=== PATIENT | female | born 1985 | race African-American/Black ===

== ENCOUNTER 2024-07-12 13:10 | Outpatient (CLI) | payer OTHER, SELFPAY ==
--- NOTE | ~2024-07-12 | US_ITS ---
EXAMINATION: US pelvic complete w TV DATE: 07/12/2024 13:41 INDICATION: Excessive and frequent menstruation. TECHNIQUE: Multiple transabdominal and transvaginal sonographic images of the pelvis were obtained. COMPARISON: None. FINDINGS: TRANSABDOMINAL ULTRASOUND: The uterus measures 9.2 x 4.0 x 4.6 cm. There is no free fluid in the pelvis. TRANSVAGINAL ULTRASOUND: The endometrial complex measures 6 mm in thickness. There is an intrauterine device in expected posit ion. There is a 12 mm intramural fibroid. The right ovary measures 3.2 x 1.6 x 2.2 cm. The left ovary measures 3.4 x 1.7 x 2.8 cm. IMPRESSION: 1. Small uterine fibroid. 2. Intrauterine device in expected position. Reviewed, dictated and finalized at location A.
== END 2024-07-12 13:11 ==
LOC: MICIMG 13:13
PROVIDERS: Visit Provider Obstetrics & Gynecology
DX: D25.1 Intramural leiomyoma of uterus (principal); Z97.5 Presence of (intrauterine) contraceptive device
CPT/HCPCS: 76830; 76856

== ENCOUNTER 2024-07-23 00:13 | Day surgery (SDC) | payer OTHER, SELFPAY ==
[2024-07-20 09:41] VITALS: BMI 34.5
--- NOTE | 2024-07-20 10:15 | PC.NURSE ---
Report to the Outpatient Waiting Room, entrance under the green pavilion located off [facility], at time _0615AM on date _07/23/24 . Planned Procedure Time: __0815AM . Time changes happen often and if your time is changed the preop area will call you the afternoon before. - You and your visitor will be asked to self-screen and do not enter if you have any COVID symptoms. - A mask is optional within the hospital at this time. Patients may have clear liquids (water, carbonated beverages, clear teas, apple juice) until 3 hours prior to surgery with a maximum of 20 ounces. - No food from midnight until time of surgery Take the following medications with a SIP of water the morning of surgery: ____ESCITALOPRAM_; MIGRAINE MEDS NEEDED DO NOT STOP ANY OF YOUR OTHER PRESCRIPTION MEDICATIONS PRIOR TO SURGERY ?EXCEPT THE FOLLOWING Medications to discontinue per physician MULTIVITAMINS AND SUPPLEMENTS 07/20/24; WEGOVY LAST DOSE__07/15/24 Date to take last dose Please no make-up, nail greek, hairspray, perfume, deodorant, or body powder the day of surgery. No jewelry (including any body piercings) or valuables the day of surgery, leave them at home. Please take a shower or bath the night before, or the morning of, surgery with an antibacterial soap. Wear comfortable, loose fitting clothing. - Jewelry must be removed prior to entering the operating room. Rings and piercings that are not removed may be cut off. - The hospital will not accept responsibility for valuables. - Please leave all valuables, including medications, at home the day of surgery. If you are going home after surgery, a licensed motor bus driver must drive you home. - NO public transportation without another adult if you receive anesthesia. - We recommend that an adult stay with you for 24 hours following discharge. - We also recommend that you do not drive, make important decision, drink alcoholic beverages, or take any drugs that were not prescribed by your health care provider for at least 24 hours after your discharge time. Follow any additional instructions given to you from your surgeon If you or anyone in your household have experienced Covid symptoms in the past week, please notify your surgeon or the nurse liaison at the phone number below for possible testing. Telephone instructions given to __SHAQUILLE and asked if any additional questions and then verbalized understanding. Patient advised to call surgeon office or pre surgery nurse liaison [phone] if any additional questions.
[2024-07-23] VITALS (7 sets, daily range): BP systolic 82–127; BP diastolic 56–87; PULSE 77–87; RESP 16–21; TEMP 36.6–37.3; O2SAT 98–100; BMI 34.4
[2024-07-23] MEDS: LACTATED RINGERS 1,000 ML 30 ML IV CONT ×2 (07:30→10:11)
[2024-07-23] MEDS: KETOROLAC 15 MG/ML VIAL (*BKC) IV PUSH (07:45)
[2024-07-23] MEDS: ACETAMINOPHEN 500 MG TABLET 1000 MG PO (07:45)
--- NOTE | 2024-07-23 07:52 | WPDANESEPPF ---
Anes - Initial Pre Proc Eval Procedure: Operation Date: 07/23/24 08:15 Proposed Procedures p Laparoscopic Bilateral Salpingectomy, Jenifer Endometrial Ablation - Josh Peralta MD Date/Time: 07/23/24 07:52 Surgeon: Josh Peralta MD Pre Op Diagnosis: sterilization, Menorrhagia Patient Data Age: 39 Gender: F Height: 1.73 m Weight: 103 kg Allergies Allergy/AdvReac Type Severity Reaction Status Date / Time apple Allergy Unknown Unknown Verified 07/20/24 10:14 APPLES Allergy Intermediate ITCHING,SWELLING Uncoded 07/20/24 10:14 OF TONGUE Home Medications Medication Instructions Recorded Confirmed Type multivitamin (Daily Multi-Vitamin 1 tablet PO DAILY 03/09/20 07/20/24 History tablet) escitalopram oxalate 20 mg tablet 20 mg PO DAILY 11/06/20 07/20/24 History (Lexapro) levonorgestrel 17.5 mcg/24 hr (up 1 device intrauterine ONCE 11/07/22 07/20/24 History to 5 yrs) 19.5mg intrauterine device (Kyleena) tirzepatide 5 mg/0.5 mL 10 mg subcut WEEKLY 05/13/23 07/20/24 History subcutaneous pen injector (Mounjaro) hydroxyzine HCl 10 mg tablet 10 mg PO BID PRN Anxiety 12/02/23 07/20/24 History magnesium 250 mg tablet 250 mg PO DAILY 07/08/24 07/20/24 History rimegepant 75 mg disintegrating 75 mg PO ONCE PRN Migraine Headache 07/08/24 07/20/24 History tablet (Nurtec ODT) doxycycline hyclate 100 mg tablet 100 mg PO BID #14 tabs 07/19/24 07/20/24 Rx riboflavin (vitamin B2) 400 mg 400 mg PO DAILY 07/20/24 07/20/24 History tablet topiramate 100 mg tablet 100 mg PO BID 07/20/24 07/20/24 History Patient hx anesthesia problems: none Family hx anesthesia problems: none Results Review: All pre-operative results and documents have been reviewed as part of the pre-operative evaluation. [facility] Past Medical History Medical History Chlamydia Depression Diabetes Intervertebral disc degeneration Vaginal delivery Surgical History Surgical History History of carpal tunnel surgery of left wrist History of cholecystectomy History of gastric surgery And revision in 2020 S/P bilateral breast reduction Family History Family History Mother Hypertension Grandparent Hypertension Carcinoma of colon Diabetes mellitus Social History Social History Smoking status: Never smoker Second hand tobacco smoke exposure: No Alcohol intake: current Substance use: never Substance use type: does not use Lack of Transportation: No Lack of Food: Never True Current Housing: I Have Housing Concerned About Future Housing: No Difficulty Paying Gas/Electric Bills: No Difficulty Paying for Meds: No Currently Unemployed: No Education: Bachelor's Degree Difficulty w/ Childcare or Family Care: No Living arrangements: with family Spiritual care concerns: No Anes - Eval Final PreProcedure Day of Procedure 07/23/24 07:52 Patient weight: obese Heart: regular rate and rhythm Lungs: clear to auscultation Airway: Mallampati scale class III Neurological: alert and oriented Last oral intake: >/= 8 hours ASA classification: II Emergent: no Anesthetic plan: proceed Anesthesia type and monitoring: general ETT and standard monitoring Results Review: All pre-operative results and documents have been reviewed as part of the pre-operative evaluation. Informed Consent: The patient's anesthetic plan and its attendant risks and benefits were discussed with the patient/family/POA. Questions were solicited and answers provided to the satisfaction of the patient/family/POA.
--- NOTE | 2024-07-23 07:59 | WPDHPUPDATE1 ---
History and Physical Update Update Date/Time: 07/23/24 07:59 History and Physical has been reviewed, including an updated exam of the patient. There are NO changes in the patient's condition. Risks, benefits, and alternatives have been discussed and questions answered. Patient agrees to proceed with procedure.
[2024-07-23] MEDS: BUPivacaine HCL 0.5% 10 ML AMP 20 ML INFILTRATE (08:27)
[2024-07-23] MEDS: ceFAZolin SODIUM 1 GM VIAL 2 GM IV PUSH (08:48)
--- NOTE | 2024-07-23 09:42 | W.PM.PROC2 ---
Procedure Note - Detailed Date of Procedure 07/23/24 Pre-op Diagnosis sterilization, Menorrhagia Post-op Diagnosis Same Procedure Performed 1. IUD removal 2. Laparoscopic bilateral salpingectomy 3. Jenifer endometrial ablation Surgeon Josh Peralta MD Anesthesia General Indications Patient with satisfied parity and request permanent sterilization. Removal of IUD. Also history of menorrhagia which not satisfactorily resolved with IUD. Findings IUD normal. UterineCavity normal. Uterine sound to 9 cm cervical length 4 cm. Pelvis was normal. Fallopian tubes normal. There was a small parafallopian tube cyst on the left fallopian tube. Ovaries normal. Uterus normal appearing. Description of Procedure After informed consent was obtained patient was taken to the operating room and general endotracheal anesthesia was administered. She was placed in low lithotomy need prep prepped sterile fashion. Attention was turned to the vagina speculum inserted single-tooth tenaculum placed on anterior lip of the cervix. The IUD string was grabbed and the IUD was removed. The uterus was sound to 9 cm. [place] uterine manipulator placed into the cervical canal. The speculum was removed. Attention was then turned to the abdomen. 0.5% Marcaine was injected at the umbilicus. A vertical incision was made at the umbilicus and a Veress needle was inserted into the abdomen confirmation into the abdomen obtained with free flow of fluid and normal peritoneal pressures. A pneumoperitoneum of 15 mm per mercury was obtained. The 5 mm port was inserted under laparoscopic visualization. Attention was then turned to the patient's left side and Marcaine was injected an incision was made and a 5 mm port was inserted under laparoscopic visualization. Patient was placed in Trendelenburg position. The pelvic organs were visualized. Using the LigaSure the right fallopian tube was excised to near the entrance to the uterus. This was removed through the port. Attention was then turned to the left fallopian tube which was grabbed at the distal end and ligated from the broad ligament to within a cm of the entrance to the entrance to the uterus. The fallopian tubes was removed through the 5 mm port. Hemostasis was noted at both sites. Patient was taken out of Trendelenburg position the pneumoperitoneum was released and the skin incisions were closed in a subcuticular fashion with 4 O Vicryl. Attention was turned to the vagina. Speculum was inserted. the acorn manipulator was removed. The uterus was sounded to 9 cm. The cervix was dilated to an 8 [place] dilator. The cervical length was 4 cm . therefore the uterinecavity length was 5 cm. The hysteroscope was inserted into the cavity. The findings were a normal uterine cavity. The hysteroscope was removed. The Jenifer ablation instrument was inserted into the cavity. Cavity assessment was performed and confirmed intact. The ablation was enabled. After 120 seconds the Jenifer stopped. The ablation instrument was removed. The hysteroscope was inserted and there was noted to be good eschar with the cavity. The hysteroscope was removed the single-tooth tenaculum was removed hemostasis was noted at the tenaculum site. Sponge count correct. The patient taken to recovery in stable condition. Estimated Blood Loss 5 Drains No Packing No Pathology Yes ( Right and left fallopian tube) Complications No immediate complications Condition Stable Disposition PACU [facility] Billing Surgery - Charge Forward: Surgery Billing
[2024-07-23] MEDS: fentaNYL CITRATE INJ (*CRX) 100 MCG/2 ML VIAL 25 MCG IV PUSH ×3 (09:48→10:41)
[2024-07-23 10:09] LABS: BEDSIDEPREGUCG Negative
--- NOTE | 2024-07-23 10:13 | SUR.PHASEI ---
1010: Simple mask removed.
[2024-07-23] MEDS: oxyCODONE HCL (*CRX) 5 MG TAB IR PO (10:56)
== END 2024-07-23 11:15 | disposition home or self-care (01) ==
PROVIDERS: Visit Provider Obstetrics & Gynecology
PROC: 0UDB8ZZ Extraction of Endometrium, Via Natural or Artificial Opening Endoscopic (ICD-10-PCS; CPT 58558; principal; 2024-07-23 08:15)
DX: N92.0 Excessive and frequent menstruation with regular cycle (principal); N83.8 Other noninflammatory disorders of ovary, fallopian tube and broad ligament; Z30.432 Encounter for removal of intrauterine contraceptive device; Z30.2 Encounter for sterilization; E11.9 Type 2 diabetes mellitus without complications
CPT/HCPCS: 58661; 58563; 58301; 88302; A9270; J0690; J1100; J1885; J2250; J2371; J2405; J2704; J3010; J7030; J7120

== ENCOUNTER 2025-09-15 12:00 | Outpatient (CLI) | payer OTHER, SELFPAY ==
[2025-09-15 12:39] LABS: INR 1.0; Prothrombin Time 13.2 Seconds (11.1-14.7)
[2025-09-15 12:40] LABS: Partial Thromboplastin Time 24.9 Seconds (22.3-36.8)
[2025-09-15 12:50] LABS: Anion Gap 10 mmol/L (4-12); Blood Urea Nitrogen 15 mg/dL (7-17); Calcium 9.3 mg/dL (8.4-10.2); Carbon Dioxide 26 mmol/L (22-30); Chloride 104 mmol/L (98-107); Estimated Glomerular Filt Rate 51; Glucose 91 mg/dL (65-110); Potassium 4.1 mmol/L (3.4-5.0); Sodium 140 mmol/L (137-145)
--- OUTSIDE RECORDS SUMMARY | 2025-09-15 13:54 | XMS_ITS | Encounter Summary ---
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 General Name Role Phone Sylvia Perez MD Primary Care Provider Josh Cervantes MD Unavailable Sylvia Perez MD Unavailable [phone] Bib Daniels MD Unavailable Stephanie Chavira MD Unavailable [phone] Kaylee Pham MD Unavailable Sylvia Perez MD Unavailable [phone] Sylvia Perez MD Unavailable [phone] Demetria Alaniz MD Primary Care Provider [phone] Encounter Details Date Type Department Care Team (Late st Contact Info) Description 10/08/2019 [facility] Outpatient Visit [facility] [address] [place] [address] Mikel Jeff MD [address] [place] [address] Social History Tobacco Use Types Packs/Day Years Used Date Smoking Tobacco: Never Smokeless Tobacco: Never Alcohol Use Standard Drinks/Week Comments Yes 0 (1 standard drink = 0.6 oz pur e alcohol) occasionally Comments No Sex and Gender Information Value Date Recorded Sex Assigned at Female 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 03/08/2010 06/24/2022 8:09 AM CDT COVID-19 Under Investigation 07/10/2020 07/10/2020 07/11/2020 3:22 PM CDT COVID-19 Under Investigation 05/10/2021 05/10/2021 05/10/2021 3:50 PM CDT MRSA Hx 06/24/2022 06/24/2022 documented as of this encounter Care Teams Distillery Worker General Relationship Specialty Start Date End Date Sylvia Perez MD PCP - General 03/06/10 05/08/23 [place] [address] [place] [address] [id number] PCP - Attributed-[facility] Commercial 03/31/19 05/29/21 [place] [address] [address] [place] [id number] PCP - Attributed-[facility] Commercial 08/31/21 10/18/22 [place] [address] [address] [place] [id number] PCP - Attributed-[facility] Commercial 10/31/22 06/17/23 Demetria Alaniz MD [facility] [address] [place] [address] PCP - General Family Medicine 05/09/23 Josh Cervantes MD [address] [facility] [address] [facility] [address] [place] [address] Obstetrics and Gynecology 10/25/14 Bib Daniels MD [address] [facility] [address] [place] [address] Neurologist Neurological Surgery 07/14/20 Stephanie Chavira MD [address] [place] [address] [address] [place], [place] [id number] Internal Medicine 02/06/21 Kaylee Pham MD [address] [place] [id number] Surgery 02/06/21 documented as of this encounter
--- OUTSIDE RECORDS SUMMARY | 2025-09-15 13:54 | XMS_ITS | Encounter Summary ---
Author Organization [facility] Address [address] [place] [address] Phone Care Team Providers Care Cosmetic Chemist Name Role Phone Kaylee Pham MD Unavailable [phone] Brandon Diehl NP Unavailable [phone] Ruiz Castro MD Unavailable Demetria Alaniz MD Primary Care Provider [phone] No, Physician Primary Care Provider [phone] Jackie Ralph DO Primary Care Provid er Judd Davila MD Primary Care Provid er Nina Alexander OD Unavailable [phone] Encounter Details Date Type Department Care Team (Late st Contact Info) Description 09/16/2021 Documentation Grant for Advanced Medicine ([facility]) - [facility] Medicine Minimally Invasive Surgery [facility] Advanced Medicine [address]th Floor, [place] [address] Jonatan Darden Social History Tobacco Use Types Packs/Day Years Used Date Smoking Tobacco: Never Smokeless Tobacco: Never AUDIT-C Answer Date Recorded Q1: How often do you have a drink containing alc ohol? 2-4 times a month 09/14/2021 Q2: How many drinks containi ng alcohol do you have on a typical day when you are drinking? 1 or 2 09/14/2021 Q3: How often do you have si x or more drinks on one occasion? 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 Gender Identity Female 08/07/2021 9:39 AM CDT Sexual Orientation Straight 08/07/2021 9: 39 AM CDT documented as of this encounter Plan of Treatment Not on file documented as of this encounter Visit Diagnoses Not on filedocumented in this encounter Care Teams Cosmetic Chemist Relationship Specialty Start Date End Date Demetria Alaniz MD [facility] [facility] [address] [place] [address] PCP - General Family Medicine 03/26/23 01/27/25 No, Physician PCP - General 01/28/25 05/01/25 Jackie Ralph DO [address] [facility] [address] [place] [address] PCP - General Family Medicine 05/02/25 05/30/25 Judd Davila MD [address] [facility] [address] [place] [address] PCP - General Family Medicine 05/31/25 Kaylee Pham MD Consulting Physician General Surgery 10/30/21 Brandon Diehl, JAS Nurse Practitioner General Surgery 10/30/21 Ruiz Castro MD [address] [facility] [id number] [place] [address] Surgeon Colon and Rectal Surgery 11/22/21 Nina Alexander, CANDELARIO [address] [facility] [address] [place] [address] Optometry 05/31/25 documented as of this encounter
--- OUTSIDE RECORDS SUMMARY | 2025-09-15 13:54 | XMS_ITS ---
Author Organization [facility] Address [address] [place] [address] Care Team Providers Care [employer] Operator Chief Name Role Phone Kaylee Pham MD Unavailable Brandon Diehl NP Unavailable [phone] Ruiz Castro MD Unavailable [phone] Judd Davila MD Primary Care Provid er [place] Pickering OD Unavailable [phone] Active Problems Problem Noted Date Diagnosed Date Stage 3a chronic kidney disease 05/31/2025 Assessment & Plan (05/31/2025 1:39 PM CDT): Under the care of Dr. Mas, nephrology History of gastric bypass 05/31/2025 History of pyelonephritis 05/31/2025 BMI 28.0-28.9,adult 05/31/2025 Stress incontinence (female) (male) 05/31/2025 Frequent UTI 05/31/2025 Bladder prolapse, female, acquired 05/31/2025 Assessment & Plan (05/31/2025 1:38 PM CDT): Under the care of gynecology Uterine prolapse 05/31/2025 Assessment & Plan (05/31/2025 1:39 PM CDT): Under the care of gynecology History of carpal tunnel surgery 05/31/2025 Family history of renal cell carcinoma Family history of dementia 05/31/2025 Flu-like symptoms 01/28/2025 Assessment & Plan (01/28/2025 2:39 PM ASSISTANT SALES CENTER MANAGER): Recent onset of cough, chest discomfort, nasal congestion, and sore throat. Home COVID and flu tests negative. Redness in throat and ears noted on exam. Wheezing noted on right side. -Continue symptomatic treatment with [id number] medications. -Repeat home COVID test in a day or so prn to rule out covid -Use Albuterol inhaler as needed. -Consider saline spray for dry nose. Fatigue 08/31/2024 Assessment & Plan (08/31/2024 2:55 PM CDT): - differential includes but is not limited to: Poor physical fitness, poor sleep hygiene, lifestyle, anemia, thyroid disorder, sleep apnea, depression - Medications reviewed - Labs ordered to assist with diagnosis Insomnia secondary to anxiety 11/12/2023 Assessment & Plan (11/13/2023 7:34 AM ASSISTANT SALES CENTER MANAGER): - Start hydroxyzine Type 2 diabetes mellitus with chronic kidney dis ease 03/31/2023 Assessment & Plan (05/31/2025 1:39 PM CDT): Stable, continue prescribed Mounjaro 12.5 mg subQ weekly Assessment & Plan (01/28/2025 2:42 PM ASSISTANT SALES CENTER MANAGER): - Continue to optimize blood sugar - repeat labs today Assessment & Plan (08/31/2024 1:41 PM CDT): - Continue to optimize blood sugar - GFR decrease with last labs with weight management, plan to repeat labs - Include urine microalbumin at repeat Assessment & Plan (11/13/2023 7:33 AM ASSISTANT SALES CENTER MANAGER): - Continue to optimize blood sugar JERMAN (generalized anxiety disorder) 03/31/2023 Assessment & Plan (01/28/2025 2:40 PM ASSISTANT SALES CENTER MANAGER): - Chronic, stable - Continue Lexapro, wellbutrin, hydroxyzine - Will follow up with therapist Assessment & Plan (08/31/2024 2:56 PM CDT): - Chronic, stable - Continue Lexapro and hydroxyzine - Will follow up with therapist Assessment & Plan (11/13/2023 7:34 AM ASSISTANT SALES CENTER MANAGER): - Chronic, not well controlled - Sleep is the primary symptom that is worsening; therefore will add hydroxyzine at bedtime and continue current dose of lexapro Assessment & Plan (03/31/2023 12:13 PM CDT): -chronic, stable -medications refill Encounter for health maintenance examination 12/2022 Assessment & Plan (03/31/2023 12:14 PM CDT): Risk Assessments/Screenings: Blood pressure: Normal Diabetes: Last completed 02/28/2023 and results showed hgbA1c 5.7 Lipids: Last completed 02/28/23 Need for statin: no HIV: Declined Hep C: Will do with next labs Chlamydia and Gonorrhea: Declined Osteoporosis: Not due at this time Depression: Depression: Not at risk (03/31/2023) PHQ-2 PHQ-2 Score: 2 Cancer Screenings: Breast: Not due at this time Cervical: Completed / Up to date per patient, managed by OBGYN Colon: Not due at this time Skin: Encouraged sun protection, advised to let us know of any suspicious lesions Lung: Not due at this time Immunizations: - PCV 20 given today Rectal bleeding 11/22/2021 Lumbar radiculopathy 07/18/2021 Gastroesophageal reflux disease 07/03/2021 Overview (07/03/2021): Added automatically from request for surgery [id number] Assessment & Plan (01/28/2025 1:59 PM ASSISTANT SALES CENTER MANAGER): Chronic, stable Continue current medication Postsurgical malabsorption 12/24/2020 Assessment & Plan (12/24/2020 9:57 PM ASSISTANT SALES CENTER MANAGER): Labs. Iron deficiency 12/24/2020 Bariatric surgery status 12/24/2020 Assessment & Plan (03/03/2023 8:19 AM CDT): Bariatric surgery labs ordered for possible vitamin deficiencies in setting of intestinal malabsorption. Assessment & Plan (12/24/2020 9:56 PM ASSISTANT SALES CENTER MANAGER): Routine labs to evaluate for vitamin deficiencies in setting of intestinal malabsorption. BaS to assess anatomy. Weight loss counseling, encounter for 12/24/2020 Assessment & Plan (05/30/2023 9:54 AM CDT): Reviewed calorie restriction based on BMR as previously detailed. Reviewed recommendation/goal of >/= 150 minutes/week moderate-intensity aerobic exercise. Discussed okay to not track food/calories but that if they start to struggle or are not losing weight this is a useful tool to help refocus. Reviewed importance of adequate protein intake of 1-1.2 g/kg IBW/day. Assessment & Plan (03/03/2023 8:22 AM CDT): Reviewed calorie restriction based on BMR as previously detailed. Reviewed recommendation/goal of >/= 150 minutes/week moderate-intensity aerobic exercise. Asked to try to track consistently with [employer] daniel for at least 1 week to help identify calorie/carb/protein intake. Assessment & Plan (01/13/2022 12:52 PM ASSISTANT SALES CENTER MANAGER): Reviewed calorie restriction based on BMR as previously detailed. Reviewed recommendation/goal of >/= 150 minutes/week moderate-intensity aerobic exercise. Asked to keep detailed food diary for at least 1 week and bring to next visit and/or continue tracking on phone. Assessment & Plan (07/29/2021 10:23 PM CDT): Reviewed calorie restriction based on BMR as previously detailed. Reviewed recommendation/goal of >/= 150 minutes/week moderate-intensity aerobic exercise. Asked to keep detailed food diary for at least 1 week and bring to next visit and/or continue tracking on phone. Assessment & Plan (04/12/2021 10:48 AM CDT): Reviewed calorie restriction based on BMR as previously detailed. Reviewed recommendation/goal of >/= 150 minutes/week moderate-intensity aerobic exercise. Asked to keep detailed food diary for at least 1 week and bring to next visit and/or continue tracking on phone. Assessment & Plan (03/31/2021 4:23 PM CDT): Reviewed calorie restriction based on BMR as previously detailed. Reviewed recommendation/goal of >/= 150 minutes/week moderate-intensity aerobic exercise. Asked to keep detailed food diary for at least 1 week and bring to next visit and/or continue tracking on phone. Assessment & Plan (03/31/2021 4:16 PM CDT): Reviewed calorie restriction based on BMR as previously detailed. Reviewed recommendation/goal of >/= 150 minutes/week moderate-intensity aerobic exercise. Asked to keep detailed food diary for at least 1 week and bring to next visit and/or continue tracking on phone. Assessment & Plan (01/19/2021 2:01 PM ASSISTANT SALES CENTER MANAGER): Reviewed calorie restriction based on BMR as previously detailed. Reviewed recommendation/goal of >/= 150 minutes/week moderate-intensity aerobic exercise. Assessment & Plan (12/24/2020 9:52 PM ASSISTANT SALES CENTER MANAGER): Discussed that significant health benefits/risk reduction may be seen with even 5% weight loss. Discussed that weight loss will require calorie deficit. Calculated basal metabolic rate and estimated total energy expenditure; discussed 500-1000 kcal/day deficit to lose 1-2 lb per week. Asked to keep detailed food diary for at least 1 week and bring to next visit. Discussed relatively small, although significant, role of exercise in weight loss; greater importance in weight maintenance as shown in [employer] study and National Weight Control Registry. Discussed recommendation/goal for 150 minutes per week moderate-intensity aerobic exercise. JIMENA (obstructive sleep apnea) 12/24/2020 Assessment & Plan (08/31/2024 1:39 PM CDT): - Chronic, previously diagnosed, not currently undergoing treatment - May be contributing to fatigue - referral placed for sleep medicine follow up - May benefit from repeat sleep study as previous was done prior to bariatric surgery Assessment & Plan (03/03/2023 8:23 AM CDT): Referred to sleep medicine for continued snoring, fatigue, waking frequently. Assessment & Plan (12/24/2020 9:59 PM ASSISTANT SALES CENTER MANAGER): Discussed comorbidities associated with sleep apnea, including effects on weight, and stressed importance of adequate treatment if present. Recommend sleep study. Human papillomavirus in cond itions classified elsewhere and of unspecified site 02/29/2020 Irregular menstrual cycle 02/29/2020 Other specified noninflammatory disorder of vagi na 02/29/2020 Atopic dermatitis 07/07/2019 Vitamin D deficiency 07/07/2019 Assessment & Plan (03/03/2023 8:19 AM CDT): Labs. Class 3 severe obesity with serious comorbidity in adult 05/03/2016 Assessment & Plan (08/31/2024 1:39 PM CDT): - Chronic, improving, not at goal - Continue Mounjaro 10 mg - continue follow up with Dr. Chavira Assessment & Plan (11/13/2023 7:32 AM ASSISTANT SALES CENTER MANAGER): - Chronic, improving, not at goal - Increase Mounjaro to 7.5 mg - continue follow up with Dr. Chavira Assessment & Plan (05/30/2023 10:01 AM CDT): Obesity is improving..Commended on weight loss to date and discussed anticipated health benefits/risk reduction with this degree of loss. Plan: Diet interventions: as noted.., Regular aerobic exercise program discussed., and Medication as prescribed. Follow up in [] 1 month; [] 2 months; [x] 3 months; [] 6 months; [] Other: Assessment & Plan (03/31/2023 12:14 PM CDT): - on GLP 1 per weight management - now status post to bariatric surgeries - diet and exercise discussed Assessment & Plan (03/03/2023 8:21 AM CDT): Obesity is worsening. Diet interventions: as noted. Suggestions in AVS. Regular aerobic exercise program discussed. Plan- Consider restart of GLP pending labs. Continue diet/exercise interventions as discussed. Schedule follow up with Dr. Chavira in 1 month. Assessment & Plan (01/13/2022 12:58 PM ASSISTANT SALES CENTER MANAGER): Obesity is improving with treatment. Diet interventions: as noted. Regular aerobic exercise program discussed. Pharmacotherapy as ordered. Assessment & Plan (07/29/2021 10:21 PM CDT): Obesity is improved. Diet interventions: as noted. Regular aerobic exercise program discussed. Pharmacotherapy as ordered. Assessment & Plan (05/08/2021 11:26 AM CDT): Obesity is unchanged. Diet interventions: as noted. Regular aerobic exercise program discussed. Pharmacotherapy as ordered. Assessment & Plan (04/12/2021 10:52 AM CDT): Obesity is improving with treatment. Diet interventions: as noted . Regular aerobic exercise program discussed. Pharmacotherapy as ordered. Continue topiramate, phentermine. Assessment & Plan (03/31/2021 4:23 PM CDT): Obesity is overall unchanged. Diet interventions: as noted. Regular aerobic exercise program discussed. Pharmacotherapy as ordered. She has done well with phentermine in the past and will retry this. Discussed risks, benefits, alternatives, potential side effects. BP normal in ER; reviewed EKG from ER -- normal. 1-month follow up in office. Continue topiramate. Assessment & Plan (03/31/2021 4:14 PM CDT): Obesity is overall stable. Diet interventions: as noted. Regular aerobic exercise program discussed. Pharmacotherapy as ordered. Continue topiramate. Assessment & Plan (01/19/2021 2:01 PM ASSISTANT SALES CENTER MANAGER): Obesity is unchanged. Diet interventions: as noted. Regular aerobic exercise program discussed. Pharmacotherapy as ordered. Will try increasing PM topiramate to help with night eating. Discussed risks, benefits, alternatives, potential side effects. Assessment & Plan (12/24/2020 9:58 PM ASSISTANT SALES CENTER MANAGER): Obesity is worsening. General weight loss/lifestyle modification strategies discussed (elicit support from others; identify saboteurs; non-food rewards, etc). Diet interventions: as noted. Informal exercise measures discussed, e.g. taking stairs instead of elevator. Regular aerobic exercise program discussed. More detailed recommendations pending review of labs, food record. Migraine headache 01/22/2014 Assessment & Plan (01/28/2025 2:40 PM ASSISTANT SALES CENTER MANAGER): - Chronic, stable - Followed by Neurology Chronic migraines improved since removal of IUD. Currently taking Nurtec and Topiramate. -Continue current treatment. -Notify neurologist of self-initiated decrease in Topiramate dose. Assessment & Plan (11/13/2023 7:32 AM ASSISTANT SALES CENTER MANAGER): - Chronic, stable - Followed by Neurology - Continue current management Assessment & Plan (03/31/2023 12:20 PM CDT): - continue management per Neurology Allergic rhinitis 04/07/2013 Overview (07/18/2021): 04/06/13: SPT positive to T/G/RW/M/D/C/HDM/CR Asthma 04/07/2013 Assessment & Plan (01/28/2025 2:39 PM ASSISTANT SALES CENTER MANAGER): Chronic, stable Continue albuterol prn Anemia 03/16/2013 Type 2 diabetes mellitus wit hout complication, without long-term current use of insulin 03/16/2013 Overview (05/08/2021): In remission since bariatric surgery. Didn't tolerate metformin. Assessment & Plan (01/28/2025 2:43 PM ASSISTANT SALES CENTER MANAGER): Chronic, well controlled - Continue Mounjaro Discussed importance of routine screening including foot exam and eye exam as indicated Assessment & Plan (08/31/2024 1:39 PM CDT): Chronic, well controlled - Continue Mounjaro Assessment & Plan (11/13/2023 7:32 AM ASSISTANT SALES CENTER MANAGER): - Chronic, stable - Tolerating current dose of Mounjaro; however starting to have some weight gain - Attempted to increase to Mounjaro 7.5 in May; however, stock was low at the time - Will increase today Assessment & Plan (05/30/2023 10:00 AM CDT): Labs. Reviewed most recent labs available. Continue low-carb (<150 g/day), low-glycemic diet. Continue tirzepatide -- consider increasing to 7.5 mg pending labs. Assessment & Plan (03/03/2023 8:18 AM CDT): Reviewed interim labs. Recheck labs. Continue low-carb (<150 g/day), low-glycemic diet. Consider tirzepatide pending labs. Reviewed risks/benefits/side effects of GLP-1 RA. Assessment & Plan (01/13/2022 12:58 PM ASSISTANT SALES CENTER MANAGER): Reviewed interim labs. Continue low-carb (<150 g/day), low-glycemic diet. Continue semaglutide. Assessment & Plan (07/29/2021 10:20 PM CDT): Reviewed interim labs. Continue low-carb (<150 g/day), low-glycemic diet. Discussed options and will add GLP-1 analog. Discussed risks, benefits, alternatives, potential side effects. No personal or family history of MTC or MEN2. Reviewed dosing/titration; reviewed proper administration using demo pen; reviewed appropriate storage. Referred to websites for additional instructions/info/video. Start semaglutide. Assessment & Plan (05/08/2021 11:26 AM CDT): Labs. Continue low-carb (<150 g/day), low-glycemic diet. Discussed options and will add GLP-1 analog. Discussed risks, benefits, alternatives, potential side effects. No personal or family history of MTC or MEN2. Referred to websites for additional instructions/info/video. Start Ozempic pending labs. Current Treatment and Therapy Plans No current plan information found. Past Treatment and Therapy Plans No past plan information found. Lifetime Dose Tracking * Chemical Lifetime Dose Automatic Entry Manual Entr y Fluoro Time 0.95 minutes 0.95 minutes 0 minutes Resolved Problems Problem Noted Date Diagnosed Date Resolved Date CKD stage 2 due to type 2 diabetes mellitus 03/31/2023 08/31/2024 Assessment & Plan (09/22/2024 11:52 AM CDT): Labs as ordered. Assessment & Plan (11/13/2023 7:33 AM ASSISTANT SALES CENTER MANAGER): - Chronic, stable - continue current regimen - Repeat GFR today Assessment & Plan (03/31/2023 12:20 PM CDT): - CKD likely 2/2 diabetes - Patient reporting family history of RCC that she was told was genetic - Renal US to assess kidneys Encounter for medication monitoring 04/12/2021 09/14/2021 Assessment & Plan (05/08/2021 11:27 AM CDT): BP, HR in good range on phentermine. Assessment & Plan (04/12/2021 10:54 AM CDT): Tolerating phentermine; BP, HR in good range. History of diabetes mellitus 12/24/2020 09/14/2021 Overview (01/19/2021): Didn't tolerate metformin. Assessment & Plan (04/12/2021 10:53 AM CDT): Continue low-carb (<150 g/day), low-glycemic diet. Assessment & Plan (03/31/2021 4:22 PM CDT): Reviewed recent labs. Continue low-carb (<150 g/day), low-glycemic diet. GLP-1 RA remains an option. Assessment & Plan (03/31/2021 4:16 PM CDT): Reviewed labs. Continue low-carb (<150 g/day), low-glycemic diet. Last A1c 5.6. Assessment & Plan (01/19/2021 2:01 PM ASSISTANT SALES CENTER MANAGER): Reviewed labs with her. Continue low-carb (<150 g/day), low-glycemic diet. Consider GLP-1 RA Assessment & Plan (12/24/2020 9:52 PM ASSISTANT SALES CENTER MANAGER): Labs. Discussed insulin resistance including effect on weight and risk for progression to diabetes. Recommended low-carb, low-glycemic diet; choose whole grains and avoid more highly processed carbohydrates. Discussed potential benefits of this w/r/t gut microbiome. Referred to ADA and [employer] websites for additional information on topics including glycemic index/carbohydrate choices, protein sources. 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
--- OUTSIDE RECORDS SUMMARY | 2025-09-15 13:54 | XMS_ITS | Clinical Summary ---
Author Organization [facility] Address [address] [place] [address] Care Team Providers Care Public Safety Teacher Name Role Phone Kaylee Pham MD Unavailable [phone] Brandon Diehl NP Unavailable Ruiz Castro MD Unavailable [phone] Judd Davila MD Primary Care Provid er TerrebonneNina Pickering OD Unavailable [phone] Allergies Active Allergy Reactions Criticality Noted Date Comments Apple Hives Medium 01/22/2014 Codeine Nausea only,Nausea A nd Vomiting Low 11/20/2021 Latex Rash Medium 03/16/2014 sometimes Metformin Diarrhea Medium 01/19/2021 Sulfa (Sulfonamide Antibiotics) Swelling Medium 04/03/2016 Medications valACYclovir (VALTREX) 1 gram tablet 2 Active Nurtec ODT tablet,disintegra ting Take 1 tablet (75 mg total) by mouth as needed 4 Active buPROPion XL (WELLBUTRIN XL) 150 mg 24 hr tablet Take 1 tablet (150 mg total) by mouth every morning 5 Active albuterol HFA (PROVENTIL HFA,VENTOLIN HFA,PROAIR HFA) 90 mcg/actuation inhalerIndication s:Mild intermittent asthma without complication Inhale 2 puffs every 6 (six) hours as needed for wheezing 3 each 4 5 01/24/20 26 Active topiramate (TOPAMAX) 50 mg tablet Take 1 tablet (50 mg total) by mouth nightly Active ondansetron (ZOFRAN) 4 mg tabletIndications :Nausea and Vomiting Take 1 tablet (4 mg total) by mouth every 6 (six) hours 12 tablet 5 Active tirzepatide (MOUNJARO) 15 mg/0.5 mL pen injector injectionIndicati ons:Type 2 diabetes mellitus with stage 3a chronic kidney disease, without long-term current use of insulin (HCC) Inject 0.5 mL (15 mg total) under the skin every 7 days 2 mL 2 5 Active Active Problems Problem Noted Date Diagnosed Date [...] 01/28/2025 Assessment & Plan (01/28/2025 2:39 PM METEOROLOGY INSTRUCTOR): Recent onset of cough, chest discomfort, nasal congestion, and sore throat. Home COVID and flu tests negative. Redness in throat and ears noted on exam. Wheezing noted on right side. -Continue symptomatic treatment with bpge-bel-mghyrey medications. -Repeat home COVID test in a [...] 11/12/2023 Assessment & Plan (11/13/2023 7:34 AM METEOROLOGY INSTRUCTOR): - Start hydroxyzine Type 2 diabetes mellitus with chronic kidney dis ease 03/31/2023 Assessment & Plan (05/31/2025 1:39 PM CDT): Stable, continue prescribed Mounjaro 12.5 mg subQ weekly Assessment & Plan (01/28/2025 2:42 PM METEOROLOGY INSTRUCTOR): - Continue to optimize blood sugar - repeat labs today Assessment & Plan (08/31/2024 1:41 PM CDT): - Continue to optimize blood sugar - GFR decrease with last labs with weight management, plan to repeat labs - Include urine microalbumin at repeat Assessment & Plan (11/13/2023 7:33 AM METEOROLOGY INSTRUCTOR): - Continue to optimize blood sugar JERMAN (generalized anxiety disorder) 03/31/2023 Assessment & Plan (01/28/2025 2:40 PM METEOROLOGY INSTRUCTOR): - Chronic, stable - Continue Lexapro, wellbutrin, hydroxyzine - Will follow up with therapist Assessment & Plan (08/31/2024 2:56 PM CDT): - Chronic, stable - Continue Lexapro and hydroxyzine - Will follow up with therapist Assessment & Plan (11/13/2023 7:34 AM METEOROLOGY INSTRUCTOR): - Chronic, not well controlled - Sleep [...] (07/03/2021): Added automatically from request for surgery [id number] Assessment & Plan (01/28/2025 1:59 PM METEOROLOGY INSTRUCTOR): Chronic, stable Continue current medication 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 Iron deficiency 12/24/2020 Bariatric surgery status 12/24/2020 Assessment & Plan (03/03/2023 8:19 AM CDT): Bariatric surgery labs ordered for possible vitamin deficiencies in setting of intestinal malabsorption. Assessment & Plan (12/24/2020 9:56 PM METEOROLOGY INSTRUCTOR): Routine labs to evaluate for vitamin deficiencies [...] Asked to try to track consistently with [employer] daniel for at least 1 week to help identify calorie/carb/protein intake. Assessment & Plan (01/13/2022 12:52 PM METEOROLOGY INSTRUCTOR): Reviewed calorie restriction based on BMR as [...] phone. Assessment & Plan (01/19/2021 2:01 PM METEOROLOGY INSTRUCTOR): Reviewed calorie restriction based on BMR as previously detailed. Reviewed recommendation/goal of >/= 150 minutes/week moderate-intensity aerobic exercise. Assessment & Plan (12/24/2020 9:52 PM METEOROLOGY INSTRUCTOR): Discussed that significant health benefits/risk reduction may [...] frequently. Assessment & Plan (12/24/2020 9:59 PM METEOROLOGY INSTRUCTOR): Discussed comorbidities associated with sleep apnea, including [...] Chavira Assessment & Plan (11/13/2023 7:32 AM METEOROLOGY INSTRUCTOR): - Chronic, improving, not at goal - [...] month. Assessment & Plan (01/13/2022 12:58 PM METEOROLOGY INSTRUCTOR): Obesity is improving with treatment. Diet interventions: [...] topiramate. Assessment & Plan (01/19/2021 2:01 PM METEOROLOGY INSTRUCTOR): Obesity is unchanged. Diet interventions: as noted. Regular aerobic exercise program discussed. Pharmacotherapy as ordered. Will try increasing PM topiramate to help with night eating. Discussed risks, benefits, alternatives, potential side effects. Assessment & Plan (12/24/2020 9:58 PM METEOROLOGY INSTRUCTOR): Obesity is worsening. General weight loss/lifestyle modification strategies discussed (elicit support from others; identify saboteurs; non-food rewards, etc). Diet interventions: as noted. Informal exercise measures discussed, e.g. taking stairs instead of elevator. Regular aerobic exercise program discussed. More detailed recommendations pending review of labs, food record. Migraine headache 01/22/2014 Assessment & Plan (01/28/2025 2:40 PM METEOROLOGY INSTRUCTOR): - Chronic, stable - Followed by Neurology Chronic migraines improved since removal of IUD. Currently taking Nurtec and Topiramate. -Continue current treatment. -Notify neurologist of self-initiated decrease in Topiramate dose. Assessment & Plan (11/13/2023 7:32 AM METEOROLOGY INSTRUCTOR): - Chronic, stable - Followed by Neurology - Continue current management Assessment & Plan (03/31/2023 12:20 PM CDT): - continue management per Neurology Allergic rhinitis 04/07/2013 Overview (07/18/2021): 04/06/13: SPT positive to T/G/RW/M/D/C/HDM/CR Asthma 04/07/2013 Assessment & Plan (01/28/2025 2:39 PM METEOROLOGY INSTRUCTOR): Chronic, stable Continue albuterol prn Anemia 03/16/2013 Type 2 diabetes mellitus wit hout complication, without long-term current use of insulin 03/16/2013 Overview (05/08/2021): In remission since bariatric surgery. Didn't tolerate metformin. Assessment & Plan (01/28/2025 2:43 PM METEOROLOGY INSTRUCTOR): Chronic, well controlled - Continue Mounjaro Discussed importance of routine screening including foot exam and eye exam as indicated Assessment & Plan (08/31/2024 1:39 PM CDT): Chronic, well controlled - Continue Mounjaro Assessment & Plan (11/13/2023 7:32 AM METEOROLOGY INSTRUCTOR): - Chronic, stable - Tolerating current dose [...] RA. Assessment & Plan (01/13/2022 12:58 PM METEOROLOGY INSTRUCTOR): Reviewed interim labs. Continue low-carb (<150 g/day), [...] for additional instructions/info/video. Start Ozempic pending labs. Resolved Problems Problem Noted Date Diagnosed Date Resolved Date CKD stage 2 due to type 2 diabetes mellitus 03/31/2023 08/31/2024 Assessment & Plan (09/22/2024 11:52 AM CDT): Labs as ordered. Assessment & Plan (11/13/2023 7:33 AM METEOROLOGY INSTRUCTOR): - Chronic, stable - continue current regimen [...] 5.6. Assessment & Plan (01/19/2021 2:01 PM METEOROLOGY INSTRUCTOR): Reviewed labs with her. Continue low-carb (<150 g/day), low-glycemic diet. Consider GLP-1 RA Assessment & Plan (12/24/2020 9:52 PM METEOROLOGY INSTRUCTOR): Labs. Discussed insulin resistance including effect on weight and risk for progression to diabetes. Recommended low-carb, low-glycemic diet; choose whole grains and avoid more highly processed carbohydrates. Discussed potential benefits of this w/r/t gut microbiome. Referred to ADA and ACell websites for additional information on topics including glycemic index/carbohydrate choices, protein sources. 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 08/31/20 24 Breast pain 09/29/2018 08/31/2024 Stress incontinence during 05/17/2016 08/31/2024 Maternal chronic hypertension 03/07/2016 11/12/2023 Malignant neoplasm of cervix 03/16/2013 03/31/2023 Encounters Date Type Department Care Team Description 08/12/2025 3:30 PM CDT Telemedicine [facility] Medicine Metabolic Weight Management [address] [place] [address] Medical Office [address], [address] [place] [address] Jocelyn Mcclellan NP Weight loss counseling, encounter for (Primary Dx); Type 2 diabetes mellitus with stage 3a chronic kidney disease, without long-term current use of insulin (HCC); History of gastric bypass; Class 3 severe obesity with serious comorbidity in adult, unspecified BMI, unspecified obesity type 07/24/2025 6:26 AM CDT - 07/24/2025 9:19 AM CDT Emergency [facility] Emergency Department [address] [place] [address] Calderon [facility] MD Other migraine without status migrainosus, not intractable (Primary Dx) Discharge Disposition: Discharge to home or self care 06/24/2025 4:24 PM CDT - 06/24/2025 6:55 PM CDT Emergency [facility] Emergency Department [address] [place] [id number] Pelvic pain (Primary Dx) Discharge Disposition: Discharge to home or self care from Last 3 Months Immunizations Immunization Administration Dates Next Due HPV, Quadrivalent 07/16/2012,03/23/2012,01/20/20 12 Influenza, Quadrivalent, Tameka l Culture-based MDCK, Preservative Free, Antibiotic Free, Intramuscular 10/18/2022 Influenza, Quadrivalent, Rec ombinant, Egg Free, Preservative Free, Intramuscular 09/19/2020,12/02/2017 Influenza, Quadrivalent, Spl it, Preservative Free, Intradermal 12/02/2017 Influenza, Quadrivalent, Spl it, Preservative Free, Intramuscular 11/12/2023,09/02/2019,08/18/2016,10/03 Influenza, Trivalent, Preser vative Free, Intramuscular 10/02/2024 Influenza, Unspecified 05/31/2025(Deferr ed: Not available from telephone lineman) Pfizer SARS-CoV-2 Monovalent Vaccination (12+ Yrs) PURPLE 02/22/2021,02/01/2021 Pneumococcal Conjugate Pcv20 03/31/2023 Sars-CoV-2, Unspecified 01/03/2025 Tdap 08/07/2016,05/31/2013 Surgical History Surgery Date Site/Laterality Comments LOOP ELECTROSURGICAL EXCISIO N PROCEDURE GASTRIC BYPASS 12/01/2009 - 11/30/2010 CHOLECYSTECTOMY 12/01/2004 - 11/30/2005 OTHER SURGICAL HISTORY 09/14/2021 endoscopic gastric stomal reduction BREAST SURGERY 05/2022 BARIATRIC SURGERY 12/2009 & 08/2021 TUBAL LIGATION Medical History Medical History Date Comments PCOS (polycystic ovarian syndrome) DDD (degenerative disc disease), lumbar JIMENA (obstructive sleep apnea) Diabetes mellitus Hypertension Kidney disease stage 2 per cecille ent Cervical cancer (HCC) Anemia Anxiety Migraines Sickle cell anemia (HCC) Family History Medical History Relation Name Comments Anemia Daughter Thao Mccall Cancer Father Deo Borrero Hyperlipidemia Father Deo Borrero Hypertension Father Deo Borrero Kidney disease Father Deo Borrero Arthritis Maternal Grandmother Leslye Malhotra Diabetes Maternal Grandmother Leslye Malhotar Heart disease Maternal Grandmother Leslye Malhotra Memory loss Maternal Grandmother Leslye Malhotra Anemia Mother Liliam Borrero Arthritis Mother Liliam Borrero Hypertension Mother Liliam Borrero Heart attack Paternal Grandfather Anish Borrero Cancer Paternal Grandmother Julissa Borrero Colon cancer Paternal Grandmother Julissa Borrero Armida gnant Neoplasm, Colon - (Added by TW Conv) Obesity Sister Karina Talavera Breast cancer Neg Hx Cervical cancer Neg Hx Ovarian cancer Neg Hx Relation Name Status Comments Daughter Thao Mccall Father Deo Borrero Maternal Grandmother Leslye Malhotra Mother Liliam Borrero Paternal Grandfather Anish Borrero Paternal Grandmother Julissa Borrero Sister Karina Talavera Social History Tobacco Use Types Packs/Day Years Used Date Smoking Tobacco: Never Smokeless Tobacco: Never Tobacco Cessation:Counseling Given: Not Answered AUDIT-C Answer Date Recorded Q1: How often do you have a drink containing alc ohol? 2-4 times a month 04/29/2025 Average Number of Drinks Not on file 025 Frequency of Binge Drinking Not on file 04/02 PHQ-2 Answer Date Recorded PHQ-2 Total Score (If total score is 3 or more points, staff should administer the PHQ-9) 0 05/31/2025 Personal Safety Answer Date Recorded Have you ever been in or are you currently in a harmful physical or emotional relationship or is someone making you feel afraid or unsafe? Denies 07/24/2025 Comments No Sex and Gender Information Value Date Recorded Sex Assigned at Not on file Legal Sex Female 8:37 PM METEOROLOGY INSTRUCTOR Gender Identity Female 08/07/2021 9:39 AM CDT Sexual Orientation Straight 08/07/2021 9: 39 AM CDT Obstetrics History Last Filed Vital Signs Vital Sign Reading Time Taken Comments Blood Pressure 106/77 07/24/2025 9:00 AM CDT Pulse 74 07/24/2025 9:00 AM CDT Temperature 36.4 C (97.6 F) 07/24/2025 6:23 AM CDT Respiratory Rate 16 07/24/2025 9:00 AM CDT Oxygen Saturation 100% 07/24/2025 9:00 AM CDT Inhaled Oxygen Concentration - - Weight 83.9 kg (185 lb) 07/24/2025 6:23 AM CDT Height 172.7 cm (5' 8) 08/12/2025 5:35 PM CDT Body Mass Index 28.13 07/24/2025 6:23 AM CDT Plan of Treatment Health Maintenance Due Date Last Done Comments Dilated Eye Exam 1987 Varicella Vaccines (1 of 2 - 13+ 2-dose series) 2000 Regular Well Visit/Exam 18-64 03/31/2024 03/31/2023 Influenza Vaccine (#1) 2025 , 11/12/2023, 10/18/2022, Additional history exists Hemoglobin A1C 11/02/2025 05/03/2025, 06/01, 06/05/2023, Additional history exists Albumin Creatinine Ratio, Urine 04/01/2026 , 11/13/2023 Lipid Panel 05/03/2026 05/03/2025, 06/01, 02/28/2023, Additional history exists Depression Screening 05/31/2026 05/31/2025, 01/24/2025, 03/31/2023 Foot Exam 05/31/2026 05/31/2025, 05/0 12/2022, 03/31/2023 eGFR 06/24/2026 06/24/2025, 06/0 03/2025, 05/03/2025, Additional history exists DTaP/Tdap/Td Vaccine (3 - Td or Tdap) 08/07/2026 08/07/2016, 05/31/2013 Cervical Cancer Screening 05/16/2027 HPV Vaccines Completed 07/16/2012, 03/02, 01/20/2012 Pneumococcal vaccine <65 Completed 03/31/2023 Covid-19 Vaccine Completed 01/03/2025, 01/2024, 10/05/2021, Additional history exists Hepatitis B Screening Completed 04/01/2025 Hepatitis C Screening Completed 04/01/2025 Procedures Procedure Name Priority Date/Time Associated Diagnosis Comments US PELVIS W ENDOVAGINAL ED 06/24/2025 4:07 PM CDT POCT HCG, URINE Routine 06/24/2025 12:49 PM CDT URINALYSIS, MICROSCOPIC ONLY STAT 06/24/2025 12:48 PM CDT URINE CULTURE STAT 06/24/2025 12:48 PM CDT URINALYSIS AND REFLEX TO MICROSCOPIC AND CULTURE STAT 06/24/2025 12:48 PM CDT EGFR STAT 06/24/2025 12:44 PM CDT DIFFERENTIAL AUTO STAT 06/24/2025 12: 44 PM CDT LIPASE STAT 06/24/2025 12:44 PM CDT COMPREHENSIVE METABOLIC PANEL STAT 06/24/2025 12:44 PM CDT CBC WITH AUTO DIFFERENTIAL STAT 06/24/2025 12:44 PM CDT HEMOGLOBIN A1C Routine 05/03/2025 8:11 AM CDT Type 2 diabetes mellitus without complication, without long-term current use of insulin (HCC) Bariatric surgery status Iron deficiency LIPID PANEL Routine 05/03/2025 8:11 AM CDT Type 2 diabetes mellitus without complication, without long-term current use of insulin (HCC) Bariatric surgery status Iron deficiency HEPATITIS C ANTIBODY Routine 04/01/2025 8:15 AM CDT Need for hepatitis C screening test ALBUMIN CREATININE RATIO, URINE Routine 04/01/2025 8:15 AM CDT Type 2 diabetes mellitus with stage 3a chronic kidney disease, without long-term current use of insulin (HCC) from Last 3 Months or Most Recently Relevant to Health Maintenance Results * US Pelvis W Endovaginal (06/24/2025 4:07 PM CDT) Anatomical Region Laterality Modality Pelvis N/A Ultrasound 06/24/2025 4:34 PM CDT Impressions 06/24/2025 4:34 PM CDT The uterus is anteverted and measures 8.1 x 4.2 x 4.6 cm in the long, AP, and transverse dimensions, respectively. The fundal portion of the endometrium has a normal, and there is a complex cystic lesion which appears to contain a fluid-fluid level with perhaps within echogenic internal septations seen on several of the cine image clips detailing this lesion. It measures approximately 1.9 x 2.1 x 1.6 cm in size. Both ovaries appear normal, both containing scattered follicles. The right ovary measures 2.3 x 1.3 x 1.5 cm, and the left ovary 3.3 x 2.0 x 2.3 cm. Arterial flow and waveforms are shown to both ovaries. No free intraperitoneal fluid. -- 2.1 cm complex cystic lesion in the fundal portion of the endometrium, which may contain a fluid fluid level and thin internal echogenic septations. Differential considerations would include a submucosal fibroid, other cystic endometrial changes in the setting of hyperplasia, or even potentially an obstructed focus of hematometra. CLOTHING BUSHELER consultation and direct visualization recommended. Electronically signed by: Ronaldo Gallego M.D. Narrative 06/24/2025 4:34 PM CDT EXAMINATION: US PELVIS W ENDOVAGINAL DATE: 06/24/2025 4:27 PM HISTORY: Pelvic pain. COMPARISON: An abdominal/pelvic CT in our system dated 05/05/2025 is available for comparison. Procedure Note Ronaldo Gallego MD - 06/24/2025 EXAMINATION: US PELVIS W ENDOVAGINAL DATE: 06/24/2025 4:27 PM HISTORY: Pelvic pain. COMPARISON: An abdominal/pelvic CT in our system dated 05/05/2025 is available for comparison. IMPRESSION: The uterus is anteverted and measures 8.1 x 4.2 x 4.6 cm in the long, AP, and transverse dimensions, respectively. The fundal portion of the endometrium has a normal, and there is a complex cystic lesion which appears to contain a fluid-fluid level with perhaps within echogenic internal septations seen on several of the cine image clips detailing this lesion. It measures approximately 1.9 x 2.1 x 1.6 cm in size. Both ovaries appear normal, both containing scattered follicles. The right ovary measures 2.3 x 1.3 x 1.5 cm, and the left ovary 3.3 x 2.0 x 2.3 cm. Arterial flow and waveforms are shown to both ovaries. No free intraperitoneal fluid. -- 2.1 cm complex cystic lesion in the fundal portion of the endometrium, which may contain a fluid fluid level and thin internal echogenic septations. Differential considerations would include a submucosal fibroid, other cystic endometrial changes in the setting of hyperplasia, or even potentially an obstructed focus of hematometra. CLOTHING BUSHELER consultation and direct visualization recommended. Electronically signed by: Ronaldo Gallego M.D. Mauricio Cloud NP IMG US PROCEDURES Final Result * POCT hCG, urine (06/24/2025 12:49 PM CDT) HCG, ur, POC Negative Negative Lot Number [id number] QC Backgroud Clear Acceptable QC Control Line Acceptable Urine 06/24/2025 12:4 9 PM CDT Result [facility] Aster Romo DO POINT OF CARE TEST ORDERA BLES Final Result * (ABNORMAL) Urinalysis reflex to microscopic and culture Urine (06/24/2025 12:48 PM CDT) Color, ur Yellow Yellow Clarity, ur Turbid(A) Clear [facility] Specific gravity, ur 1.020 1.003 - 1.030 [facility] pH, urine 6.0 [facility] Comment: Interpretive Data U rine pH is affected by diet, medications, systemic acid-base disturbances, and renal tubular function. pH may affect urinary stone formation. For example, urine pH below 6.0 may help reduce the tendency for calcium phosphate stones and pH greater than 6.0 may reduce the tendency for uric acid stone formation. Source: [facility] Current Interpretive Data was last revised on 2017 Protein, ur ql Trace Negative [facility] Glucose, ur ql Negative Negative [facility] Ketones, ur Negative Negative [facility] Bilirubin, ur Negative Negative [facility] Blood, ur Negative Negative [facility] Urobilinogen, ur <2.0 <2.0 mg/dL [facility] Nitrite, ur Negative Negative [facility] Leukocyte esterase, ur 4+(A) Negative [facility] UA reflex comment Reflex to microscopic UA will be performed. [facility] Urine 06/24/2025 12:4 8 PM CDT 06/24/2025 12:52 PM CDT Aster Valenciax DO LAB MICROBIOLOGY - GENERA L ORDERABLES Final Result Performing Organization Address [facility] Co de Phone Number [facility] 2 [facility] [place] [address] * (ABNORMAL) Urinalysis, microscopic only (06/24/2025 12:48 PM CDT) WBC, ur 21-50(A) 0 - 5 /HPF RBC, ur 6-10(A) 0 - 2 /HPF [facility] PW Epithelial cells, squamous, ur 21-50(A) 0 - 5 /HPF [facility] Bacteria, ur Trace(A) [facility] PW Mucous, ur Present(A) [facility] PW Culture Reflex Comment Reflex to urine culture will be performed. [facility] Urine 06/24/2025 12:4 8 PM CDT 06/24/2025 12:52 PM CDT Aster Valenciax DO LAB URINE ORDERABLES Mariel l Result Performing Organization Address [facility] de Phone Number [facility] 2 [facility] [place] [address] * (ABNORMAL) Urine culture Urine (06/24/2025 12:48 PM CDT) Report Final Report: Growth indicates contamination with mixed bacterial bhupinder. (.) Comment:Testing performed by : [facility], [address] [place] [address]., [id number] Organism GROWTH INDICATES CONTAMINATION WITH MIXED BHUPINDER. [facility] Urine 06/24/2025 12:4 8 PM CDT 06/24/2025 4:34 PM CDT Narrative [facility] - 06/26/2025 8:10 AM CDT Urine culture reflexed based upon urinalysis results. Aster Valenciax DO LAB MICROBIOLOGY - GENERA L ORDERABLES Final Result Performing Organization Address [facility]/ZIP Co de Phone Number [facility] [address] [employer] [place] [address] * (ABNORMAL) eGFR (06/24/2025 12:44 PM CDT) eGFR 54(L) >=60 mL/min/1. 73 m2 Comment: Interpretive Data Reference Interval Normal >/= 90 mL/min/1.73m2 Mildly decreased* 60 - 89 mL/min/1.73m2 Mildly to moderately decreased 45 - 59 mL/min/1.73m2 Moderately to severely decreased 30 - 44 mL/min/1.73m2 Severely decreased 15 - 29 mL/min/1.73m2 Kidney Failure < 15 mL/min/1.73m2 *Relative to young adult level Estimated glomerular filtration rate is determined by the 2020 CKD-EPI equation recommended by the National Kidney Foundation (A Unifying Approach to GFR Estimation: Recommendations of the NKF-ASK Task Force on Reassessing the Inclusion of Race in Diagnosing Kidney Disease, JASN 2020). The CKD-EPI equation should not be used for patients with unstable renal function and has not been validated in children and those over 70. Current interpretive data was last reviewed 2021. Blood 06/24/2025 12:4 4 PM CDT 06/24/2025 12:52 PM CDT Aster Romo DO LAB BLOOD ORDERABLES Mariel l Result Performing Organization Address City/[facility]/ZIP Co de Phone Number [facility] [address] [employer] Department [place] [address] * (ABNORMAL) Differential, auto (06/24/2025 12:44 PM CDT) Neutrophil abs 1.28(L) 1.50 - 6.50 K/cumm Imm gran abs 0.00 0.00 - 0.10 K/cumm [facility] Lymphocyte abs 1.89 0.80 - 3.30 K/cumm [facility] Monocyte abs 0.22 0.20 - 0.80 K/cumm [facility] Eosinophil abs 0.14 0.00 - 0.50 K/cumm [facility] Basophil abs 0.01 0.00 - 0.10 K/cumm [facility] Neutrophil pct 36.1 % [facility] Comment: Interpretive Data Percent cell count reference ranges are not reported, since discordance with absolute values may lead to misinterpretation of CBC data. Current Interpretive Data was last revised on 2018. Imm gran pct 0.0 % [facility] Comment: Interpretive Data Percent cell count reference ranges are not reported, since discordance with absolute values may lead to misinterpretation of CBC data. Current Interpretive Data was last revised on 2018. Lymphocyte pct 53.4 % [facility] Comment: Interpretive Data Percent cell count reference ranges are not reported, since discordance with absolute values may lead to misinterpretation of CBC data. Current Interpretive Data was last revised on 2018. Monocyte pct 6.2 % [facility] Comment: Interpretive Data Percent cell count reference ranges are not reported, since discordance with absolute values may lead to misinterpretation of CBC data. Current Interpretive Data was last revised on 2018. Eosinophil pct 4.0 % [facility] Comment: Interpretive Data Percent cell count reference ranges are not reported, since discordance with absolute values may lead to misinterpretation of CBC data. Current Interpretive Data was last revised on 2018. Basophil pct 0.3 % [facility] Comment: Interpretive Data Percent cell count reference ranges are not reported, since discordance with absolute values may lead to misinterpretation of CBC data. Current Interpretive Data was last revised on 2018. Blood 06/24/2025 12:4 4 PM CDT 06/24/2025 12:52 PM CDT us Aster Romo DO LAB BLOOD ORDERABLES Mariel meek Result [facility] [address] [place] [address] [facility] Department of Laboratories [place], [place] [id number] * (ABNORMAL) CBC with auto differential (06/24/2025 12:44 PM CDT) WBC 3.54(L) 3.80 - 9.90 K/cumm Hgb 12.2 11.9 - 15.5 g/dL [facility] Hct 38.5 35.6 - 45.5 % [facility] Plt 296 150 - 400 K/cumm [facility] MPV 9.4 9.1 - 12.3 fL [facility] RBC 4.76 3.90 - 5.20 M/cumm [facility] MCV 80.9(L) 81.3 - 96.4 fL [facility] MCH 25.6(L) 27.1 - 33.3 pg [facility] MCHC 31.7(L) 32.3 - 35.7 g/dL [facility] RDW CV 14.2 11.1 - 14.9 % [facility] RDW SD 41.5 35.7 - 48.1 fL [facility] Blood Venous blood specimen / Unknown 06/24/2025 12:44 PM CDT 06/24/2025 12:52 PM CDT Aster Dang Compliance Assurancex DO LAB BLOOD ORDERABLES Mariel l Result Performing Organization Address City/[facility]/ZIP Co de Phone Number [address] Department of [place], [place] [id number] * Lipase (06/24/2025 12:44 PM CDT) Pathologist [facility] Lipase 99 10 - 99 Units/L Blood Venous blood specimen / Unknown 06/24/2025 12:44 PM CDT 06/24/2025 12:52 PM CDT Aster Jo PLAXD DO LAB BLOOD ORDERABLES Mariel l Result [address] [place] [address] * (ABNORMAL) Comprehensive metabolic panel (06/24/2025 12:44 PM CDT) Pathologist [facility] Sodium 139 135 - 145 mmol/L Potassium, pl 4.4 3.3 - 4.9 mmol/L [facility] Chloride 108 97 - 110 mmol/L [facility] CO2 23 22 - 32 mmol/L [facility] Anion gap 9 2 - 15 mmol/L [facility] BUN 9 6 - 25 mg/dL [facility] Creatinine 1.30(H) 0.60 - 1.10 mg/dL [facility] Glucose 90 70 - 199 mg/dL [facility] Comment: Interpretive Data Fasting glucose >/= 126 mg/dl is diagnostic for diabetes. Fasting is defined as no caloric intake for at least 8 hours. Fasting glucose between 100 mg/dl to 125 mg/dl is diagnostic of prediabetes. In a patient with classic symptoms of hyperglycemia or hyperglycemic crisis, a random glucose >/= 200 mg/dl is diagnostic for diabetes. In the absence of unequivocal hyperglycemia, results should be confirmed by repeat testing. The classification and Diagnosis of Diabetes Diabetes Care 202; 46: S19-S40. Current interpretive data was last revised 2022. Calcium 9.6 8.5 - 10.3 mg/dL [facility] Bilirubin, total 0.5 0.1 - 1.2 mg/dL [facility] Protein, pl 8.0 6.5 - 8.5 g/dL [facility] Albumin 4.2 3.5 - 5.0 g/dL [facility] Alk phos 78 40 - 130 Units/L [facility] ALT 11 7 - 45 Units/L [facility] AST 18 10 - 45 Units/L [facility] Blood 06/24/2025 12:4 4 PM CDT 06/24/2025 12:52 PM CDT us Aster Romo DO LAB BLOOD ORDERABLES Mariel l Result [facility] [address] [place] [facility] Department [place] [address] * Hemoglobin A1c (05/03/2025 8:11 AM CDT) Hgb A1C 4.8 4.8 - 5.6 % [facility] - 01 Comment: Prediabetes: 5.7 - 6.4 Diabetes: >6.4 Glycemic control for adults with diabetes: <7.0 Blood 05/03/2025 8:11 AM CDT 05/03/2025 Narrative [facility] - 05/04/2025 6:36 AM CDT Performed at: [address] [place] [address] [id number] Log Deck Tender: Bradley Mcgill PhD, Phone: [phone] Jocelyn Mcclellan MAP MOUNTER LAB BLOOD ORDERABLES Final Resu lt Performing Organization Address [facility] Co de Phone Number [facility] 01 * Lipid panel (05/03/2025 8:11 AM CDT) [facility] Cholesterol 134 100 - 199 mg/dL [facility] - 01 Triglycerides 68 0 - 149 mg/dL [facility] - 01 HDL Cholesterol 53 >39 mg/dL [facility] - 01 VLDL 14 5 - 40 mg/dL [facility] - 01 LDL, calculated 67 0 - 99 mg/dL [facility] - 01 Blood 05/03/2025 8:11 AM CDT 05/03/2025 Narrative [facility] - 05/04/2025 6:36 AM CDT Performed at: [address] [place] [address] [id number] Log Deck Tender: Bradley Mcgill PhD, Phone: [phone] Jocelyn Mcclellan MAP MOUNTER LAB BLOOD ORDERABLES Final Resu lt Performing Organization Address [facility] Co de Phone Number [facility] - 01 * Hepatitis C antibody Blood (04/01/2025 8:15 AM CDT) Pathologist [facility] Hep C Ab Non Reactive Non Reactive [facility] - 01 Comment: HCV antibody alone does not differentiate between previously resolved infection and active infection. Equivocal and Reactive HCV antibody results should be followed up with an HCV RNA test to support the diagnosis of active HCV infection. Blood 04/01/2025 8:15 AM CDT 04/01/2025 Narrative [facility] - 04/02/2025 5:08 AM CDT Performed at: [address] [place] [address] [id number] Log Deck Tender: Bradley Mcgill PhD, Phone: [phone] Demetria Alaniz MD LAB MICROBIOLOGY - GENERAL ORDERABLES Final Result Performing Organization Address [facility] Co de Phone Number [facility] - * Albumin Creatinine Ratio, Urine (04/01/2025 8:15 AM CDT) Creatinine ur 138.2 Not Estab. mg/dL [facility] - 01 Microalbumin, ur 18.1 Not Estab. ug/mL [facility] - 01 Microalbumin/cre at ratio 13 0 - 29 mg/g creat [facility] - 01 Comment: Normal: 0 - 29 Moderately increased: 30 - 300 Severely increased: >300 Urine 04/01/2025 8:15 AM CDT 04/01/2025 Narrative [facility] - 04/02/2025 4:07 AM CDT Performed at: [address] [id number] Log Deck Tender: Bradley Mcgill PhD, Phone: [phone] us Demetria Alaniz MD LAB URINE ORDERABLES Final Result Performing Organization Address [facility] de Phone Number [facility] - from Last 3 Months or Most Recently Relevant to Health Maintenance Insurance [facility] H[facility]/PPO Address: [address] [place] [id number] [facility] HMO/PPO Address: [address] [place] [address] [facility] HMO/PPO Address: [address] [place] [address] Advance Directives For more information, please contact: [phone] * Full Code (Latest Code Status on File) Date Activated Date Inactivated Comments 12/27/2021 6:36 AM 12/27/2021 1:25 PM * Full Code Date Activated Date Inactivated Comments 09/14/2021 9:09 PM 09/15/2021 7:00 PM Care Teams Public Safety Teacher Relationship Specialty Start Date End Date Judd Davila MD [address] [facility] [address] [place] [address] PCP - General Family Medicine 05/31/25 Kaylee Pham MD Consulting Physician General Surgery 10/30/21 Brandon Diehl, JAS Nurse Practitioner General Surgery 10/30/21 Ruiz Castro MD [phone] [place] [address] Surgeon Colon and Rectal Surgery 11/22/21 Nina Alexander, CANDELARIO [address] [facility] [place] [address] Optometry 05/31/25
--- OUTSIDE RECORDS SUMMARY | 2025-09-15 13:54 | XMS_ITS | Encounter Summary ---
Author Organization [facility] Address [address] [facility] [place] [address] Care Team Providers Care Boss Miner Name Role Phone Sylvia Perez MD Primary Care Provider Josh Cervantes MD Unavailable [phone] Sylvia Perez MD Unavailable [phone] Bib Daniels MD Unavailable Stephanie Chavira MD Unavailable Kaylee Pham MD Unavailable Sylvia Perez MD Unavailable [phone] Sylvia Perez MD Unavailable [phone] Demetria Alaniz MD Primary Care Provider [phone] Encounter Details Date Type Department Care Team (Late st Contact Info) Description 10/12/2020 Lab Requisition [facility] [address] [facility], [place] [id number] Thomas Rios Jr., MD [address] [facility] [address] [place] [address] Social History Tobacco Use Types Packs/Day Years Used Date Smoking Tobacco: Never Smokeless Tobacco: Never Alcohol Use Standard Drinks/Week Comments Yes 0 (1 standard drink = 0.6 oz pur e alcohol) occasionally Comments No Sex and Gender Information Value Date Recorded Sex Assigned at Female 10/27/2021 12:53 PM PRODUCTION UNDERWRITER Legal Sex Female 6:28 AM PRODUCTION UNDERWRITER Gender Identity Female 10/27/2021 12:53 PM PRODUCTION UNDERWRITER Sexual Orientation Not on file Occupation Industry [...] on file documented as of this encounter Goals Goal Patient Goal Type Associated Problems Recent Progress Patient-Stated? Author Mobility General No Susanna Whelan, RN Note: Expected end date: 09/30/2020 The goal is to maintain or improve your mobility at the optimum level for you. Interventions: documented as of this encounter Procedures Procedure Name Priority Date/Time Associated Diagnosis Comments DERMATOPATHOLOGY Routine 10/11/2020 12:0 0 AM PRODUCTION UNDERWRITER documented in this encounter Results * DERMATOPATHOLOGY (10/11/2020 12:00 AM PRODUCTION UNDERWRITER) Case Report Dermatopathology Report Case: [id number] Authorizing Provider: Thomas Rios Jr., MD Collected: 10/11/2020 12:00 AM Ordering Location: [facility] Lab Received: 10/12/2020 12:58 PM Pathologist: Ary Matias MD Specimens: A) - Skin, right ulnar dorsal hand, lesional B) - Skin, right ulnar dorsal hand, non-lesional 0 2:40 PM PRODUCTION UNDERWRITER DERMATOPATHOLOGY LABORATORY Final Diagnosis Specimen A. SKIN, right ulnar dorsal hand, lesional: DECREASE OF EPIDERMAL MELANOCYTES (L80) (see microscopic description and comment) Specimen B. SKIN, right ulnar dorsal hand, non-lesional: POST-INFLAMMATORY PIGMENT ALTERATION (L81.9) (see microscopic description and comment) 0 2:40 PM PRODUCTION UNDERWRITER DERMATOPATHOLOGY LABORATORY at 1440 PRODUCTION UNDERWRITER Clinical History A-B: Rash, non-specific vs vitiligo vs post inflammatory hypopigmentation vs resolving eczema. . 0 2:40 PM [facility] Gross Description Specimen A: Received is one formalin filled container labeled with the patient's name and designated right ulnar dorsal hand, lesional. The specimen consists of a punch biopsy measuring [id number], bisected. Jar 0. Specimen B: Received is one formalin filled container labeled with the patient's name and designated right ulnar dorsal hand, non-lesional. The specimen consists of a punch biopsy measuring [id number]., bisected. Jar 0. 0 2:40 PM [facility] Microscopic Description Specimen A. SKIN, right ulnar dorsal hand, lesional: There are decreased number of melanocytes along the basal layer. The hematoxylin and eosin stain is reviewed; immunohistochemical stains are performed to evaluate for the submitted clinical impression of vitiligo and to assess for an infectious etiology for these histologic findings. Melanocytes are highlighted with immunohistochemical staining for MART-1/Melan-A. Glenis-Damon stain highlights melanin pigment in the papillary dermis. Grocott's methenamine silver (GMS) stain fails to highlight fungal elements in the available sections. Specimen B. SKIN, right ulnar dorsal hand, non-lesional: Sections show a normal number of melanocytes along the basal layer and abundant melanin within melanophages around the superficial vascular plexus. The hematoxylin and eosin stain is reviewed; immunohistochemical stains are performed to evaluate for the submitted clinical impression of vitiligo and to assess for an infectious etiology for these histologic findings. Melanocytes are highlighted with immunohistochemical staining for MART-1/Melan-A. Jefferson-Damon stain highlights melanin pigment in the papillary dermis. Grocott's methenamine silver (GMS) stain fails to highlight fungal elements in the available sections. COMMENT Specimen A&B: Specimen A reveals a markedly decreased number of epidermal melanocytes relative to Specimen B. These histologic findings may be consistent with early vitiligo in the correct clinical setting. 0 2:40 PM [facility] Disclaimer An external and internal positive and negative controls are appropriate for the histochemical, immunohistochemical and immunofluorescence stain(s) in this case (if any), except where stated explicitly. The performance characteristics of the stain(s) cited in this report were developed and its performance characteristic determined by the Dermatopathology Laboratory at [facility], directed by Dr. Jake Matias. These tests need not be, and therefore are not, approved by the [place] Food and Drug Administration. The tests are used for clinical purposes. Billing Codes Specimen Charges Stain Charges 02984 51145 1 1 80307 [id number] 08068 31187 [id number] 78896 1 1 1 1 1 1 0 2:40 PM PRODUCTION UNDERWRITER DERMATOPATHOLOGY LABORATORY Embedded Images 0 2:40 PM PRODUCTION UNDERWRITER DERMATOPATHOLOGY LABORATORY Pathology/Cytology TISSUE SPECIMEN FROM SKIN / Unknown 10/11/2020 10/12/2020 12:58 PM PRODUCTION UNDERWRITER Miscellaneous samples (specimen) TISSUE SPECIMEN FROM SKIN / Unknown 10/11/2020 10/12/2020 12:58 PM PRODUCTION UNDERWRITER Thomas Rios Jr., MD LAB - PATHOLOGY/CYTOLOG Y ORDERABLES Final Result DERMATOPATHOLOGY LABORATORY [facility] - Department of Dermatology [facility] Medicine [address] [place] [address], [address] [phone] documented in this encounter Visit Diagnoses Not on filedocumented in this encounter Additional Health Concerns Infection Onset Date Last Indicated Resolved Time MRSA 03/08/2010 03/08/2010 06/24/2022 8:09 AM CDT COVID-19 Under Investigation 05/10/2021 05/10/2021 05/10/2021 3:50 PM CDT MRSA Hx 06/24/2022 06/24/2022 documented as of this encounter Care Teams Boss Miner Relationship Specialty Start Date End Date Sylvia Perez MD PCP - General 03/06/10 05/08/23 [place] [address] [address] PCP - Attributed-[facility] Commercial 03/31/19 05/29/21 [place] [address] [place] [address] PCP - Attributed-[facility] Commercial 08/31/21 10/18/22 [place] [address] [place] [address] PCP - Attributed-[facility] Commercial 10/31/22 06/17/23 Demetria Alaniz MD [address] [facility] [address] [place] [address] PCP - General Family Medicine 05/09/23 Josh Cervantes MD [address] [place], [place] [id number] Obstetrics and Gynecology 10/25/14 Bib Daniels MD [address] [facility] [address] [place] [address] Neurologist Neurological Surgery 07/14/20 Stephanie Chavira MD [address] [facility] [address] [place], [place] [id number] Internal Medicine 02/06/21 Kaylee Pham MD [address] [place] [address] Surgery 02/06/21 documented as of this encounter
--- OUTSIDE RECORDS SUMMARY | 2025-09-15 13:54 | XMS_ITS ---
Author Organization [facility] Health Address [address] [place] [address] Care Team Providers Care Regulatory Consultant Name Role Phone Josh Cervantes MD Unavailable [phone] Bib Daniels MD Unavailable [phone] Stephanie Chavira MD Unavailable [phone] Kaylee Pham MD Unavailable [phone] Demetria Alaniz MD Primary Care Provider [phone] Active Problems Problem Noted Date Diagnosed Date Rectal bleeding 11/22/2021 Gastroesophageal reflux disease 07/03/2021 Overview (12/03/2021): Added automatically from request for surgery [id number] History of diabetes mellitus 12/24/2020 Overview (02/06/2021): Didn't tolerate metformin. Last Assessment & Plan: Reviewed labs with her. Continue low-carb (<150 g/day), low-glycemic diet. Consider GLP-1 RA History of sleep apnea 12/24/2020 Overview (02/06/2021): Last Assessment & Plan: Discussed comorbidities associated with sleep apnea, including effects on weight, and stressed importance of adequate treatment if present. Recommend sleep study. Iron deficiency 12/24/2020 Malabsorption 12/24/2020 Overview (02/06/2021): Last Assessment & Plan: Labs. Status post bariatric surgery 12/24/2020 Overview (02/06/2021): Last Assessment & Plan: Routine labs to evaluate for vitamin deficiencies in setting of intestinal malabsorption. BaS to assess anatomy. Morbid obesity 12/24/2020 Overview (02/06/2021): Last Assessment & Plan: Obesity is unchanged. Diet interventions: as noted. Regular aerobic exercise program discussed. Pharmacotherapy as ordered. Will try increasing PM topiramate to help with night eating. Discussed risks, benefits, alternatives, potential side effects. JIMENA (obstructive sleep apnea) 12/24/2020 Overview (12/03/2021): Last Assessment & Plan: Discussed comorbidities associated with sleep apnea, including effects on weight, and stressed importance of adequate treatment if present. Recommend sleep study. 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 Other specified noninflammatory disorder of vagi na 02/29/2020 Other and unspecified ovarian cyst 02/29/2020 Low grade squamous intraepit helial lesion (LGSIL) on Papanicolaou smear of cervix 02/29/2020 Irregular menstrual cycle 02/29/2020 Hypertension affecting in second trime ster 02/29/2020 Human papillomavirus in cond itions classified elsewhere and of unspecified site 02/29/2020 Supervision of other high risk pregnancies, thir d trimester 02/29/2020 Encounter for routine checki ng of intrauterine contraceptive device 02/29/2020 Encounter for care and exami nation of mother immediately after delivery 02/29/2020 Elevated lipase 02/29/2020 Absence of menstruation 02/29/2020 Atopic dermatitis 07/07/2019 Vitamin D deficiency 07/07/2019 Breast pain 09/29/2018 Anemia complicating , third trimester 0 06/20/2016 Anemia, unspecified 06/20/2016 Obesity complicating , second trimester 03/07/2016 Maternal chronic hypertension 03/07/2016 BMI 45.0-49.9, adult 01/03/2016 Absolute anemia 09/28/2015 Migraine headache 01/22/2014 Abnormal glucose 01/22/2014 Allergic rhinitis 04/07/2013 Overview (04/07/2013): 04/06/13: SPT positive to T/G/RW/M/D/C/HDM/CR Asthma 04/07/2013 Malignant neoplasm of cervix uteri 03/15/2013 Obesity 02/01/2013 Need for prophylactic vaccin ation and inoculation against other viral diseases 01/20/2012 Symptom associated with female genital organs Weight loss counseling, encounter for 12/26/2011 Overview (02/06/2021): Last Assessment & Plan: Reviewed calorie restriction based on BMR as previously detailed. Reviewed recommendation/goal of >/= 150 minutes/week moderate-intensity aerobic exercise. Lumbar radiculopathy Current Treatment and Therapy Plans No current plan information found. Past Treatment and Therapy Plans No past plan information found. Lifetime Dose Tracking * Chemical Lifetime Dose Automatic Entry Manual Entr y Radiation 1,034 mSv 1,034 mSv 0 mSv Resolved Problems Problem Noted Date Diagnosed Date Resolved Date Morbid (severe) obesity due to excess calories 03/07/2016 06/07/2021 Obesity 09/28/2015 06/07/2021 Conjunctivitis, allergic 04/07/201305/2015 Type 2 diabetes mellitus wit hout complication, without long-term current use of insulin 03/16/2013 01/29/2022 Overview (05/10/2021): In remission since bariatric surgery. Didn't tolerate metformin. Last Assessment & Plan: Labs. Continue low-carb (<150 g/day), low-glycemic diet. Discussed options and will add GLP-1 analog. Discussed risks, benefits, alternatives, potential side effects. No personal or family history of MTC or MEN2. Referred to websites for additional instructions/info/video. Start Ozempic pending labs. In remission since bariatric surgery. Didn't tolerate metformin. Last Assessment & Plan: Labs. Continue low-carb (<150 g/day), low-glycemic diet. Discussed options and will add GLP-1 analog. Discussed risks, benefits, alternatives, potential side effects. No personal or family history of MTC or MEN2. Referred to websites for additional instructions/info/video. Start Ozempic pending labs.
--- OUTSIDE RECORDS SUMMARY | 2025-09-15 13:54 | XMS_ITS | Clinical Summary ---
Author Organization [employer] [address] - [address] [place] [address] Phone Care Team Providers Care Data Analytics Architect Name Role Phone Sylvia Perez MD Primary Care Provider [phone] Allergies Active Allergy Reactions Criticality Noted Date Comments Apple Hives High 01/22/2014 Codeine Nausea and Vomiting, Other (See Comments) Low 11/20/2021 Food Extracts Swelling Low 04/03/2016 Latex Rash Low 04/03/2016 Metformin Diarrhea Medium 01/19/2021 Sulfa (Sulfonamide Antibiotics) Swelling Medium 04/03/2016 Medications albuterol sulfate HFA 90 mcg/actuation aerosol inhaler Take 2 Puffs by inhalation every 4 hours as needed for Shortness of Breath or Wheezing. 8.5 Gram 08/23/20 23 Active cyanocobalamin (VITAMIN B-12) 500 mcg tablet Take 500 mcg by mouth daily. 09/16/20 21 Active ferrous sulfate 325 mg (65 mg iron) tablet Take 325 mg by mouth daily with breakfast. 07/19/20 22 Active mometasone (NASONEX) 50 mcg/actuation [place], Non-Aerosol Administer 2 Sprays in each nostril. 11/20/20 21 Active tiZANidine (ZANAFLEX) 2 mg Capsule TAKE 1 CAPSULE BY MOUTH EVERY 8 HOURS NEEDED FOR MUSCLE SPASMS 02/27/20 23 Active valACYclovir (VALTREX) 1 gram tablet 10/04/20 22 Active topiramate (TOPAMAX) 50 mg tablet Takes two in am and one atnight 02/16/20 23 Active Nurtec ODT 75 mg Tablet, Rapid Dissolve Take 75 mg by mouth. 07/16/20 24 Active sodium bicarbonate 650 mg tablet 08/07/20 25 Active tirzepatide (MOUNJARO) 15 mg/0.5 mL Pen Injector Inject 15 mg by subcutaneous injection every 7 days. 08/12/20 25 Active Mounjaro 5 mg/0.5 mL Pen Injector Inject 5 mg by subcutaneous injection every 7 days. 10/03/20 23 2024 Discontinued(O ther) amoxicillin (AMOXIL) 500 mg capsuleIndicat ions:Streptoco ccal pharyngitis Take 1 Capsule (500 mg) by mouth every 12 hours for 10 days. 20 Capsule 09/03/20 25 2024 Discontinued amoxicillin (AMOXIL) 500 mg capsuleIndicat ions:Streptoco ccal pharyngitis Take 1 Capsule (500 mg) by mouth every 12 hours for 10 days. 20 Capsule 09/03/20 25 2024 Active Problems Problem Noted Date Diagnosed Date Stress incontinence during 05/17/2016 Morbid obesity with BMI of 40.0-44.9, adult 01/2016 Round ligament pain 04/03/2016 Resolved Problems Problem Noted Date Diagnosed Date Resolved Date Threatened labor at term 05/17/2016 Large for gestational age 0605/17/2016 Encounters Date Type Department Care Team Description 09/06/2025 External Device Data STL ABSTRACTION Provider, Abstract 09/03/2025 11:15 AM CDT Office Visit [facility] [address] [id number] [facility] Carlo Briceno PA-C Streptococcal pharyngitis (Primary Dx); Sore throat from Last 3 Months Family History Medical History Relation Name Comments Hypertension Father Hypertension Mother Cancer Paternal Grandmother Colon Cancer Paternal Grandmother Relation Name Status Comments Father Alive Mother Alive Paternal Grandmother Social History Tobacco Use Types Packs/Day Years Used Date Smoking Tobacco: Never Tobacco Cessation:Counseling Given: Not Answered Alcohol Use Standard Drinks/Week Comments Yes 0 (1 standard drink = 0.6 oz pur e alcohol) occ Comments No Sex and Gender Information Value Date Recorded Sex Assigned at Not on file Legal Sex Female 9:00 AM CDT Gender Identity Not on file Sexual Orientation Not on file Last Filed Vital Signs Vital Sign Reading Time Taken Comments Blood Pressure 96/69 09/03/2025 11:32 AM CDT Pulse 91 09/03/2025 11:32 AM CDT Temperature 36.2 C (97.1 F) 09/03/2025 11:32 AM CDT Respiratory Rate 18 09/03/2025 11:32 AM CDT Oxygen Saturation 99% 09/03/2025 11:32 AM CDT Inhaled Oxygen Concentration - - Weight 81.6 kg (180 lb) 09/03/2025 11:32 AM CDT Height 172.7 cm (5' 8) 09/03/2025 11:32 AM CDT Body Mass Index 27.37 09/03/2025 11:32 AM CDT Plan of Treatment Health Maintenance Due Date Last Done Comments DIABETES ANNUAL RETINAL EXAM 2005 DIABETES MICROALBUMIN ANNUAL SCREEN 2005 LDL CHOLESTEROL ANNUAL 2005 HEPATITIS B VACCINES (1 of 3 - 19+ 3-dose series) 2006 HPV/Cotest (21-29) 2008 CERVICAL CANCER SCREENING 2017 HPV/Cotest (30-65) 2017 PAP SMEAR 2017 INFLUENZA VACCINE (#1) 2025 , 11/12/2023, 10/18/2022, Additional history exists DIABETES HBA1C Q 6 MONTHS 11/02/20252024, 06/05/2023, 01/29/2022, Additional history exists DIABETES ANNUAL FOOT EXAM 05/31/2026 05/31/2025 DTAP/TDAP/TD VACCINES (3 - T d or Tdap) 08/07/2026 08/07/2016, 05/31/2013 HPV VACCINES Completed 07/16/2012, 03/02, 01/20/2012 COVID-19 Vaccine Completed 10/02/2024, 03/2021, 02/22/2021, Additional history exists Procedures Procedure Name Priority Date/Time Associated Diagnosis Comments POC RAPID STREP A ANTIGEN Routine 09/03/2025 11:39 AM CDT Sore throat HEMOGLOBIN A1C Routine 04/23/2016 4:42 PM CDT Obesity complicating in second trimester from Last 3 Months or Most Recently Relevant to Health Maintenance Results * (ABNORMAL) POC RAPID STREP A ANTIGEN (09/03/2025 11:39 AM CDT) [facility] RAPID STREP POC Positive( A) Negative, Indeterminate [facility] INTERNAL KIT QC POC [place] [facility] KIT LOT NUMBER POC [id number] [facility] KIT EXP DATE POC 6 [facility] READ METHOD POC Visual [facility] Upper Respiratory SPECIMEN FROM THROAT / Unknown 09/03/2025 11:39 AM CDT Carlo Briceno PA-C POINT OF CARE TESTING Final Re sult Performing Organization Address [facility]/ZIP Co de Phone Number [facility] CLIA# [id number] [place] [address] * HEMOGLOBIN A1C (04/23/2016 4:42 PM CDT) [facility] HEMOGLOBIN A1C 4.8 4.0 - 6.0 % 04/23/2016 9:40 PM CDT [facility] Comment:Note: Effective as o f 12/22/2014 a new methodology, Turbidimetric inhibition immunoassay (TINIA),has been implemented. EST. AVG GLUCOSE, A1C 91 mg/dL 04/23/2016 9:40 PM CDT [facility] [employer] [facility] Blood Venipuncture - L ab Collect / Unknown 04/23/2016 4:42 PM CDT 04/23/2016 4:42 PM CDT Hussein Baires MD CHEMISTRY ORDERABLES Final Res ult Performing Organization Address City/[facility]/ZIP Co de Phone Number [facility] [employer] [facility] CLIA# [id number] [address] [place] [address] from Last 3 Months or Most Recently Relevant to Health Maintenance Insurance [facility] OPTIONS PPO [id number] [facility] CHOICE [id number] Advance Directives For more information, please contact: [phone] * Full Code (Latest Code Status on File) Date Activated Date Inactivated Comments 05/17/2016 12:10 PM 05/17/2016 4:09 PM * Full Code Date Activated Date Inactivated Comments 04/03/2016 2:52 PM 04/03/2016 7:06 PM Care Teams Data Analytics Architect Relationship Specialty Start Date End Date Sylvia Perez MD PCP - General Internal Medicine 03/01/16
--- OUTSIDE RECORDS SUMMARY | 2025-09-15 13:54 | XMS_ITS | Clinical Summary ---
Author Organization [facility] Address [address] [place] [address] Care Team Providers Care Program Therapist Name Role Phone Josh Cervantes MD Unavailable Bib Daniels MD Unavailable [phone] Stephanie Chavira MD Unavailable [phone] Kaylee Pham MD Unavailable [phone] Demetria Alaniz MD Primary Care Provider [phone] Source Comments [facility],non-owned Affiliates and Associated Physician Practices is amultiple site organization consisting of ambulatory clinics and hospital sitesin [place], [place], [place] and [place]. This disclosure is being madepursuant to the Care Everywhere program and may not contain all information available regarding this patient. Last updated 18.[facility] Allergies Active Allergy Reactions Criticality Noted Date Comments Apple Urticaria Medium 01/22/2014 Codeine Nausea and/or Vomiting,Other Low 11/20/2021 Latex Rash Medium 03/16/2014 sometimes Metformin Diarrhea Medium 01/19/2021 Nsaids Other Medium 07/25/2023 Bariatric surgery Sulfa Drugs Swelling Medium 04/03/2016 Medications * Be aware that medications may not be up to date on this document. Alwaysverify current medications with the patient. albuterol HFA (VENTOLIN HFA) 108 (90 BASE) MCG/ACT inhaler Inhale 2 Puffs by mouth every 6 hours as needed for Shortness of Breath, Wheezing or Cough. 1 Inhaler 2 10/26/20 14 Active Calcium Carbonate-Vitam in D (CALCIUM + D PO) Active Pyridoxine HCl (B-6 PO) Take 1 tablet by mouth once daily Active levocetirizine (XYZAL) 5 MG tabletIndicatio ns:Every Evening before bedtime Take 1 (one) tablet by mouth once daily Reasons: Every Evening before bedtime 12/16/19 22 Active ferrous sulfate 325 (65 FE) MG tablet Take 1 (one) tablet by mouth daily with breakfast 07/19/20 22 Active Cholecalciferol 1.25 MG (47428 UT) TAKE 1 CAPSULE BY MOUTH ONE DAY A WEEK 08/19/20 22 Active valACYclovir (Valtrex) 1 GM tablet 10/04/20 22 Active escitalopram (Lexapro) 20 MG tabletIndicatio ns:Generalized Anxiety Disorder Take 1 (one) tablet by mouth once daily Reasons: Generalized Anxiety Disorder 90 tablet 1 01/15/20 23 Active Mounjaro 5 MG/0.5ML injection Inject 5 (five) mg subcutaneously every 7 days 10/03/20 23 Active hydrOXYzine HCl (Atarax) 10 MG tablet TAKE 1 TABLET(10 MG) BY MOUTH TWICE DAILY NEEDED FOR ANXIETY 03/08/20 24 Active prochlorperazin e (Compazine) 10 MG tablet Take 1 (one) tablet by mouth every 8 hours as needed for Nausea/Vomiting (headache with our without nausea and vomiting) 21 tablet 1 05/27/20 24 Active riboflavin 400 MG capsule Take 1 (one) capsule by mouth once daily 100 capsule 6 05/27/20 24 Active topiramate (Topamax) 100 MG tabletIndicatio ns:Migraine without status migrainosus, not intractable, unspecified migraine type TAKE 1 TABLET BY MOUTH TWICE DAILY 180 tablet 3 08/23/20 24 Active Mounjaro 12.5 MG/0.5ML injection Inject 12.5 (twelve and one-half) mg subcutaneously every 7 days 09/22/20 24 Active rimegepant (Nurtec) 75 MG tablet Take 75 mg by mouth as needed 07/16/20 Active escitalopram (Lexapro) 20 MG tablet Take 1 (one) tablet by mouth at bedtime 09/15/20 Active doxycycline hyclate 100 MG tablet Take 1 (one) tablet by mouth once daily 07/19/20 Active buPROPion XL 24hr (Wellbutrin-XL) 150 MG tablet 09/12/20 Active acetaminophen (Tylenol) 500 MG tablet Take 1 (one) tablet by mouth every 6 hours as needed for Pain Maximum allowable Acetaminophen amount = 4 Grams (4000 mg) / 24 hours. 10/25/20 Active docusate sodium (Colace) 100 MG capsuleIndicati ons:Constipatio n,Take while using narcotic pain medications. Then take as needed for constipation. Take 1 (one) capsule by mouth once daily Reasons: Constipation, Take while using narcotic pain medications. Then take as needed for constipation. 10/25/20 Active polyethylene glycol 3350 (Miralax) 17 g packet Take 17 (seventeen) g by mouth once daily as needed for Constipation 10/25/20 Active HYDROcodone-antwan taminophen ([place]) 5-325 MG tabletIndicatio ns:Status post surgery Take 1 (one) tablet by mouth every 6 hours as needed for Pain (Moderate or Severe pain) 12 tablet 10/25/20 Active Nurtec 75 MG tablet DISSOLVE 1 TABLET ON THE TONGUE DAILY NEEDED FOR MIGRAINE 16 tablet 2 06/16/20 Active topiramate (Topamax) 50 MG tabletIndicatio ns:Migraine without status migrainosus, not intractable, unspecified migraine type TAKE 2 TABLETS BY MOUTH EVERY MORNING AND 1 TABLET EVERY EVENING 270 tablet 1 06/16/20 Active Active Problems Problem Noted Date Diagnosed Date Rectal bleeding 11/22/2021 Gastroesophageal reflux disease 07/03/2021 Overview (12/03/2021): Added automatically from request for surgery [id number] History of diabetes mellitus 12/24/2020 Overview (02/06/2021): [...] 150 minutes/week moderate-intensity aerobic exercise. Lumbar radiculopathy Resolved Problems Problem Noted Date Diagnosed Date [...] for additional instructions/info/video. Start Ozempic pending labs. Encounters Date Type Department Care Team Description 06/15/2025 Refill [facility] [address] [place] [id number] Edgar Krueger MD Refill Request from Last 3 Months Immunizations Immunization Administration Dates Next Due FLU VACCINE QUAD IIV4 PF ID 12/02/2017 Human Papilloma Virus Quadrivalent Vaccine 07/16,03/23/2012,01/20/2012 INFLUENZA VACCINE, CELL CULT URE, QUADR. (FLUCELVAX QUADRIVALENT; 6MO+) (CCIIV4) 10/18/2022 INFLUENZA VACCINE, QUADR. (F LUZONE; FLULAVAL; FLUARIX; AFLURIA QUADRIVALENT; 6MO+), 0.5 ML (IIV4) 09/02/2019,08/18/2016,10/03/2015 TDAP (7yrs+) 08/07/2016,05/31/2013 covID PFIZER BIVALENT 5Y-11Y 10MCG/0.2ML 021 iNFLUENZA VACCINE, RECOM-BREWER, QUADR. (FLUBLOCK QUADRIVALENT; 18Y+) (RIV4) 09/19/2020 Family History Medical History Relation Name Comments Hypertension Father Pituitary disease Father Removed Diabetes Maternal Grandmother Hypertension Mother Pituitary disease Paternal Aunt Tumor Cancer - Colon Paternal Grandmother Relation Name Status Comments Father Alive Maternal Grandfather Alive Maternal Grandmother Alive Mother Alive Paternal Aunt Paternal Grandfather Paternal Grandmother Sister Alive Social History Tobacco Use Types Packs/Day Years Used Date Smoking Tobacco: Never Smokeless Tobacco: Never Tobacco Cessation:Counseling Given: Not Answered Alcohol Use Standard Drinks/Week Comments Yes 0 (1 standard drink = 0.6 oz pur e alcohol) occasionally AUDIT-C Answer Date Recorded Q1: How often do you have a drink containing alc ohol? Never 07/25/2023 Average Number of Drinks Not on file 023 Frequency of Binge Drinking Not on file 07/02 PHQ-2 Answer Date Recorded Patient Health Questionnaire-2 Score 2 12/28/2024 Comments No Sex and Gender Information Value Date Recorded Sex Assigned at Female 10/27/2021 12:53 PM TRACTOR ENGINE MECHANIC Legal Sex Female 6:28 AM TRACTOR ENGINE MECHANIC Gender Identity Female 10/27/2021 12:53 PM TRACTOR ENGINE MECHANIC Sexual Orientation Not on file Occupation Industry Job Start Date Job End Date student Not on file Not on file Not on file Last Filed Vital Signs Vital Sign Reading Time Taken Comments Blood Pressure 126/101 2025 2:53 PM TRACTOR ENGINE MECHANIC Pulse 75 2025 2:53 PM TRACTOR ENGINE MECHANIC Temperature 36.3 C (97.4 F) 2025 2:53 PM TRACTOR ENGINE MECHANIC Respiratory Rate 18 2025 2:53 PM TRACTOR ENGINE MECHANIC Oxygen Saturation 100% 2025 2:53 PM TRACTOR ENGINE MECHANIC Inhaled Oxygen Concentration - - Weight 92.1 kg (203 lb) 12/14/2024 11:02 AM TRACTOR ENGINE MECHANIC Height 172.7 cm (5' 8) 12/14/2024 11:02 AM TRACTOR ENGINE MECHANIC Body Mass Index 30.87 12/14/2024 11:02 AM TRACTOR ENGINE MECHANIC Plan of Treatment Health Maintenance Due Date Last Done Comments HEPATITIS B VACCINE (1 of 3 - 19+ 3-dose series) 2006 PNEUMOCOCCAL VACCINE (1 of 2 - PCV) 2006 DIABETES RETINOPATHY SCREENING 05/10/2021 DIABETES-FOOT EXAM WITH MONOFILAMENT 05/10/2021 DIABETES-SERUM CREATININE 06/12/20232021, 01/20/2022, 05/10/2021, Additional history exists PAP SMEAR 07/20/2023 07/20/2020 (Done Outside Per Patient), 01/07/2017, 05/01/2013 DIABETES - URINE PROTEIN SCREENING 12/01/2024 INFLUENZA VACCINE (#1) 2025 , 11/12/2023, 10/18/2022, Additional history exists DIABETES-HGB A1C 11/02/2025 05/03/2025, , 06/05/2023, Additional history exists DTAP/TDAP/TD VACCINES (3 - Td or Tdap) 08/07/2026 08/07/2016, 05/31/2013 ZOSTER VACCINE (1 of 2) 2037 HPV VACCINE Completed 07/16/2012, 03/02, 01/20/2012 COVID-19 VACCINE Completed 10/02/2024, 03/2021, 02/22/2021, Additional history exists DEPRESSION SCREENING Completed 2025, 08/26/2024, 09/23/2023, Additional history exists HEPATITIS C SCREENING Discontinued HIB VACCINE Aged Out No longer eligi ble based on patient's age to complete this topic HIV SCREENING Discontinued MENINGOCOCCAL (Group B) VACCINE SHARED DECISION-MAKING Aged Out No longer eligible based on patient's age to complete this topic MENINGOCOCCAL GROUPS A/C/Y/W VACCINE Aged Out No longer eligible based on patient's age to complete this topic Goals Goal Patient Goal Type Associated Problems Recent Progress Patient-Stated? Author Mobility General No Susanna Whelan RN Note: Expected end date: 09/30/2020 The goal is to maintain or improve your mobility at the optimum level for you. Interventions: Procedures Procedure Name Priority Date/Time Associated Diagnosis Comments COMPREHENSIVE METABOLIC PANEL 06/12/2022 1:26 PM CDT HEMOGLOBIN A1C - POINT OF CARE (AMB) Routine 01/29/2022 1:56 PM TRACTOR ENGINE MECHANIC Screening for diabetes mellitus from Last 3 Months or Most Recently Relevant to Health Maintenance Results * (ABNORMAL) COMPREHENSIVE METABOLIC PANEL (06/12/2022 1:26 PM CDT) Glucose 86 65 - 99 mg/dL [facility] INSURANCE BILL BUN 14 6 - 20 mg/dL [facility] B[facility] Creatinine 1.03(H) 0.57 - 1.00 mg/dL [facility] INSURANCE BILL eGFR by CKD-EPI 73 >59 mL/min/1.7 3 [facility] INSURANCE BILL BUN/Creatinine Ratio 14 9 - 23 [facility] INSUR[facility] BILL Sodium 140 134 - 144 mmol/L [facility]UR[facility] BILL Potassium 4.6 3.5 - 5.2 mmol/L [facility] INSUR[facility] BILL Chloride 106 96 - 106 mmol/L [facility] INSURANCE BILL CO2 22 20 - 29 mmol/L [facility] BILL Calcium 9.2 8.7 - 10.2 mg/dL [facility] INSURANCE BILL Protein Total 7.2 6.0 - 8.5 g/dL [facility]UR[facility] BILL Albumin 4.0 3.8 - 4.8 g/dL [facility] BILL Globulin Total 3.2 1.5 - 4.5 g/dL [facility] INSURANCE BILL Albumin/Globulin Ratio 1.3 1.2 - 2.2 [facility] INSURANCE BILL Bilirubin Total 0.3 0.0 - 1.2 mg/dL [facility] INSURANCE BILL Alkaline Phosphatase 79 44 - 121 IU/L [facility]UR[facility] BILL AST 21 0 - 40 IU/L [facility] INSURANCE BILL ALT 25 0 - 32 IU/L [facility] INSURANCE BILL Comment:FASTING 06/12/2022 1:26 PM CDT 06/12/2022 Narrative [facility] INSURANCE BILL - 06/13/2022 6:10 AM CDT A courtesy copy of this report has been sent to [phone] Resulting Agency Comment Lab Testing performed at: [facility] [address] [facility] [id number] us Rosalinda Magaña MD LAB - CHEMISTRY ORDERAB LES Final Result [facility] INSURANCE BILL [address] [place] [address] * HEMOGLOBIN A1C - POINT OF CARE (AMB) (01/29/2022 1:56 PM TRACTOR ENGINE MECHANIC) Hemoglobin A1c POCT 4.7 % [facility] Expiration Date 10/02/2023 [facility] Lot # [id number] [facility] QC Verified Yes Yes [facility] Blood BLOOD SPECIMEN / Unknown 01/29/2022 1:56 PM TRACTOR ENGINE MECHANIC Aparna Briceno [facility] - POINT OF CARE OR DERABLES Final Result [facility] [address] [place] [address], [facility] [phone] from Last 3 Months or Most Recently Relevant to Health Maintenance Additional Health Concerns Infection Onset Date Last 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 06/24/2022 Insurance [facility] COMMERCIAL [employer]IC [employer] Care Teams Program Therapist Relationship Specialty Start Date End Date Demetria Alaniz MD [facility] [facility] [address] [place] [address] PCP - General Family Medicine 05/09/23 Josh Cervantes MD [address] [facility] [address] [place] [address] Obstetrics and Gynecology 10/25/14 Bib Daniels MD [address] [facility] [address] [place] [address] Neurologist Neurological Surgery 07/14/20 Stephanie Chavira MD [address] [facility] [address] [place], [place] [id number] Internal Medicine 02/06/21 Kaylee Pham MD [address] [place] [address] Surgery 02/06/21
== END 2025-09-15 12:01 | disposition home or self-care (01) ==
PROVIDERS: Visit Provider Anesthesiology
DX: N28.9 Disorder of kidney and ureter, unspecified (principal); R10.20 Pelvic and perineal pain unspecified side; Z01.818 Encounter for other preprocedural examination
CPT/HCPCS: 36415; 80048; 85610; 85730; 86850; 86900; 86901

== ENCOUNTER 2025-09-26 01:10 | Day surgery (SDC) | payer OTHER, SELFPAY ==
--- OUTSIDE RECORDS SUMMARY | 2016-08-13 19:00 | XMS_ITS | Continuity of Care Document ---
Author Organization [facility] Address [address] [place] [address] Phone Care Team Providers Care Vice President Global Advertising Sales Name Role Phone Unavailable Unavailable Unavailable Advance Directives Directive Yes / No Effective Date File Name No Information Encounters Encounter Description Practice Location Reason(s) For Visit Diagnoses Date Provider Providers Copied on Encounter [facility], [address] [facility], [place], [place], [id number], tel:[phone] [facility] OUTPATIENT No Information 201 6 No Information Referring Provider: JUAN C CASTILLO, [address] [place] [address],[place], [address]. tel:[phone] Family History Family Member Type Diagnosis Age At Onset No Information Payers Payer name Insurance type Covered green party ID Authoriza tion(s) [facility] PPO [id number] CI [id number] Social History Type Description Quantity Date Captured Comments Sex Female Smoking Status No Information Chief Complaint And Reason For Visit No Information History Of Present Illness Encounter Date Complaint History Of Prese nt Illness No Information Instructions Date Instruction Additional Infor mation No Information Assessments Type Assessment Date No Information
--- OUTSIDE RECORDS SUMMARY | 2023-02-06 03:49 | XMS_ITS | Continuity of Care Document ---
Author Organization [facility] Address [address] [facility] [address] [place] [address] Phone Care Team Providers Care Microsoft Exchange Administrator Name Role Phone Chelsey Gatica MD Unavailable Unavailable Allergies, Adverse Reactions, Alerts Substance Reaction Status Criticality Sulfa (Sulfonamide Antibiotics) Swelling Active No Information latex Rash Active No Information codeine Nausea Active No Information Medications Medication Instructions Dosage Effective Dates (start - stop) Status Comments MONTELUKAST 10MG TABLETS TAKE 1 TABLET BY MOUTH EVERY DAY IN THE EVENING - Active LEVOCETIRIZINE 5MG TABLETS TAKE 1 TABLET BY MOUTH EVERY DAY IN THE EVENING - Active mometasone 50 mcg/actuation nasal spray spray 2 spray by intranasal route 2 times every day in each nostril 2 spray - Active Procedures Procedure Date IMMUNOTHERAPY INJECTIONS IMMUNOTHERAPY INJECTIONS IMMUNOTHERAPY INJECTIONS IMMUNOTHERAPY INJECTIONS IMMUNOTHERAPY INJECTIONS IMMUNOTHERAPY INJECTIONS Est (Level 2) OFFICE/OUTPATIENT VISIT Ja IMMUNOTHERAPY INJECTIONS Allergy EXT Allergy EXT Allergy EXT Allergy EXT New (Level 4) OFFICE/OUTPATIENT VISIT De Advance Directives Directive Yes / No Effective Date File Name No Information Encounters Encounter Description Practice Location Reason(s) For Visit Diagnoses Date Provider Providers Copied on Encounter [facility], [address] [facility], [id number], [place] tel:[phone] [facility] No Information 3 En Barbosa. [address] [facility], [address], [place], [place], [id number], [place]. tel:[phone] Referring Provider: Chelsey En , [address] [facility] [address], [place], [address] . tel:[phone] [facility], [address] [place] [address], [id number], [place] tel:[phone] [address] [place] [address] No Information 2 En [place]. [id number] [place] [address], [address], [place], [place], [id number], [place]. tel:[phone] Referring Provider: Chelsey Gatica , [address] [place] [address] [address], [place], [address] . tel:[phone] [facility], [address] [place] [address], [id number], [place] tel:[phone] [address] [place] [address] No Information 2 En [place]. [address] [facility], [address], [place], [place], [id number], [place]. tel:[phone] Referring Provider: Chelsey En , [address] [facility] [address], [place], [address] . tel:[phone] [facility], [address] [place] [address], [id number], [place] tel:[phone] [address] [place] [address] No Information 2 En [place]. [address] [facility], [address], [place], [id number], [place]. tel:[phone] Referring Provider: Chelsey En , [address] [facility] [address], [place], [address] . tel:[phone] [facility], [address] [place] [address], [id number], [place] tel:[phone] 700 [facility] No Information 2 En [place]. [address] [facility], [address], [place], [id number], [place]. tel:[phone] Referring Provider: Chelsey Gatica , [address] [facility] [address], [place], [address] . tel:[phone] [facility], [address] [place] [address], [id number], [place] tel:[phone] [address] [place] [address] No Information 2 En [place]. [address] [facility], [address], [place], [place], [id number], [place]. tel:[phone] Referring Provider: Chelsey Gatica , [address] [facility] [address], [place], [address] . tel:[phone] [facility], [address] [place] [address], [id number], [place] tel:[phone] [address] [place] [address] No Information 2 En [place]. [address] [facility], [address], [place], [id number], [place]. tel:[phone] Referring Provider: Chelsey Gatica , [address] [facility] [address], [place], [address] . tel:[phone] [facility], [address] [place] [address], [id number], [place] tel:[phone] [address] [place] [address] No Information 2 En [place]. [address] [facility], [address], [place], [place], [id number], [place]. tel:[phone] Referring Provider: Chelsey Gatica , [address] [facility] [address], [place], [address] . tel:[phone] Est (Level 2) OFFICE/OUTPAT IENT VISIT [facility], [address] [place] [address], [id number], [place] tel:[phone] [facility] allergies and asthma (chief complaint) Other allergic rhinitisMild intermittent asthmaBody mass index (BMI) 36.0-36.9, adult 2 En [place]. [address] [place] [address], [place] [address], [place], [place], [id number], [place]. tel:[phone] Referring Provider: Chelsey Gatica , [address] [place] [address], [place], [address] . tel:[phone] [facility], [address] [place] [address], [id number], [place] tel:[phone] [facility] Other allergic rhinitis 2 En Barb[place]. [address] [facility], [place] [address], [place], [place], [id number], [place]. tel:[phone] Referring Provider: Chelsey Gatica , [address] [place] [address] Suite [facility], [place], [address] . tel:[phone] [facility], [address] [place] [address], [id number], [place] tel:[phone] [facility] Other allergic rhinitis 1 En Chelsey. [address] [facility], [place] [address], [place], [place], [id number], [place]. tel:[phone] Referring Provider: Chelsey Gatica , [address] [place] [address] Suite [facility], [place], [address] . tel:[phone] [facility], [address] [place] [address], [id number], [place] tel:[phone] [facility] Other allergic rhinitis Phyllis Barbosa. [address] [facility], Suite [facility], [place], [place], [id number], [place]. tel:[phone] Referring Provider: Chelsey Gatica , [address] [facility] Suite [facility], [place], [address] . tel:[phone] [facility], [address] [place] [address], [id number], tel:[phone] [facility] Other allergic rhinitis 1 En Barb[place]. [address] [facility], [place] [address], [place], [place], [id number], [place]. tel:[phone] Referring Provider: Chelsey Gatica , [address] [place] [address], [place], [address] . tel:[phone] New (Level 4) OFFICE/OUTPAT IENT VISIT [facility], [address] [place] [address], [id number], tel:[phone] [address] [place] [address] allergy symptoms (chief complaint) Body mass index (BMI) 36.0-36.9, adultOther allergic rhinitisMild intermittent asthma 1 En Barb[place]. [address] [facility], [place] [address], [place], [place], [id number], [place]. tel:[phone] Referring Provider: Sylvia Woods, [address] [place] [address], [address]. tel:[phone] Family History Family Member Type Diagnosis Age At Onset Problem No family history of Heredit rhea angioedema Sister Problem asthma Problem No family history of Autoimm une disease Problem No family history of Thyroid disorder Problem No family history of Hives Sister Problem Allergic rhinitis Problem No family history of Immunod eficiency disorder Problem No family history of leukemi a/lymphoma Cousin Problem asthma Problem No family history of Rheumat oid arthritis Problem No family history of Allergi es, food Problem No family history of Systemi c lupus erythematosus Payers Payer name Insurance type Covered constitution party ID Authoriza tion(s) [facility] Choice Plus CI [id number] Social History Type Description Quantity Date Captured Comments Sex Female Smoking Status No Information Chief Complaint And Reason For Visit No Information Reason For Referral Reason For Referral No Information History Of Present Illness Encounter Date Complaint History Of Prespercy nt Illness allergies and asthma LV: 1Patient is here for her first allergy injection today. Patient took an antihistamine today and requests to start allergy injections in the office.AR: Patient reports that she has symptoms during the spring and summer. C/o nasal congestion, rhinorrhea, minimal PND, + ocular pruritus, + sneezing. Patient has alternated between zyrtec and claritin with Mometasone nasal spray during spring and summer with improvement. She is not currently taking any allergy medications. Has a history of dog allergy. She was recently around a friend's puppy and started to develop nasal congestion, runny nose, itchy eyes, throat felt tight. Did not have SOB, wheeze. She left the home and symptoms improved. Since her last office visit she did start Xyzal, Singulair, and Flonase. + intact sense of smell.Previous SPT 2012 positive to T/G/Rw/M/Ca/D/DMAsthma: Has a history of childhood asthma that has resolved. She has not had asthma symptoms in years. Denies chest tightness, SOB, wheeze, cough. Denies nocturnal symptoms, denies exertional symptoms. allergy symptoms Gabriela is a 36 year old female that presents to re-establish care for AR. Last seen in 2012. AR: Patient reports that she has symptoms during the spring and summer. C/o nasal congestion, rhinorrhea, minimal PND, + ocular pruritus, + sneezing. Patient has alternated between zyrtec and claritin with Mometasone nasal spray during spring and summer with improvement. She is not currently taking any allergy medications. Has a history of dog allergy. She was recently around a friend's puppy and started to develop nasal congestion, runny nose, itchy eyes, throat felt tight. Did not have SOB, wheeze. She left the home and symptoms improved. She would like to discuss treatment options as she is getting a puppy next Friday. Currently has no pets in her home. + intact sense of smell.History of rhinosinusitis <1x per year.CT-scan of sinus NoPrevious SPT 2013 positive to T/G/Rw/M/Ca/D/DMHistory of sinus surgery No Asthma: Reports that she had a history of asthma as child that were triggered with illness. Reports that her symptoms have resolved. Denies chest tightness, SOB, wheeze, cough. Denies nocturnal symptoms, denies exertional symptoms. She reports that she has not used albuterol in years. No hospitalizations, corticosteroid burst. Denies any hx of food allergy, AD, chronic urticaria/angioedema.PMHx: Asthma, Migraine Headache, DM II, Anxiety, HTNMedications: Topamax, Lexapro, Neurontin, Iron, HCTZPSHx: None relevant Social Hx: tobacco abuse DeniesEnvironmental Hx: Lives in a housecentral heat/air Pets 0Carpet in bedroom +HDM covers on mattress/pillow NoTobacco exposure NoFHx: Asthma: Sister, CousinAR: SisterAD: 0Urticaria/Angioedema: 0Food Allergies: 0SLE/RA: 0Thyroid Disease: 0Leukemia/Lymphoma: 0IDS: 0 Functional Status Date Functional Assessmen t No Information Instructions Date Instruction Additional Infor mation Giving encouragement to exercise Related to Body mass index [BMI] 36.0-36.9, adult Giving encouragement to exercise Related to Body mass index [BMI] 36.0-36.9, adult Assessments Type Assessment Date No Information Patient Care Teams Name Effective Dates (start - stop) Status Members No Information
[2025-09-14 09:06] VITALS: BMI 26.8
--- NOTE | 2025-09-15 12:38 | PC.NURSE ---
[facility] has started construction of its new state of the art ER which will open Spring 2026. With this, we anticipate parking may be a challenge for some our surgical patients and families. Parking spaces are limited but are available for all Surgical, obstetrics, and ER patients sharing this lot. If you arrive and find you are having a hard time finding a parking space, please note that we understand the challenges, please drive around the hospital and park near Hospital Entrance 1. When you enter this entrance, you can ask a volunteer to direct or take you back to the surgical waiting area to check in. We appreciate everyone?s understanding of these expected challenges while we build for your future. Report to the Outpatient Waiting Room, entrance under the green pavilion located off [address], at time 1000 on date 09/26/25. Planned Procedure Time: 1200.? Time changes happen often and if your time is changed the preop area will call you the afternoon before. - You and your visitor will be asked to self-screen and do not enter if you have any COVID symptoms. Please call surgeon if you need to reschedule. - A mask is optional within the hospital at this time. Patients may have clear liquids (water, carbonated beverages, clear teas, apple juice) until 3 hours prior to surgery with a maximum of 20 ounces. - No food from midnight until time of surgery and no smoking, or chewing tobacco (or any form of nicotine). No chewing gum, candy or mints. Take only the following medications with a SIP of water on the morning of surgery: topiramate, valacyclovir, albuterol if needed DO NOT STOP ANY OF YOUR OTHER PRESCRIPTION MEDICATIONS PRIOR TO SURGERY EXCEPT THE FOLLOWING Hold all vitamins and supplements for 3 days per anesthesiologist. LAST DOSE: 09/22/25 Medications to discontinue per physician: n/a Date to take last dose: n/a Please no make-up, nail occitan, hairspray, perfume, deodorant, or body powder the day of surgery.? No jewelry (including any body piercings) or valuables the day of surgery, leave them at home.? Please take a shower or bath the night before, or the morning of, surgery with an antibacterial soap.? Wear comfortable, loose fitting clothing.? Children are encouraged to wear pajamas. - Jewelry must be removed prior to entering the operating room.? Rings and piercings that are not removed may be cut off. - The hospital will not accept responsibility for valuables.? - Please leave all valuables, including medications, at home the day of surgery. If you are going home after surgery, a licensed auto transport driver must drive you home.? - NO public transportation without another adult if you receive anesthesia. - We recommend that an adult stay with you for 24 hours following discharge. - We also recommend that you do not drive, make important decision, drink alcoholic beverages, or take any drugs that were not prescribed by your health care provider for at least 24 hours after your discharge time. Follow any additional instructions given to you from your surgeon. Telephone instructions given to radha Ochoa and asked if any additional questions and then verbalized understanding. Patient advised to call surgeon office or pre surgery nurse liaison [phone] if any additional questions.
--- NOTE | 2025-09-25 04:36 | PM.IMHP ---
H&P: HPI History of Present Illness Date/Time: 09/25/25 04:36 Chief Complaint: Surgery Narrative: MILES Review of Systems Review of Systems: All systems reviewed & are unremarkable except as noted in HPI and below PMFSH Past Medical History Medical History Chlamydia Intervertebral disc degeneration Diabetes Vaginal delivery Depression Surgical History Surgical History History of endometrial ablation History of carpal tunnel surgery of right wrist History of carpal tunnel surgery of left wrist History of cholecystectomy S/P bilateral breast reduction History of gastric surgery And revision in 2020 Family History Family History Mother Hypertension Grandparent Hypertension Carcinoma of colon Diabetes mellitus Social History Social History Smoking status: Never smoker Second hand tobacco smoke exposure: No Alcohol intake: current Drinks per week: 2 Alcohol use details: socially Substance use: never Substance use type: does not use Lack of Transportation: No Lack of Food: Never True Current Housing: I Have Housing Concerned About Future Housing: No Difficulty Paying Gas/Electric Bills: No Difficulty Paying for Meds: No Currently Unemployed: No Education: Bachelor's Degree Difficulty w/ Childcare or Family Care: No Living arrangements: with family Additional living arrangements comments: fiance Occupation/Education: occupation Gender identity (if verbalized by the patient): Female Sexual Orientation (if Verbalized by the Patient): Straight or Heterosexual Spiritual care concerns: No Meds Home Medications and Allergies Home Medications ?Medication ?Instructions ?Recorded ?Confirmed ?Type multivitamin (Daily Multi-Vitamin 1 tablet PO DAILY 03/09/20 09/15/25 History tablet) tirzepatide 5 mg/0.5 mL 10 mg subcut WEEKLY 05/13/23 09/15/25 History subcutaneous pen injector (Mounsapnaro) rimegepant 75 mg disintegrating 75 mg PO ONCE PRN Migraine Headache 07/08/24 09/15/25 History tablet (Nurtec ODT) topiramate 100 mg tablet 50 mg PO DAILY 07/20/24 09/15/25 History cyclobenzaprine 10 mg tablet 10 mg PO TID PRN muscle spasm pain 08/15/25 09/14/25 Rx #20 tabs valacyclovir 500 mg tablet 500 mg PO DAILY #90 tabs 08/16/25 09/15/25 Rx (Valtrex) albuterol sulfate 90 mcg/actuation 1 puff inhalation PRN PRN 09/14/25 09/15/25 History aerosol inhaler shortness of breath or wheezing cyanocobalamin (vitamin B-12) 100 50 mcg PO DAILY 09/14/25 09/15/25 History mcg tablet (Vitamin B-12) magnesium 250 mg tablet 250 mg PO BID 09/14/25 09/15/25 History psyllium husk 0.52 gram capsule 0.52 g PO DAILY 09/14/25 09/15/25 History (Daily Fiber) Allergies Allergy/AdvReac Type Severity Reaction Status Date / Time APPLES Allergy Intermediate ITCHING,SWELLING Uncoded 09/15/25 10:49 OF TONGUE Exam Narrative: + urethral mobility Assessment and Plan Assessment and plan (1) MILES (stress urinary incontinence, female): Code(s): N39.3 - Stress incontinence (female) (male) Status: Acute Assessment and Plan: urethral sling
[2025-09-26] VITALS (9 sets, daily range): BP systolic 91–139; BP diastolic 56–88; PULSE 53–79; RESP 12–20; TEMP 36.4–37.1; O2SAT 98–100
--- OUTSIDE RECORDS SUMMARY | 2025-09-26 01:13 | XMS_ITS ---
Author Organization [facility] Address [address] [place] [address] Care Team Providers Care Correctional Supervising Cook Name Role Phone Kaylee Pham MD Unavailable [phone] Brandon Diehl NP Unavailable [phone] Ruiz Castro MD Unavailable [phone] Judd Davila MD Primary Care Provid er GulfNina Pickering OD Unavailable [phone] Active Problems Problem Noted Date Diagnosed Date [...] 01/28/2025 Assessment & Plan (01/28/2025 2:39 PM BLUEPRINTING MACHINE OPERATOR): Recent onset of cough, chest discomfort, nasal congestion, and sore throat. Home COVID and flu tests negative. Redness in throat and ears noted on exam. Wheezing noted on right side. -Continue symptomatic treatment with gped-hjb-twwjdhp medications. -Repeat home COVID test in a [...] 11/12/2023 Assessment & Plan (11/13/2023 7:34 AM BLUEPRINTING MACHINE OPERATOR): - Start hydroxyzine Type 2 diabetes mellitus with chronic kidney dis ease 03/31/2023 Assessment & Plan (05/31/2025 1:39 PM CDT): Stable, continue prescribed Mounjaro 12.5 mg subQ weekly Assessment & Plan (01/28/2025 2:42 PM BLUEPRINTING MACHINE OPERATOR): - Continue to optimize blood sugar - repeat labs today Assessment & Plan (08/31/2024 1:41 PM CDT): - Continue to optimize blood sugar - GFR decrease with last labs with weight management, plan to repeat labs - Include urine microalbumin at repeat Assessment & Plan (11/13/2023 7:33 AM BLUEPRINTING MACHINE OPERATOR): - Continue to optimize blood sugar JERMAN (generalized anxiety disorder) 03/31/2023 Assessment & Plan (01/28/2025 2:40 PM BLUEPRINTING MACHINE OPERATOR): - Chronic, stable - Continue Lexapro, wellbutrin, hydroxyzine - Will follow up with therapist Assessment & Plan (08/31/2024 2:56 PM CDT): - Chronic, stable - Continue Lexapro and hydroxyzine - Will follow up with therapist Assessment & Plan (11/13/2023 7:34 AM BLUEPRINTING MACHINE OPERATOR): - Chronic, not well controlled - Sleep [...] (07/03/2021): Added automatically from request for surgery [id number] Assessment & Plan (01/28/2025 1:59 PM BLUEPRINTING MACHINE OPERATOR): Chronic, stable Continue current medication Postsurgical malabsorption 12/24/2020 Assessment & Plan (12/24/2020 9:57 PM BLUEPRINTING MACHINE OPERATOR): Labs. Iron deficiency 12/24/2020 Bariatric surgery status 12/24/2020 Assessment & Plan (03/03/2023 8:19 AM CDT): Bariatric surgery labs ordered for possible vitamin deficiencies in setting of intestinal malabsorption. Assessment & Plan (12/24/2020 9:56 PM BLUEPRINTING MACHINE OPERATOR): Routine labs to evaluate for vitamin deficiencies [...] Asked to try to track consistently with Esc[employer] It daniel for at least 1 week to help identify calorie/carb/protein intake. Assessment & Plan (01/13/2022 12:52 PM BLUEPRINTING MACHINE OPERATOR): Reviewed calorie restriction based on BMR as [...] phone. Assessment & Plan (01/19/2021 2:01 PM BLUEPRINTING MACHINE OPERATOR): Reviewed calorie restriction based on BMR as previously detailed. Reviewed recommendation/goal of >/= 150 minutes/week moderate-intensity aerobic exercise. Assessment & Plan (12/24/2020 9:52 PM BLUEPRINTING MACHINE OPERATOR): Discussed that significant health benefits/risk reduction may [...] frequently. Assessment & Plan (12/24/2020 9:59 PM BLUEPRINTING MACHINE OPERATOR): Discussed comorbidities associated with sleep apnea, including [...] Chavira Assessment & Plan (11/13/2023 7:32 AM BLUEPRINTING MACHINE OPERATOR): - Chronic, improving, not at goal - [...] month. Assessment & Plan (01/13/2022 12:58 PM BLUEPRINTING MACHINE OPERATOR): Obesity is improving with treatment. Diet interventions: [...] topiramate. Assessment & Plan (01/19/2021 2:01 PM BLUEPRINTING MACHINE OPERATOR): Obesity is unchanged. Diet interventions: as noted. Regular aerobic exercise program discussed. Pharmacotherapy as ordered. Will try increasing PM topiramate to help with night eating. Discussed risks, benefits, alternatives, potential side effects. Assessment & Plan (12/24/2020 9:58 PM BLUEPRINTING MACHINE OPERATOR): Obesity is worsening. General weight loss/lifestyle modification strategies discussed (elicit support from others; identify saboteurs; non-food rewards, etc). Diet interventions: as noted. Informal exercise measures discussed, e.g. taking stairs instead of elevator. Regular aerobic exercise program discussed. More detailed recommendations pending review of labs, food record. Migraine headache 01/22/2014 Assessment & Plan (01/28/2025 2:40 PM BLUEPRINTING MACHINE OPERATOR): - Chronic, stable - Followed by Neurology Chronic migraines improved since removal of IUD. Currently taking Nurtec and Topiramate. -Continue current treatment. -Notify neurologist of self-initiated decrease in Topiramate dose. Assessment & Plan (11/13/2023 7:32 AM BLUEPRINTING MACHINE OPERATOR): - Chronic, stable - Followed by Neurology - Continue current management Assessment & Plan (03/31/2023 12:20 PM CDT): - continue management per Neurology Allergic rhinitis 04/07/2013 Overview (07/18/2021): 04/06/13: SPT positive to T/G/RW/M/D/C/HDM/CR Asthma 04/07/2013 Assessment & Plan (01/28/2025 2:39 PM BLUEPRINTING MACHINE OPERATOR): Chronic, stable Continue albuterol prn Anemia 03/16/2013 Type 2 diabetes mellitus wit hout complication, without long-term current use of insulin 03/16/2013 Overview (05/08/2021): In remission since bariatric surgery. Didn't tolerate metformin. Assessment & Plan (01/28/2025 2:43 PM BLUEPRINTING MACHINE OPERATOR): Chronic, well controlled - Continue Mounjaro Discussed importance of routine screening including foot exam and eye exam as indicated Assessment & Plan (08/31/2024 1:39 PM CDT): Chronic, well controlled - Continue Mounjaro Assessment & Plan (11/13/2023 7:32 AM BLUEPRINTING MACHINE OPERATOR): - Chronic, stable - Tolerating current dose [...] RA. Assessment & Plan (01/13/2022 12:58 PM BLUEPRINTING MACHINE OPERATOR): Reviewed interim labs. Continue low-carb (<150 g/day), [...] ordered. Assessment & Plan (11/13/2023 7:33 AM BLUEPRINTING MACHINE OPERATOR): - Chronic, stable - continue current regimen [...] 5.6. Assessment & Plan (01/19/2021 2:01 PM BLUEPRINTING MACHINE OPERATOR): Reviewed labs with her. Continue low-carb (<150 g/day), low-glycemic diet. Consider GLP-1 RA Assessment & Plan (12/24/2020 9:52 PM BLUEPRINTING MACHINE OPERATOR): Labs. Discussed insulin resistance including effect on weight and risk for progression to diabetes. Recommended low-carb, low-glycemic diet; choose whole grains and avoid more highly processed carbohydrates. Discussed potential benefits of this w/r/t gut microbiome. Referred to ADA and [email or web address] websites for additional information on topics including [...]
--- OUTSIDE RECORDS SUMMARY | 2025-09-26 01:13 | XMS_ITS | Encounter Summary ---
Author Organization [facility] Address [address] [place] [address] Phone Care Team Providers Care Dry Color Tester Name Role Phone Kaylee Pham MD Unavailable [phone] Brandon Diehl NP Unavailable [phone] Ruiz Castro MD Unavailable [phone] Demetria Alaniz MD Primary Care Provider [phone] No, Physician Primary Care Provider [phone] Jackie Ralph DO Primary Care Provid er Judd Davila MD Primary Care Provid er Nina Alexander OD Unavailable [phone] Encounter Details Date Type Department Care Team (Late st Contact Info) Description 09/16/2021 Documentation [facility] ([facility]) - [facility] Medicine Minimally Invasive Surgery [facility] Advanced Medicine [address]th Floor, [place] [address] Jonatan Darden Social History Tobacco [...] on file Legal Sex Female 8:37 PM TAX COMPLIANCE OFFICER Gender Identity Female 08/07/2021 9:39 AM CDT Sexual Orientation Straight 08/07/2021 9: 39 AM CDT documented as of this encounter Plan of Treatment Not on file documented as of this encounter Visit Diagnoses Not on filedocumented in this encounter Care Teams Dry Color Tester Relationship Specialty Start Date End Date Demetria Alaniz MD [facility] [facility] [address] [address] [place] [address] PCP - General Family Medicine 03/26/23 01/27/25 No, Physician PCP - General 01/28/25 05/01/25 Jackie Ralph DO [address] [facility] [address] [place] [address] PCP - General Family Medicine 05/02/25 05/30/25 Judd Davila MD [address] [facility] [address] [place] [address] PCP - General Family Medicine 05/31/25 Kaylee Pham MD Consulting Physician General Surgery 10/30/21 Brandon Diehl, JAS Nurse Practitioner General Surgery 10/30/21 Ruiz Castro MD [address] [facility] [id number] [place] [address] Surgeon Colon and Rectal Surgery 11/22/21 Nina Alexander, CANDELARIO [address] [place] [address] Optometry 05/31/25 documented as of this encounter
--- OUTSIDE RECORDS SUMMARY | 2025-09-26 01:13 | XMS_ITS | Clinical Summary ---
Author Organization [employer] [address] - [address] Address [address] [place] [address] Phone Care Team Providers Care Media Services Specialist Name Role Phone Sylvia Perez MD Primary Care Provider [phone] Allergies Active Allergy Reactions Criticality Noted Date [...] 07/19/20 22 Active mometasone (NASONEX) 50 mcg/actuation [place], Non-Aerosol Administer 2 Sprays in each nostril. [...] Encounters Date Type Department Care Team Description 09/20/2025 External Device Data [facility] ABSTRACTION Provider, Abstract 09/06/2025 External Device Data [facility] ABSTRACTION Provider, Abstract 09/03/2025 11:15 AM CDT Office Visit [facility] [address] [address] [facility] Carlo Briceno PA-C Streptococcal pharyngitis [...] STREP A ANTIGEN (09/03/2025 11:39 AM CDT) [facility] RAPID STREP POC Positive( A) Negative, Indeterminate [facility] INTERNAL KIT QC POC Pass Pass [facility] KIT LOT NUMBER POC 953,523 [facility] KIT EXP DATE POC [facility] READ METHOD POC Visual [facility] Upper Respiratory SPECIMEN FROM THROAT / Unknown 09/03/2025 11:39 AM CDT us Carlo Briceno PA-C POINT OF CARE TESTING Final Re sult Performing Organization Address City/[facility]/ZIP Co de Phone Number [facility] CLIA# [id number] [place] [address] * HEMOGLOBIN A1C (04/23/2016 4:42 PM CDT) [facility] HEMOGLOBIN A1C 4.8 4.0 - 6.0 % 04/23/2016 9:40 PM CDT [facility] [facility] Comment:Note: Effective as o f 12/22/2014 a new methodology, Turbidimetric inhibition immunoassay (TINIA),has been implemented. EST. AVG GLUCOSE, A1C 91 mg/dL 04/23/2016 9:40 PM CDT [facility] [place] [facility] Blood Venipuncture - L ab Collect / Unknown 04/23/2016 4:42 PM CDT 04/23/2016 4:42 PM CDT Hussein Baires MD CHEMISTRY ORDERABLES Final Res ult [facility] [employer] [place] [facility] CLIA# [id number] [address] [place] [address] from Last 3 Months or Most Recently Relevant to Health Maintenance Insurance [facility] OPT[employer] PPO [id number] [facility] CHOICE [id number] Advance Directives For more information, please contact: [phone] * Full Code (Latest Code Status on File) Date Activated Date Inactivated Comments 05/17/2016 12:10 PM 05/17/2016 4:09 PM * Full Code Date Activated Date Inactivated Comments 04/03/2016 2:52 PM 04/03/2016 7:06 PM Care Teams Media Services Specialist Relationship Specialty Start Date End Date Sylvia Perez MD PCP - General Internal Medicine 03/01/16
--- OUTSIDE RECORDS SUMMARY | 2025-09-26 01:13 | XMS_ITS | Clinical Summary ---
Author Organization [facility] Address [address] [place] [address] Care Team Providers Care Hazardous Substances Engineer Name Role Phone Kaylee Pham MD Unavailable Brandon Diehl NP Unavailable [phone] Ruiz Castro MD Unavailable [phone] Judd Davila MD Primary Care Provid er NoblesNina Pickering OD Unavailable Allergies Active Allergy Reactions Criticality Noted Date [...] 01/28/2025 Assessment & Plan (01/28/2025 2:39 PM UNIFORM FORCE CAPTAIN): Recent onset of cough, chest discomfort, nasal congestion, and sore throat. Home COVID and flu tests negative. Redness in throat and ears noted on exam. Wheezing noted on right side. -Continue symptomatic treatment with [id number] medications. -Repeat home COVID test in a [...] 11/12/2023 Assessment & Plan (11/13/2023 7:34 AM UNIFORM FORCE CAPTAIN): - Start hydroxyzine Type 2 diabetes mellitus with chronic kidney dis ease 03/31/2023 Assessment & Plan (05/31/2025 1:39 PM CDT): Stable, continue prescribed Mounjaro 12.5 mg subQ weekly Assessment & Plan (01/28/2025 2:42 PM UNIFORM FORCE CAPTAIN): - Continue to optimize blood sugar - repeat labs today Assessment & Plan (08/31/2024 1:41 PM CDT): - Continue to optimize blood sugar - GFR decrease with last labs with weight management, plan to repeat labs - Include urine microalbumin at repeat Assessment & Plan (11/13/2023 7:33 AM UNIFORM FORCE CAPTAIN): - Continue to optimize blood sugar JERMAN (generalized anxiety disorder) 03/31/2023 Assessment & Plan (01/28/2025 2:40 PM UNIFORM FORCE CAPTAIN): - Chronic, stable - Continue Lexapro, wellbutrin, hydroxyzine - Will follow up with therapist Assessment & Plan (08/31/2024 2:56 PM CDT): - Chronic, stable - Continue Lexapro and hydroxyzine - Will follow up with therapist Assessment & Plan (11/13/2023 7:34 AM UNIFORM FORCE CAPTAIN): - Chronic, not well controlled - Sleep [...] (07/03/2021): Added automatically from request for surgery [id number] Assessment & Plan (01/28/2025 1:59 PM UNIFORM FORCE CAPTAIN): Chronic, stable Continue current medication Postsurgical malabsorption 12/24/2020 Assessment & Plan (12/24/2020 9:57 PM UNIFORM FORCE CAPTAIN): Labs. Iron deficiency 12/24/2020 Bariatric surgery status 12/24/2020 Assessment & Plan (03/03/2023 8:19 AM CDT): Bariatric surgery labs ordered for possible vitamin deficiencies in setting of intestinal malabsorption. Assessment & Plan (12/24/2020 9:56 PM UNIFORM FORCE CAPTAIN): Routine labs to evaluate for vitamin deficiencies [...] Asked to try to track consistently with Keegy It daniel for at least 1 week to help identify calorie/carb/protein intake. Assessment & Plan (01/13/2022 12:52 PM UNIFORM FORCE CAPTAIN): Reviewed calorie restriction based on BMR as [...] phone. Assessment & Plan (01/19/2021 2:01 PM UNIFORM FORCE CAPTAIN): Reviewed calorie restriction based on BMR as previously detailed. Reviewed recommendation/goal of >/= 150 minutes/week moderate-intensity aerobic exercise. Assessment & Plan (12/24/2020 9:52 PM UNIFORM FORCE CAPTAIN): Discussed that significant health benefits/risk reduction may [...] frequently. Assessment & Plan (12/24/2020 9:59 PM UNIFORM FORCE CAPTAIN): Discussed comorbidities associated with sleep apnea, including [...] Chavira Assessment & Plan (11/13/2023 7:32 AM UNIFORM FORCE CAPTAIN): - Chronic, improving, not at goal - [...] month. Assessment & Plan (01/13/2022 12:58 PM UNIFORM FORCE CAPTAIN): Obesity is improving with treatment. Diet interventions: [...] topiramate. Assessment & Plan (01/19/2021 2:01 PM UNIFORM FORCE CAPTAIN): Obesity is unchanged. Diet interventions: as noted. Regular aerobic exercise program discussed. Pharmacotherapy as ordered. Will try increasing PM topiramate to help with night eating. Discussed risks, benefits, alternatives, potential side effects. Assessment & Plan (12/24/2020 9:58 PM UNIFORM FORCE CAPTAIN): Obesity is worsening. General weight loss/lifestyle modification strategies discussed (elicit support from others; identify saboteurs; non-food rewards, etc). Diet interventions: as noted. Informal exercise measures discussed, e.g. taking stairs instead of elevator. Regular aerobic exercise program discussed. More detailed recommendations pending review of labs, food record. Migraine headache 01/22/2014 Assessment & Plan (01/28/2025 2:40 PM UNIFORM FORCE CAPTAIN): - Chronic, stable - Followed by Neurology Chronic migraines improved since removal of IUD. Currently taking Nurtec and Topiramate. -Continue current treatment. -Notify neurologist of self-initiated decrease in Topiramate dose. Assessment & Plan (11/13/2023 7:32 AM UNIFORM FORCE CAPTAIN): - Chronic, stable - Followed by Neurology - Continue current management Assessment & Plan (03/31/2023 12:20 PM CDT): - continue management per Neurology Allergic rhinitis 04/07/2013 Overview (07/18/2021): 04/06/13: SPT positive to T/G/RW/M/D/C/HDM/CR Asthma 04/07/2013 Assessment & Plan (01/28/2025 2:39 PM UNIFORM FORCE CAPTAIN): Chronic, stable Continue albuterol prn Anemia 03/16/2013 Type 2 diabetes mellitus wit hout complication, without long-term current use of insulin 03/16/2013 Overview (05/08/2021): In remission since bariatric surgery. Didn't tolerate metformin. Assessment & Plan (01/28/2025 2:43 PM UNIFORM FORCE CAPTAIN): Chronic, well controlled - Continue Mounjaro Discussed importance of routine screening including foot exam and eye exam as indicated Assessment & Plan (08/31/2024 1:39 PM CDT): Chronic, well controlled - Continue Mounjaro Assessment & Plan (11/13/2023 7:32 AM UNIFORM FORCE CAPTAIN): - Chronic, stable - Tolerating current dose [...] RA. Assessment & Plan (01/13/2022 12:58 PM UNIFORM FORCE CAPTAIN): Reviewed interim labs. Continue low-carb (<150 g/day), [...] ordered. Assessment & Plan (11/13/2023 7:33 AM UNIFORM FORCE CAPTAIN): - Chronic, stable - continue current regimen [...] 5.6. Assessment & Plan (01/19/2021 2:01 PM UNIFORM FORCE CAPTAIN): Reviewed labs with her. Continue low-carb (<150 g/day), low-glycemic diet. Consider GLP-1 RA Assessment & Plan (12/24/2020 9:52 PM UNIFORM FORCE CAPTAIN): Labs. Discussed insulin resistance including effect on weight and risk for progression to diabetes. Recommended low-carb, low-glycemic diet; choose whole grains and avoid more highly processed carbohydrates. Discussed potential benefits of this w/r/t gut microbiome. Referred to ADA and beqom websites for additional information on topics including [...] Team Description 08/12/2025 3:30 PM CDT Telemedicine [facility] Medicine Metabolic Weight Management [address] [place] [address] Medical Office [address] [place] [address] Jocelyn Mcclellan NP Weight loss counseling, encounter for (Primary Dx); Type 2 diabetes mellitus with stage 3a chronic kidney disease, without long-term current use of insulin (HCC); History of gastric bypass; Class 3 severe obesity with serious comorbidity in adult, unspecified BMI, unspecified obesity type 07/24/2025 6:26 AM CDT - 07/24/2025 9:19 AM CDT Emergency [facility] Emergency Department [address] [place] [id number] Calderon Freeman MD Other migraine without status [...] Influenza, Unspecified 05/31/2025(Deferr ed: Not available from paper sorter) Pfizer SARS-CoV-2 Monovalent Vaccination (12+ Yrs) PURPLE [...] History Medical History Relation Name Comments Anemia Jordan Mccall Cancer Father Deo Borrero Hyperlipidemia Father Deo Borrero Hypertension Father Deo Borrero Kidney disease Father Deo Borrero Arthritis Maternal Grandmother Leslye Malhotra Diabetes Maternal Grandmother Leslye Malhotra Heart disease Maternal Grandmother Leslye Malhotra Memory loss Maternal Grandmother Leslye Malhotra Anemia Mother Liliam Adair Arthritis Mother Liliam Charlotte Hypertension Mother Liliam Adair Heart attack Paternal Grandfather Anish BerriosCharlotte Cancer Paternal Grandmother Julissa Berriosdridge Colon cancer Paternal Grandmother Julissa Borrero Armida gnant Neoplasm, Colon - (Added by TW Conv) Obesity Sister Karina Talavera Breast cancer Neg Hx Cervical cancer Neg Hx Ovarian cancer Neg Hx Relation Name Status Comments Jordan Mccall Father Deo Borrero Maternal Grandmother Leslye Malhotra Mother Liliam Adair Paternal Grandfather Anish Echevarriaidge Paternal Grandmother Julissa Berriosdridge Sister Karina Talavera Social History Tobacco Use [...] on file Legal Sex Female 8:37 PM UNIFORM FORCE CAPTAIN Gender Identity Female 08/07/2021 9:39 AM CDT [...] Procedure Name Priority Date/Time Associated Diagnosis Comments EGFR STAT 06/24/2025 12:44 PM CDT HEMOGLOBIN A1C [...] Relevant to Health Maintenance Results * (ABNORMAL) eGFR (06/24/2025 12:44 PM CDT) [...] DO LAB BLOOD ORDERABLES Mariel l Result [facility] [address] [facility] Department [place] [address] * Hemoglobin A1c (05/03/2025 8:11 AM CDT) Hgb A1C 4.8 4.8 - 5.6 % [facility] - 01 Comment: Prediabetes: 5.7 - 6.4 Diabetes: >6.4 Glycemic control for adults with diabetes: <7.0 Blood 05/03/2025 8:11 AM CDT 05/03/2025 Narrative [facility] - 05/04/2025 6:36 AM CDT Performed at: [address] [place] [id number] Screen Door Maker: Bradley Mcgill PhD, Phone: [phone] us Jocelyn Mcclellan EQUIPMENT COORDINATOR LAB BLOOD ORDERABLES Final Resu lt Performing Organization Address [facility] de Phone Number [facility] - * Lipid panel (05/03/2025 8:11 AM CDT) Cholesterol 134 100 - 199 mg/dL [facility] - 01 Triglycerides 68 0 - 149 mg/dL [facility] - 01 HDL Cholesterol 53 >39 mg/dL [facility] - 01 VLDL 14 5 - 40 mg/dL [facility] - 01 LDL, calculated 67 0 - 99 mg/dL [facility] - 01 Blood 05/03/2025 8:11 AM CDT 05/03/2025 Narrative [facility] - 05/04/2025 6:36 AM CDT Performed at: [address] [id number] Screen Door Maker: Bradley Mcgill PhD, Phone: [phone] us Jocelyn Mcclellan EQUIPMENT COORDINATOR LAB BLOOD ORDERABLES Final Resu lt Performing Organization Address [facility] de Phone Number [facility] - * Hepatitis C antibody Blood (04/01/2025 8:15 AM CDT) Pathologist [facility] Hep C Ab Non Reactive Non Reactive [facility] - 01 Comment: HCV antibody alone does not differentiate between previously resolved infection and active infection. Equivocal and Reactive HCV antibody results should be followed up with an HCV RNA test to support the diagnosis of active HCV infection. Blood 04/01/2025 8:15 AM CDT 04/01/2025 Narrative [facility] - 04/02/2025 5:08 AM CDT Performed at: [facility] [id number] Screen Door Maker: Bradley Mcgill PhD, Phone: [phone] us Demetria Alaniz MD LAB MICROBIOLOGY - GENERAL ORDERABLES Final Result Performing Organization Address [facility]/ZIP Co de Phone Number [facility] - 01 * Albumin Creatinine Ratio, Urine (04/01/2025 8:15 [...] - 04/02/2025 4:07 AM CDT Performed at: [address] [id number] Screen Door Maker: Bradley Mcgill PhD, Phone: [phone] Demetria Alaniz MD LAB URINE ORDERABLES Final Result Performing Organization Address [facility] de Phone Number [facility] - 01 from Last 3 Months or Most Recently Relevant to Health Maintenance Insurance [facility]PPO Address: [address] [address] [place] [address] [facility]/PPO Address: [place] [address] [facility] [employer]O Address: [place] [address] Advance Directives For more information, please contact: [phone] * Full Code (Latest Code Status on File) Date Activated Date Inactivated Comments 12/27/2021 6:36 AM 12/27/2021 1:25 PM * Full Code Date Activated Date Inactivated Comments 09/14/2021 9:09 PM 09/15/2021 7:00 PM Care Teams Hazardous Substances Engineer Relationship Specialty Start Date End Date Judd Davila MD [address] [facility] [place] [address] [place] [address] PCP - General Family Medicine 05/31/25 Kaylee Pham MD Consulting Physician General Surgery 10/30/21 Brandon Diehl, JAS Nurse Practitioner General Surgery 10/30/21 Ruiz Castro MD [address] [place] [phone] [place] [address] Surgeon Colon and Rectal Surgery 11/22/21 Nina Alexander, CANDELARIO [address] [facility] [place] [address] Optometry 05/31/25
--- NOTE | 2025-09-26 07:08 | WPDHPUPDATE1 ---
History and Physical Update Update Date/Time: 09/26/25 07:08 History and Physical has been reviewed, including an updated exam of the patient. There are NO changes in the patient's condition. Risks, benefits, and alternatives have been discussed and questions answered. Patient agrees to proceed with robotic assisted total laparoscopic hysterectomy.
--- NOTE | 2025-09-26 07:17 | WPDHPUPDATE1 ---
History and Physical Update Update Date/Time: 09/26/25 07:17 History and Physical has been reviewed, including an updated exam of the patient. There are NO changes in the patient's condition. Risks, benefits, and alternatives have been discussed and questions answered. Patient agrees to proceed with procedure.
--- NOTE | 2025-09-26 11:28 | WPDANESEPPF ---
Anes - Initial Pre Proc Eval Procedure: Operation Date: 09/26/25 12:00 Proposed Procedures p Urethral Sling - Bryan Astorga MD s Robotic Assisted Laparoscopic Supracervical Hysterectomy - Judy Leija MD Date/Time: 09/26/25 11:28 Surgeon: Bryan Astorga MD Pre Op Diagnosis: stress incont, pelvic pain Patient Data Age: 40 Gender: F Height: 1.73 m Weight: 80 kg Allergies Allergy/AdvReac Type Severity Reaction Status Date / Time APPLES Allergy Intermediate ITCHING,SWELLING Uncoded 09/15/25 10:49 OF TONGUE Home Medications ?Medication ?Instructions ?Recorded ?Confirmed ?Type multivitamin (Daily Multi-Vitamin 1 tablet PO DAILY 03/09/20 09/15/25 History tablet) tirzepatide 5 mg/0.5 mL 10 mg subcut WEEKLY 05/13/23 09/15/25 History subcutaneous pen injector (Mounjaro) rimegepant 75 mg disintegrating 75 mg PO ONCE PRN Migraine Headache 07/08/24 09/15/25 History tablet (Nurtec ODT) topiramate 100 mg tablet 50 mg PO DAILY 07/20/24 09/15/25 History cyclobenzaprine 10 mg tablet 10 mg PO TID PRN muscle spasm pain 08/15/25 09/14/25 Rx #20 tabs valacyclovir 500 mg tablet 500 mg PO DAILY #90 tabs 08/16/25 09/15/25 Rx (Valtrex) albuterol sulfate 90 mcg/actuation 1 puff inhalation PRN PRN 09/14/25 09/15/25 History aerosol inhaler shortness of breath or wheezing cyanocobalamin (vitamin B-12) 100 50 mcg PO DAILY 09/14/25 09/15/25 History mcg tablet (Vitamin B-12) magnesium 250 mg tablet 250 mg PO BID 09/14/25 09/15/25 History psyllium husk 0.52 gram capsule 0.52 g PO DAILY 09/14/25 09/15/25 History (Daily Fiber) Patient hx anesthesia problems: post op nausea/vomiting Family hx anesthesia problems: none Results Review: All pre-operative results and documents have been reviewed as part of the pre-operative evaluation. [facility] Past Medical History Medical History Chlamydia Intervertebral disc degeneration Diabetes Vaginal delivery Depression Surgical History Surgical History History of endometrial ablation History of carpal tunnel surgery of right wrist History of carpal tunnel surgery of left wrist History of cholecystectomy S/P bilateral breast reduction History of gastric surgery And revision in 2020 Family History Family History Mother Hypertension Grandparent Hypertension Carcinoma of colon Diabetes mellitus Social History Social History Smoking status: Never smoker Second hand tobacco smoke exposure: No Alcohol intake: current Drinks per week: 2 Alcohol use details: socially Substance use: never Substance use type: does not use Lack of Transportation: No Lack of Food: Never True Current Housing: I Have Housing Concerned About Future Housing: No Difficulty Paying Gas/Electric Bills: No Difficulty Paying for Meds: No Currently Unemployed: No Education: Bachelor's Degree Difficulty w/ Childcare or Family Care: No Living arrangements: with family Additional living arrangements comments: fiance Occupation/Education: occupation Gender identity (if verbalized by the patient): Female Sexual Orientation (if Verbalized by the Patient): Straight or Heterosexual Spiritual care concerns: No Anes - Eval Final PreProcedure Day of Procedure 09/26/25 11:28 Patient weight: overweight Heart: regular rate and rhythm Lungs: clear to auscultation Airway: Mallampati scale class II Neurological: alert and oriented Last oral intake: >/= 8 hours ASA classification: III Emergent: no Anesthetic plan: proceed Anesthesia type and monitoring: general ETT and standard monitoring Results Review: All pre-operative results and documents have been reviewed as part of the pre-operative evaluation. Informed Consent: The patient's anesthetic plan and its attendant risks and benefits were discussed with the patient/family/POA. Questions were solicited and answers provided to the satisfaction of the patient/family/POA.
[2025-09-26] MEDS: KETOROLAC 15 MG/ML VIAL (*BKC) IV PUSH (11:35)
[2025-09-26] MEDS: ACETAMINOPHEN 500 MG TABLET 1000 MG PO ×2 (11:35→18:40)
[2025-09-26] MEDS: LACTATED RINGERS 1,000 ML 30 ML IV CONT ×2 (11:36→14:54)
[2025-09-26] MEDS: SCOPOLAMINE 1 MG PATCH 1 PATCH TRANSDERM (12:26)
[2025-09-26 12:28] LABS: BEDSIDEPREGUCG Negative (Negative)
[2025-09-26] MEDS: ceFAZolin 2 GM in SODIUM CHLORIDE 0.9% IV 50 ML 100 ML IVPB (12:29)
[2025-09-26] MEDS: metroNIDAZOLE 500 MG/ISO 100ML 500 MG/100 ML BAG 100 MG IVPB (12:44)
[2025-09-26] MEDS: BUPIVACAINE/EPINEPHRINE 0.5% 50 ML VIAL 30 ML INFILTRATE (13:00)
--- NOTE | 2025-09-26 13:25 | S_PTH ---
PATIENT: Gabriela Borrero LOC: [facility] U#:[id number] AGE/SX: 40/F ROOM: RE09/26/[address]: Bryan Astorga MD : 1985 BED: DIS: 09/27/2025 SPEC #: [id number] RECD: 09/26/25 13:26 STATUS: KEYLA REQ #: [id number] LONG: 09/26/25 13:[address]: Judy Leija DEPT: [facility] Surgical RECD BY: Paul Katz ENTERED: 09/26/25 13:27 SP TYPE: Surgical OTHR DR: Bryan Astorga MD Tissues: A - Uterus Procedures: Hematoxylin and Eosin Stain Gross and Microscopic Level 5
--- NOTE | 2025-09-26 14:02 | W.PM.PROC2 ---
Procedure Note - Detailed Date of Procedure 09/26/25 Pre-op Diagnosis stress incontinence pelvic pain post-endometrial ablation syndrome Post-op Diagnosis Same Procedure Performed Robotic assisted total laparoscopic hysterectomy, left partial salpingectomy Surgeon Judy Leija MD Anesthesia General and Local Description of Procedure Gabriela was taken to the operating room where she was placed under general anesthesia without issues. She received 2 g Ancef and 500mg Metronidazole. She was then prepped and draped in the usual sterile fashion in the dorsal lithotomy position with her legs in low Willian stirrups, her arms tucked at her side, with a strap over her chest. A time-out was performed. My attention was turned down below where a wayne catheter was placed. A bivalve speculum was placed within the vagina. The cervix was easily identified and the anterior lip of the cervix was grasped with single-tooth tenaculum. The uterus was then sounded to 7cm. The cervix was serially dilated to allow for the PALMIRA uterine manipulator; which was placed w/o issue (6cm tip with 3cm cervical ring). My gloves were changed and attention was then turned to the abdomen. A 5 mm trocar was placed under direct visualization at [place]'s point without issue. Once intra-abdominal placement was confirmed, the abdomen was insufflated with carbon dioxide gas. An abdominal survey was performed and the above findings were noted. Two additional ports were placed on the right and left side and the camera port was placed supraumbilical under direct visualization without issues. The 5mm port was switched out for the accessory port under direct visualization. The patient was then placed in deep Trendelenburg, with the legs slightly lowered. The robot was then docked. The instruments were placed intra-abdominally under direct visualization. I then un-scrubbed and went to the robotic console. I then started my hysterectomy on the right side. The ureter was easily identified transperitoneally and well out of the surgical field. The round ligament was clamped, coagulated, and transected. The uterine ovarian artery was then serially clamped, coagulated, and transected with good hemostasis. The broad ligament was then dissected anteriorly and posteriorly skeletonizing the uterine artery. The bladder flap was then developed on the right side and carried around the left, anteriorly. The uterine artery was then serially clamped and coagulated. Once the vessel was adequately coagulated, it was then transected with good hemostasis. The same procedure was then performed on the left side without complications. A segment of fallopian tube was noted on the left side; it was elevated and the mesosalpinx was serially clamped, coagulated and the segment was easily removed from the abdomen. The uterus was noted to be devascularized. The bladder flap was verified out of the surgical field and the colpotomy was started anteriorly and continued in a clockwise fashion until the uterus was released. The uterus was removed from the abdomen via the vagina without complications. The vaginal cuff had small bleeders that were made hemostatic without complications. The vaginal cuff was then reapproximated using a 0 V lock suture. The pelvis was then irrigated and suctioned free of all clots and debris. Good hemostasis was noted. All instruments were removed from the abdomen and the robot was undocked. The 4 laparoscopic incisions were reapproximated using 4-0 Monocryl and covered with Dermabond. The laparoscopic incisions were infiltrated with local anesthesia for better pain control. Sponge, lap, instrument, and needle counts were correct at the end the procedure. Gabriela remained under general anesthesia in a stable condition in the OR. Dr. Astorga then scrubbed in to perform his sling procedure for her stress incontinence. Estimated Blood Loss 20 IV Fluids 600 Pathology Yes (Uterus and cervix, left fallopian tube) Complications No immediate complications Condition Stable Disposition No change [facility] Billing Surgery - Charge Forward: Surgery Billing
[2025-09-26] MEDS: fentaNYL CITRATE INJ (*CRX) 100 MCG/2 ML VIAL 25 MCG IV PUSH ×4 (14:38→14:54)
[2025-09-26] MEDS: ONDANSETRON INJ 4 MG/2 ML VIAL IV PUSH (15:15)
--- NOTE | 2025-09-26 16:37 | W.PM.PROC2 ---
Procedure Note - Detailed Date of Procedure 09/26/25 Pre-op Diagnosis Stress urinary incontinence Post-op Diagnosis Same Procedure Performed mid urethral sling cystoscopy Surgeon Bryan Astorga MD Anesthesia General Indications This is a female with confirm stress urinary incontinence. She desires surgical correction. She understands the risks of bleeding, infection, injury to the urinary tract, vaginal mesh extrusion, urinary tract mesh erosion, obstructive voiding requiring a secondary procedure, hip and leg pain, dyspareunia, inability to improve overactive bladder symptoms. She agrees to proceed. She is doing this in conjunction with a hysterectomy Description of Procedure I entered the room at the completion of her hysterectomy. A time-out performed. I marked out the site of the inner thigh incisions. I anesthetized the skin and made those incisions. I anesthetized the anterior vaginal wall over the mid urethra. I made a 1 cm incision. I dissected out laterally taking great care not to injure the refilled vaginal wall. I passed the helical trocars. First on the left. Then on the right. I did this from the thigh incision towards the vaginal incision. The sling was connected to the trocars and brought out through the thigh incision. I tensioned the sling appropriately. I cut and the plastic sheaths. I then closed the incision with 2 0 Vicryl. On cystoscopy there is no tumors or surgical artifact. There was no surgical artifact in the urethra. Both ureters were seen to excrete clear yellow urine. I cut the excess sling material. Close incisions with glue. She was awakened and transferred to the PACU in stable condition. Implants Urethral sling Estimated Blood Loss 20 IV Fluids 600 Drains No Packing No Pathology None sent Complications No immediate complications Condition Stable Disposition PACU
[2025-09-26] MEDS: HYDROmorphone HCL INJ (*CRX) 1 MG/ML SYR 0.5 MG IV PUSH (16:58)
[2025-09-26] MEDS: DOCUSATE SODIUM 100 MG CAPSULE PO (17:01)
[2025-09-26] MEDS: MAGNESIUM OXIDE 200 MG TABLET PO (17:01)
[2025-09-26] MEDS: SIMETHICONE 80 MG TAB.CHEW PO (17:02)
[2025-09-26] MEDS: DEXTROSE 5%/LACTATED RINGERS 1,000 ML 125 ML IV CONT (17:04)
[2025-09-26] MEDS: KETOROLAC 30 MG/ML VIAL (*BKC) IV PUSH (18:40)
--- NOTE | 2025-09-26 18:40 | PC.NURSE ---
Pt arrives to [facility] #[id number] at 1539 per bed from PACU Accompanied by family
[2025-09-26] MEDS: oxyCODONE HCL (*CRX) 5 MG TAB IR 10 MG PO (22:15)
[2025-09-27] MEDS: ACETAMINOPHEN 500 MG TABLET 1000 MG PO ×2 (00:06→05:35)
[2025-09-27] MEDS: KETOROLAC 30 MG/ML VIAL (*BKC) IV PUSH ×2 (00:06→05:35)
[2025-09-27] MEDS: SIMETHICONE 80 MG TAB.CHEW PO ×2 (01:54→07:56)
[2025-09-27] MEDS: HYDROmorphone HCL INJ (*CRX) 1 MG/ML SYR 0.5 MG IV PUSH (01:59)
[2025-09-27 03:15] VITALS: BP 105/75; PULSE 63; RESP 20; TEMP 36.4; O2SAT 100
[2025-09-27] MEDS: oxyCODONE HCL (*CRX) 5 MG TAB IR 10 MG PO ×2 (03:19→10:39)
[2025-09-27 06:04] LABS: Hematocrit 38.0 % (37.0-47.0); Hemoglobin 11.7 g/dL (12.0-15.0); Immature Granulocyte Percent A 0.4 % (0-0.5); Lymphocytes Absolute Auto 1.24 K/mm3 (0.9-3.2); Mean Corpuscular HGB Conc 30.8 g/dl (32-36); Mean Corpuscular Hemoglobin 25.5 pg (26-34); Mean Corpuscular Volume 83.0 fl (80-100); Nucleated Red Blood Cells Absolute Auto 0.000 K/mm3 (0.0-0.012); Nucleated Red Blood Cells Perc 0.0 % (0.0-0.2); Platelet Count Result 220 k/mm3 (150-375); Red Blood Count 4.58 M/mm3 (4.2-5.4); White Blood Count 12.5 K/mm3 (4.5-10.0)
[2025-09-27 06:25] LABS: Anion Gap 7 mmol/L (4-12); Blood Urea Nitrogen 9 mg/dL (7-17); Calcium 8.8 mg/dL (8.4-10.2); Carbon Dioxide 22 mmol/L (22-30); Chloride 105 mmol/L (98-107); Estimated CRCL calculation 67 ml/min; Estimated Glomerular Filt Rate > 60; Glucose 119 mg/dL (65-110); Potassium 4.3 mmol/L (3.4-5.0); Sodium 134 mmol/L (137-145)
--- NOTE | 2025-09-27 07:11 | P.PNOB_ITS ---
[employer]NA[employer] - A/P Assessment and plan (1) S/P laparoscopic hysterectomy: Code(s): Z90.710 - Acquired absence of both cervix and uterus Status: Acute Postoperative Procedures: Procedures Operation Date: 09/26/25 12:00 Actual Procedure Side Surgeon p Urethral Sling Not Applicable Bryan Astorga MD s Robotic Assisted Laparoscopic Hysterectomy Not Applicable Judy Leija MD Postoperative day: 1 Postoperative status: doing well Postoperative plan: routine post-op care, ambulate, advance diet, discharge and other (awaiting flatus) Time Spent With Patient Time: Total time spent is greater than 50% in coordination of care (as documented) at patient's floor/unit and/or counseling patient: Time with patient: less than 15 minutes [employer]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 Her pain is controlled with PO meds. She has tolerated regular diet. She has a small amount of vaginal bleeding. She has voided. She has not passed flatus yet. She has ambulated and denies any symptoms of anemia. Review of Systems 2 Review of Systems: All systems reviewed & are unremarkable except as noted in HPI and below (HPI) Constitutional: Constitutional: Denies chills, Denies fever(s) and Denies headache(s) Eyes: Eyes: Denies change in vision ENT: Denies dizziness and Denies headache(s) Cardiovascular: Cardiovascular: Denies chest pain and Denies rapid heart rate Respiratory: Respiratory: Denies cough Genitourinary: Genitourinary: Denies abnormal vaginal bleeding Neurologic: Denies dizziness and Denies headache(s) Exam 2 Const: General: cooperative, healthy appearing, comfortable and no acute distress Orientation/consciousness: patient oriented x3 Resp: Effort & Inspection: normal respiratory effort Auscultation: clear to auscultation bilaterally Cardio: Rate: regular rate GI: Inspection: normal to inspection and incision ( LSC incisions c/d/i) GI Palp: Yes abdominal tenderness (appropriate) and Yes Soft to palpation A uscultation: normal bowel sounds : Other: normal bleeding on pad Skin: General skin exam: normal color Neuro: General: patient oriented x3 Psych: Appearance: grossly normal Affect: normal affect Attitude: c ooperative [employer] - PN: Obj Data Vital Signs Vital Signs: Vital Signs - 24 hr 09/26/25 11:27 09/26/25 14:31 09/26/25 14:45 Temperature 98.8 F 97.5 F L Pulse Rate 73 73 67 Respiratory Rate 16 13 12 Blood Pressure 112/83 91/56 L 103/66 Pulse Oximetry 100 100 100 Oxygen Delivery Room Air Simple Face Mask Simple Face Mask Oxygen Flow Rate 8 8 09/26/25 15:00 09/26/25 15:15 09/26/25 15:30 Temperature Pulse Rate 61 53 L 67 Respiratory Rate 12 12 14 Blood Pressure 101/71 100/74 104/79 Pulse Oximetry 100 99 100 Oxygen Delivery Room Air Room Air Room Air Oxygen Flow Rate 09/26/25 15:39 09/26/25 19:36 09/26/25 19:36 Temperature 98.6 F 97.6 F Pulse Rate 79 57 L Respiratory Rate 18 18 Blood Pressure 139/87 122/88 Pulse Oximetry 100 98 Oxygen Delivery Room Air Oxygen Flow Rate 09/26/25 22:25 09/26/25 22:25 09/27/25 03:15 Temperature 98.3 F 97.6 F Pulse Rate 72 63 Respiratory Rate 20 20 Blood Pressure 91/58 L 105/75 Pulse Oximetry 100 100 Oxygen Delivery Room Air Oxygen Flow Rate 09/27/25 03:15 Temperature Pulse Rate Respiratory Rate Blood Pressure Pulse Oximetry Oxygen Delivery Room Air Oxygen Flow Rate Intake/Output Intake/Output: Intake & Output 09/24/25 09/25/25 09/26/25 09/27/25 23:59 23:59 23:59 23:59 Intake Total 1800 Output Total 1250 250 Balance 550 -250 Meds/Results Medications: Active Medications Generic Name Dose Route Start Last Admin Trade Name Freq PRN Reason Stop Dose Admin Acetaminophen 1,000 mg 09/26/25 18:00 09/27/25 05:35 Acetaminophen 500 Mg Tablet PO 1,000 mg Q6HR LUTHER Administration Calcium Polycarbophil 625 mg 09/27/25 09:00 Calcium Polycarbophil 625 Mg Tablet PO DAILY LUTHER Cyclobenzaprine HCl 10 mg 09/26/25 15:41 Cyclobenzaprine Hcl 10 Mg Tablet PO TID PRN muscle spasm pain Docusate Sodium 100 mg 09/26/25 17:00 09/26/25 17:01 Docusate Sodium 100 Mg Capsule PO 100 mg BID LUTHER Administration Hydromorphone HCl 0.5 mg 09/26/25 15:41 09/27/25 01:59 Hydromorphone Hcl Inj (*Crx) 1 Mg/Ml Syr IV PUSH 0.5 mg Q2H PRN Administration Breakthrough Pain Rated 4-6 or NPO Ibuprofen 600 mg 09/27/25 12:00 Ibuprofen 600 Mg Tablet PO Q6HR [facility] Magnesium Oxide 200 mg 09/26/25 17:00 09/26/25 17:01 Magnesium Oxide 200 Mg Tablet PO 200 mg BID LUTHER Administration Naloxone HCl 0.1 mg 09/26/25 15:41 Naloxone Hcl 0.4 Mg/Ml Vial IV PUSH Q2M PRN Respiratory rate less than 10 Ondansetron HCl 4 mg 09/26/25 15:41 Ondansetron Inj 4 Mg/2 Ml Vial IV PUSH Q6H PRN Nausea And Vomiting Oxycodone HCl 5 mg 09/26/25 15:41 Oxycodone Hcl (*Crx) 5 Mg Tab Ir PO Q4H PRN Pain Rated 4-6 Oxycodone HCl 10 mg 09/26/25 15:41 09/27/25 03:19 Oxycodone Hcl (*Crx) 5 Mg Tab Ir PO 10 mg Q6H PRN Administration Pain Rated 7-10 Simethicone 80 mg 09/26/25 17:00 09/27/25 01:54 Simethicone 80 Mg Tab.Chew PO 80 mg TIDWM [facility] Administration Topiramate 50 mg 09/27/25 09:00 Topiramate 25 Mg Tablet PO DAILY [facility] Valacyclovir HCl 500 mg 09/27/25 09:00 Valacyclovir Hcl 500 Mg Tablet PO DAILY [facility] Labs 09/27/25 05:41 09/27/25 05:41 Labs: Laboratory Results - last 24 hr 09/26/25 09/26/25 09/26/25 11:29 12:20 15:16 WBC RBC Hgb Hct MCV MCH MCHC RDW Plt Count MPV Immature Gran % (Auto) Neut % (Auto) Lymph % (Auto) [place] % (Auto) Eos % (Auto) Baso % (Auto) Lymph # (Auto) [place] # (Auto) Eos # (Auto) Baso # (Auto) Abs Immat Gran (auto) Absolute Neuts (auto) Absolute Nucleated RBC Nucleated RBC % Sodium Potassium Chloride Carbon Dioxide Anion Gap BUN Creatinine Estim Creat Clear Calc Estimated GFR Glucose POC Capillary Glucose 78 92 Calcium POC Urine HCG, Qual Negative 09/27/25 05:41 WBC 12.5 H RBC 4.58 Hgb 11.7 L Hct 38.0 MCV 83.0 MCH 25.5 L MCHC 30.8 L RDW 14.6 H Plt Count 220 MPV 10.2 Immature Gran % (Auto) 0.4 Neut % (Auto) 85.1 H Lymph % (Auto) 9.9 L [place] % (Auto) 4.4 Eos % (Auto) 0.0 Baso % (Auto) 0.2 Lymph # (Auto) 1.24 [place] # (Auto) 0.6 Eos # (Auto) 0.0 Baso # (Auto) 0.0 Abs Immat Gran (auto) 0.05 H Absolute Neuts (auto) 10.7 H Absolute Nucleated RBC 0.000 Nucleated RBC % 0.0 Sodium 134 L Potassium 4.3 Chloride 105 Carbon Dioxide 22 Anion Gap 7 BUN 9 D Creatinine 1.02 H Estim Creat Clear Calc 67 Estimated GFR > 60 Glucose 119 H POC Capillary Glucose Calcium 8.8 POC Urine HCG, Qual
[2025-09-27 07:37] VITALS: BP 107/62; PULSE 82; RESP 18; TEMP 37.2; O2SAT 100
[2025-09-27] MEDS: DOCUSATE SODIUM 100 MG CAPSULE PO (07:55)
[2025-09-27] MEDS: INFLUENZA VACCINE 45 MCG/0.5 ML SYRINGE IM (10:36)
--- NOTE | 2025-10-03 15:16 | WPDUROPN2 ---
Subjective Subjective Date/Time Seen: 10/03/25 15:16 Interval history: Patient in the ER the pelvic fluid collection. She is voiding well. No flank pain. CT reviewed. Pelvic fluid collection. Normal kidneys and bladder. No hydronephrosis. Kidneys enhance symmetrically bilaterally. Does not seem to be any urologic Correlate pelvic fluid is being drained tomorrow. It could be sent for ELEUTERIO creatinine, but doubt this represents urinoma given normal CT of the kidneys and ureters
== END 2025-09-27 11:25 | disposition home or self-care (01) ==
LOC: ANHSURGERY 11:56 → ANHOB2 16:28
PROVIDERS: Obstetrics & Gynecology; Visit Provider Urology
PROC: (CPT 57288; principal; 2025-09-26 12:00)
PROC: (CPT 58571; 2025-09-26 12:00)
DX: N39.3 Stress incontinence (female) (male) (principal); R10.20 Pelvic and perineal pain unspecified side; N99.85 Post endometrial ablation syndrome; N70.11 Chronic salpingitis; D25.1 Intramural leiomyoma of uterus; Z23 Encounter for immunization
CPT/HCPCS: 58571; 57288; S2900; 36415; 80048; 82948; 85025; 88307; 90471; 90656; 99199; J0690; A9270; C1769; C1771; G0008; J1100; J1171; J1836; J1885; J2003; J2250; J2371; J2405; J2704; J3010; J7030; J7120; J7121

== ENCOUNTER 2025-09-28 11:14 | Emergency (ER) | payer OTHER, SELFPAY ==
--- NOTE | ~2025-09-28 | XR_ITS ---
Examination: XR chest 2V Clinical History: post op fever Comparison: CT abdomen and pelvis same day Technique: PA and Lateral Findings: Heart size upper limit of normal. Mild bibasilar opacities. Lungs otherwise clear. No acute bony abnormality. Large free intraperitoneal air, not unexpected after surgery. IMPRESSION: 1. Mild bibasilar atelectasis and/or airspace disease. Reviewed, dictated and finalized at location R.
--- NOTE | ~2025-09-28 | CT_ITS ---
CT abdomen pelvis w con Clinical History: lower ab pain, post op total hystero bladder sling 09/26 . Comparison: None Technique: Axial images lung bases to symphysis pubis IV contrast information not listed in PACS Coronal, sagittal reformats CT images acquired with automatic exposure control for dose reduction DLP: 445 mGy-cm Findings: Lung bases: Dependent atelectasis. Visualized heart and pericardium: Unremarkable. Liver: Unremarkable. Gallbladder: Removed. Spleen: Unremarkable. Pancreas: Unremarkable. Adrenal glands: Unremarkable. Kidneys: Right kidney- No hydronephrosis. No renal stones. Left kidney- No hydronephrosis. No renal stones. Circumaortic renal vein Distal esophagus/stomach: Gastric bypass. Small bowel loops: Normal caliber and wall thickness. Colon: Normal caliber and wall thickness. Normal RLQ appendix. Nodes: No enlarged nodes. Peritoneum: Moderate scattered abdominal and pelvic fluid, Hounsfield units averaging 20, not unexpected after surgery. Large free air, not unexpected after surgery. Urinary bladder: Unremarkable. Uterus: Removed. Adnexa: No masses. Bones: No acute bony abnormality. Soft tissues: Small left inguinal hernia containing gonadal vessels and/or ligaments. Abdominal wall subcutaneous emphysema expected after surgery. Aorta: No aneurysm or dissection. IVC: Unremarkable. Main portal vein/SMV/splenic vein: Patent. IMPRESSION: 1. Free air and scattered peritoneal fluid, not unexpected after surgery. 2. Otherwise no acute abnormality. Reviewed, dictated and finalized at location R.
[2025-09-28 11:15] VITALS: BP 104/73; PULSE 80; RESP 16; TEMP 36.6; O2SAT 98
[2025-09-28 11:25] VITALS: BP 117/86; PULSE 88; RESP 19; TEMP 36.7; O2SAT 99
--- NOTE | 2025-09-28 11:46 | ECG_ITS ---
Test Date: 2025-09-28 12:04:26 Measurements Intervals [place] Rate: 82 P: 64 [place]: 135 QRS: 52 QRSD: 74 T: 1 QT: 317 QTc: 371 Interpretive Statements SINUS RHYTHM LOW QRS VOLTAGE IN PRECORDIAL LEADS CANNOT R/O SEPTAL INFARCT, AGE INDETERMINATE BORDERLINE ST-T WAVE ABNORMALITY- ANT/INF LEADS ABNORMAL ECG No previous ECG available for comparison Electronically Signed On 09-28-2025 12:21:44 CDT by Stefan Baker D.O.
[2025-09-28 12:17] LABS: Hematocrit 34.1 % (37.0-47.0); Hemoglobin 11.1 g/dL (12.0-15.0); Mean Corpuscular HGB Conc 32.6 g/dl (32-36); Mean Corpuscular Hemoglobin 25.6 pg (26-34); Mean Corpuscular Volume 78.6 fl (80-100); Platelet Count Result 215 k/mm3 (150-375); Red Blood Count 4.34 M/mm3 (4.2-5.4); White Blood Count 16.2 K/mm3 (4.5-10.0)
--- NOTE | 2025-09-28 12:17 | ED.GENADULT ---
HPI - General Adult General Chief complaint: Fever Stated complaint: post op fever Time Seen by Provider: 09/28/25 11:58 History of Present Illness HPI narrative: 32-year-old female presents to the emergency department for evaluation for low-grade fever and persistent abdominal pain after having a bladder sling and hysterectomy on 09/26. Patient did contact her surgeon and patient was advised to present to the emergency department for labs and further evaluation. Related Data Home Medications ?Medication ?Instructions ?Recorded ?Confirmed ?Last Taken ?Type multivitamin (Daily Multi-Vitamin 1 tablet PO DAILY 03/09/20 09/15/25 09/14/25 History tablet) tirzepatide 5 mg/0.5 mL 10 mg subcut WEEKLY 05/13/23 09/15/25 09/11/25 History subcutaneous pen injector (Mounjaro) rimegepant 75 mg disintegrating 75 mg PO ONCE PRN Migraine Headache 07/08/24 09/15/25 Unknown History tablet (Nurtec ODT) topiramate 100 mg tablet 50 mg PO DAILY 07/20/24 09/15/25 09/14/25 History albuterol sulfate 90 mcg/actuation 1 puff inhalation PRN PRN 09/14/25 09/15/25 Unknown History aerosol inhaler shortness of breath or wheezing cyanocobalamin (vitamin B-12) 100 50 mcg PO DAILY 09/14/25 09/15/25 09/14/25 History mcg tablet (Vitamin B-12) magnesium 250 mg tablet 250 mg PO BID 09/14/25 09/15/25 09/14/25 History psyllium husk 0.52 gram capsule 0.52 g PO DAILY 09/14/25 09/15/25 09/14/25 History (Daily Fiber) Allergies Allergy/AdvReac Type Severity Reaction Status Date / Time APPLES Allergy Intermediate ITCHING,SWELLING Uncoded 09/28/25 11:27 OF TONGUE Review of Systems Review of Systems: All systems reviewed & are unremarkable except as noted in HPI and below PMFSH Past Medical History Medical History Chlamydia Intervertebral disc degeneration Diabetes Vaginal delivery Depression Surgical History Surgical History History of endometrial ablation History of carpal tunnel surgery of right wrist History of carpal tunnel surgery of left wrist History of cholecystectomy S/P bilateral breast reduction History of gastric surgery And revision in 2020 Family History Family History Mother Hypertension Grandparent Hypertension Carcinoma of colon Diabetes mellitus Social History Social History Smoking status: Never smoker Second hand tobacco smoke exposure: No Alcohol intake: current Drinks per week: 2 Alcohol use details: socially Substance use: never Substance use type: does not use Lack of Transportation: No Lack of Food: Never True Current Housing: I Have Housing Concerned About Future Housing: No Difficulty Paying Gas/Electric Bills: No Difficulty Paying for Meds: No Currently Unemployed: No Education: Bachelor's Degree Difficulty w/ Childcare or Family Care: No Living arrangements: with family Additional living arrangements comments: fiance Occupation/Education: occupation Gender identity (if verbalized by the patient): Female Sexual Orientation (if Verbalized by the Patient): Straight or Heterosexual Spiritual care concerns: No Exam Narrative: APPEARANCE: Well appearing, no pain, no distress, well-nourished. HEAD: normocephalic, atraumatic. EYES: PERRLA/EOMI, conjunctivae clear. NOSE: Normal no drainage EARS:TMS clear with good light reflex. THROAT: Pharynx clear, no exudate. NECK: Supple. No adenopathy, no masses. RESPIRATORY: Airway patent, respirations nonlabored. Clear to auscultation bilaterally, no rales, rhonchi, wheezing. CARDIOVASCULAR: Regular rate and rhythm without murmurs rubs or gallops. ABDOMINAL: Soft, nontender, nondistended, normal bowel sounds MUSCULOSKELETAL: Moves all extremities. Strength/ROM intact, No edema, No calf tenderness. NEURO: Alert. Cranial nerves II through XII intact. Good gait. Good coordination SKIN: Well-appearing surgical incisions Course Vital Signs Vital signs: Vital Signs Temperature 97.9 F 09/28/25 11:15 Pulse Rate 80 09/28/25 11:15 Respiratory Rate 16 09/28/25 11:15 Blood Pressure 104/73 09/28/25 11:15 Pulse Oximetry 98 09/28/25 11:15 Oxygen Delivery Room Air 09/28/25 11:15 Temperature 98.9 F 09/28/25 16:02 Pulse Rate 81 09/28/25 16:02 Respiratory Rate 19 09/28/25 16:02 Blood Pressure 111/78 09/28/25 16:02 Pulse Oximetry 100 09/28/25 16:02 Oxygen Delivery Room Air 09/28/25 11:25 Medical Decision Making MDM Narrative Medical decision making narrative: 40-year-old female present to the emergency department for evaluation for persistent postop abdominal pain. Patient is afebrile upon arrival to the emergency department. Patient did have an elevated white blood cell count of 16.2 and hemoglobin of 11.1. Patient does have an elevated ESR of 42 and an elevated CRP of 28.2. Lactic acid is not elevated. UA did have some white blood cells and +4 bacteria. Patient was negative for influenza RSV and for COVID, chest x-ray shows mild bibasilar atelectasis with no focal infiltrate. Low clinical concern for pneumonia. CT abdomen pelvis showed no acute abnormalities other than normal postop air. No evidence of abscess. Patient was treated with 2 L of lactated Ringer's and provided medication for pain control and for nausea control. Patient did feel improved with treatment. Case was discussed with OB Gyne and patient was discharged to home with close outpatient follow-up. I also did discuss the case with the nurse practitioner on for Urology. Patient was started on Bactrim for her urinary tract infection. Patient was treated with a dose of IV Zosyn prior to discharge. Patient family updated the results of the workup. All questions concerns were addressed. Patient was well-appearing at time of discharge. Patient was also educated on reasons to return to the emergency department. Differential Diagnosis Differential Diagnosis: Abscess, perforation, UTI, COVID, RSV, influenza, pneumonia, hematoma, seroma Vital Signs Vital Signs: Vital Signs Temperature 97.9 F 09/28/25 11:15 Pulse Rate 80 09/28/25 11:15 Respiratory Rate 16 09/28/25 11:15 Blood Pressure 104/73 09/28/25 11:15 Pulse Oximetry 98 09/28/25 11:15 Oxygen Delivery Room Air 09/28/25 11:15 Temperature 98.9 F 09/28/25 16:02 Pulse Rate 81 09/28/25 16:02 Respiratory Rate 19 09/28/25 16:02 Blood Pressure 111/78 09/28/25 16:02 Pulse Oximetry 100 09/28/25 16:02 Oxygen Delivery Room Air 09/28/25 11:25 Lab Data Lab results reviewed: Yes I reviewed the patient's lab results. 09/28/25 12:01 09/28/25 12:01 Labs: Lab Results 09/28/25 09/28/25 Range/Units 12:01 14:45 WBC 16.2 H (4.5-10.0) K/mm3 RBC 4.34 (4.2-5.4) M/mm3 Hgb 11.1 L (12.0-15.0) g/dL Hct 34.1 L (37.0-47.0) % MCV 78.6 L D (80-100) fl MCH 25.6 L (26-34) pg MCHC 32.6 (32-36) g/dl RDW 14.5 (11.5-14.5) % Plt Count 215 (150-375) k/mm3 MPV 9.8 (7.4-10.4) fl Immature Gran % (Auto) Not Reportable Neut % (Auto) Not Reportable Lymph % (Auto) Not Reportable [place] % (Auto) Not Reportable Eos % (Auto) Not Reportable Baso % (Auto) Not Reportable Lymph # (Auto) Not Reportable [place] # (Auto) Not Reportable Eos # (Auto) Not Reportable Baso # (Auto) Not Reportable Abs Immat Gran (auto) Not Reportable Absolute Neuts (auto) Not Reportable Absolute Nucleated RBC Not Reportable Total Counted 100 Neutrophils % (Manual) 85 H (46-73) % Band Neutrophils % 10 H (0-6) % Lymphocytes % (Manual) 2.0 L (18-44) % Monocytes % (Manual) 3 (3-9) % Nucleated RBC % Not Reportable Abs Neuts (Manual) 15.39 H (1.3-6.7) K/mm3 Abs Lymphs (Manual) 0.32 L (1.1-4.5) K/mm3 Abs Monocytes (Manual) 0.48 (0.1-0.90) K/mm3 Platelet Estimate Adequate (Adequate) Ovalocytes Occasional Schistocytes None seen ESR 42 H (0-20) mm/hr Sodium 135 L (137-145) mmol/L Potassium 3.7 (3.4-5.0) mmol/L Chloride 106 (98-107) mmol/L Carbon Dioxide 22 (22-30) mmol/L Anion Gap 7 (4-12) mmol/L BUN 14 D (7-17) mg/dL Creatinine 1.11 H (0.7-1.0) mg/dL Estim Creat Clear Calc 62 ml/min Estimated GFR 55 L (59 - ) Glucose 118 H (65-110) mg/dL Lactic Acid 0.9 (0.7-2.0) mmol/L Calcium 8.6 (8.4-10.2) mg/dL Total Bilirubin 1.1 (0.2-1.3) mg/dL AST 47 H (14-36) U/L ALT 44 H (6-35) U/L Alkaline Phosphatase 76 (38-126) U/L C-Reactive Protein 28.2 H (<1.0) mg/dL Total Protein 6.3 (6.3-8.2) g/dL Albumin 3.2 L (3.5-5.1) g/dL Urine Color Yellow (Yellow) Urine Appearance Clear (Clear) Urine pH 6.5 (5.0-9.0) Ur Specific [place] > 1.045 H (1.001-1.035) Urine Protein Trace (Negative) mg/dL Urine Glucose (UA) Negative (Negative) mg/dL Urine Ketones Negative (Negative) mg/dL Ur Blood (Man) Trace (Negative) Urine Nitrate Positive H (Negative) Urine Bilirubin Negative (Negative) Urine Urobilinogen 0.2 (<2.0) mg/dL Leukocyte Esterase Rfl Trace H (Negative) JOANNE/UL Urine RBC 0-2 (0-2) /hpf Urine WBC 6-10 H (0-3) /hpf Ur Squamous Epith Cells Occasional (Few) /hpf Urine Bacteria 4+ H /hpf Urine Casts 0-2 Influenza A (RT-PCR) Negative (Negative) Influenza B (RT-PCR) Negative (Negative) RSV (RT-PCR) Negative (Negative) SARS-CoV-2 RNA (RT-PCR) Negative (Negative) Imaging Data Radiologist's impression: Impressions Abdomen/Pelvis CT 09/28/25 13:10 IMPRESSION: 1. Free air and scattered peritoneal fluid, not unexpected after surgery. 2. Otherwise no acute abnormality. Chest X-Ray 09/28/25 13:27 IMPRESSION: 1. Mild bibasilar atelectasis and/or airspace disease. Discharge Plan Discharge Clinical Impression: Abdominal pain, Post-op pain, UTI (urinary tract infection) Patient Disposition: Home Condition: Stable Instructions: Abdominal Pain (ED) Additional Instructions: Antibiotic as directed. Home medications for pain control as directed. Zofran as needed for nausea control. Continue have close follow-up with your physicians as outpatient. If you have any worsening symptoms then please call or return to the emergency department. Patient Language: Tajik Prescriptions: New sulfamethoxazole-trimethoprim [Bactrim DS] 800-160 mg tablet 1 tablet PO Q12H 7 Days Qty: 14 0RF ondansetron 4 mg tablet,disintegrating 4 mg PO Q8H PRN (Reason: nausea and vomiting) Qty: 14 0RF No Action multivitamin [Daily Multi-Vitamin] Tablet 1 tablet PO DAILY Mounjaro 5 mg/0.5 mL pen injector 10 mg subcut WEEKLY Rx Instructions: FRIDAY Nurtec ODT 75 mg tablet,disintegrating 75 mg PO ONCE PRN (Reason: Migraine Headache) Rx Instructions: as a single dose psyllium husk [Daily Fiber] 0.52 gram capsule 0.52 g PO DAILY magnesium 250 mg tablet 250 mg PO BID cyanocobalamin (vitamin B-12) [Vitamin B-12] 100 mcg tablet 50 mcg PO DAILY albuterol sulfate 90 mcg/actuation HFA aerosol inhaler 1 puff INHALATION PRN PRN (Reason: shortness of breath or wheezing) acetaminophen 500 mg tablet 1,000 mg PO Q6H Qty: 80 0RF docusate sodium [Colace] 100 mg capsule 100 mg PO BID Qty: 90 0RF ibuprofen 800 mg tablet 800 mg PO TID Qty: 30 0RF oxycodone 5 mg tablet See Rx Instructions .ROUTE .COMPLEX PRN (Reason: pain) Qty: 24 0RF Rx Instructions: take 1 tablet by mouth q4h PRN moderate pain, or take 2 tablets q6h PRN severe pain-- do not exceed 8 tablets in 24 hours simethicone 80 mg Tablet,Chewable 80 mg PO TIDWM Qty: 30 0RF topiramate 100 mg tablet 50 mg PO DAILY cyclobenzaprine 10 mg tablet 10 mg PO TID PRN (Reason: muscle spasm pain) Qty: 20 0RF valacyclovir [Valtrex] 500 mg tablet 500 mg PO DAILY Qty: 90 3RF Follow-up/Referrals: Judy Leija MD [Primary Care Provider, [employer]]
[2025-09-28 12:40] LABS: Alanine Aminotransferase 44 U/L (6-35); Albumin Level 3.2 g/dL (3.5-5.1); Alkaline Phosphatase 76 U/L (38-126); Anion Gap 7 mmol/L (4-12); Aspartate Amino Transferase 47 U/L (14-36); Bilirubin,Total 1.1 mg/dL (0.2-1.3); Blood Urea Nitrogen 14 mg/dL (7-17); Calcium 8.6 mg/dL (8.4-10.2); Carbon Dioxide 22 mmol/L (22-30); Chloride 106 mmol/L (98-107); Estimated CRCL calculation 62 ml/min; Estimated Glomerular Filt Rate 55; Glucose 118 mg/dL (65-110); Potassium 3.7 mmol/L (3.4-5.0); Sodium 135 mmol/L (137-145); Total Protein 6.3 g/dL (6.3-8.2)
[2025-09-28 12:41] LABS: Band Neutrophils Percent 10 % (0-6); Lymphocytes Absolute Manual 0.32 K/mm3 (1.1-4.5); Lymphocytes Percent Manual 2.0 % (18-44); Monocytes Absolute Manual 0.48 K/mm3 (0.1-0.90); Monocytes Percent Manual 3 % (3-9); Neutrophils Absolute Manual 15.39 K/mm3 (1.3-6.7); Neutrophils Percent Manual 85 % (46-73); Total Cells Counted 100
[2025-09-28 12:48] LABS: Ovalocytes Occasional; Schistocytes None Seen
--- OUTSIDE RECORDS SUMMARY | 2025-09-28 12:51 | XMS_ITS | Clinical Summary ---
Author Organization [facility] Address [address] [place] [address] Care Team Providers Care Forge Press Operator Name Role Phone Kaylee Pham MD Unavailable [phone] Brandon Diehl NP Unavailable [phone] Ruiz Castro MD Unavailable [phone] Judd Davila MD Primary Care Provid er [place]ina Pickering OD Unavailable [phone] Allergies Active Allergy Reactions Criticality Noted Date [...] 01/28/2025 Assessment & Plan (01/28/2025 2:39 PM CORE DRILLER): Recent onset of cough, chest discomfort, nasal congestion, and sore throat. Home COVID and flu tests negative. Redness in throat and ears noted on exam. Wheezing noted on right side. -Continue symptomatic treatment with [id number] medications. -Repeat home COVID test in a [...] 11/12/2023 Assessment & Plan (11/13/2023 7:34 AM CORE DRILLER): - Start hydroxyzine Type 2 diabetes mellitus with chronic kidney dis ease 03/31/2023 Assessment & Plan (05/31/2025 1:39 PM CDT): Stable, continue prescribed Mounjaro 12.5 mg subQ weekly Assessment & Plan (01/28/2025 2:42 PM CORE DRILLER): - Continue to optimize blood sugar - repeat labs today Assessment & Plan (08/31/2024 1:41 PM CDT): - Continue to optimize blood sugar - GFR decrease with last labs with weight management, plan to repeat labs - Include urine microalbumin at repeat Assessment & Plan (11/13/2023 7:33 AM CORE DRILLER): - Continue to optimize blood sugar JERMAN (generalized anxiety disorder) 03/31/2023 Assessment & Plan (01/28/2025 2:40 PM CORE DRILLER): - Chronic, stable - Continue Lexapro, wellbutrin, hydroxyzine - Will follow up with therapist Assessment & Plan (08/31/2024 2:56 PM CDT): - Chronic, stable - Continue Lexapro and hydroxyzine - Will follow up with therapist Assessment & Plan (11/13/2023 7:34 AM CORE DRILLER): - Chronic, not well controlled - Sleep [...] (07/03/2021): Added automatically from request for surgery [id number] Assessment & Plan (01/28/2025 1:59 PM CORE DRILLER): Chronic, stable Continue current medication Postsurgical malabsorption 12/24/2020 Assessment & Plan (12/24/2020 9:57 PM CORE DRILLER): Labs. Iron deficiency 12/24/2020 Bariatric surgery status 12/24/2020 Assessment & Plan (03/03/2023 8:19 AM CDT): Bariatric surgery labs ordered for possible vitamin deficiencies in setting of intestinal malabsorption. Assessment & Plan (12/24/2020 9:56 PM CORE DRILLER): Routine labs to evaluate for vitamin deficiencies [...] Asked to try to track consistently with [employer] daniel for at least 1 week to help identify calorie/carb/protein intake. Assessment & Plan (01/13/2022 12:52 PM CORE DRILLER): Reviewed calorie restriction based on BMR as [...] phone. Assessment & Plan (01/19/2021 2:01 PM CORE DRILLER): Reviewed calorie restriction based on BMR as previously detailed. Reviewed recommendation/goal of >/= 150 minutes/week moderate-intensity aerobic exercise. Assessment & Plan (12/24/2020 9:52 PM CORE DRILLER): Discussed that significant health benefits/risk reduction may [...] frequently. Assessment & Plan (12/24/2020 9:59 PM CORE DRILLER): Discussed comorbidities associated with sleep apnea, including [...] Chavira Assessment & Plan (11/13/2023 7:32 AM CORE DRILLER): - Chronic, improving, not at goal - [...] month. Assessment & Plan (01/13/2022 12:58 PM CORE DRILLER): Obesity is improving with treatment. Diet interventions: [...] topiramate. Assessment & Plan (01/19/2021 2:01 PM CORE DRILLER): Obesity is unchanged. Diet interventions: as noted. Regular aerobic exercise program discussed. Pharmacotherapy as ordered. Will try increasing PM topiramate to help with night eating. Discussed risks, benefits, alternatives, potential side effects. Assessment & Plan (12/24/2020 9:58 PM CORE DRILLER): Obesity is worsening. General weight loss/lifestyle modification strategies discussed (elicit support from others; identify saboteurs; non-food rewards, etc). Diet interventions: as noted. Informal exercise measures discussed, e.g. taking stairs instead of elevator. Regular aerobic exercise program discussed. More detailed recommendations pending review of labs, food record. Migraine headache 01/22/2014 Assessment & Plan (01/28/2025 2:40 PM CORE DRILLER): - Chronic, stable - Followed by Neurology Chronic migraines improved since removal of IUD. Currently taking Nurtec and Topiramate. -Continue current treatment. -Notify neurologist of self-initiated decrease in Topiramate dose. Assessment & Plan (11/13/2023 7:32 AM CORE DRILLER): - Chronic, stable - Followed by Neurology - Continue current management Assessment & Plan (03/31/2023 12:20 PM CDT): - continue management per Neurology Allergic rhinitis 04/07/2013 Overview (07/18/2021): 04/06/13: SPT positive to T/G/RW/M/D/C/HDM/CR Asthma 04/07/2013 Assessment & Plan (01/28/2025 2:39 PM CORE DRILLER): Chronic, stable Continue albuterol prn Anemia 03/16/2013 Type 2 diabetes mellitus wit hout complication, without long-term current use of insulin 03/16/2013 Overview (05/08/2021): In remission since bariatric surgery. Didn't tolerate metformin. Assessment & Plan (01/28/2025 2:43 PM CORE DRILLER): Chronic, well controlled - Continue Mounjaro Discussed importance of routine screening including foot exam and eye exam as indicated Assessment & Plan (08/31/2024 1:39 PM CDT): Chronic, well controlled - Continue Mounjaro Assessment & Plan (11/13/2023 7:32 AM CORE DRILLER): - Chronic, stable - Tolerating current dose [...] RA. Assessment & Plan (01/13/2022 12:58 PM CORE DRILLER): Reviewed interim labs. Continue low-carb (<150 g/day), [...] ordered. Assessment & Plan (11/13/2023 7:33 AM CORE DRILLER): - Chronic, stable - continue current regimen [...] 5.6. Assessment & Plan (01/19/2021 2:01 PM CORE DRILLER): Reviewed labs with her. Continue low-carb (<150 g/day), low-glycemic diet. Consider GLP-1 RA Assessment & Plan (12/24/2020 9:52 PM CORE DRILLER): Labs. Discussed insulin resistance including effect on weight and risk for progression to diabetes. Recommended low-carb, low-glycemic diet; choose whole grains and avoid more highly processed carbohydrates. Discussed potential benefits of this w/r/t gut microbiome. Referred to ADA and restOpolis websites for additional information on topics including [...] 08/12/2025 3:30 PM CDT Telemedicine [facility] Medicine Metabolic Weight Management [address] [place] [address] Medical Office [address] [place] [address] Jocelyn Mcclellan NP Weight loss counseling, encounter for (Primary Dx); Type 2 diabetes mellitus with stage 3a chronic kidney disease, without long-term current use of insulin (HCC); History of gastric bypass; Class 3 severe obesity with serious comorbidity in adult, unspecified BMI, unspecified obesity type 07/24/2025 6:26 AM CDT - 07/24/2025 9:19 AM CDT Emergency [facility] Emergency Department [address] [place] [id number] Calderon Freeman MD Other migraine without [...] Influenza, Unspecified 05/31/2025(Deferr ed: Not available from mandarin tutor) Pfizer SARS-CoV-2 Monovalent Vaccination (12+ Yrs) PURPLE [...] Anemia Mother Liliam Adair Arthritis Mother Liliam Easton Hypertension Mother Liliam Adair Heart attack Paternal Grandfather Anish BerriosEaston Cancer Paternal Grandmother Julissa Berriosdridge Colon cancer [...] on file Legal Sex Female 8:37 PM CORE DRILLER Gender Identity Female 08/07/2021 9:39 AM CDT [...] DO LAB BLOOD ORDERABLES Mariel l Result [facility] [address] [facility] Department [place] [address] * Hemoglobin A1c (05/03/2025 8:11 AM CDT) Hgb A1C 4.8 4.8 - 5.6 % [facility] - 01 Comment: Prediabetes: 5.7 - 6.4 Diabetes: >6.4 Glycemic control for adults with diabetes: <7.0 Blood 05/03/2025 8:11 AM CDT 05/03/2025 Narrative [facility] - 05/04/2025 6:36 AM CDT Performed at: [address] [place] [place] [id number] Digital Strategist: Bradley Mcgill PhD, Phone: [phone] us Jocelyn Mcclellan COPY HOLDER LAB BLOOD ORDERABLES Final Resu lt Performing Organization Address [facility] de Phone Number [facility] [...] - 05/04/2025 6:36 AM CDT Performed at: [address] [id number] Digital Strategist: Bradley Mcgill PhD, Phone: [phone] us Jocelyn Mcclellan COPY HOLDER LAB BLOOD ORDERABLES Final Resu lt Performing Organization Address [facility] de Phone Number [facility] - * Hepatitis C antibody Blood (04/01/2025 8:15 AM CDT) Pathologist [facility] Hep C Ab Non Reactive Non Reactive [facility] - 01 Comment: HCV antibody alone does not differentiate between previously resolved infection and active infection. Equivocal and Reactive HCV antibody results should be followed up with an HCV RNA test to support the diagnosis of active HCV infection. Blood 04/01/2025 8:15 AM CDT 04/01/2025 Narrative [facility] - 04/02/2025 5:08 AM CDT Performed at: [facility] [id number] Digital Strategist: Bradley Mcgill PhD, Phone: [phone] us Demetria Alaniz MD LAB MICROBIOLOGY - GENERAL ORDERABLES Final Result Performing Organization Address [facility]/ZIP Co de Phone Number [facility] - [...] - 04/02/2025 4:07 AM CDT Performed at: [address] [id number] Digital Strategist: Bradley Mcgill PhD, Phone: [phone] Demetria Alaniz MD LAB URINE ORDERABLES Final Result Performing Organization Address [facility] de Phone Number [facility] - 01 from Last 3 Months or Most Recently Relevant to Health Maintenance Insurance [facility] PL[facility] PLUS [facility] PLUS Advance Directives For more information, please contact: [phone] * Full Code (Latest Code Status on File) Date Activated Date Inactivated Comments 12/27/2021 6:36 AM 12/27/2021 1:25 PM * Full Code Date Activated Date Inactivated Comments 09/14/2021 9:09 PM 09/15/2021 7:00 PM Care Teams Forge Press Operator Relationship Specialty Start Date End Date Judd Davila MD [address] [facility] [place] [place] [address] [place] [address] PCP - General Family Medicine 05/31/25 Kaylee Pham MD Consulting Physician General Surgery 10/30/21 Brandon Diehl, JAS Nurse Practitioner General Surgery 10/30/21 Ruiz Castro MD [address] [phone] [place] [address] Surgeon Colon and Rectal Surgery 11/22/21 Nina Alexander, CANDELARIO [address] [facility] [place] [address] Optometry 05/31/25
--- OUTSIDE RECORDS SUMMARY | 2025-09-28 12:51 | XMS_ITS | Encounter Summary ---
Author Organization [facility] Health Address [address] [place] [address] Care Team Providers Care Poultry Hatchery Laborer Name Role Phone Sylvia Perez MD Primary Care Provider Josh Cervantes MD Unavailable Sylvia Perez MD Unavailable [phone] Bib Daniels MD Unavailable Stephanie Chavira MD Unavailable Kaylee Pham MD Unavailable Sylvia Perez MD Unavailable [phone] Sylvia Perez MD Unavailable [phone] Demetria Alaniz MD Primary Care Provider [phone] Encounter Details Date Type Department Care Team (Late st Contact Info) Description 10/08/[address] [facility] Outpatient Visit [facility] [address] [place] [address] Mikel Jeff MD [address] [place] [address] Social History Tobacco Use Types Packs/Day Years Used Date Smoking Tobacco: Never Smokeless Tobacco: Never Alcohol Use Standard Drinks/Week Comments Yes 0 (1 standard drink = 0.6 oz pur e alcohol) occasionally Comments No Sex and Gender Information Value Date Recorded Sex Assigned at Female 10/27/2021 12:53 PM FPGA ENGINEER Legal Sex Female 6:28 AM FPGA ENGINEER Gender Identity Female 10/27/2021 12:53 PM FPGA ENGINEER Sexual Orientation Not on file Occupation Industry [...] documented as of this encounter Care Teams Poultry Hatchery Laborer Relationship Specialty Start Date End Date Sylvia Perez MD PCP - General 03/06/10 05/08/23 [place] [address] [address] [place] [address] [id number] PCP - Attributed-[facility] Commercial 03/31/19 05/29/21 [place] [address] [address] [place] [address] PCP - Attributed-[facility] Commercial 08/31/21 10/18/22 [place] [address] [address] [place] [address] PCP - Attributed-[facility] Commercial 10/31/22 06/17/23 Demetria Alaniz MD [facility] [address] [place] [address] PCP - General Family Medicine 05/09/23 Josh Cervantes MD [address] [facility] [address] [facility] [address] [place] [address] Obstetrics and Gynecology 10/25/14 Bib Daniels MD [address] [facility] [address] [place] [address] Neurologist Neurological Surgery 07/14/20 Stephanie Chavira MD [address] [place] [address] [address] [place], [place] [id number] Internal Medicine 02/06/21 Kaylee Pham MD [address] [place] [id number] Surgery 02/06/21 documented as of this encounter
--- OUTSIDE RECORDS SUMMARY | 2025-09-28 12:51 | XMS_ITS | Encounter Summary ---
Author Organization [facility] Address [address] [place] [address] Phone Care Team Providers Care Aircraft Log Clerk Name Role Phone Kaylee Pham MD Unavailable [phone] Brandon Diehl NP Unavailable [phone] Ruiz Castro MD Unavailable [phone] Demetria Alaniz MD Primary Care Provider [phone] No, Physician Primary Care Provider [phone] Jackie Ralph DO Primary Care Provid er Judd Davila MD Primary Care Provid er Nina Alexander OD Unavailable [phone] Encounter Details Date Type Department Care Team (Late st Contact Info) Description 09/16/2021 Documentation [facility] - [facility] Medicine Minimally Invasive Surgery [facility]1 [facility] Advanced Medicine 12th Floor, [place] [address] Jonatan Darden Social History Tobacco [...] on file Legal Sex Female 8:37 PM MANAGER SOCIAL Gender Identity Female 08/07/2021 9:39 AM CDT Sexual Orientation Straight 08/07/2021 9: 39 AM CDT documented as of this encounter Plan of Treatment Not on file documented as of this encounter Visit Diagnoses Not on filedocumented in this encounter Care Teams Aircraft Log Clerk Relationship Specialty Start Date End Date Demetria Alaniz MD [facility] [address] [place] [address] PCP - General Family Medicine 03/26/23 01/27/25 No, Physician PCP - General 01/28/25 05/01/25 Jackie Ralph DO [address] [facility] [address] [place] [address] PCP - General Family Medicine 05/02/25 05/30/25 Judd Davila MD [address] [facility] [place] [place] [place] [address] PCP - General Family Medicine 05/31/25 Kaylee Pham MD Consulting Physician General Surgery 10/30/21 Brandon Diehl, JAS Nurse Practitioner General Surgery 10/30/21 Ruiz Castro MD [address] [phone] [place] [address] Surgeon Colon and Rectal Surgery 11/22/21 Nina Alexander, CANDELARIO [address] [facility] [place] [address] Optometry 05/31/25 documented as of this encounter
--- OUTSIDE RECORDS SUMMARY | 2025-09-28 12:51 | XMS_ITS ---
Author Organization [facility] Health Address [address] [facility] [place] [address] Care Team Providers Care Industrial Cafeteria Manager Name Role Phone Josh Cervantes MD Unavailable [phone] Bib Daniels MD Unavailable [phone] Stephanie Chavira MD Unavailable Kaylee Pham MD Unavailable [phone] Demetria Alaniz MD Primary Care Provider [phone] Active Problems Problem Noted Date Diagnosed Date Rectal bleeding 11/22/2021 Gastroesophageal reflux disease 07/03/2021 Overview (12/03/2021): Added automatically from request for surgery [id number] History of diabetes mellitus 12/24/2020 Overview (02/06/2021): [...]
--- OUTSIDE RECORDS SUMMARY | 2025-09-28 12:51 | XMS_ITS | Clinical Summary ---
Author Organization [facility] Address [address] [facility] [place] [address] Care Team Providers Care Building Components Designer Name Role Phone Josh Cervantes MD Unavailable [phone] Bib Daniels MD Unavailable [phone] Stephanie Chavira MD Unavailable Kaylee Pham MD Unavailable [phone] Demetria Alaniz MD Primary Care Provider [phone] Source Comments [facility],non-owned Affiliates and Associated Physician Practices is amultiple site organization consisting of ambulatory clinics and hospital sitesin [place], [place], [place] and [place]. This disclosure is being madepursuant to the Care Everywhere program and may not contain all information available regarding this patient. Last updated 18.[facility] Allergies Active Allergy Reactions Criticality Noted Date [...] breakfast 07/19/20 22 Active Cholecalciferol 1.25 MG (57288 UT) TAKE 1 CAPSULE BY MOUTH ONE [...] needed for Constipation 10/25/20 Active HYDROcodone-antwan taminophen ([place]) 5-325 MG tabletIndicatio ns:Status post surgery Take [...] (12/03/2021): Added automatically from request for surgery [id number] History of diabetes mellitus 12/24/2020 Overview (02/06/2021): [...] for additional instructions/info/video. Start Ozempic pending labs. Immunizations Immunization Administration Dates Next Due FLU [...] Sex Assigned at Female 10/27/2021 12:53 PM SHOES HAND SEWER Legal Sex Female 6:28 AM SHOES HAND SEWER Gender Identity Female 10/27/2021 12:53 PM SHOES HAND SEWER Sexual Orientation Not on file Occupation Industry Job Start Date Job End Date student Not on file Not on file Not on file Last Filed Vital Signs Vital Sign Reading Time Taken Comments Blood Pressure 126/101 2025 2:53 PM SHOES HAND SEWER Pulse 75 2025 2:53 PM SHOES HAND SEWER Temperature 36.3 C (97.4 F) 2025 2:53 PM SHOES HAND SEWER Respiratory Rate 18 2025 2:53 PM SHOES HAND SEWER Oxygen Saturation 100% 2025 2:53 PM SHOES HAND SEWER Inhaled Oxygen Concentration - - Weight 92.1 kg (203 lb) 12/14/2024 11:02 AM SHOES HAND SEWER Height 172.7 cm (5' 8) 12/14/2024 11:02 AM SHOES HAND SEWER Body Mass Index 30.87 12/14/2024 11:02 AM SHOES HAND SEWER Plan of Treatment Health Maintenance Due Date Last Done Comments HEPATITIS B VACCINE (1 of 3 - 19+ 3-dose series) 2006 PNEUMOCOCCAL VACCINE (1 of 2 - PCV) 2006 DIABETES RETINOPATHY SCREENING 05/10/2021 DIABETES-FOOT EXAM WITH MONOFILAMENT 05/10/2021 DIABETES-HGB A1C 08/01/2022 01/29/2022, 01/2021 (Done Outside Per Report), 05/14/2021, Additional history exists DIABETES-SERUM CREATININE 06/12/20232021, 01/20/2022, 05/10/2021, Additional history exists PAP SMEAR 07/20/2023 07/20/2020 (Done Outside Per Patient), 01/07/2017, 05/01/2013 DIABETES - URINE PROTEIN SCREENING 12/01/2024 INFLUENZA VACCINE (#1) 2025 , 11/12/2023, 10/18/2022, Additional history exists DTAP/TDAP/TD VACCINES (3 - [...] Progress Patient-Stated? Author Mobility General No Susanna Whelna RN Note: Expected end date: 09/30/2020 The goal is to maintain or improve your mobility at the optimum level for you. Interventions: Procedures Procedure Name Priority Date/Time Associated Diagnosis Comments COMPREHENSIVE METABOLIC PANEL 06/12/2022 1:26 PM CDT HEMOGLOBIN A1C - POINT OF CARE (AMB) Routine 01/29/2022 1:56 PM SHOES HAND SEWER Screening for diabetes mellitus from Last 3 [...] of this report has been sent to [phone] Resulting Agency Comment Lab Testing performed at: [facility] [address] [facility] [id number] us Rosalinda Magaña MD LAB - CHEMISTRY ORDERAB LES Final Result [facility] INSURANCE BILL [address] [place] [address] * HEMOGLOBIN A1C - POINT OF CARE (AMB) (01/29/2022 1:56 PM SHOES HAND SEWER) Hemoglobin A1c POCT 4.7 % [facility] Expiration Date 10/02/2023 [facility] Lot # [id number] [facility] [place] QC Verified Yes Yes [facility] Blood BLOOD SPECIMEN / Unknown 01/29/2022 1:56 PM SHOES HAND SEWER Aparna Briceno TEXTILE BROKER-FORESTRY WORKER LAB - POINT OF CARE OR DERABLES Final Result [facility] [address] [place] [address], [facility] [phone] from Last 3 Months or Most Recently Relevant to Health Maintenance Additional Health Concerns Infection Onset Date Last 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 06/24/[address] [address] [facility] Care Teams Building Components Designer Relationship Specialty Start Date End Date Demetria Alaniz MD [facility] [address] [place] [address] PCP - General Family Medicine 05/09/23 Josh Cervantes MD [address] [facility] [address] [place] [address] Obstetrics and Gynecology 10/25/14 Bib Daniels MD [address] [facility] [address] [place] [address] Neurologist Neurological Surgery 07/14/20 Stephanie Chavira MD [address] [facility] [address] [place], [place] [id number] Internal Medicine 02/06/21 Kaylee Pham MD [address] [place] [id number] Surgery 02/06/21
--- OUTSIDE RECORDS SUMMARY | 2025-09-28 12:51 | XMS_ITS | Encounter Summary ---
Author Organization [facility] Address [address] [facility] [place] [address] Care Team Providers Care Booth Usher Name Role Phone Sylvia Perez MD Primary Care Provider Josh Cervantes MD Unavailable Sylvia Perez MD Unavailable [phone] Bib Daniels MD Unavailable Stephanie Chavira MD Unavailable Kaylee Pham MD Unavailable Sylvia Perez MD Unavailable [phone] Sylvia Perez MD Unavailable [phone] Demetria Alaniz MD Primary Care Provider [phone] Encounter Details Date Type Department Care Team (Late st Contact Info) Description 10/12/2020 Lab Requisition [facility] [address] [facility] [place] [address] Thomas Rios Jr., MD [address] [facility] [address] [place] [address] Social History Tobacco Use Types Packs/Day Years Used Date Smoking Tobacco: Never Smokeless Tobacco: Never Alcohol Use Standard Drinks/Week Comments Yes 0 (1 standard drink = 0.6 oz pur e alcohol) occasionally Comments No Sex and Gender Information Value Date Recorded Sex Assigned at Female 10/27/2021 12:53 PM EMAIL CAMPAIGN MANAGER Legal Sex Female 6:28 AM EMAIL CAMPAIGN MANAGER Gender Identity Female 10/27/2021 12:53 PM EMAIL CAMPAIGN MANAGER Sexual Orientation Not on file Occupation Industry [...] Comments DERMATOPATHOLOGY Routine 10/11/2020 12:0 0 AM EMAIL CAMPAIGN MANAGER documented in this encounter Results * DERMATOPATHOLOGY (10/11/2020 12:00 AM EMAIL CAMPAIGN MANAGER) Case Report Dermatopathology Report Case: [id number] Authorizing Provider: Thomas Rios Jr., MD Collected: 10/11/2020 12:00 AM Ordering Location: [facility] Lab Received: 10/12/2020 12:58 PM Pathologist: Ary Matias MD Specimens: A) - Skin, right ulnar dorsal hand, lesional B) - Skin, right ulnar dorsal hand, non-lesional 0 2:40 PM EMAIL CAMPAIGN MANAGER DERMATOPATHOLOGY LABORATORY Final Diagnosis Specimen A. SKIN, right ulnar dorsal hand, lesional: DECREASE OF EPIDERMAL MELANOCYTES (L80) (see microscopic description and comment) Specimen B. SKIN, right ulnar dorsal hand, non-lesional: POST-INFLAMMATORY PIGMENT ALTERATION (L81.9) (see microscopic description and comment) 0 2:40 PM EMAIL CAMPAIGN MANAGER DERMATOPATHOLOGY LABORATORY at 1440 EMAIL CAMPAIGN MANAGER Clinical History A-B: Rash, non-specific vs vitiligo vs post inflammatory hypopigmentation vs resolving eczema. . 0 2:40 PM [facility] DERMATOPATHOLOGY LABORATORY Gross Description Specimen A: Received is one formalin filled container labeled with the patient's name and designated right ulnar dorsal hand, lesional. The specimen consists of a punch biopsy measuring [id number], bisected. Jar 0. Specimen B: Received is one formalin filled container labeled with the patient's name and designated right ulnar dorsal hand, non-lesional. The specimen consists of a punch biopsy measuring [id number]., bisected. Jar 0. 0 2:40 PM [facility] DERMATOPATHOLOGY LABORATORY Microscopic Description Specimen A. SKIN, [...] are highlighted with immunohistochemical staining for MART-1/Melan-A. Sims-Damon stain highlights melanin pigment in the papillary dermis. Grocott's methenamine silver (GMS) stain fails to highlight fungal elements in the available sections. COMMENT Specimen A&B: Specimen A reveals a markedly decreased number of epidermal melanocytes relative to Specimen B. These histologic findings may be consistent with early vitiligo in the correct clinical setting. 0 2:40 PM [facility] DERMATOPATHOLOGY LABORATORY Disclaimer An external and internal positive and negative controls are appropriate for the histochemical, immunohistochemical and immunofluorescence stain(s) in this case (if any), except where stated explicitly. The performance characteristics of the stain(s) cited in this report were developed and its performance characteristic determined by the Dermatopathology Laboratory at [facility], directed by Dr. Jake Matias. These tests need not be, and therefore are not, approved by the [place] Food and Drug Administration. The tests are used for clinical purposes. Billing Codes Specimen Charges Stain Charges 01187 00267 1 1 71715 00148 [id number] 34103 19561 32281 1 1 1 1 1 1 0 2:40 PM EMAIL CAMPAIGN MANAGER DERMATOPATHOLOGY LABORATORY Embedded Images 0 2:40 PM EMAIL CAMPAIGN MANAGER DERMATOPATHOLOGY LABORATORY Pathology/Cytology TISSUE SPECIMEN FROM SKIN / Unknown 10/11/2020 10/12/2020 12:58 PM EMAIL CAMPAIGN MANAGER Miscellaneous samples (specimen) TISSUE SPECIMEN FROM SKIN / Unknown 10/11/2020 10/12/2020 12:58 PM EMAIL CAMPAIGN MANAGER Thomas Rios Jr., MD LAB - PATHOLOGY/CYTOLOG Y ORDERABLES Final Result DERMATOPATHOLOGY LABORATORY [facility] - Department of Dermatology [facility] Medicine [address] [place] [address], [address] [phone] documented in this encounter Visit Diagnoses Not on filedocumented in this encounter Additional Health Concerns Infection Onset Date Last Indicated Resolved Time MRSA 03/08/2010 03/08/2010 06/24/2022 8:09 AM CDT COVID-19 Under Investigation 05/10/2021 05/10/2021 05/10/2021 3:50 PM CDT MRSA Hx 06/24/2022 06/24/2022 documented as of this encounter Care Teams Booth Usher Relationship Specialty Start Date End Date Sylvia Perez MD PCP - General 03/06/10 05/08/23 [place] [address] [address] PCP - Attributed-[facility] Commercial 03/31/19 05/29/21 [place] [address] [place] [address] PCP - Attributed-[facility] Commercial 08/31/21 10/18/22 [place] [address] [place] [address] PCP - Attributed-[facility] Commercial 10/31/22 06/17/23 Demetria Alaniz MD [address] [facility] [address] [place] [address] PCP - General Family Medicine 05/09/23 Josh Cervantes MD [address] [facility] [address] [place], [place] [id number] Obstetrics and Gynecology 10/25/14 Bib Daniels MD [address] [facility] [address] [place] [address] Neurologist Neurological Surgery 07/14/20 Stephanie Chavira MD [address] [facility] [address] [place], [place] [id number] Internal Medicine 02/06/21 Kaylee Pham MD [address] [place] [address] Surgery 02/06/21 documented as of this encounter
--- OUTSIDE RECORDS SUMMARY | 2025-09-28 12:51 | XMS_ITS ---
Author Organization [facility] Address [address] [place] [address] Care Team Providers Care Orthopedic Assistant Name Role Phone Kaylee Pham MD Unavailable Brandon Diehl NP Unavailable [phone] Ruiz Castro MD Unavailable Judd Davila MD Primary Care Provid er MathewsNina Pickering OD Unavailable [phone] Active Problems Problem Noted Date Diagnosed Date [...] 01/28/2025 Assessment & Plan (01/28/2025 2:39 PM ETCH OPERATOR SEMICONDUCTOR WAFERS): Recent onset of cough, chest discomfort, nasal congestion, and sore throat. Home COVID and flu tests negative. Redness in throat and ears noted on exam. Wheezing noted on right side. -Continue symptomatic treatment with [id number] medications. -Repeat home COVID test in a [...] 11/12/2023 Assessment & Plan (11/13/2023 7:34 AM ETCH OPERATOR SEMICONDUCTOR WAFERS): - Start hydroxyzine Type 2 diabetes mellitus with chronic kidney dis ease 03/31/2023 Assessment & Plan (05/31/2025 1:39 PM CDT): Stable, continue prescribed Mounjaro 12.5 mg subQ weekly Assessment & Plan (01/28/2025 2:42 PM ETCH OPERATOR SEMICONDUCTOR WAFERS): - Continue to optimize blood sugar - repeat labs today Assessment & Plan (08/31/2024 1:41 PM CDT): - Continue to optimize blood sugar - GFR decrease with last labs with weight management, plan to repeat labs - Include urine microalbumin at repeat Assessment & Plan (11/13/2023 7:33 AM ETCH OPERATOR SEMICONDUCTOR WAFERS): - Continue to optimize blood sugar JERMAN (generalized anxiety disorder) 03/31/2023 Assessment & Plan (01/28/2025 2:40 PM ETCH OPERATOR SEMICONDUCTOR WAFERS): - Chronic, stable - Continue Lexapro, wellbutrin, hydroxyzine - Will follow up with therapist Assessment & Plan (08/31/2024 2:56 PM CDT): - Chronic, stable - Continue Lexapro and hydroxyzine - Will follow up with therapist Assessment & Plan (11/13/2023 7:34 AM ETCH OPERATOR SEMICONDUCTOR WAFERS): - Chronic, not well controlled - Sleep [...] (07/03/2021): Added automatically from request for surgery [id number] Assessment & Plan (01/28/2025 1:59 PM ETCH OPERATOR SEMICONDUCTOR WAFERS): Chronic, stable Continue current medication Postsurgical malabsorption 12/24/2020 Assessment & Plan (12/24/2020 9:57 PM ETCH OPERATOR SEMICONDUCTOR WAFERS): Labs. Iron deficiency 12/24/2020 Bariatric surgery status 12/24/2020 Assessment & Plan (03/03/2023 8:19 AM CDT): Bariatric surgery labs ordered for possible vitamin deficiencies in setting of intestinal malabsorption. Assessment & Plan (12/24/2020 9:56 PM ETCH OPERATOR SEMICONDUCTOR WAFERS): Routine labs to evaluate for vitamin deficiencies [...] Asked to try to track consistently with [employer] It daniel for at least 1 week to help identify calorie/carb/protein intake. Assessment & Plan (01/13/2022 12:52 PM ETCH OPERATOR SEMICONDUCTOR WAFERS): Reviewed calorie restriction based on BMR as [...] phone. Assessment & Plan (01/19/2021 2:01 PM ETCH OPERATOR SEMICONDUCTOR WAFERS): Reviewed calorie restriction based on BMR as previously detailed. Reviewed recommendation/goal of >/= 150 minutes/week moderate-intensity aerobic exercise. Assessment & Plan (12/24/2020 9:52 PM ETCH OPERATOR SEMICONDUCTOR WAFERS): Discussed that significant health benefits/risk reduction may [...] frequently. Assessment & Plan (12/24/2020 9:59 PM ETCH OPERATOR SEMICONDUCTOR WAFERS): Discussed comorbidities associated with sleep apnea, including [...] Chavira Assessment & Plan (11/13/2023 7:32 AM ETCH OPERATOR SEMICONDUCTOR WAFERS): - Chronic, improving, not at goal - [...] month. Assessment & Plan (01/13/2022 12:58 PM ETCH OPERATOR SEMICONDUCTOR WAFERS): Obesity is improving with treatment. Diet interventions: [...] topiramate. Assessment & Plan (01/19/2021 2:01 PM ETCH OPERATOR SEMICONDUCTOR WAFERS): Obesity is unchanged. Diet interventions: as noted. Regular aerobic exercise program discussed. Pharmacotherapy as ordered. Will try increasing PM topiramate to help with night eating. Discussed risks, benefits, alternatives, potential side effects. Assessment & Plan (12/24/2020 9:58 PM ETCH OPERATOR SEMICONDUCTOR WAFERS): Obesity is worsening. General weight loss/lifestyle modification strategies discussed (elicit support from others; identify saboteurs; non-food rewards, etc). Diet interventions: as noted. Informal exercise measures discussed, e.g. taking stairs instead of elevator. Regular aerobic exercise program discussed. More detailed recommendations pending review of labs, food record. Migraine headache 01/22/2014 Assessment & Plan (01/28/2025 2:40 PM ETCH OPERATOR SEMICONDUCTOR WAFERS): - Chronic, stable - Followed by Neurology Chronic migraines improved since removal of IUD. Currently taking Nurtec and Topiramate. -Continue current treatment. -Notify neurologist of self-initiated decrease in Topiramate dose. Assessment & Plan (11/13/2023 7:32 AM ETCH OPERATOR SEMICONDUCTOR WAFERS): - Chronic, stable - Followed by Neurology - Continue current management Assessment & Plan (03/31/2023 12:20 PM CDT): - continue management per Neurology Allergic rhinitis 04/07/2013 Overview (07/18/2021): 04/06/13: SPT positive to T/G/RW/M/D/C/HDM/CR Asthma 04/07/2013 Assessment & Plan (01/28/2025 2:39 PM ETCH OPERATOR SEMICONDUCTOR WAFERS): Chronic, stable Continue albuterol prn Anemia 03/16/2013 Type 2 diabetes mellitus wit hout complication, without long-term current use of insulin 03/16/2013 Overview (05/08/2021): In remission since bariatric surgery. Didn't tolerate metformin. Assessment & Plan (01/28/2025 2:43 PM ETCH OPERATOR SEMICONDUCTOR WAFERS): Chronic, well controlled - Continue Mounjaro Discussed importance of routine screening including foot exam and eye exam as indicated Assessment & Plan (08/31/2024 1:39 PM CDT): Chronic, well controlled - Continue Mounjaro Assessment & Plan (11/13/2023 7:32 AM ETCH OPERATOR SEMICONDUCTOR WAFERS): - Chronic, stable - Tolerating current dose [...] RA. Assessment & Plan (01/13/2022 12:58 PM ETCH OPERATOR SEMICONDUCTOR WAFERS): Reviewed interim labs. Continue low-carb (<150 g/day), [...] ordered. Assessment & Plan (11/13/2023 7:33 AM ETCH OPERATOR SEMICONDUCTOR WAFERS): - Chronic, stable - continue current regimen [...] 5.6. Assessment & Plan (01/19/2021 2:01 PM ETCH OPERATOR SEMICONDUCTOR WAFERS): Reviewed labs with her. Continue low-carb (<150 g/day), low-glycemic diet. Consider GLP-1 RA Assessment & Plan (12/24/2020 9:52 PM ETCH OPERATOR SEMICONDUCTOR WAFERS): Labs. Discussed insulin resistance including effect on weight and risk for progression to diabetes. Recommended low-carb, low-glycemic diet; choose whole grains and avoid more highly processed carbohydrates. Discussed potential benefits of this w/r/t gut microbiome. Referred to ADA and Process[employer] websites for additional information on topics including [...]
--- OUTSIDE RECORDS SUMMARY | 2025-09-28 12:51 | XMS_ITS | Clinical Summary ---
Author Organization [employer] [address] - [address] Address [address] [place] [address] Phone Care Team Providers Care Parasitologist Name Role Phone Sylvia Perez MD Primary Care Provider [phone] Allergies Active Allergy Reactions Criticality Noted Date [...] 07/19/20 22 Active mometasone (NASONEX) 50 mcg/actuation [place], Non-Aerosol Administer 2 Sprays in each nostril. [...] Abstract 09/03/2025 11:15 AM CDT Office Visit [facility] [address] [address] [facility] Carlo Briceno PA-C Streptococcal pharyngitis [...] STREP A ANTIGEN (09/03/2025 11:39 AM CDT) [facility] RAPID STREP POC Positive( A) Negative, Indeterminate [facility] INTERNAL KIT QC POC Pass Pass [facility] KIT LOT NUMBER POC [id number] [facility] KIT EXP DATE POC [facility] READ METHOD POC Visual [facility] Upper Respiratory SPECIMEN FROM THROAT / Unknown 09/03/2025 11:39 AM CDT us Carlo Briceno PA-C POINT OF CARE TESTING Final Re sult Performing Organization Address City/[facility]/ZIP Co de Phone Number [facility] CLIA# [id number] [place] [address] * HEMOGLOBIN A1C (04/23/2016 4:42 PM CDT) [facility] HEMOGLOBIN A1C 4.8 4.0 - 6.0 % 04/23/2016 9:40 PM CDT [facility] Comment:Note: Effective as o f 12/22/2014 a new methodology, Turbidimetric inhibition immunoassay (TINIA),has been implemented. EST. AVG GLUCOSE, A1C 91 mg/dL 04/23/2016 9:40 PM CDT [facility] Blood Venipuncture - L ab Collect / Unknown 04/23/2016 4:42 PM CDT 04/23/2016 4:42 PM CDT Hussein Baires MD CHEMISTRY ORDERABLES Final Res ult [facility] [facility] CLIA# [id number] [address] [place] [address] from Last 3 Months or Most Recently Relevant to Health Maintenance Insurance [facility] [employer] PPO [id number] [facility] CHOICE [id number] Advance Directives For more information, please contact: [phone] * Full Code (Latest Code Status on File) Date Activated Date Inactivated Comments 05/17/2016 12:10 PM 05/17/2016 4:09 PM * Full Code Date Activated Date Inactivated Comments 04/03/2016 2:52 PM 04/03/2016 7:06 PM Care Teams Parasitologist Relationship Specialty Start Date End Date Sylvia Perez MD PCP - General Internal Medicine 03/01/16
[2025-09-28] MEDS: LACTATED RINGERS 1,000 ML 999 ML IV CONT ×2 (13:09→14:40)
[2025-09-28 13:11] LABS: CRP 28.2 mg/dL (<1.0)
[2025-09-28] MEDS: HYDROmorphone HCL INJ (*CRX) 1 MG/ML SYR IV PUSH (13:11)
[2025-09-28 13:12] VITALS: BP 102/75; PULSE 88; RESP 21; O2SAT 100
--- NOTE | 2025-09-28 13:16 | PC.NURSE ---
Pt to Xray on portable monitor at this time
--- OUTSIDE RECORDS SUMMARY | 2025-09-28 14:28 | XMS_ITS | Clinical Summary ---
Author Organization [facility] Address [address] [place] [address] Care Team Providers Care Order Dispatcher Chief Name Role Phone Josh Cervantes MD Unavailable [phone] Bib Daniels MD Unavailable [phone] Stephanie Chavira MD Unavailable [phone] Kaylee Pham MD Unavailable [phone] Demetria Alaniz MD Primary Care Provider [phone] Source Comments [facility],non-owned Affiliates and Associated Physician Practices is amultiple site organization consisting of ambulatory clinics and hospital sitesin [place], [place], [place] and [place]. This disclosure is being madepursuant to the Care Everywhere program and may not contain all information available regarding this patient. Last updated 18.[facility] Allergies Active Allergy Reactions Criticality Noted Date [...] breakfast 07/19/20 22 Active Cholecalciferol 1.25 MG (29071 UT) TAKE 1 CAPSULE BY MOUTH ONE [...] needed for Constipation 10/25/20 Active HYDROcodone-antwan taminophen ([place]) 5-325 MG tabletIndicatio ns:Status post surgery Take [...] (12/03/2021): Added automatically from request for surgery [id number] History of diabetes mellitus 12/24/2020 Overview (02/06/2021): [...] Sex Assigned at Female 10/27/2021 12:53 PM AIRCRAFT DESIGNER Legal Sex Female 6:28 AM AIRCRAFT DESIGNER Gender Identity Female 10/27/2021 12:53 PM AIRCRAFT DESIGNER Sexual Orientation Not on file Occupation Industry Job Start Date Job End Date student Not on file Not on file Not on file Last Filed Vital Signs Vital Sign Reading Time Taken Comments Blood Pressure 126/101 2025 2:53 PM AIRCRAFT DESIGNER Pulse 75 2025 2:53 PM AIRCRAFT DESIGNER Temperature 36.3 C (97.4 F) 2025 2:53 PM AIRCRAFT DESIGNER Respiratory Rate 18 2025 2:53 PM AIRCRAFT DESIGNER Oxygen Saturation 100% 2025 2:53 PM AIRCRAFT DESIGNER Inhaled Oxygen Concentration - - Weight 92.1 kg (203 lb) 12/14/2024 11:02 AM AIRCRAFT DESIGNER Height 172.7 cm (5' 8) 12/14/2024 11:02 AM AIRCRAFT DESIGNER Body Mass Index 30.87 12/14/2024 11:02 AM AIRCRAFT DESIGNER Plan of Treatment Health Maintenance Due Date [...] OF CARE (AMB) Routine 01/29/2022 1:56 PM AIRCRAFT DESIGNER Screening for diabetes mellitus from Last 3 [...] of this report has been sent to [phone] Resulting Agency Comment Lab Testing performed at: [facility] [address] [id number] us Rosalinda Magaña MD LAB - CHEMISTRY ORDERAB LES Final Result [facility] INSURANCE BILL [address] [place] [address] * HEMOGLOBIN A1C - POINT OF CARE (AMB) (01/29/2022 1:56 PM AIRCRAFT DESIGNER) Hemoglobin A1c POCT 4.7 % [facility] Expiration Date 10/02/2023 [facility] Lot # [id number] [facility] [place] QC Verified Yes Yes [facility] Blood BLOOD SPECIMEN / Unknown 01/29/2022 1:56 PM AIRCRAFT DESIGNER Aparna Briceno HARNESS [employer]KER-REFUELING [facility] LAB - POINT OF CARE OR DERABLES Final Result [facility] [address] [place] [address], [facility] [phone] from Last 3 Months or Most Recently Relevant to Health Maintenance Additional Health Concerns Infection Onset Date Last 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 06/24/[address] [id number] [facility] Care Teams Order Dispatcher Chief Relationship Specialty Start Date End Date Demetria Alaniz MD [facility] [address] [place] [address] PCP - General Family Medicine 05/09/23 Josh Cervantes MD [address] [facility] [address] [address] [place] [address] Obstetrics and Gynecology 10/25/14 Bib Daniels MD [address] [facility] [address] [place] [address] Neurologist Neurological Surgery 07/14/20 Stephanie Chavira MD [address] [facility] [address] [place], [place] [address] Internal Medicine 02/06/21 Kaylee Pham MD [address] [place] [address] Surgery 02/06/21
--- OUTSIDE RECORDS SUMMARY | 2025-09-28 14:28 | XMS_ITS ---
Author Organization [facility] Address [address] [facility] [place] [address] Care Team Providers Care Lease Analyst Name Role Phone Josh Cervantes MD Unavailable Bib Daniels MD Unavailable [phone] Stephanie Chavira MD Unavailable [phone] Kaylee Pham MD Unavailable [phone] Demetria Alaniz MD Primary Care Provider [phone] Active Problems Problem Noted Date Diagnosed Date Rectal bleeding 11/22/2021 Gastroesophageal reflux disease 07/03/2021 Overview (12/03/2021): Added automatically from request for surgery [id number] History of diabetes mellitus 12/24/2020 Overview (02/06/2021): [...]
--- OUTSIDE RECORDS SUMMARY | 2025-09-28 14:28 | XMS_ITS | Encounter Summary ---
Author Organization [facility] Address [address] [facility] [place] [address] Care Team Providers Care Manager Presentation Name Role Phone Sylvia Perez MD Primary Care Provider Josh Cervantes MD Unavailable Sylvia Perez MD Unavailable Bib Daniels MD Unavailable Stephanie Chavira MD Unavailable Kaylee Pham MD Unavailable Sylvia Perez MD Unavailable [phone] Sylvia Perez MD Unavailable [phone] Demetria Alaniz MD Primary Care Provider [phone] Encounter Details Date Type Department Care Team (Late st Contact Info) Description 10/08/2019 [facility] Outpatient Visit [facility] [address] [place] [address] Mikel Jeff MD [address] [place] [address] Social History Tobacco Use Types Packs/Day Years Used Date Smoking Tobacco: Never Smokeless Tobacco: Never Alcohol Use Standard Drinks/Week Comments Yes 0 (1 standard drink = 0.6 oz pur e alcohol) occasionally Comments No Sex and Gender Information Value Date Recorded Sex Assigned at Female 10/27/2021 12:53 PM APRICOT WASHER Legal Sex Female 6:28 AM APRICOT WASHER Gender Identity Female 10/27/2021 12:53 PM APRICOT WASHER Sexual Orientation Not on file Occupation Industry [...] documented as of this encounter Care Teams Manager Presentation Relationship Specialty Start Date End Date Sylvia Perez MD PCP - General 03/06/10 05/08/23 [place] [address] [place] [id number] PCP - Attributed-[facility] Commercial 03/31/19 05/29/21 [place] [address] [address] [place] [address] PCP - Attributed-[facility] Commercial 08/31/21 10/18/22 [place] [address] [address] [place] [address] PCP - Attributed-[facility] Commercial 10/31/22 06/17/23 Demetria Alaniz MD [facility] [address] [place] [address] PCP - General Family Medicine 05/09/23 Josh Cervantes MD [address] [facility] [address] [facility] [address] [place] [address] Obstetrics and Gynecology 10/25/14 Bib Daniels MD [address] [facility] [address] [place] [address] Neurologist Neurological Surgery 07/14/20 Stephanie Chavira MD [address] [place] [address] [address] [place], [place] [id number] Internal Medicine 02/06/21 Kaylee Pham MD [address] [place] [id number] Surgery 02/06/21 documented as of this encounter
--- OUTSIDE RECORDS SUMMARY | 2025-09-28 14:28 | XMS_ITS | Clinical Summary ---
Author Organization [employer] [address] - [address] [place] [address] Phone Care Team Providers Care Medical Psychotherapist Name Role Phone Sylvia Perez MD Primary Care Provider [phone] Allergies Active Allergy Reactions Criticality Noted Date [...] 07/19/20 22 Active mometasone (NASONEX) 50 mcg/actuation [place], Non-Aerosol Administer 2 Sprays in each nostril. [...] Abstract 09/03/2025 11:15 AM CDT Office Visit [facility] [address] [address] [facility] Carlo Briceno PA-C Streptococcal pharyngitis [...] STREP A ANTIGEN (09/03/2025 11:39 AM CDT) [facility] RAPID STREP POC Positive( A) Negative, Indeterminate [facility] INTERNAL KIT QC POC Pass Pass [facility] KIT LOT NUMBER POC [id number] [facility] KIT EXP DATE POC [facility] READ METHOD POC Visual [facility] Upper Respiratory SPECIMEN FROM THROAT / Unknown 09/03/2025 11:39 AM CDT us Carlo Briceno PA-C POINT OF CARE TESTING Final Re sult Performing Organization Address City/[facility]/ZIP Co de Phone Number [facility] CLIA# [id number] [place] [address] * HEMOGLOBIN A1C (04/23/2016 4:42 PM CDT) [facility] HEMOGLOBIN A1C 4.8 4.0 - 6.0 % 04/23/2016 9:40 PM CDT [facility] [employer] [facility] Comment:Note: Effective as o f 12/22/2014 a new methodology, Turbidimetric inhibition immunoassay (TINIA),has been implemented. EST. AVG GLUCOSE, A1C 91 mg/dL 04/23/2016 9:40 PM CDT [facility] [employer] [facility] Blood Venipuncture - L ab Collect / Unknown 04/23/2016 4:42 PM CDT 04/23/2016 4:42 PM CDT Hussein Baires MD CHEMISTRY ORDERABLES Final Res ult [facility] [employer] [facility] CLIA# [id number] [address] [place] [address] from Last 3 Months or Most Recently Relevant to Health Maintenance Insurance [facility] OPTIONS PPO [id number] [facility] CHOICE [id number] Advance Directives For more information, please contact: [phone] * Full Code (Latest Code Status on File) Date Activated Date Inactivated Comments 05/17/2016 12:10 PM 05/17/2016 4:09 PM * Full Code Date Activated Date Inactivated Comments 04/03/2016 2:52 PM 04/03/2016 7:06 PM Care Teams Medical Psychotherapist Relationship Specialty Start Date End Date Sylvia Perez MD PCP - General Internal Medicine 03/01/16
--- OUTSIDE RECORDS SUMMARY | 2025-09-28 14:28 | XMS_ITS ---
Author Organization [facility] Address [address] [place] [address] Care Team Providers Care Willow Worker Name Role Phone Kaylee Pham MD Unavailable [phone] Brandon Diehl NP Unavailable [phone] Ruiz Castro MD Unavailable [phone] Judd Davila MD Primary Care Provid er GilesNina Pickering OD Unavailable [phone] Active Problems Problem Noted Date Diagnosed Date [...] 01/28/2025 Assessment & Plan (01/28/2025 2:39 PM DEBT RECOVERY OFFICER): Recent onset of cough, chest discomfort, nasal congestion, and sore throat. Home COVID and flu tests negative. Redness in throat and ears noted on exam. Wheezing noted on right side. -Continue symptomatic treatment with [id number] medications. -Repeat home COVID test in a [...] 11/12/2023 Assessment & Plan (11/13/2023 7:34 AM DEBT RECOVERY OFFICER): - Start hydroxyzine Type 2 diabetes mellitus with chronic kidney dis ease 03/31/2023 Assessment & Plan (05/31/2025 1:39 PM CDT): Stable, continue prescribed Mounjaro 12.5 mg subQ weekly Assessment & Plan (01/28/2025 2:42 PM DEBT RECOVERY OFFICER): - Continue to optimize blood sugar - repeat labs today Assessment & Plan (08/31/2024 1:41 PM CDT): - Continue to optimize blood sugar - GFR decrease with last labs with weight management, plan to repeat labs - Include urine microalbumin at repeat Assessment & Plan (11/13/2023 7:33 AM DEBT RECOVERY OFFICER): - Continue to optimize blood sugar JERMAN (generalized anxiety disorder) 03/31/2023 Assessment & Plan (01/28/2025 2:40 PM DEBT RECOVERY OFFICER): - Chronic, stable - Continue Lexapro, wellbutrin, hydroxyzine - Will follow up with therapist Assessment & Plan (08/31/2024 2:56 PM CDT): - Chronic, stable - Continue Lexapro and hydroxyzine - Will follow up with therapist Assessment & Plan (11/13/2023 7:34 AM DEBT RECOVERY OFFICER): - Chronic, not well controlled - Sleep [...] (07/03/2021): Added automatically from request for surgery [id number] Assessment & Plan (01/28/2025 1:59 PM DEBT RECOVERY OFFICER): Chronic, stable Continue current medication Postsurgical malabsorption 12/24/2020 Assessment & Plan (12/24/2020 9:57 PM DEBT RECOVERY OFFICER): Labs. Iron deficiency 12/24/2020 Bariatric surgery status 12/24/2020 Assessment & Plan (03/03/2023 8:19 AM CDT): Bariatric surgery labs ordered for possible vitamin deficiencies in setting of intestinal malabsorption. Assessment & Plan (12/24/2020 9:56 PM DEBT RECOVERY OFFICER): Routine labs to evaluate for vitamin deficiencies [...] Asked to try to track consistently with [place] [employer] It daniel for at least 1 week to help identify calorie/carb/protein intake. Assessment & Plan (01/13/2022 12:52 PM DEBT RECOVERY OFFICER): Reviewed calorie restriction based on BMR as [...] phone. Assessment & Plan (01/19/2021 2:01 PM DEBT RECOVERY OFFICER): Reviewed calorie restriction based on BMR as previously detailed. Reviewed recommendation/goal of >/= 150 minutes/week moderate-intensity aerobic exercise. Assessment & Plan (12/24/2020 9:52 PM DEBT RECOVERY OFFICER): Discussed that significant health benefits/risk reduction may [...] frequently. Assessment & Plan (12/24/2020 9:59 PM DEBT RECOVERY OFFICER): Discussed comorbidities associated with sleep apnea, including [...] Chavira Assessment & Plan (11/13/2023 7:32 AM DEBT RECOVERY OFFICER): - Chronic, improving, not at goal - [...] month. Assessment & Plan (01/13/2022 12:58 PM DEBT RECOVERY OFFICER): Obesity is improving with treatment. Diet interventions: [...] topiramate. Assessment & Plan (01/19/2021 2:01 PM DEBT RECOVERY OFFICER): Obesity is unchanged. Diet interventions: as noted. Regular aerobic exercise program discussed. Pharmacotherapy as ordered. Will try increasing PM topiramate to help with night eating. Discussed risks, benefits, alternatives, potential side effects. Assessment & Plan (12/24/2020 9:58 PM DEBT RECOVERY OFFICER): Obesity is worsening. General weight loss/lifestyle modification strategies discussed (elicit support from others; identify saboteurs; non-food rewards, etc). Diet interventions: as noted. Informal exercise measures discussed, e.g. taking stairs instead of elevator. Regular aerobic exercise program discussed. More detailed recommendations pending review of labs, food record. Migraine headache 01/22/2014 Assessment & Plan (01/28/2025 2:40 PM DEBT RECOVERY OFFICER): - Chronic, stable - Followed by Neurology Chronic migraines improved since removal of IUD. Currently taking Nurtec and Topiramate. -Continue current treatment. -Notify neurologist of self-initiated decrease in Topiramate dose. Assessment & Plan (11/13/2023 7:32 AM DEBT RECOVERY OFFICER): - Chronic, stable - Followed by Neurology - Continue current management Assessment & Plan (03/31/2023 12:20 PM CDT): - continue management per Neurology Allergic rhinitis 04/07/2013 Overview (07/18/2021): 04/06/13: SPT positive to T/G/RW/M/D/C/HDM/CR Asthma 04/07/2013 Assessment & Plan (01/28/2025 2:39 PM DEBT RECOVERY OFFICER): Chronic, stable Continue albuterol prn Anemia 03/16/2013 Type 2 diabetes mellitus wit hout complication, without long-term current use of insulin 03/16/2013 Overview (05/08/2021): In remission since bariatric surgery. Didn't tolerate metformin. Assessment & Plan (01/28/2025 2:43 PM DEBT RECOVERY OFFICER): Chronic, well controlled - Continue Mounjaro Discussed importance of routine screening including foot exam and eye exam as indicated Assessment & Plan (08/31/2024 1:39 PM CDT): Chronic, well controlled - Continue Mounjaro Assessment & Plan (11/13/2023 7:32 AM DEBT RECOVERY OFFICER): - Chronic, stable - Tolerating current dose [...] RA. Assessment & Plan (01/13/2022 12:58 PM DEBT RECOVERY OFFICER): Reviewed interim labs. Continue low-carb (<150 g/day), [...] ordered. Assessment & Plan (11/13/2023 7:33 AM DEBT RECOVERY OFFICER): - Chronic, stable - continue current regimen [...] 5.6. Assessment & Plan (01/19/2021 2:01 PM DEBT RECOVERY OFFICER): Reviewed labs with her. Continue low-carb (<150 g/day), low-glycemic diet. Consider GLP-1 RA Assessment & Plan (12/24/2020 9:52 PM DEBT RECOVERY OFFICER): Labs. Discussed insulin resistance including effect on weight and risk for progression to diabetes. Recommended low-carb, low-glycemic diet; choose whole grains and avoid more highly processed carbohydrates. Discussed potential benefits of this w/r/t gut microbiome. Referred to ADA and [facility] websites for additional information on topics including [...]
--- OUTSIDE RECORDS SUMMARY | 2025-09-28 14:28 | XMS_ITS | Encounter Summary ---
Author Organization [facility] Address [address] [place] [address] Care Team Providers Care Recovery Engineer Name Role Phone Sylvia Perez MD Primary Care Provider Josh Cervantes MD Unavailable Sylvia Perez MD Unavailable [phone] Bib Daniels MD Unavailable Stephanie Chaviar MD Unavailable Kaylee Pham MD Unavailable Sylvia Perez MD Unavailable [phone] Sylvia Perez MD Unavailable [phone] Demetria Alaniz MD Primary Care Provider [phone] Encounter Details Date Type Department Care Team (Late st Contact Info) Description 10/12/2020 Lab Requisition [facility] [address] [facility], Third Level [id number] Thomas Rios Jr., MD [address] [facility] [phone] Social History Tobacco Use Types Packs/Day Years Used Date Smoking Tobacco: Never Smokeless Tobacco: Never Alcohol Use Standard Drinks/Week Comments Yes 0 (1 standard drink = 0.6 oz pur e alcohol) occasionally Comments No Sex and Gender Information Value Date Recorded Sex Assigned at Female 10/27/2021 12:53 PM PATIENT [facility] Legal Sex Female 6:28 AM PATIENT [facility] Gender Identity Female 10/27/2021 12:53 PM PATIENT [facility] Sexual Orientation Not on file Occupation Industry [...] Comments DERMATOPATHOLOGY Routine 10/11/2020 12:0 0 AM PATIENT [facility] documented in this encounter Results * DERMATOPATHOLOGY (10/11/2020 12:00 AM PATIENT [facility]) Case Report Dermatopathology Report Case: [id number] Authorizing Provider: Thomas Rios Jr., MD Collected: 10/11/2020 12:00 AM Ordering Location: [facility] Received: 10/12/2020 12:58 PM Pathologist: Ary Matias MD Specimens: A) - Skin, right ulnar dorsal hand, lesional B) - Skin, right ulnar dorsal hand, non-lesional 0 2:40 PM PATIENT [facility] DERMATOPATHOLOGY LABORATORY Final Diagnosis Specimen A. SKIN, right ulnar dorsal hand, lesional: DECREASE OF EPIDERMAL MELANOCYTES (L80) (see microscopic description and comment) Specimen B. SKIN, right ulnar dorsal hand, non-lesional: POST-INFLAMMATORY PIGMENT ALTERATION (L81.9) (see microscopic description and comment) 0 2:40 PM PATIENT [facility] DERMATOPATHOLOGY LABORATORY at 1440 PATIENT [facility] Clinical History A-B: Rash, non-specific vs vitiligo vs post inflammatory hypopigmentation vs resolving eczema. . 0 2:40 PM [facility] DERMATOPATHOLOGY LABORATORY Gross Description Specimen A: Received is one formalin filled container labeled with the patient's name and designated right ulnar dorsal hand, lesional. The specimen consists of a punch biopsy measuring [id number], bisected. Jar 0. Specimen B: Received is one formalin filled container labeled with the patient's name and designated right ulnar dorsal hand, non-lesional. The specimen consists of a punch biopsy measuring [id number]., bisected. Jar 0. 0 2:40 PM [facility] DERMATOPATHOLOGY LABORATORY Microscopic Description Specimen A. [...] are highlighted with immunohistochemical staining for MART-1/Melan-A. [place]-Damon stain highlights melanin pigment in the papillary dermis. [place]'s methenamine silver (GMS) stain fails to highlight fungal elements in the available sections. COMMENT Specimen A&B: Specimen A reveals a markedly decreased number of epidermal melanocytes relative to Specimen B. These histologic findings may be consistent with early vitiligo in the correct clinical setting. 0 2:40 PM [facility] DERMATOPATHOLOGY LABORATORY Disclaimer An external and internal positive and negative controls are appropriate for the histochemical, immunohistochemical and immunofluorescence stain(s) in this case (if any), except where stated explicitly. The performance characteristics of the stain(s) cited in this report were developed and its performance characteristic determined by the Dermatopathology Laboratory at [facility], directed by Dr. Jake Matias. These tests need not be, and therefore are not, approved by the [place] Food and Drug Administration. The tests are used for clinical purposes. Billing Codes Specimen Charges Stain Charges 29822 74072 1 1 [id number] [id number] 23689 88986 1 1 1 1 1 1 0 2:40 PM [facility] DERMATOPATHOLOGY LABORATORY Embedded Images 0 2:40 PM [facility]IENT [facility] DERMATOPATHOLOGY LABORATORY Pathology/Cytology TISSUE SPECIMEN FROM SKIN / Unknown 10/11/2020 10/12/2020 12:58 PM PATIENT [facility] Miscellaneous samples (specimen) TISSUE SPECIMEN FROM SKIN / Unknown 10/11/2020 10/12/2020 12:58 PM PATIENT [facility] Thomas Rios Jr., MD LAB - PATHOLOGY/CYTOLOG Y ORDERABLES Final Result DERMATOPATHOLOGY LABORATORY [facility] - Department of Dermatology [facility] Medicine [address] [place] [address], [address] [phone] documented in this encounter Visit Diagnoses Not on filedocumented in this encounter Additional Health Concerns Infection Onset Date Last Indicated Resolved Time MRSA 03/08/2010 03/08/2010 06/24/2022 8:09 AM CDT COVID-19 Under Investigation 05/10/2021 05/10/2021 05/10/2021 3:50 PM CDT MRSA Hx 06/24/2022 06/24/2022 documented as of this encounter Care Teams Recovery Engineer Relationship Specialty Start Date End Date Sylvia Perez MD PCP - General 03/06/10 05/08/23 [place] [address] [address] PCP - Attributed-[facility] Commercial 03/31/19 05/29/21 [place] [address] [place] [address] PCP - Attributed-[facility] Commercial 08/31/21 10/18/22 [place] [address] [place] [address] PCP - Attributed-[facility] Commercial 10/31/22 06/17/23 Demetria Alaniz MD [address] [facility] [phone] PCP - General Family Medicine 05/09/23 Josh Cervantes MD [address] [facility] [address] [place], [place] [id number] Obstetrics and Gynecology 10/25/14 Bib Daniels MD [address] [facility] [address] [place] [address] Neurologist Neurological Surgery 07/14/20 Stephanie Chavira MD [address] [facility] [address] [place], [place] [id number] Internal Medicine 02/06/21 Kaylee Pham MD [address] [place] [address] Surgery 02/06/21 documented as of this encounter
--- OUTSIDE RECORDS SUMMARY | 2025-09-28 14:28 | XMS_ITS | Clinical Summary ---
Author Organization [facility] Address [address] [place] [address] Care Team Providers Care Manager Lan Name Role Phone Kaylee Pham MD Unavailable [phone] Brandon Diehl NP Unavailable [phone] Ruiz Castro MD Unavailable [phone] Judd Davila MD Primary Care Provid er [place] Pick[place] OD Unavailable [phone] Allergies Active Allergy Reactions Criticality Noted Date [...] 01/28/2025 Assessment & Plan (01/28/2025 2:39 PM COOK VACUUM KETTLE): Recent onset of cough, chest discomfort, nasal congestion, and sore throat. Home COVID and flu tests negative. Redness in throat and ears noted on exam. Wheezing noted on right side. -Continue symptomatic treatment with [id number] medications. -Repeat home COVID test in a [...] 11/12/2023 Assessment & Plan (11/13/2023 7:34 AM COOK VACUUM KETTLE): - Start hydroxyzine Type 2 diabetes mellitus with chronic kidney dis ease 03/31/2023 Assessment & Plan (05/31/2025 1:39 PM CDT): Stable, continue prescribed Mounjaro 12.5 mg subQ weekly Assessment & Plan (01/28/2025 2:42 PM COOK VACUUM KETTLE): - Continue to optimize blood sugar - repeat labs today Assessment & Plan (08/31/2024 1:41 PM CDT): - Continue to optimize blood sugar - GFR decrease with last labs with weight management, plan to repeat labs - Include urine microalbumin at repeat Assessment & Plan (11/13/2023 7:33 AM COOK VACUUM KETTLE): - Continue to optimize blood sugar JERMAN (generalized anxiety disorder) 03/31/2023 Assessment & Plan (01/28/2025 2:40 PM COOK VACUUM KETTLE): - Chronic, stable - Continue Lexapro, wellbutrin, hydroxyzine - Will follow up with therapist Assessment & Plan (08/31/2024 2:56 PM CDT): - Chronic, stable - Continue Lexapro and hydroxyzine - Will follow up with therapist Assessment & Plan (11/13/2023 7:34 AM COOK VACUUM KETTLE): - Chronic, not well controlled - Sleep [...] (07/03/2021): Added automatically from request for surgery [id number] Assessment & Plan (01/28/2025 1:59 PM COOK VACUUM KETTLE): Chronic, stable Continue current medication Postsurgical malabsorption 12/24/2020 Assessment & Plan (12/24/2020 9:57 PM COOK VACUUM KETTLE): Labs. Iron deficiency 12/24/2020 Bariatric surgery status 12/24/2020 Assessment & Plan (03/03/2023 8:19 AM CDT): Bariatric surgery labs ordered for possible vitamin deficiencies in setting of intestinal malabsorption. Assessment & Plan (12/24/2020 9:56 PM COOK VACUUM KETTLE): Routine labs to evaluate for vitamin deficiencies [...] Asked to try to track consistently with Agil[employer] It daniel for at least 1 week to help identify calorie/carb/protein intake. Assessment & Plan (01/13/2022 12:52 PM COOK VACUUM KETTLE): Reviewed calorie restriction based on BMR as [...] phone. Assessment & Plan (01/19/2021 2:01 PM COOK VACUUM KETTLE): Reviewed calorie restriction based on BMR as previously detailed. Reviewed recommendation/goal of >/= 150 minutes/week moderate-intensity aerobic exercise. Assessment & Plan (12/24/2020 9:52 PM COOK VACUUM KETTLE): Discussed that significant health benefits/risk reduction may [...] frequently. Assessment & Plan (12/24/2020 9:59 PM COOK VACUUM KETTLE): Discussed comorbidities associated with sleep apnea, including [...] Chavira Assessment & Plan (11/13/2023 7:32 AM COOK VACUUM KETTLE): - Chronic, improving, not at goal - [...] month. Assessment & Plan (01/13/2022 12:58 PM COOK VACUUM KETTLE): Obesity is improving with treatment. Diet interventions: [...] topiramate. Assessment & Plan (01/19/2021 2:01 PM COOK VACUUM KETTLE): Obesity is unchanged. Diet interventions: as noted. Regular aerobic exercise program discussed. Pharmacotherapy as ordered. Will try increasing PM topiramate to help with night eating. Discussed risks, benefits, alternatives, potential side effects. Assessment & Plan (12/24/2020 9:58 PM COOK VACUUM KETTLE): Obesity is worsening. General weight loss/lifestyle modification strategies discussed (elicit support from others; identify saboteurs; non-food rewards, etc). Diet interventions: as noted. Informal exercise measures discussed, e.g. taking stairs instead of elevator. Regular aerobic exercise program discussed. More detailed recommendations pending review of labs, food record. Migraine headache 01/22/2014 Assessment & Plan (01/28/2025 2:40 PM COOK VACUUM KETTLE): - Chronic, stable - Followed by Neurology Chronic migraines improved since removal of IUD. Currently taking Nurtec and Topiramate. -Continue current treatment. -Notify neurologist of self-initiated decrease in Topiramate dose. Assessment & Plan (11/13/2023 7:32 AM COOK VACUUM KETTLE): - Chronic, stable - Followed by Neurology - Continue current management Assessment & Plan (03/31/2023 12:20 PM CDT): - continue management per Neurology Allergic rhinitis 04/07/2013 Overview (07/18/2021): 04/06/13: SPT positive to T/G/RW/M/D/C/HDM/CR Asthma 04/07/2013 Assessment & Plan (01/28/2025 2:39 PM COOK VACUUM KETTLE): Chronic, stable Continue albuterol prn Anemia 03/16/2013 Type 2 diabetes mellitus wit hout complication, without long-term current use of insulin 03/16/2013 Overview (05/08/2021): In remission since bariatric surgery. Didn't tolerate metformin. Assessment & Plan (01/28/2025 2:43 PM COOK VACUUM KETTLE): Chronic, well controlled - Continue Mounjaro Discussed importance of routine screening including foot exam and eye exam as indicated Assessment & Plan (08/31/2024 1:39 PM CDT): Chronic, well controlled - Continue Mounjaro Assessment & Plan (11/13/2023 7:32 AM COOK VACUUM KETTLE): - Chronic, stable - Tolerating current dose [...] RA. Assessment & Plan (01/13/2022 12:58 PM COOK VACUUM KETTLE): Reviewed interim labs. Continue low-carb (<150 g/day), [...] ordered. Assessment & Plan (11/13/2023 7:33 AM COOK VACUUM KETTLE): - Chronic, stable - continue current regimen [...] 5.6. Assessment & Plan (01/19/2021 2:01 PM COOK VACUUM KETTLE): Reviewed labs with her. Continue low-carb (<150 g/day), low-glycemic diet. Consider GLP-1 RA Assessment & Plan (12/24/2020 9:52 PM COOK VACUUM KETTLE): Labs. Discussed insulin resistance including effect on weight and risk for progression to diabetes. Recommended low-carb, low-glycemic diet; choose whole grains and avoid more highly processed carbohydrates. Discussed potential benefits of this w/r/t gut microbiome. Referred to ADA and [employer] websites for additional information on topics including [...] Team Description 08/12/2025 3:30 PM CDT Telemedicine [facility] Medicine Metabolic Weight Management [address] [place] [address] Medical Office [address] [place] [address] Jocelyn Mcclellan NP Weight loss counseling, encounter for (Primary Dx); Type 2 diabetes mellitus with stage 3a chronic kidney disease, without long-term current use of insulin (HCC); History of gastric bypass; Class 3 severe obesity with serious comorbidity in adult, unspecified BMI, unspecified obesity type 07/24/2025 6:26 AM CDT - 07/24/2025 9:19 AM CDT Emergency [facility] Emergency Department [address] [place] [id number] Calderon Freeman MD Other migraine without [...] Influenza, Unspecified 05/31/2025(Deferr ed: Not available from instructor warper) Pfizer SARS-CoV-2 Monovalent Vaccination (12+ Yrs) PURPLE [...] Anemia Mother Liliam Adair Arthritis Mother Liliam [place] Hypertension Mother Liliam Adair Heart attack Paternal Grandfather Anish BerriosNew [place] Cancer Paternal Grandmother Julissa Berriosdridge Colon cancer [...] on file Legal Sex Female 8:37 PM COOK VACUUM KETTLE Gender Identity Female 08/07/2021 9:39 AM CDT [...] BLOOD ORDERABLES Mariel l Result [facility] [address] [facility] Department [place] [address] * Hemoglobin A1c (05/03/2025 8:11 AM CDT) Hgb A1C 4.8 4.8 - 5.6 % [facility] - 01 Comment: Prediabetes: 5.7 - 6.4 Diabetes: >6.4 Glycemic control for adults with diabetes: <7.0 Blood 05/03/2025 8:11 AM CDT 05/03/2025 Narrative [facility] - 05/04/2025 6:36 AM CDT Performed at: [address] [place] [id number] Tennis Director: Bradley Mcgill PhD, Phone: [phone] us Jocelyn Mcclellan [facility] BLOOD ORDERABLES Final Resu lt Performing Organization Address [facility] [address]/[facility] de Phone Number [facility] [...] - 05/04/2025 6:36 AM CDT Performed at: [address] [id number] Tennis Director: Bradley Mcgill PhD, Phone: [phone] us Jocelyn Mcclellan [facility] BLOOD ORDERABLES Final Resu lt Performing Organization Address [facility] de Phone Number [facility] - * Hepatitis C antibody Blood (04/01/2025 8:15 AM CDT) Pathologist [facility] Hep C Ab Non Reactive [...] - 04/02/2025 5:08 AM CDT Performed at: [facility] [id number] Tennis Director: Bradley Mcgill PhD, Phone: [phone] us Demetria Alaniz MD LAB MICROBIOLOGY - GENERAL ORDERABLES Final Result Performing Organization Address [facility] [address]/ZIP Co de Phone Number [facility] - [...] - 04/02/2025 4:07 AM CDT Performed at: [address] [id number] Tennis Director: Bradley Mcgill PhD, Phone: [phone] Demetria Alaniz MD LAB URINE ORDERABLES Final Result Performing Organization Address [facility] [address]/[facility] de Phone Number [facility] - 01 from Last 3 Months or Most Recently Relevant to Health Maintenance Insurance [facility] CHOICE PLUS [facility] CHOICE PLUS [facility] CHOICE PLUS Advance Directives For more information, please contact: [phone] * Full Code (Latest Code Status on File) Date Activated Date Inactivated Comments 12/27/2021 6:36 AM 12/27/2021 1:25 PM * Full Code Date Activated Date Inactivated Comments 09/14/2021 9:09 PM 09/15/2021 7:00 PM Care Teams Manager Lan Relationship Specialty Start Date End Date Judd Davila MD [address] [facility] [place] [address] [place] [address] PCP - General Family Medicine 05/31/25 Kaylee Pham MD Consulting Physician General Surgery 10/30/21 Brandon Diehl, JAS Nurse Practitioner General Surgery 10/30/21 Ruiz Csatro MD [address] [phone] [place] [address] Surgeon Colon and Rectal Surgery 11/22/21 Nina Alexander, CANDELARIO [address] [facility] [place] [address] Optometry 05/31/25
--- OUTSIDE RECORDS SUMMARY | 2025-09-28 14:28 | XMS_ITS | Encounter Summary ---
Author Organization [facility] Address [address] [place] [address] Phone Care Team Providers Care Chief Engineer Research Name Role Phone Kaylee Pham MD Unavailable Brandon Diehl NP Unavailable [phone] Ruiz Castro MD Unavailable [phone] Demetria Alaniz MD Primary Care Provider [phone] No, Physician Primary Care Provider [phone] Jackie Ralph DO Primary Care Provid er Judd Davila MD Primary Care Provid er Nina Alexander OD Unavailable Encounter Details Date Type Department Care Team (Late st Contact Info) Description 09/16/2021 Documentation [facility] - [facility] Medicine Minimally Invasive Surgery [facility]ly [facility] [address]th Floor, [place] [address] Jonatan Darden Social History Tobacco [...] on file 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 Gender Identity Female 08/07/2021 9:39 AM CDT Sexual Orientation Straight 08/07/2021 9: 39 AM CDT documented as of this encounter Plan of Treatment Not on file documented as of this encounter Visit Diagnoses Not on filedocumented in this encounter Care Teams Chief Engineer Research Relationship Specialty Start Date End Date Demetria Alaniz MD [facility] [facility] [address] [place] [address] PCP - General Family Medicine 03/26/23 01/27/25 No, Physician PCP - General 01/28/25 05/01/25 Jackie Ralph DO [address] [facility] [place] [address] [place] [address] PCP - General Family Medicine 05/02/25 05/30/25 Judd Davila MD [address] [facility] [place] [address] [place] [address] PCP - General Family Medicine 05/31/25 Kaylee Pham MD Consulting Physician General Surgery 10/30/21 Brandon Diehl, JAS Nurse Practitioner General Surgery 10/30/21 Ruiz Castro MD [address] [phone] [place] [address] Surgeon Colon and Rectal Surgery 11/22/21 Nina Alexander, CANDELARIO [address] [facility] [place] [address] Optometry 05/31/25 documented as of this encounter
[2025-09-28] MEDS: PIPERACILLIN/TAZOBACTAM SOD 3.375 GM in SODIUM CHLORIDE 0.9% IV 50 ML 100 ML IVPB (14:40)
[2025-09-28 14:44] VITALS: BP 108/76; PULSE 81; RESP 19; O2SAT 100
[2025-09-28 15:04] LABS: Add Urine Microscopic? YES; Appearance Urine Clear (Clear); Glucose Urine UA Negative (Negative); Leukocyte Esterase Ur Trace LEU/UL (Negative); Nitrate Urine Positive (Negative); Non Pathogenic Casts 0-2; Specific Grav Ur > 1.045 (1.001-1.035)
[2025-09-28 15:37] LABS: Influenza A QL RT-PCR Negative (Negative); Influenza B QL RT-PCR Negative (Negative); RSV RNA, RT-PCR Negative (Negative); SARS-CoV-2 RNA PCR Negative (Negative)
[2025-09-28 16:02] VITALS: BP 111/78; PULSE 81; RESP 19; TEMP 37.2; O2SAT 100
== END 2025-09-28 16:03 | disposition home or self-care (01) ==
PROVIDERS: Family Medicine; Emergency Provider Emergency Medicine; PCP Obstetrics & Gynecology
DX: G89.18 Other acute postprocedural pain (principal); R10.9 Unspecified abdominal pain; N99.89 Other postprocedural complications and disorders of genitourinary system; N39.0 Urinary tract infection, site not specified; Z90.710 Acquired absence of both cervix and uterus; Z20.822 Contact with and (suspected) exposure to COVID-19; E11.9 Type 2 diabetes mellitus without complications; Z90.49 Acquired absence of other specified parts of digestive tract; Z79.85 Long-term (current) use of injectable non-insulin antidiabetic drugs; Y83.8 Other surgical procedures as the cause of abnormal reaction of the patient, or of later complication, without mention of misadventure at the time of the procedure
CPT/HCPCS: 36415; 71046; 74177; 80053; 81001; 83605; 85025; 85652; 86140; 87040; 87077; 87086; 87186; 87637; 93005; 96361; 96365; 96375; 99284; J1171; J2543; J7120; Q9967

== ENCOUNTER 2025-10-03 11:34 | Inpatient (IN) | payer OTHER, SELFPAY ==
--- OUTSIDE RECORDS SUMMARY | 2025-10-02 09:45 | XMS_ITS | Encounter Summary ---
Author Organization [facility] Healthcare Address [address] [place] [address] Care Team Providers Care Cullet Crusher Name Role Phone Kaylee Pham MD Unavailable [phone] Brandon Diehl NP Unavailable [phone] Ruiz Castro MD Unavailable [phone] Judd Davila MD Primary Care Provid er Nina Alexander OD Unavailable [phone] Reason for Visit * Reason Comments Abdominal Pain Encounter Details Date Type Department Care Team (Late st Contact Info) Description 10/02/2025 9:45 AM VENDOR MANAGEMENT ASSOCIATE - 10/02/2025 3:03 PM [facility] [[email or web address] Emergency [facility] Emergency Department [address] [place] [id number] Generalized abdominal pain (Primary Dx); Drug-induced constipation Discharge Disposition: Left Against Medical Advice Social History Tobacco Use Types Packs/Day Years [...] making you feel afraid or unsafe? Denies 10/02/2025 Comments No Sex and Gender Information Value Date Recorded Sex Assigned at Not on file Legal Sex Female 8:37 PM VENDOR MANAGEMENT ASSOCIATE Gender Identity Female 08/07/2021 9:39 AM CDT Sexual Orientation Straight 08/07/2021 9: 39 AM CDT documented as of this encounter Last Filed Vital Signs Vital Sign Reading Time Taken Comments Blood Pressure 108/72 10/02/2025 3:01 PM VENDOR MANAGEMENT ASSOCIATE Pulse 82 10/02/2025 3:01 PM VENDOR MANAGEMENT ASSOCIATE Temperature 36.9 C (98.5 F) 10/02/2025 9:41 AM VENDOR MANAGEMENT ASSOCIATE Respiratory Rate 16 10/02/2025 3:01 PM VENDOR MANAGEMENT ASSOCIATE Oxygen Saturation 99% 10/02/2025 3:01 PM VENDOR MANAGEMENT ASSOCIATE Inhaled Oxygen Concentration - - Weight 79.4 kg (175 lb) 10/02/2025 9:41 AM VENDOR MANAGEMENT ASSOCIATE Height 172.7 cm (5' 8) 10/02/2025 9:41 AM VENDOR MANAGEMENT ASSOCIATE Body Mass Index 26.61 10/02/2025 9:41 AM VENDOR MANAGEMENT ASSOCIATE documented in this encounter Medications at Time of Discharge albuterol HFA (PROVENTIL HFA,VENTOLIN HFA,PROAIR HFA) 90 mcg/actuation inhalerIndications :Mild intermittent asthma without complication Inhale 2 puffs every 6 (six) hours as needed for wheezing 3 each 4 01/24/2025 buPROPion XL (WELLBUTRIN XL) 150 mg 24 hr tablet Take 1 tablet (150 mg total) by mouth every morning 12/17/2024 Nurtec ODT tablet,disintegrat ing Take 1 tablet (75 mg total) by mouth as needed 07/16/2024 ondansetron (ZOFRAN) 4 mg tabletIndications: Nausea and Vomiting Take 1 tablet (4 mg total) by mouth every 6 (six) hours 12 tablet 06/24/2025 tirzepatide (MOUNJARO) 15 mg/0.5 mL pen injector injectionIndicatio ns:Type 2 diabetes mellitus with stage 3a chronic kidney disease, without long-term current use of insulin (HCC) Inject 0.5 mL (15 mg total) under the skin every 7 days 2 mL 2 08/12/2025 topiramate (TOPAMAX) 50 mg tablet Take 1 tablet (50 mg total) by mouth nightly valACYclovir (VALTREX) 1 gram tablet 10/04/2022 documented as of this encounter Discharge Disposition Disposition Code Departure Means Destination Comment s Left Against Medical Advice documented in this encounter ED Notes * Joaquín Joe PA - 10/02/2025 11:49 AM CST HPI Chief Complaint Patient presents with Abdominal Pain HPI 32-year-old female history of hypertension, diabetes, PCOS, sickle cell anemia, presents to the ED today for evaluation of abdominal discomfort and constipation. States that patient had a total hysterectomy and bladder sling procedure done 6 days prior. States that 3 days postoperative elevation did develop a fever, was diagnosed with the UTI and has been taking antibiotics. States that now over the past several days, she has had worsened abdominal discomfort. States that she is very constipated despite MiraLax and multiple other laxatives. States that she used suppository today with minimal i mprovement, very small rounded balls. Currently denies fever or chills but did have them recently. Urinating normally. Patient History: Past Medical History: Diagnosis Date Anemia Anxiety Cervical cancer (HCC) DDD (degenerative disc disease), lumbar Diabetes mellitus (HCC) Hypertension Kidney disease stage 2 per patient Migraines JIMENA (obstructive sleep apnea) PCOS (polycystic ovarian syndrome) Sickle cell anemia (HCC) Review of Systems Review of Systems Constitutional: Positive for chills and fever. HENT: Negative for ear pain and sore throat. Eyes: Negative for pain and visual disturbance. Respiratory: Negative for cough and shortness of breath. Cardiovascular: Negative for chest pain and palpitations. Gastrointestinal: Positive for abdominal pain, constipation and nausea. Negative for diarrhea and vomiting. Genitourinary: Negative for dysuria and hematuria. Musculoskeletal: Negative for arthralgias and back pain. Skin: Negative for color change and rash. Neurological: Negative for seizures and syncope. All other systems reviewed and are negative. Physical Exam ED Triage Vitals [10/02/25 0941] Temp Pulse Resp BP SpO2 36.9 ??C (98.5 ??F) 106 18 106/71 100 % Temp src Heart Rate Source Patient Position BP Location FiO2 (%) -- -- -- -- -- Height Height Method Weight Weight Method 1.727 m (5' 8) -- 79.4 kg (175 lb) -- Physical Exam Vitals and nursing note reviewed. Constitutional: General: She is not in acute distress. Appearance: She is well-developed. HENT: Head: Normocephalic and atraumatic. Eyes: Conjunctiva/sclera: Conjunctivae normal. Cardiovascular: Rate and Rhythm: Normal rate and regular rhythm. Heart sounds: No murmur heard. Pulmonary: Effort: Pulmonary effort is normal. No respiratory distress. Breath sounds: Normal breath sounds. Abdominal: Palpations: Abdomen is soft. Tenderness: There is generalized abdominal tenderness. There is no right CVA tenderness, left CVA tenderness, guarding or rebound. Comments: Multiple small, well-healing laparoscopic incisions with overlying skin glue. No surrounding erythema, warmth or dehiscence. Musculoskeletal: General: No swelling. Cervical back: Neck supple. Skin: General: Skin is warm and dry. Capillary Refill: Capillary refill takes less than 2 seconds. Neurological: Mental Status: She is alert. Psychiatric: Mood and Affect: Mood normal. MDM Independent History: 40-year-old female presents for a ED for evaluation of abdominal discomfort, constipation. Has been taking opiates status post 6 days from total hysterectomy/bladder sling. DDx: Postoperative infection/hematoma/abscess, other postsurgical complication such as bladder injury/rupture, perforation or other, constipation, ileus, SBO, opioid adverse drug reaction, other. Plan: Basic labs, CT imaging, supportive care. Data Review: Mild elevation of lipase at 200, normal leukocytosis, otherwise labs with a normal limit. CT does reveal 6 x 6 cm posterior fluid collection, hematoma versus abscess. Consults/Risk stratification: 3 times page to the patient's barge captain who performed the patient's surgical intervention 6 days ago, unable to get a response. Patient requesting to leave AMA at this timedue to no longer wanting to wait. States that she is feeling better. Shared decision making / Disposition: Patient is afebrile, nontoxic, non tachycardic or hypotensive. Normal white blood cell count. Already on antibiotic which could be masking infection. However sheis requesting to go home at this time. Discussed with the patient unclear if this is postoperative hematoma versus abscess of requiring further intervention. She accepts the risks. Patient to be against medical advice. Medical Decision Making Amount and/or Complexity of Data Reviewed Radiology: ordered. Risk Prescription drug management. Final diagnoses: Generalized abdominal pain Drug-induced constipation Joaquín Joe PA 10/02/25 1718 OR MANAGEMENT ASSOCIATE * Lita Mendoza RN - 10/02/2025 9:38 AM CST Patient had a hysterectomy and bladder sling a couple days ago. She has been taking miralax every 6hour and collace. Took a supository with no relief. She feels a lot of pressure and pain. She was prescribed pain meds and she stopped taking them yesterday. OR MANAGEMENT ASSOCIATE documented in this encounter Plan of Treatment Not on file documented as of this encounter Procedures Procedure Name Priority Date/Time Associated Diagnosis Comments URINALYSIS AND REFLEX TO MICROSCOPIC AND CULTURE STAT 10/02/2025 11:[address]GEMENT [address]OC[address] ABDOMEN PELVIS W CONTRAST ED 10/02/2025 11:23 AM VENDOR MANAGEMENT ASSOCIATE EGFR STAT 10/02/2025 9:54 AM VENDOR MANAGEMENT ASSOCIATE DIFFERENTIAL AUTO STAT 10/02/2025 9:5 4 AM VENDOR MANAGEMENT ASSOCIATE CBC WITH AUTO DIFFERENTIAL STAT 10/02/2025 9:54 AM VENDOR MANAGEMENT ASSOCIATE LIPASE STAT 10/02/2025 9:54 AM VENDOR MANAGEMENT ASSOCIATE COMPREHENSIVE METABOLIC PANEL STAT 10/02/2025 9:54 AM VENDOR MANAGEMENT ASSOCIATE documented in this encounter Results * (ABNORMAL) Urinalysis reflex to microscopic and culture Urine (10/02/2025 11:59 AM VENDOR MANAGEMENT ASSOCIATE) Color, ur Yellow Yellow Clarity, ur Clear Clear [facility] Specific gravity, ur >1.030(H) 1.003 - 1.030 [facility] pH, urine 6.5 [facility] Comment: Interpretive Data U rine pH is affected by diet, medications, systemic acid-base disturbances, and renal tubular function. pH may affect urinary stone formation. For example, urine pH below 6.0 may help reduce the tendency for calcium phosphate stones and pH greater than 6.0 may reduce the tendency for uric acid stone formation. Source: [facility] Current Interpretive Data was last revised on 2017 Protein, ur ql Trace Negative [facility] Glucose, ur ql Negative Negative [facility] Ketones, ur Negative Negative [facility] Bilirubin, ur Negative Negative [facility] Blood, ur Negative Negative [facility] Urobilinogen, ur 2.0(A) <2.0 mg/dL [facility] Nitrite, ur Negative Negative [facility] Leukocyte esterase, ur Negative Negative [facility] UA reflex comment Reflex conditions for microscopic UA and culture not met. [facility] Urine 10/02/2025 11:5 9 AM VENDOR MANAGEMENT ASSOCIATE 10/02/2025 12:01 PM VENDOR MANAGEMENT ASSOCIATE Sam Salas MD LAB MICROBIOLOGY - GENERAL ORDER OH Final Result [facility] [address] [facility] Department [place] [address] * CT Abdomen Pelvis W Contrast (10/02/2025 11:23 AM VENDOR MANAGEMENT ASSOCIATE) Anatomical Region Laterality Modality Body N/A Computed Tomogra phy 10/02/2025 11:3 2 AM VENDOR MANAGEMENT ASSOCIATE Impressions 10/02/2025 11:32 AM VENDOR MANAGEMENT ASSOCIATE 1. Small volume of pneumoperitoneum, presumably postoperative. 2. 6.7 cm fluid collection in the posterior midline pelvis, concerning for infection. 3. Other findings are unchanged/nonurgent. Electronically signed by: Dina Britton MD Narrative 10/02/2025 11:32 AM VENDOR MANAGEMENT ASSOCIATE EXAMINATION: CT abdomen and pelvis with contrast TECHNIQUE: Computed tomography of the abdomen and pelvis was performed following the administration of nonionic intravenous contrast. HISTORY: Hysterectomy and bladder sling procedure couple of days ago. COMPARISON: May 05, 2025. FINDINGS: Abdomen Liver, Gallbladder & bile ducts: The liver is normal in appearance. There is no biliary dilation. The gallbladder is surgically absent. Pancreas: Normal in appearance. Spleen: Normal in appearance. Adrenals: Normal in appearance. Kidneys, collecting system and ureters: Normal in appearance. There is no hydronephrosis. Retroperitoneum, lymph nodes, and vessels: There is no discrete retroperitoneal lymphadenopathy. Bowel & Mesentery: The patient has undergone a gastric bypass procedure. The bowel is normal in caliber. There is no obstruction. There is a small volume of pneumoperitoneum, presumably postoperative. Pelvis Bladder: Normal appearance. Reproductive organs: No mass. Extraperitoneal, lymph nodes, vessels: There is no discrete pelvic lymphadenopathy. There is a rim dense fluid collection in the lower central pelvis measuring approximately 6.7 x 6.5 cm in diameter. Osseous and body wall: There are no worrisome osteolytic or osteoblastic lesions. Lower chest: The lung bases are included on the examination and partially show atelectasis and less well-defined airspace disease in the right lung base. Procedure Note Dina Britton MD - 10/02/2025 EXAMINATION: CT abdomen and pelvis with contrast TECHNIQUE: Computed tomography of the abdomen and pelvis was performed following the administration of nonionic intravenous contrast. HISTORY: Hysterectomy and bladder sling procedure couple of days ago. COMPARISON: May 05, 2025. FINDINGS: Abdomen Liver, Gallbladder & bile ducts: The liver is normal in appearance. There is no biliary dilation. The gallbladder is surgically absent. Pancreas: Normal in appearance. Spleen: Normal in appearance. Adrenals: Normal in appearance. Kidneys, collecting system and ureters: Normal in appearance. There is no hydronephrosis. Retroperitoneum, lymph nodes, and vessels: There is no discrete retroperitoneal lymphadenopathy. Bowel & Mesentery: The patient has undergone a gastric bypass procedure. The bowel is normal in caliber. There is no obstruction. There is a small volume of pneumoperitoneum, presumably postoperative. Pelvis Bladder: Normal appearance. Reproductive organs: No mass. Extraperitoneal, lymph nodes, vessels: There is no discrete pelvic lymphadenopathy. There is a rim dense fluid collection in the lower central pelvis measuring approximately 6.7 x 6.5 cm in diameter. Osseous and body wall: There are no worrisome osteolytic or osteoblastic lesions. Lower chest: The lung bases are included on the examination and partially show atelectasis and less well-defined airspace disease in the right lung base. IMPRESSION: 1. Small volume of pneumoperitoneum, presumably postoperative. 2. 6.7 cm fluid collection in the posterior midline pelvis, concerning for infection. 3. Other findings are unchanged/nonurgent. Electronically signed by: Dina Britton MD Joaquín FONTENOT IMG CT PROCEDURES Final Result * eGFR (10/02/2025 9:54 AM VENDOR MANAGEMENT ASSOCIATE) eGFR 75 >=60 mL/min/1. 73 m2 Comment: Interpretive Data [...] of Race in Diagnosing Kidney Disease, JASN 202). The CKD-EPI equation should not be used for patients with unstable renal function and has not been validated in children and those over 70. Current interpretive data was last reviewed 2021. Blood 10/02/2025 9:54 AM VENDOR MANAGEMENT ASSOCIATE 10/02/2025 9:56 AM VENDOR MANAGEMENT ASSOCIATE Sam Salas MD LAB BLOOD ORDERABLES Final Resul t [facility] [address] [facility] Department [place], [place] [id number] * (ABNORMAL) Differential, auto (10/02/2025 9:54 AM VENDOR MANAGEMENT ASSOCIATE) Neutrophil abs 6.06 1.50 - 6.50 K/cumm Imm gran abs 0.03 0.00 - 0.10 K/cumm [facility] Lymphocyte abs 1.89 0.80 - 3.30 K/cumm [facility] Monocyte abs 0.78 0.20 - 0.80 K/cumm [facility] Eosinophil abs 0.52(H) 0.00 - 0.50 K/cumm [facility] Basophil abs 0.03 0.00 - 0.10 K/cumm [facility] Neutrophil pct 65.1 % [facility] Comment: Interpretive Data Percent cell count reference ranges are not reported, since discordance with absolute values may lead to misinterpretation of CBC data. Current Interpretive Data was last revised on 2018. Imm gran pct 0.3 % [facility] Comment: Interpretive Data Percent cell count reference ranges are not reported, since discordance with absolute values may lead to misinterpretation of CBC data. Current Interpretive Data was last revised on 2018. Lymphocyte pct 20.3 % [facility] Comment: Interpretive Data Percent cell count reference ranges are not reported, since discordance with absolute values may lead to misinterpretation of CBC data. Current Interpretive Data was last revised on 2018. Monocyte pct 8.4 % [facility] Comment: Interpretive Data Percent cell count reference ranges are not reported, since discordance with absolute values may lead to misinterpretation of CBC data. Current Interpretive Data was last revised on 2018. Eosinophil pct 5.6 % [facility] Comment: Interpretive Data Percent cell count reference ranges are not reported, since discordance with absolute values may lead to misinterpretation of CBC data. Current Interpretive Data was last revised on 2018. Basophil pct 0.3 % [facility] Comment: Interpretive Data Percent cell count reference ranges are not reported, since discordance with absolute values may lead to misinterpretation of CBC data. Current Interpretive Data was last revised on 2018. Blood 10/02/2025 9:54 AM VENDOR MANAGEMENT ASSOCIATE 10/02/2025 9:56 AM VENDOR MANAGEMENT ASSOCIATE us Sam Salas MD LAB BLOOD ORDERABLES Final Resul t Performing Organization Address City/State/[facility] Co de Phone Number JIMMIE [facility] 2 [facility] Department [place] [address] * (ABNORMAL) Lipase (10/02/2025 9:54 AM VENDOR MANAGEMENT ASSOCIATE) Pathologist [facility] Lipase 200(H) 10 - 99 Units/L Blood Venous blood specimen / Unknown 10/02/2025 9:54 AM VENDOR MANAGEMENT ASSOCIATE 10/02/2025 9:56 AM VENDOR MANAGEMENT ASSOCIATE Sam Salas MD LAB BLOOD ORDERABLES Final Resul t Performing Organization Address [facility] Co de Phone Number JIMMIE [facility] 2 [facility] Department [place] [address] * Comprehensive metabolic panel (10/02/2025 9:54 AM VENDOR MANAGEMENT ASSOCIATE) Pathologist [facility] Sodium 136 135 - 145 mmol/L Potassium, pl 3.4 3.3 - 4.9 mmol/L [facility] Comment:Slightly hemolyzed, potassium value may be falsely elevated. Suggest redraw and reanalysis. Chloride 102 97 - 110 mmol/L [facility] CO2 23 22 - 32 mmol/L [facility] Anion gap 11 2 - 15 mmol/L [facility] BUN 6 6 - 25 mg/dL [facility] Creatinine 0.99 0.60 - 1.10 mg/dL [facility] Glucose 109 70 - 199 mg/dL [facility] Comment: Interpretive Data Fasting glucose >/= 126 [...] of Diabetes Diabetes Care 202; 46: S19-S40. Calcium 9.3 8.5 - 10.3 mg/dL [facility] Bilirubin, total 0.6 0.1 - 1.2 mg/dL [facility] Protein, pl 7.4 6.5 - 8.5 g/dL [facility] PW Albumin 3.5 3.5 - 5.0 g/dL [facility] PW Alk phos 82 40 - 130 Units/L [facility] ALT 25 7 - 45 Units/L [facility] PW AST 23 10 - 45 Units/L [facility] PW Blood 10/02/2025 9:54 AM VENDOR MANAGEMENT ASSOCIATE 10/02/2025 9:56 AM VENDOR MANAGEMENT ASSOCIATE us Sam Salas MD LAB BLOOD ORDERABLES Final Resul t [facility] [address] [facility] [employer] [place], [place] [id number] * (ABNORMAL) CBC with auto differential (10/02/2025 9:54 AM VENDOR MANAGEMENT ASSOCIATE) WBC 9.31 3.80 - 9.90 K/cumm Hgb 11.4(L) 11.9 - 15.5 g/dL [facility] PW Hct 34.5(L) 35.6 - 45.5 % [facility] PW Plt 350 150 - 400 K/cumm [facility] MPV 9.3 9.1 - 12.3 fL [facility] PW RBC 4.48 3.90 - 5.20 M/cumm [facility] MCV 77.0(L) 81.3 - 96.4 fL [facility] PW MCH 25.4(L) 27.1 - 33.3 pg [facility] PW MCHC 33.0 32.3 - 35.7 g/dL [facility] PW RDW CV 14.6 11.1 - 14.9 % [facility] PW RDW SD 40.4 35.7 - 48.1 fL [facility] Blood Venous blood specimen / Unknown 10/02/2025 9:54 AM VENDOR MANAGEMENT ASSOCIATE 10/02/2025 9:56 AM VENDOR MANAGEMENT ASSOCIATE us Sam Salas MD LAB BLOOD ORDERABLES Final Resul t [facility] [address] Department [place] [address] documented in this encounter Visit Diagnoses Diagnosis Generalized abdominal pain- Primary Abdominal pain, generalized Drug-induced constipation Other constipation documented in this encounter Administered Medications Inactive Administered Medications - up to 3 most recent administrations Medication Order MAR Action Action Date Dose Rate Site ioversoL (OPTIRAY 350) syringe 100 mL 100 mL, intravenous, Once in imaging, contrast, Starting on 10/02/25 at 1101, For 1 dose Contrast Given 10/02/2025 11:18 AM VENDOR MANAGEMENT ASSOCIATE 94 mL naloxegoL (MOVANTIK) tablet 25 mg 25 mg, oral, Once, On 10/02/25 at 1339, For 1 dose Given 10/02/2025 1:53 PM VENDOR MANAGEMENT ASSOCIATE 25 mg sodium chloride 0.9% bolus 500 mL 500 mL, intravenous, at 500 mL/hr, Administer over 1 Hours, Once, On 10/02/25 at 1037, For 1 dose New Bag 10/02/2025 10:40 AM VENDOR MANAGEMENT ASSOCIATE 500 mL 500 mL/hr documented in this encounter Active and Recently Administered Medications Due to Daylight Saving Time, this section may contain times in both CDT and VENDOR MANAGEMENT ASSOCIATE. Scheduled Medication Order 09/30/2025 10/01/2025 10/02/2025 naloxegoL (MOVANTIK) tablet 25 mg (COMPLETED) 25 mg, oral, Once, On 10/02/25 at 1339, For 1 dose 1353 (Given - Provid er: Jackie So RN) sodium chloride 0.9% bolus 500 mL (COMPLETED) 500 mL, intravenous, at 500 mL/hr, Administer over 1 Hours, Once, On 10/02/25 at 1037, For 1 dose 1040 (New Bag - Prov ider: Jose R iDllard, ROSALINA)[phone] (Stopped - Provider: Jose R Dillard RN) PRN Medication Order 09/30/2025 10/01/2025 10/02/2025 ioversoL (OPTIRAY 350) syringe 100 mL (COMPLETED) 100 mL, intravenous, Once in imaging, contrast, Starting on 10/02/25 at 1101, For 1 dose 1118 (Contrast Given - Provider: Rich Irwin RT) documented in this encounter Orders IV Count Last Ordered Date First Orde red Date SALINE LOCK IV 1 10/02/2025 documented in this encounter Care Teams Cullet Crusher Relationship Specialty Start Date End Date Judd Davila MD [address] [facility] [address] [place] [id number] PCP - General Family Medicine 05/31/25 Kaylee Pham MD Consulting Physician General Surgery 10/30/21 Brandon Diehl NP Nurse Practitioner General Surgery 10/30/21 Ruiz Castro MD [address] [facility] [phone] [place] [address] Surgeon Colon and Rectal Surgery 11/22/21 Nina Alexander, CANDELARIO [address] [facility] [place] [address] Optometry 05/31/25 documented as of this encounter
--- OUTSIDE RECORDS SUMMARY | 2025-10-02 09:45 | XMS_ITS | Encounter Summary ---
Author Organization [facility] Healthcare Address [address] [place] [address] Care Team Providers Care Chief Diversity Officer Name Role Phone Kaylee Pham MD Unavailable [phone] Brandon Diehl NP Unavailable [phone] Ruiz Castro MD Unavailable [phone] Judd Davila MD Primary Care Provid er Nina Alexander OD Unavailable [phone] Reason for Visit * Reason Comments Abdominal Pain Encounter Details Date Type Department Care Team (Late st Contact Info) Description 10/02/2025 9:45 AM DESULFURIZER HAND - 10/02/2025 3:03 PM [facility] Emergency [facility] Emergency Department [address] [place] [phone] Generalized abdominal pain (Primary Dx); Drug-induced [...] on file Legal Sex Female 8:37 PM DESULFURIZER HAND Gender Identity Female 08/07/2021 9:39 AM CDT Sexual Orientation Straight 08/07/2021 9: 39 AM CDT documented as of this encounter Last Filed Vital Signs Vital Sign Reading Time Taken Comments Blood Pressure 108/72 10/02/2025 3:01 PM DESULFURIZER HAND Pulse 82 10/02/2025 3:01 PM DESULFURIZER HAND Temperature 36.9 C (98.5 F) 10/02/2025 9:41 AM DESULFURIZER HAND Respiratory Rate 16 10/02/2025 3:01 PM DESULFURIZER HAND Oxygen Saturation 99% 10/02/2025 3:01 PM DESULFURIZER HAND Inhaled Oxygen Concentration - - Weight 79.4 kg (175 lb) 10/02/2025 9:41 AM DESULFURIZER HAND Height 172.7 cm (5' 8) 10/02/2025 9:41 AM DESULFURIZER HAND Body Mass Index 26.61 10/02/2025 9:41 AM DESULFURIZER HAND documented in this encounter Medications at Time [...] stratification: 3 times page to 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 She has been taking miralax every 6hour and collace. Took a supository with no relief. She feels a lot of pressure and pain. She was prescribed pain meds and she stopped taking them yesterday. LFURIZER HAND documented in this encounter Plan of Treatment Not on file documented as of this encounter Procedures Procedure Name Priority Date/Time Associated Diagnosis Comments URINALYSIS AND REFLEX TO MICROSCOPIC AND CULTURE STAT 10/02/2025 11:[address] ABDOMEN PELVIS W CONTRAST ED 10/02/2025 11:23 AM DESULFURIZER HAND EGFR STAT 10/02/2025 9:54 AM DESULFURIZER HAND DIFFERENTIAL AUTO STAT 10/02/2025 9:5 4 AM DESULFURIZER HAND CBC WITH AUTO DIFFERENTIAL STAT 10/02/2025 9:54 AM DESULFURIZER HAND LIPASE STAT 10/02/2025 9:54 AM DESULFURIZER HAND COMPREHENSIVE METABOLIC PANEL STAT 10/02/2025 9:54 AM DESULFURIZER HAND documented in this encounter Results * (ABNORMAL) Urinalysis reflex to microscopic and culture Urine (10/02/2025 11:59 AM DESULFURIZER HAND) Color, ur Yellow Yellow Clarity, ur Clear Clear [facility] Specific gravity, ur >1.030(H) 1.003 - 1.030 [facility] pH, urine 6.5 [facility] Comment: Interpretive Data U rine pH is affected by diet, medications, systemic acid-base disturbances, and renal tubular function. pH may affect urinary stone formation. For example, urine pH below 6.0 may help reduce the tendency for calcium phosphate stones and pH greater than 6.0 may reduce the tendency for uric acid stone formation. Source: [facility] Current Interpretive Data was last revised on 2017 Protein, ur ql Trace Negative [facility] Glucose, ur ql Negative Negative [facility] Ketones, ur Negative Negative [facility] Bilirubin, ur Negative Negative [facility] Blood, ur Negative Negative [facility] Urobilinogen, ur 2.0(A) <2.0 mg/dL [facility] Nitrite, ur Negative Negative [facility] Leukocyte esterase, ur Negative Negative [facility] UA reflex comment Reflex conditions for microscopic UA and culture not met. [facility] Urine 10/02/2025 11:5 9 AM DESULFURIZER HAND 10/02/2025 12:01 PM DESULFURIZER HAND Sam Salas MD LAB MICROBIOLOGY - GENERAL ORDER [place] Final Result [facility] [address] [facility] Department [place] [address] * CT Abdomen Pelvis W Contrast (10/02/2025 11:23 AM DESULFURIZER HAND) Anatomical Region Laterality Modality Body N/A Computed Tomogra phy 10/02/2025 11:3 2 AM DESULFURIZER HAND Impressions 10/02/2025 11:32 AM DESULFURIZER HAND 1. Small volume of pneumoperitoneum, presumably postoperative. 2. 6.7 cm fluid collection in the posterior midline pelvis, concerning for infection. 3. Other findings are unchanged/nonurgent. Electronically signed by: Dina Britton MD Narrative 10/02/2025 11:32 AM DESULFURIZER HAND EXAMINATION: CT abdomen and pelvis with contrast [...] Final Result * eGFR (10/02/2025 9:54 AM DESULFURIZER HAND) eGFR 75 >=60 mL/min/1. 73 m2 Comment: [...] last reviewed 2021. Blood 10/02/2025 9:54 AM DESULFURIZER HAND 10/02/2025 9:56 AM DESULFURIZER HAND Sam Salas MD LAB BLOOD ORDERABLES Final Resul t [facility] [address] [facility] Department of Laboratories [place], [place] [id number] * (ABNORMAL) Differential, auto (10/02/2025 9:54 AM DESULFURIZER HAND) Neutrophil abs 6.06 1.50 - 6.50 K/cumm Imm gran abs 0.03 0.00 - 0.10 K/cumm [facility] Lymphocyte abs 1.89 0.80 - 3.30 K/cumm [facility] Monocyte abs 0.78 0.20 - 0.80 K/cumm [facility] Eosinophil abs 0.52(H) 0.00 - 0.50 K/cumm [facility] Basophil abs 0.03 0.00 - 0.10 K/cumm [facility] Neutrophil pct 65.1 % [facility] Comment: Interpretive Data Percent cell count reference ranges are not reported, since discordance with absolute values may lead to misinterpretation of CBC data. Current Interpretive Data was last revised on 2018. Imm gran pct 0.3 % [facility] Comment: Interpretive Data Percent cell count reference ranges are not reported, since discordance with absolute values may lead to misinterpretation of CBC data. Current Interpretive Data was last revised on 2018. Lymphocyte pct 20.3 % [facility] Comment: Interpretive Data Percent cell count reference ranges are not reported, since discordance with absolute values may lead to misinterpretation of CBC data. Current Interpretive Data was last revised on 2018. Monocyte pct 8.4 % [facility] Comment: Interpretive Data Percent cell count reference ranges are not reported, since discordance with absolute values may lead to misinterpretation of CBC data. Current Interpretive Data was last revised on 2018. Eosinophil pct 5.6 % [facility] Comment: Interpretive Data Percent cell count reference ranges are not reported, since discordance with absolute values may lead to misinterpretation of CBC data. Current Interpretive Data was last revised on 2018. Basophil pct 0.3 % [facility] Comment: Interpretive Data Percent cell count reference ranges are not reported, since discordance with absolute values may lead to misinterpretation of CBC data. Current Interpretive Data was last revised on 2018. Blood 10/02/2025 9:54 AM DESULFURIZER HAND 10/02/2025 9:56 AM DESULFURIZER HAND us Sam Salas MD LAB BLOOD ORDERABLES Final Resul t Performing Organization Address City/State/[facility] Co de Phone Number [facility] [address] [facility] Department [place] [address] * (ABNORMAL) Lipase (10/02/2025 9:54 AM DESULFURIZER HAND) Pathologist [facility] Lipase 200(H) 10 - 99 Units/L Blood Venous blood specimen / Unknown 10/02/2025 9:54 AM DESULFURIZER HAND 10/02/2025 9:56 AM DESULFURIZER HAND Sam Salas MD LAB BLOOD ORDERABLES Final Resul t Performing Organization Address [facility] Co de Phone Number [facility] [address] [facility] Department [place] [address] * Comprehensive metabolic panel (10/02/2025 9:54 AM DESULFURIZER HAND) Pathologist [facility] Sodium 136 135 - 145 mmol/L Potassium, pl 3.4 3.3 - 4.9 mmol/L [facility] Comment:Slightly hemolyzed, potassium value may be falsely elevated. Suggest redraw and reanalysis. Chloride 102 97 - 110 mmol/L [facility] CO2 23 22 - 32 mmol/L [facility] Anion gap 11 2 - 15 mmol/L [facility] BUN 6 6 - 25 mg/dL [facility] Creatinine 0.99 0.60 - 1.10 mg/dL [facility] Glucose 109 70 - 199 mg/dL [facility] Comment: Interpretive Data Fasting glucose >/= [...] S19-S40. Calcium 9.3 8.5 - 10.3 mg/dL [facility] Bilirubin, total 0.6 0.1 - 1.2 mg/dL [facility] Protein, pl 7.4 6.5 - 8.5 g/dL [facility] PW Albumin 3.5 3.5 - 5.0 g/dL [facility] PW Alk phos 82 40 - 130 Units/L [facility] ALT 25 7 - 45 Units/L [facility] PW AST 23 10 - 45 Units/L [facility] PW Blood 10/02/2025 9:54 AM DESULFURIZER HAND 10/02/2025 9:56 AM DESULFURIZER HAND us Sam Salas MD LAB BLOOD ORDERABLES Final Resul t [facility] [address] [facility]ge [place], [place] [id number] * (ABNORMAL) CBC with auto differential (10/02/2025 9:54 AM DESULFURIZER HAND) WBC 9.31 3.80 - 9.90 K/cumm Hgb 11.4(L) 11.9 - 15.5 g/dL [facility] PW Hct 34.5(L) 35.6 - 45.5 % [facility] PW Plt 350 150 - 400 K/cumm [facility] MPV 9.3 9.1 - 12.3 fL [facility] PW RBC 4.48 3.90 - 5.20 M/cumm [facility] MCV 77.0(L) 81.3 - 96.4 fL [facility] PW MCH 25.4(L) 27.1 - 33.3 pg [facility] PW MCHC 33.0 32.3 - 35.7 g/dL [facility] PW RDW CV 14.6 11.1 - 14.9 % [facility] PW RDW SD 40.4 35.7 - 48.1 fL [facility] Blood Venous blood specimen / Unknown 10/02/2025 9:54 AM DESULFURIZER HAND 10/02/2025 9:56 AM DESULFURIZER HAND us Sam Salas MD LAB BLOOD ORDERABLES Final Resul t [facility] [address] Department [place] [address] documented in this encounter Visit Diagnoses Diagnosis [...] 1 dose Contrast Given 10/02/2025 11:18 AM DESULFURIZER HAND 94 mL naloxegoL (MOVANTIK) tablet 25 mg 25 mg, oral, Once, On 10/02/25 at 1339, For 1 dose Given 10/02/2025 1:53 PM DESULFURIZER HAND 25 mg sodium chloride 0.9% bolus 500 mL 500 mL, intravenous, at 500 mL/hr, Administer over 1 Hours, Once, On 10/02/25 at 1037, For 1 dose New Bag 10/02/2025 10:40 AM DESULFURIZER HAND 500 mL 500 mL/hr documented in this encounter Active and Recently Administered Medications Due to Daylight Saving Time, this section may contain times in both CDT and DESULFURIZER HAND. Scheduled Medication Order 09/30/2025 10/01/2025 10/02/2025 naloxegoL [...] (New Bag - Prov ider: Jose R Dillard, ROSALINA)1155 (Stopped - Provider: Jose R Dillard [...] 10/02/2025 documented in this encounter Care Teams Chief Diversity Officer Relationship Specialty Start Date End Date Judd Davila MD [address] [facility] [address] [address] PCP - General Family Medicine 05/31/25 Kaylee Pham MD Consulting Physician General Surgery 10/30/21 Brandon Diehl NP Nurse Practitioner General Surgery 10/30/21 Ruiz Castro MD [phone] [place] [address] Surgeon Colon and Rectal Surgery 11/22/21 Nina Alexander, CANDELARIO [address] [facility] [place] [address] Optometry 05/31/25 documented as of this encounter
--- OUTSIDE RECORDS SUMMARY | 2025-10-02 09:45 | XMS_ITS | Encounter Summary ---
Author Organization [facility] Healthcare Address [address] [place] [address] Care Team Providers Care Trial Attorney Name Role Phone Kaylee Pham MD Unavailable [phone] Brandon Diehl NP Unavailable [phone] Ruiz Castro MD Unavailable [phone] Judd Davila MD Primary Care Provid er Nina Alexander OD Unavailable [phone] Reason for Visit * Reason Comments Abdominal Pain Encounter Details Date Type Department Care Team (Late st Contact Info) Description 10/02/2025 9:45 AM LUMBER SALVAGER - 10/02/2025 3:[address] [facility] Emergency [facility] Emergency Department [address] [place] [phone] Generalized abdominal pain (Primary Dx); Drug-induced [...] on file Legal Sex Female 8:37 PM LUMBER SALVAGER Gender Identity Female 08/07/2021 9:39 AM CDT Sexual Orientation Straight 08/07/2021 9: 39 AM CDT documented as of this encounter Last Filed Vital Signs Vital Sign Reading Time Taken Comments Blood Pressure 108/72 10/02/2025 3:01 PM LUMBER SALVAGER Pulse 82 10/02/2025 3:01 PM LUMBER SALVAGER Temperature 36.9 C (98.5 F) 10/02/2025 9:41 AM LUMBER SALVAGER Respiratory Rate 16 10/02/2025 3:01 PM LUMBER SALVAGER Oxygen Saturation 99% 10/02/2025 3:01 PM LUMBER SALVAGER Inhaled Oxygen Concentration - - Weight 79.4 kg (175 lb) 10/02/2025 9:41 AM LUMBER SALVAGER Height 172.7 cm (5' 8) 10/02/2025 9:41 AM LUMBER SALVAGER Body Mass Index 26.61 10/02/2025 9:41 AM LUMBER SALVAGER documented in this encounter Medications at Time [...] stratification: 3 times page 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 She has been taking miralax every 6hour and collace. Took a supository with no relief. She feels a lot of pressure and pain. She was prescribed pain meds and she stopped taking them yesterday. ER SALVAGER documented in this encounter Plan of Treatment Not on file documented as of this encounter Procedures Procedure Name Priority Date/Time Associated Diagnosis Comments URINALYSIS AND REFLEX TO MICROSCOPIC AND CULTURE STAT 10/02/2025 11:[address] ABDOMEN PELVIS W CONTRAST ED 10/02/2025 11:23 AM LUMBER SALVAGER EGFR STAT 10/02/2025 9:54 AM LUMBER SALVAGER DIFFERENTIAL AUTO STAT 10/02/2025 9:5 4 AM LUMBER SALVAGER CBC WITH AUTO DIFFERENTIAL STAT 10/02/2025 9:54 AM LUMBER SALVAGER LIPASE STAT 10/02/2025 9:54 AM LUMBER SALVAGER COMPREHENSIVE METABOLIC PANEL STAT 10/02/2025 9:54 AM LUMBER SALVAGER documented in this encounter Results * (ABNORMAL) Urinalysis reflex to microscopic and culture Urine (10/02/2025 11:59 AM LUMBER SALVAGER) Color, ur Yellow Yellow Clarity, ur Clear Clear [facility] Specific gravity, ur >1.030(H) 1.003 - 1.030 [facility] pH, urine 6.5 [facility] Comment: Interpretive Data U rine pH is affected by diet, medications, systemic acid-base disturbances, and renal tubular function. pH may affect urinary stone formation. For example, urine pH below 6.0 may help reduce the tendency for calcium phosphate stones and pH greater than 6.0 may reduce the tendency for uric acid stone formation. Source: [facility] Current Interpretive Data was last revised on 2017 Protein, ur ql Trace Negative [facility] Glucose, ur ql Negative Negative [facility] Ketones, ur Negative Negative [facility] Bilirubin, ur Negative Negative [facility] Blood, ur Negative Negative [facility] Urobilinogen, ur 2.0(A) <2.0 mg/dL [facility] Nitrite, ur Negative Negative [facility] Leukocyte esterase, ur Negative Negative [facility] UA reflex comment Reflex conditions for microscopic UA and culture not met. [facility] Urine 10/02/2025 11:5 9 AM LUMBER SALVAGER 10/02/2025 12:01 PM LUMBER SALVAGER Sam Salas MD LAB MICROBIOLOGY - GENERAL ORDER [place] Final Result [facility] [address] [facility] [place] [address] * CT Abdomen Pelvis W Contrast (10/02/2025 11:23 AM LUMBER SALVAGER) Anatomical Region Laterality Modality Body N/A Computed Tomogra phy 10/02/2025 11:3 2 AM LUMBER SALVAGER Impressions 10/02/2025 11:32 AM LUMBER SALVAGER 1. Small volume of pneumoperitoneum, presumably postoperative. 2. 6.7 cm fluid collection in the posterior midline pelvis, concerning for infection. 3. Other findings are unchanged/nonurgent. Electronically signed by: Dina Britton MD Narrative 10/02/2025 11:32 AM LUMBER SALVAGER EXAMINATION: CT abdomen and pelvis with contrast [...] Final Result * eGFR (10/02/2025 9:54 AM LUMBER SALVAGER) eGFR 75 >=60 mL/min/1. 73 m2 Comment: [...] last reviewed 2021. Blood 10/02/2025 9:54 AM LUMBER SALVAGER 10/02/2025 9:56 AM LUMBER SALVAGER Sam Salas MD LAB BLOOD ORDERABLES Final Resul t [facility] [address] [facility] Department [place], [place] [id number] * (ABNORMAL) Differential, auto (10/02/2025 9:54 AM LUMBER SALVAGER) Neutrophil abs 6.06 1.50 - 6.50 K/cumm Imm gran abs 0.03 0.00 - 0.10 K/cumm [facility] Lymphocyte abs 1.89 0.80 - 3.30 K/cumm [facility] Monocyte abs 0.78 0.20 - 0.80 K/cumm [facility] Eosinophil abs 0.52(H) 0.00 - 0.50 K/cumm [facility] Basophil abs 0.03 0.00 - 0.10 K/cumm [facility] Neutrophil pct 65.1 % [facility] Comment: Interpretive Data Percent cell count reference ranges are not reported, since discordance with absolute values may lead to misinterpretation of CBC data. Current Interpretive Data was last revised on 2018. Imm gran pct 0.3 % [facility] Comment: Interpretive Data Percent cell count reference ranges are not reported, since discordance with absolute values may lead to misinterpretation of CBC data. Current Interpretive Data was last revised on 2018. Lymphocyte pct 20.3 % [facility] Comment: Interpretive Data Percent cell count reference ranges are not reported, since discordance with absolute values may lead to misinterpretation of CBC data. Current Interpretive Data was last revised on 2018. Monocyte pct 8.4 % [facility] Comment: Interpretive Data Percent cell count reference ranges are not reported, since discordance with absolute values may lead to misinterpretation of CBC data. Current Interpretive Data was last revised on 2018. Eosinophil pct 5.6 % [facility] Comment: Interpretive Data Percent cell count reference ranges are not reported, since discordance with absolute values may lead to misinterpretation of CBC data. Current Interpretive Data was last revised on 2018. Basophil pct 0.3 % [facility] Comment: Interpretive Data Percent cell count reference ranges are not reported, since discordance with absolute values may lead to misinterpretation of CBC data. Current Interpretive Data was last revised on 2018. Blood 10/02/2025 9:54 AM LUMBER SALVAGER 10/02/2025 9:56 AM LUMBER SALVAGER us Sam Salas MD LAB BLOOD ORDERABLES Final Resul t Performing Organization Address City/State/[facility] [[email or web address]] Co de Phone Number JIMMIE [facility] 2 [facility] [place] [address] * (ABNORMAL) Lipase (10/02/2025 9:54 AM LUMBER SALVAGER) Pathologist [facility] Lipase 200(H) 10 - 99 Units/L Blood Venous blood specimen / Unknown 10/02/2025 9:54 AM LUMBER SALVAGER 10/02/2025 9:56 AM LUMBER SALVAGER Sam Salas MD LAB BLOOD ORDERABLES Final Resul t Performing Organization Address [facility] [[email or web address]] Co de Phone Number JIMMIE [facility] 2 [facility] [place] [address] * Comprehensive metabolic panel (10/02/2025 9:54 AM LUMBER SALVAGER) Pathologist [facility] Sodium 136 135 - 145 mmol/L Potassium, pl 3.4 3.3 - 4.9 mmol/L [facility] Comment:Slightly hemolyzed, potassium value may be falsely elevated. Suggest redraw and reanalysis. Chloride 102 97 - 110 mmol/L [facility] CO2 23 22 - 32 mmol/L [facility] Anion gap 11 2 - 15 mmol/L [facility] BUN 6 6 - 25 mg/dL [facility] Creatinine 0.99 0.60 - 1.10 mg/dL [facility] Glucose 109 70 - 199 mg/dL [facility] Comment: Interpretive Data Fasting glucose >/= 126 [...] S19-S40. Calcium 9.3 8.5 - 10.3 mg/dL [facility] Bilirubin, total 0.6 0.1 - 1.2 mg/dL [facility] Protein, pl 7.4 6.5 - 8.5 g/dL [facility] PW Albumin 3.5 3.5 - 5.0 g/dL [facility] PW Alk phos 82 40 - 130 Units/L [facility] ALT 25 7 - 45 Units/L [facility] PW AST 23 10 - 45 Units/L [facility] PW Blood 10/02/2025 9:54 AM LUMBER SALVAGER 10/02/2025 9:56 AM LUMBER SALVAGER us Sam Salas MD LAB BLOOD ORDERABLES Final Resul t [facility] [address] [facility] [place], [place] [id number] * (ABNORMAL) CBC with auto differential (10/02/2025 9:54 AM LUMBER SALVAGER) WBC 9.31 3.80 - 9.90 K/cumm Hgb 11.4(L) 11.9 - 15.5 g/dL [facility] PW Hct 34.5(L) 35.6 - 45.5 % [facility] PW Plt 350 150 - 400 K/cumm [facility] MPV 9.3 9.1 - 12.3 fL [facility] PW RBC 4.48 3.90 - 5.20 M/cumm [facility] MCV 77.0(L) 81.3 - 96.4 fL [facility] PW MCH 25.4(L) 27.1 - 33.3 pg [facility] PW MCHC 33.0 32.3 - 35.7 g/dL [facility] PW RDW CV 14.6 11.1 - 14.9 % [facility] PW RDW SD 40.4 35.7 - 48.1 fL [facility] Blood Venous blood specimen / Unknown 10/02/2025 9:54 AM LUMBER SALVAGER 10/02/2025 9:56 AM LUMBER SALVAGER us Sam Salas MD LAB BLOOD ORDERABLES Final Resul t [facility] [address] [place] [address] documented in this encounter Visit Diagnoses Diagnosis [...] 1 dose Contrast Given 10/02/2025 11:18 AM LUMBER SALVAGER 94 mL naloxegoL (MOVANTIK) tablet 25 mg 25 mg, oral, Once, On 10/02/25 at 1339, For 1 dose Given 10/02/2025 1:53 PM LUMBER SALVAGER 25 mg sodium chloride 0.9% bolus 500 mL 500 mL, intravenous, at 500 mL/hr, Administer over 1 Hours, Once, On 10/02/25 at 1037, For 1 dose New Bag 10/02/2025 10:40 AM LUMBER SALVAGER 500 mL 500 mL/hr documented in this encounter Active and Recently Administered Medications Due to Daylight Saving Time, this section may contain times in both CDT and LUMBER SALVAGER. Scheduled Medication Order 09/30/2025 10/01/2025 10/02/2025 naloxegoL [...] 10/02/2025 documented in this encounter Care Teams Trial Attorney Relationship Specialty Start Date End Date Judd Davila MD [address] [facility] [address] [address] PCP - General Family Medicine 05/31/25 Kaylee Pham MD Consulting Physician General Surgery 10/30/21 Brandon Diehl NP Nurse Practitioner General Surgery 10/30/21 Ruiz Castro MD [phone] [place] [address] Surgeon Colon and Rectal Surgery 11/22/21 Nina Alexander, CANDELARIO [address] [facility] [place] [address] Optometry 05/31/25 documented as of this encounter
--- NOTE | ~2025-10-03 | CT_ITS ---
CTA CHEST CT ABDOMEN PELVIS CLINICAL HISTORY: per OB request; recent surgery, with NICOLA . COMPARISON: Chest x-ray 09/28/2025 CT abdomen and pelvis 09/28/2025 TECHNIQUE: Helical CT performed from thoracic inlet to symphysis pubis IV contrast information not listed in PACS Coronal, sagittal reformats. Multiplanar MIPS CT images acquired with automatic exposure control for dose reduction DLP: 564 mGy-cm FINDINGS: CHEST- Thoracic Aorta: No dissection. No aneurysm. Pulmonary arteries: Normal caliber. No PE. Lungs/Pleura: Trace pleural effusions. Minimal basilar predominant interlobular septal thickening and mild hazy groundglass opacity. Heart: Heart size mildly enlarged. Tracheobronchial tree: Patent. Nodes: No enlarged nodes. Bones: No acute bony abnormality. Soft tissues: Unremarkable. ABDOMEN/PELVIS- Liver: Enlarged. Gallbladder: Removed. Spleen: Unremarkable. Pancreas: Unremarkable. Adrenal glands: Unremarkable. Kidneys: Right kidney- No hydronephrosis. No renal stones. Left kidney- No hydronephrosis. No renal stones. Circumaortic renal vein. Distal esophagus/stomach: Gastric bypass. Small bowel loops: Normal caliber and wall thickness. Colon: Normal caliber and wall thickness. Normal RLQ appendix. Nodes: No enlarged nodes. Peritoneum: No ascites. Extensive free air persists but decreased. A few small foci of ill-defined interloop fluid and gas locules. For example axial image 77 series 5, central mesentery left of midline. Urinary bladder: Unremarkable. Uterus: Removed. Adnexa: No masses. Large mostly organized fluid collection within pelvis. Mild enhancement of wall. Bones: No acute bony abnormality. Soft tissues: Unremarkable. Abdominal aorta: Unremarkable. IVC: Unremarkable. Main portal vein, SMV: Patent. IMPRESSION: CHEST- 1. No PE. 2. Trace pleural effusions and minimal interstitial pulmonary edema. ABDOMEN/PELVIS- 1. Large organized fluid collection within pelvis. Superinfection cannot be excluded. 2. Mild scattered peritonitis not excluded. 3. Extensive free air decrease in volume but persists. Probably merely postoperative. Reviewed, dictated and finalized at location R. H DIAL MAKER IMPRESSION: CHEST- 1. No PE. 2. Trace pleural effusions and minimal interstitial pulmonary edema. ABDOMEN/PELVIS- 1. Large organized fluid collection within pelvis. Superinfection cannot be ex cluded. 2. Mild scattered peritonitis not excluded. 3. Extensive free air decrease in volume but persists. Probably merely postope rative.
--- NOTE | ~2025-10-03 | CT_ITS ---
EXAMINATION: CT guide absc cath placement DATE: 10/04/2025 12:34 INDICATION: Intrapelvic abscess TECHNIQUE: The procedure including the risks and benefits was discussed with the patient. Risks discussed included bleeding, infection, nerve or bowel injury and allergic reaction. The patient understood the risks and benefits and agreed to proceed. The patient was confirmed to be receiving appropriate antibiotic coverage. The skin overlying the medial right buttock was prepped and draped in usual sterile fashion. Anesthetic was administered with 1% lidocaine subcutaneously. Utilizing CT guidance an 18-gauge trochar needle was inserted into the deep pelvic peritoneal fluid collection. The inner stylette was removed and a J-wire advanced into the fluid collection with position confirmed by CT. Needle was removed and utilizing Seldinger technique the tract was serially dilated over the wire to 12 Fr. A 10 Fr pigtail catheter was then placed and the loop formed and locked with position confirmed by CT. Fluid was aspirated from the catheter and sent to lab for Gram stain and cultures. The catheter was stitched to the skin with suture. Antibiotic ointment and a sterile dressing were applied. An additional adhesive fixation device was applied. The catheter was then attached to suction drainage and had drained an additional 60 mL of fluid at the conclusion of the procedure. The dose-length product was 330.89 mGy-cm. FINDINGS: CT images demonstrate the catheter within the deep pelvic fluid collection. 60 mL of turbid orange-colored fluid was aspirated for testing. IMPRESSION: 1. Successful CT-guided pelvic abscess drainage catheter placement. 2. 60 mL fluid was sent for aerobic and anaerobic cultures. 3. The catheter will be managed by Dr. Leija. Reviewed, dictated and finalized at location A. CATEGORICAL PRESCHOOL TEACHER
[2025-10-03 11:56] VITALS: BP 118/75; PULSE 91; RESP 18; TEMP 36.6; O2SAT 99
--- NOTE | 2025-10-03 12:27 | ECG_ITS ---
Test Date: 2025-10-03 13:01:18 Measurements Intervals [place] Rate: 72 P: 62 SC: 154 QRS: 17 QRSD: 82 T: 14 QT: 354 QTc: 389 Interpretive Statements SINUS RHYTHM Compared to ECG 09/28/2025 12:04:26 Myocardial infarct finding no longer present Electronically Signed On 10-03-2025 18:42:50 [employer] by Frantz Romero M.D.
--- NOTE | 2025-10-03 12:54 | ED.ABDPAIN ---
HPI - Abdominal Pain General Chief Complaint: Abdominal Pain Stated Complaint: hysterectomy 1 week ago, abd pain Time Seen by Provider: 10/03/25 12:43 History of Present Illness HPI narrative: Patient had hysterectomy done about a week ago, since then she has noticed some bloating and discomfort to her abdomen, also reporting some difficulty breathing and sharp pains to her back. Her doctor sent her here to be admitted after she was found to have fluid collection in her abdomen. Related Data Home Medications ?Medication ?Instructions ?Recorded ?Confirmed ?Last Taken ?Type multivitamin (Daily Multi-Vitamin 1 tablet PO DAILY 03/09/20 10/03/25 09/14/25 History tablet) tirzepatide 5 mg/0.5 mL 10 mg subcut WEEKLY 05/13/23 09/15/25 09/11/25 History subcutaneous pen injector (Mounjaro) rimegepant 75 mg disintegrating 75 mg PO ONCE PRN Migraine Headache 07/08/24 10/03/25 Unknown History tablet (Nurtec ODT) topiramate 100 mg tablet 50 mg PO DAILY 07/20/24 09/15/25 09/14/25 History albuterol sulfate 90 mcg/actuation 1 puff inhalation PRN PRN 09/14/25 10/03/25 Unknown History aerosol inhaler shortness of breath or wheezing cyanocobalamin (vitamin B-12) 100 50 mcg PO DAILY 09/14/25 10/03/25 09/14/25 History mcg tablet (Vitamin B-12) magnesium 250 mg tablet 250 mg PO BID 09/14/25 10/03/25 09/14/25 History psyllium husk 0.52 gram capsule 0.52 g PO DAILY 09/14/25 10/03/25 09/14/25 History (Daily Fiber) Allergies Allergy/AdvReac Type Severity Reaction Status Date / Time APPLES Allergy Intermediate ITCHING,SWELLING Uncoded 10/03/25 10:32 OF TONGUE Review of Systems Review of Systems: All systems reviewed & are unremarkable except as noted in HPI and below PMFSH Past Medical History Medical History Chlamydia Intervertebral disc degeneration Diabetes Vaginal delivery Depression Surgical History Surgical History History of bladder surgery bladder sling H/O: hysterectomy History of endometrial ablation History of carpal tunnel surgery of right wrist History of carpal tunnel surgery of left wrist History of cholecystectomy S/P bilateral breast reduction History of gastric surgery And revision in 2020 Family History Family History Mother Hypertension Grandparent Hypertension Carcinoma of colon Diabetes mellitus Social History Social History Smoking status: Never smoker Second hand tobacco smoke exposure: No Alcohol intake: current Drinks per week: 2 Alcohol use details: socially Substance use: never Substance use type: does not use Lack of Transportation: No Lack of Food: Never True Current Housing: I Have Housing Concerned About Future Housing: No Difficulty Paying Gas/Electric Bills: No Difficulty Paying for Meds: No Currently Unemployed: No Education: Bachelor's Degree Difficulty w/ Childcare or Family Care: No Living arrangements: with family Additional living arrangements comments: fiance Occupation/Education: occupation Gender identity (if verbalized by the patient): Female Sexual Orientation (if Verbalized by the Patient): Straight or Heterosexual Spiritual care concerns: No Exam Narrative: EXAMINATION OF ORGAN SYSTEMS/BODY AREAS: Constitutional: Vital signs per nursing GENERAL:[No acute distress, non-toxic appearing.] HEAD: Normal with no signs of head trauma. EYES: EOMI, conjunctiva normal ENT: Hearing grossly intact LUNGS: Nonlabored breathing. HEART: [Regular rate and rhythm] ABD: [Soft], slightly distended and slightly tender to palpation. Incisions clean, dry, intact EXT: Normal range of motion SKIN: [No rashes or lesions.] NEURO: [Alert and oriented x 3. No gross focal sensory or strength deficits.] PSYCH: Normal affect Course Vital Signs Vital signs: Vital Signs Temperature 97.9 F 10/03/25 11:56 Pulse Rate 91 10/03/25 11:56 Respiratory Rate 18 10/03/25 11:56 Blood Pressure 118/75 10/03/25 11:56 Pulse Oximetry 99 10/03/25 11:56 Temperature 97.9 F 10/03/25 11:56 Pulse Rate 72 10/03/25 14:24 Respiratory Rate 18 10/03/25 14:24 Blood Pressure 107/77 10/03/25 14:24 Pulse Oximetry 96 10/03/25 14:24 MDM - Abdominal Pain MDM Narrative Medical decision making narrative: Patient presenting here after being found have fluid collection her abdomen after recent hysterectomy, she did has been having some abdominal bloating and discomfort and on exam her incisions look well appearing, her abdomen is soft with some slight tenderness and distension. Labs and imaging obtained, does show fluid collection in the abdomen, interventional radiologist plans to place drain in tomorrow. Patient comfortable with plan, discussed with OBGYN Lab Data 10/03/25 13:22 10/03/25 13:22 Labs: Lab Results 10/03/25 10/03/25 Range/Units 13:22 13:46 WBC 9.6 (4.5-10.0) K/mm3 RBC 4.12 L (4.2-5.4) M/mm3 Hgb 10.4 L (12.0-15.0) g/dL Hct 32.5 L (37.0-47.0) % MCV 78.9 L (80-100) fl MCH 25.2 L (26-34) pg MCHC 32.0 (32-36) g/dl RDW 14.8 H (11.5-14.5) % Plt Count 408 H D (150-375) k/mm3 MPV 8.7 (7.4-10.4) fl Immature Gran % (Auto) 0.6 H (0-0.5) % Neut % (Auto) 60.6 (45.5-73.1) % Lymph % (Auto) 24.5 (18.3-44.2) % Benson % (Auto) 6.9 (2.6-8.5) % Eos % (Auto) 7.1 H (0-4.4) % Baso % (Auto) 0.3 (0.2-1.2) % Lymph # (Auto) 2.36 (0.9-3.2) K/mm3 Benson # (Auto) 0.7 H (0.1-0.6) K/mm3 Eos # (Auto) 0.7 H (0-0.3) K/mm3 Baso # (Auto) 0.0 (0.0-0.1) K/mm3 Abs Immat Gran (auto) 0.06 H (0.00-0.031) K/mm3 Absolute Neuts (auto) 5.8 (1.3-6.7) K/mm3 Absolute Nucleated RBC 0.000 (0.0-0.012) K/mm3 Nucleated RBC % 0.0 (0.0-0.2) % PT 14.1 (11.1-14.7) Seconds INR 1.1 APTT 27.3 (22.3-36.8) Seconds Sodium 138 (137-145) mmol/L Potassium 3.4 (3.4-5.0) mmol/L Chloride 104 (98-107) mmol/L Carbon Dioxide 24 (22-30) mmol/L Anion Gap 10 (4-12) mmol/L BUN 7 D (7-17) mg/dL Creatinine 1.10 H (0.7-1.0) mg/dL Estim Creat Clear Calc 62 ml/min Estimated GFR 56 L (59 - ) Glucose 98 (65-110) mg/dL Lactic Acid 0.9 (0.7-2.0) mmol/L Calcium 9.1 (8.4-10.2) mg/dL Total Bilirubin 0.6 (0.2-1.3) mg/dL AST 29 (14-36) U/L ALT 26 (6-35) U/L Alkaline Phosphatase 78 (38-126) U/L Total Protein 7.7 (6.3-8.2) g/dL Albumin 3.8 (3.5-5.1) g/dL Lipase 999 H (23-300) U/L Imaging Data Radiologist's impression: ITS Impressions Chest/Abdomen/Pelvis CTA 10/03/25 14:26 IMPRESSION: CHEST- 1. No PE. 2. Trace pleural effusions and minimal interstitial pulmonary edema. ABDOMEN/PELVIS- 1. Large organized fluid collection within pelvis. Superinfection cannot be excluded. 2. Mild scattered peritonitis not excluded. 3. Extensive free air decrease in volume but persists. Probably merely postoperative. Discharge Plan Discharge Clinical Impression: Intra-abdominal abscess Patient Disposition: Still a Patient Condition: Stable
--- OUTSIDE RECORDS SUMMARY | 2025-10-03 13:07 | XMS_ITS | Encounter Summary ---
Author Organization [facility] Health Address [address] [place] [address] Care Team Providers Care Gunstock Spray Unit Adjuster Name Role Phone Sylvia Perez MD Primary Care Provider Josh Cervantes MD Unavailable Sylvia Perez MD Unavailable [phone] Bib Daniles MD Unavailable [phone] Stephanie Chavira MD Unavailable [phone] Kaylee Pham MD Unavailable Sylvia Perez MD Unavailable [phone] Sylvia Perez MD Unavailable [phone] Demetria Alaniz MD Primary Care Provider [phone] Encounter Details Date Type Department Care Team (Late st Contact Info) Description 10/08/2019 [facility] Outpatient Visit [facility] [address] [place] [address] Mikel Jeff MD [address] [place] [address] Social History Tobacco Use Types Packs/Day Years Used Date Smoking Tobacco: Never Smokeless Tobacco: Never Alcohol Use Standard Drinks/Week Comments Yes 0 (1 standard drink = 0.6 oz pur e alcohol) occasionally Comments No Sex and Gender Information Value Date Recorded Sex Assigned at Female 10/27/2021 12:53 PM ELECTRICIAN CRANE MAINTENANCE Legal Sex Female 6:28 AM ELECTRICIAN CRANE MAINTENANCE Gender Identity Female 10/27/2021 12:53 PM ELECTRICIAN CRANE MAINTENANCE Sexual Orientation Not on file Occupation Industry [...] documented as of this encounter Care Teams Gunstock Spray Unit Adjuster Relationship Specialty Start Date End Date Sylvia Perez MD PCP - General 03/06/10 05/08/23 [place] [address] [place] [address] [id number] PCP - Attributed-[facility] Commercial 03/31/19 05/29/21 [place] [address] [address] [place] [id number] PCP - Attributed-[facility] Commercial 08/31/21 10/18/22 [place] [address] [address] [place] [id number] PCP - Attributed-[facility] Commercial 10/31/22 06/17/23 Demetria Alaniz MD [facility] [address] [place] [address] PCP - General Family Medicine 05/09/23 Josh Cervantes MD [address] [facility] [address] [facility] [address] [place] [address] Obstetrics and Gynecology 10/25/14 Bib Daniels MD [address] [facility] [address] [place] [address] Neurologist Neurological Surgery 07/14/20 Stephanie Chavira MD [address] [place] [address] [address] [place], [place] [id number] Internal Medicine 02/06/21 Kaylee Pham MD [address] [place] [id number] Surgery 02/06/21 documented as of this encounter
--- OUTSIDE RECORDS SUMMARY | 2025-10-03 13:08 | XMS_ITS | Clinical Summary ---
Author Organization [facility] [address] [place] [address] Phone Care Team Providers Care Giver Name Role Phone Sylvia Perez MD Primary Care Provider [phone] Allergies Active Allergy Reactions Criticality Noted Date [...] Shortness of Breath or Wheezing. 8.5 Gram 3 Active cyanocobalamin (VITAMIN B-12) 500 mcg tablet Take 500 mcg by mouth daily. 1 Active ferrous sulfate 325 mg (65 mg iron) tablet Take 325 mg by mouth daily with breakfast. 2 Active mometasone (NASONEX) 50 mcg/actuation [place], Non-Aerosol Administer 2 Sprays in each nostril. 1 Active tiZANidine (ZANAFLEX) 2 mg Capsule TAKE 1 CAPSULE BY MOUTH EVERY 8 HOURS NEEDED FOR MUSCLE SPASMS 3 Active valACYclovir (VALTREX) 1 gram tablet 2 Active topiramate (TOPAMAX) 50 mg tablet Takes two in am and one atnight 3 Active Nurtec ODT 75 mg Tablet, Rapid Dissolve Take 75 mg by mouth. 4 Active sodium bicarbonate 650 mg tablet 5 Active tirzepatide (MOUNJARO) 15 mg/0.5 mL Pen Injector Inject 15 mg by subcutaneous injection every 7 days. 5 Active amoxicillin (AMOXIL) 500 mg capsuleIndicati ons:Streptococc al pharyngitis Take 1 Capsule (500 mg) by mouth every 12 hours for 10 days. 20 Capsule 5 025 Active Problems Problem Noted Date Diagnosed Date Stress incontinence during 05/17/2016 Morbid obesity with BMI of 40.0-44.9, adult 06/0 01/2016 Round ligament pain 04/03/2016 Resolved Problems Problem Noted Date Diagnosed Date Resolved Date Threatened labor at term 05/17/2016 Large for gestational age 0605/17/2016 Encounters Date Type Department Care Team Description 09/20/2025 External Device Data ST[facility] ABSTRACTION Provider, Abstract 09/06/2025 External Device Data [facility] ABSTRACTION Provider, Abstract 09/03/2025 11:15 AM CDT Office Visit [facility] [address] [address] [facility] Carlo Briceno PA-C Streptococcal pharyngitis (Primary [...] STREP A ANTIGEN (09/03/2025 11:39 AM CDT) [facility] RAPID STREP POC Positive( A) Negative, Indeterminate [facility] INTERNAL KIT QC POC Pass Pass [facility] KIT LOT NUMBER POC [id number] [facility] KIT EXP DATE POC 6 [facility] READ METHOD POC Visual [facility] Upper Respiratory SPECIMEN FROM THROAT / Unknown 09/03/2025 11:39 AM CDT Carlo Briceno PA-C POINT OF CARE TESTING Final Re sult [facility] CLIA# [id number] [place] [address] * HEMOGLOBIN A1C (04/23/2016 4:42 PM CDT) HEMOGLOBIN A1C 4.8 4.0 - 6.0 % 04/23/2016 9:40 PM CDT [facility] Comment:Note: Effective as o f 12/22/2014 a new methodology, Turbidimetric inhibition immunoassay (TINIA),has been implemented. EST. AVG GLUCOSE, A1C 91 mg/dL 04/23/2016 9:40 PM CDT [facility] Blood Venipuncture - L ab Collect / Unknown 04/23/2016 4:42 PM CDT 04/23/2016 4:42 PM CDT Hussein Baires MD CHEMISTRY ORDERABLES Final Res ult [facility] CLIA# [id number] [address] [place] [address] from Last 3 Months or Most Recently Relevant to Health [place] [address] [facility] OPTIONS PPO [address] [place] [id number] Advance Directives For more information, please contact: [phone] * Full Code (Latest Code Status on File) Date Activated Date Inactivated Comments 05/17/2016 12:10 PM 05/17/2016 4:09 PM * Full Code Date Activated Date Inactivated Comments 04/03/2016 2:52 PM 04/03/2016 7:06 PM Care Teams Giver Relationship Specialty Start Date End Date Sylvia Perez MD PCP - General Internal Medicine 03/01/16
--- OUTSIDE RECORDS SUMMARY | 2025-10-03 13:08 | XMS_ITS | Clinical Summary ---
Author Organization [facility] Address [address] [facility] [place] [address] Care Team Providers Care Evp Operations Name Role Phone Josh Cervantes MD Unavailable Bib Daniels MD Unavailable [phone] Stephanie Chavira MD Unavailable [phone] Kaylee Pham MD Unavailable [phone] Demetria Alaniz MD Primary Care Provider [phone] Source Comments [facility],non-owned Affiliates and Associated Physician Practices is amultiple site organization consisting of ambulatory clinics and hospital sitesin [place], [place], [place] and [place]. This disclosure is being madepursuant to the Care Everywhere program and may not contain all information available regarding this patient. Last updated 18.[facility] Allergies Active Allergy Reactions Criticality Noted Date [...] breakfast 07/19/20 22 Active Cholecalciferol 1.25 MG (82728 UT) TAKE 1 CAPSULE BY MOUTH ONE [...] needed for Constipation 10/25/20 Active HYDROcodone-antwan taminophen ([place]) 5-325 MG tabletIndicatio ns:Status post surgery Take [...] (12/03/2021): Added automatically from request for surgery [id number] History of diabetes mellitus 12/24/2020 Overview (02/06/2021): [...] Sex Assigned at Female 10/27/2021 12:53 PM ELECTRIC MOTOR ASSEMBLER Legal Sex Female 6:28 AM ELECTRIC MOTOR ASSEMBLER Gender Identity Female 10/27/2021 12:53 PM ELECTRIC MOTOR ASSEMBLER Sexual Orientation Not on file Occupation Industry Job Start Date Job End Date student Not on file Not on file Not on file Last Filed Vital Signs Vital Sign Reading Time Taken Comments Blood Pressure 126/101 2025 2:53 PM ELECTRIC MOTOR ASSEMBLER Pulse 75 2025 2:53 PM ELECTRIC MOTOR ASSEMBLER Temperature 36.3 C (97.4 F) 2025 2:53 PM ELECTRIC MOTOR ASSEMBLER Respiratory Rate 18 2025 2:53 PM ELECTRIC MOTOR ASSEMBLER Oxygen Saturation 100% 2025 2:53 PM ELECTRIC MOTOR ASSEMBLER Inhaled Oxygen Concentration - - Weight 92.1 kg (203 lb) 12/14/2024 11:02 AM ELECTRIC MOTOR ASSEMBLER Height 172.7 cm (5' 8) 12/14/2024 11:02 AM ELECTRIC MOTOR ASSEMBLER Body Mass Index 30.87 12/14/2024 11:02 AM ELECTRIC MOTOR ASSEMBLER Plan of Treatment Health Maintenance Due Date [...] OF CARE (AMB) Routine 01/29/2022 1:56 PM ELECTRIC MOTOR ASSEMBLER Screening for diabetes mellitus from Last 3 [...] of this report has been sent to [phone] Resulting Agency Comment Lab Testing performed at: [facility] [address] [facility] [phone] us Rosalinda Magaña MD LAB - CHEMISTRY ORDERAB LES Final Result [facility] INSURANCE BILL [address] [place] [address] * HEMOGLOBIN A1C - POINT OF CARE (AMB) (01/29/2022 1:56 PM ELECTRIC MOTOR ASSEMBLER) Hemoglobin A1c POCT 4.7 % [facility] Expiration Date 10/02/2023 [facility] Lot # [id number] [facility] QC Verified Yes Yes [facility] Blood BLOOD SPECIMEN / Unknown 01/29/2022 1:56 PM ELECTRIC MOTOR ASSEMBLER Aparna Briceno INSTRUCTIONAL SYSTEMS DESIGNER-CITY TAX AUDITOR LAB - POINT OF CARE OR DERABLES Final Result [facility] [address] [place] [address], [facility] [phone] from Last 3 Months or Most Recently Relevant to Health Maintenance Additional Health Concerns Infection Onset Date Last 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 06/24/2022 Insurance [facility] [employer] NO INSURANCE Member Subscriber Plan / Payer (Ef fective for All Dates) Name:Shaquille Huggins Member ID:Not on file Relation to Subscriber:Not on file Name:SHAQUILLE HUGGINS Subscriber ID:Not on file (Home) Address: [place] [address] Payer ID:Not on file Group ID:Not on file Type:Self Pay Address: [place], [place] [facility] Care Teams Evp Operations Relationship Specialty Start Date End Date Demetria Alaniz MD [facility] [address] [place] [address] PCP - General Family Medicine 05/09/23 Josh Cervantes MD [address] [facility] [address] [place], [place] [id number] Obstetrics and Gynecology 10/25/14 Bib Daniels MD [address] [facility] [address] [place] [address] Neurologist Neurological Surgery 07/14/20 Stephanie Chavira MD [address] [place] [address] [address] [place] [address] Internal Medicine 02/06/21 Kaylee Pham MD [address] [place] [id number] Surgery 02/06/21
--- OUTSIDE RECORDS SUMMARY | 2025-10-03 13:08 | XMS_ITS | Clinical Summary ---
Author Organization [facility] Address [address] [place] [address] Care Team Providers Care Cook Jelly Name Role Phone Kaylee Pham MD Unavailable [phone] Brandon Diehl NP Unavailable [phone] Ruiz Castro MD Unavailable [phone] Judd Davila MD Primary Care Provid er Nina Alexander OD Unavailable [phone] Allergies Active Allergy Reactions Criticality Noted Date Comments Apple Hives Medium 01/22/2014 Latex Rash Medium 03/16/2014 sometimes Medications valACYclovir (VALTREX) 1 gram tablet 2 [...] 01/28/2025 Assessment & Plan (01/28/2025 2:39 PM STOCK FITTER): Recent onset of cough, chest discomfort, nasal congestion, and sore throat. Home COVID and flu tests negative. Redness in throat and ears noted on exam. Wheezing noted on right side. -Continue symptomatic treatment with [id number] medications. -Repeat home COVID test in a [...] 11/12/2023 Assessment & Plan (11/13/2023 7:34 AM STOCK FITTER): - Start hydroxyzine Type 2 diabetes mellitus with chronic kidney dis ease 03/31/2023 Assessment & Plan (05/31/2025 1:39 PM CDT): Stable, continue prescribed Mounjaro 12.5 mg subQ weekly Assessment & Plan (01/28/2025 2:42 PM STOCK FITTER): - Continue to optimize blood sugar - repeat labs today Assessment & Plan (08/31/2024 1:41 PM CDT): - Continue to optimize blood sugar - GFR decrease with last labs with weight management, plan to repeat labs - Include urine microalbumin at repeat Assessment & Plan (11/13/2023 7:33 AM STOCK FITTER): - Continue to optimize blood sugar JERMAN (generalized anxiety disorder) 03/31/2023 Assessment & Plan (01/28/2025 2:40 PM STOCK FITTER): - Chronic, stable - Continue Lexapro, wellbutrin, hydroxyzine - Will follow up with therapist Assessment & Plan (08/31/2024 2:56 PM CDT): - Chronic, stable - Continue Lexapro and hydroxyzine - Will follow up with therapist Assessment & Plan (11/13/2023 7:34 AM STOCK FITTER): - Chronic, not well controlled - Sleep [...] (07/03/2021): Added automatically from request for surgery [id number] Assessment & Plan (01/28/2025 1:59 PM STOCK FITTER): Chronic, stable Continue current medication Postsurgical malabsorption 12/24/2020 Assessment & Plan (12/24/2020 9:57 PM STOCK FITTER): Labs. Iron deficiency 12/24/2020 Bariatric surgery status 12/24/2020 Assessment & Plan (03/03/2023 8:19 AM CDT): Bariatric surgery labs ordered for possible vitamin deficiencies in setting of intestinal malabsorption. Assessment & Plan (12/24/2020 9:56 PM STOCK FITTER): Routine labs to evaluate for vitamin deficiencies [...] Asked to try to track consistently with [employer] daniel for at least 1 week to help identify calorie/carb/protein intake. Assessment & Plan (01/13/2022 12:52 PM STOCK FITTER): Reviewed calorie restriction based on BMR as [...] phone. Assessment & Plan (01/19/2021 2:01 PM STOCK FITTER): Reviewed calorie restriction based on BMR as previously detailed. Reviewed recommendation/goal of >/= 150 minutes/week moderate-intensity aerobic exercise. Assessment & Plan (12/24/2020 9:52 PM STOCK FITTER): Discussed that significant health benefits/risk reduction may [...] frequently. Assessment & Plan (12/24/2020 9:59 PM STOCK FITTER): Discussed comorbidities associated with sleep apnea, including [...] Chavira Assessment & Plan (11/13/2023 7:32 AM STOCK FITTER): - Chronic, improving, not at goal - [...] month. Assessment & Plan (01/13/2022 12:58 PM STOCK FITTER): Obesity is improving with treatment. Diet interventions: [...] topiramate. Assessment & Plan (01/19/2021 2:01 PM STOCK FITTER): Obesity is unchanged. Diet interventions: as noted. Regular aerobic exercise program discussed. Pharmacotherapy as ordered. Will try increasing PM topiramate to help with night eating. Discussed risks, benefits, alternatives, potential side effects. Assessment & Plan (12/24/2020 9:58 PM STOCK FITTER): Obesity is worsening. General weight loss/lifestyle modification strategies discussed (elicit support from others; identify saboteurs; non-food rewards, etc). Diet interventions: as noted. Informal exercise measures discussed, e.g. taking stairs instead of elevator. Regular aerobic exercise program discussed. More detailed recommendations pending review of labs, food record. Migraine headache 01/22/2014 Assessment & Plan (01/28/2025 2:40 PM STOCK FITTER): - Chronic, stable - Followed by Neurology Chronic migraines improved since removal of IUD. Currently taking Nurtec and Topiramate. -Continue current treatment. -Notify neurologist of self-initiated decrease in Topiramate dose. Assessment & Plan (11/13/2023 7:32 AM STOCK FITTER): - Chronic, stable - Followed by Neurology - Continue current management Assessment & Plan (03/31/2023 12:20 PM CDT): - continue management per Neurology Allergic rhinitis 04/07/2013 Overview (07/18/2021): 04/06/13: SPT positive to T/G/RW/M/D/C/HDM/CR Asthma 04/07/2013 Assessment & Plan (01/28/2025 2:39 PM STOCK FITTER): Chronic, stable Continue albuterol prn Anemia 03/16/2013 Type 2 diabetes mellitus wit hout complication, without long-term current use of insulin 03/16/2013 Overview (05/08/2021): In remission since bariatric surgery. Didn't tolerate metformin. Assessment & Plan (01/28/2025 2:43 PM STOCK FITTER): Chronic, well controlled - Continue Mounjaro Discussed importance of routine screening including foot exam and eye exam as indicated Assessment & Plan (08/31/2024 1:39 PM CDT): Chronic, well controlled - Continue Mounjaro Assessment & Plan (11/13/2023 7:32 AM STOCK FITTER): - Chronic, stable - Tolerating current dose [...] RA. Assessment & Plan (01/13/2022 12:58 PM STOCK FITTER): Reviewed interim labs. Continue low-carb (<150 g/day), [...] ordered. Assessment & Plan (11/13/2023 7:33 AM STOCK FITTER): - Chronic, stable - continue current regimen [...] 5.6. Assessment & Plan (01/19/2021 2:01 PM STOCK FITTER): Reviewed labs with her. Continue low-carb (<150 g/day), low-glycemic diet. Consider GLP-1 RA Assessment & Plan (12/24/2020 9:52 PM STOCK FITTER): Labs. Discussed insulin resistance including effect on weight and risk for progression to diabetes. Recommended low-carb, low-glycemic diet; choose whole grains and avoid more highly processed carbohydrates. Discussed potential benefits of this w/r/t gut microbiome. Referred to ADA and [employer] websites for additional information on topics including glycemic index/carbohydrate choices, protein sources. 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 Breast pain 09/29/2018 08/31/2024 Stress incontinence during 05/17/2016 08/31/2024 Maternal chronic hypertension 03/07/2016 11/12/2023 Malignant neoplasm of cervix 03/16/2013 03/31/2023 Encounters Date Type Department Care Team Description 10/02/2025 9:45 AM STOCK FITTER - 10/02/2025 3:03 PM STOCK FITTER Emergency [facility] Emergency Department [address] [place] [id number] Generalized abdominal pain (Primary Dx); Drug-induced constipation Discharge Disposition: Left Against Medical Advice 08/12/2025 3:30 PM CDT Telemedicine [facility] Medicine Metabolic Weight Management [address] [place] [address] Medical Office [address] [place] [address] Jocelyn Mcclellan NP Weight loss counseling, encounter for (Primary Dx); Type 2 diabetes mellitus with stage 3a chronic kidney disease, without long-term current use of insulin (HCC); History of gastric bypass; Class 3 severe obesity with serious comorbidity in adult, unspecified BMI, unspecified obesity type 07/24/2025 6:26 AM CDT - 07/24/2025 9:19 AM CDT Emergency [facility] Emergency Department [address] [place] [id number] Calderon Freeman MD Other migraine without status [...] Influenza, Unspecified 05/31/2025(Deferr ed: Not available from dry cleaner presser) Pfizer SARS-CoV-2 Monovalent Vaccination (12+ Yrs) PURPLE [...] Anemia Mother Liliam Adair Arthritis Mother Liliam [place] Hypertension Mother Liliam Adair Heart attack Paternal Grandfather Anish Adair Cancer Paternal Grandmother Julissa Berriosdridge Colon cancer Paternal Grandmother Julissa Echevarriaidge Armida gnant Neoplasm, Colon - (Added by [...] on file Legal Sex Female 8:37 PM STOCK FITTER Gender Identity Female 08/07/2021 9:39 AM CDT Sexual Orientation Straight 08/07/2021 9: 39 AM CDT Last Filed Vital Signs Vital Sign Reading Time Taken Comments Blood Pressure 108/72 10/02/2025 3:01 PM STOCK FITTER Pulse 82 10/02/2025 3:01 PM STOCK FITTER Temperature 36.9 C (98.5 F) 10/02/2025 9:41 AM STOCK FITTER Respiratory Rate 16 10/02/2025 3:01 PM STOCK FITTER Oxygen Saturation 99% 10/02/2025 3:01 PM STOCK FITTER Inhaled Oxygen Concentration - - Weight 79.4 kg (175 lb) 10/02/2025 9:41 AM STOCK FITTER Height 172.7 cm (5' 8) 10/02/2025 9:41 AM STOCK FITTER Body Mass Index 26.61 10/02/2025 9:41 AM STOCK FITTER Plan of Treatment Health Maintenance Due Date Last Done Comments Dilated Eye Exam 1987 Varicella Vaccines (1 of 2 - 13+ 2-dose series) 2000 Hepatitis B Screening 2005 Regular Well Visit/Exam 18-64 03/31/2024 03/31/2023 Covid-19 Vaccine (2024-2 6 season) 2025 01/03/2025, 10/02/2024, 10/05/2021, Additional history exists Influenza Vaccine (#1) 2025 , 11/12/2023, 10/18/2022, Additional history exists Hemoglobin A1C 11/02/2025 05/03/2025, 06/01, 06/05/2023, Additional history exists Albumin Creatinine Ratio, Urine 04/01/2026 , 11/13/2023 Lipid Panel 05/03/2026 05/03/2025, 06/01, 02/28/2023, Additional history exists Depression Screening 05/31/2026 05/31/2025, 01/24/2025, 03/31/2023 Foot Exam 05/31/2026 05/31/2025, 0512/2022, 03/31/2023 DTaP/Tdap/Td Vaccine (3 - Td or Tdap) 08/07/2026 08/07/2016, 05/31/2013 eGFR 10/02/2026 10/02/2025, 06/01, 05/05/2025, Additional history exists HPV Vaccines Completed 07/16/2012, 2 01/2012, 01/20/2012 Pneumococcal vaccine <65 Completed 03/31/2023 Hepatitis C Screening Completed 04/01/2025 Procedures Procedure Name Priority Date/Time Associated Diagnosis Comments URINALYSIS AND REFLEX TO MICROSCOPIC AND CULTURE STAT 10/02/2025 11:[address] ABDOMEN PELVIS W CONTRAST ED 10/02/2025 11:23 AM STOCK FITTER EGFR STAT 10/02/2025 9:54 AM STOCK FITTER DIFFERENTIAL AUTO STAT 10/02/2025 9:5 4 AM STOCK FITTER LIPASE STAT 10/02/2025 9:54 AM STOCK FITTER COMPREHENSIVE METABOLIC PANEL STAT 10/02/2025 9:54 AM STOCK FITTER CBC WITH AUTO DIFFERENTIAL STAT 10/02/2025 9:54 AM STOCK FITTER HEMOGLOBIN A1C Routine 05/03/2025 8:11 AM CDT [...] Relevant to Health Maintenance Results * (ABNORMAL) Urinalysis reflex to microscopic and culture Urine (10/02/2025 11:59 AM STOCK FITTER) Color, ur Yellow Yellow Clarity, ur Clear Clear [facility] Specific gravity, ur >1.030(H) 1.003 - 1.030 [facility] pH, urine 6.5 [facility] Comment: Interpretive Data U rine pH is affected by diet, medications, systemic acid-base disturbances, and renal tubular function. pH may affect urinary stone formation. For example, urine pH below 6.0 may help reduce the tendency for calcium phosphate stones and pH greater than 6.0 may reduce the tendency for uric acid stone formation. Source: [facility] [employer] Current Interpretive Data was last revised on 2017 Protein, ur ql Trace Negative [facility] Glucose, ur ql Negative Negative [facility] Ketones, ur Negative Negative [facility] Bilirubin, ur Negative Negative [facility] Blood, ur Negative Negative [facility] Urobilinogen, ur 2.0(A) <2.0 mg/dL [facility] Nitrite, ur Negative Negative [facility] Leukocyte esterase, ur Negative Negative [facility] UA reflex comment Reflex conditions for microscopic UA and culture not met. [facility] Urine 10/02/2025 11:5 9 AM STOCK FITTER 10/02/2025 12:01 PM STOCK FITTER us Sam Salas MD LAB MICROBIOLOGY - GENERAL ORDER OH Final Result [facility] [address] [place] [address] * CT Abdomen Pelvis W Contrast (10/02/2025 11:23 AM STOCK FITTER) Anatomical Region Laterality Modality Body N/A Computed Tomogra phy 10/02/2025 11:3 2 AM STOCK FITTER Impressions 10/02/2025 11:32 AM STOCK FITTER 1. Small volume of pneumoperitoneum, presumably postoperative. 2. 6.7 cm fluid collection in the posterior midline pelvis, concerning for infection. 3. Other findings are unchanged/nonurgent. Electronically signed by: Dina Britton MD Narrative 10/02/2025 11:32 AM STOCK FITTER EXAMINATION: CT abdomen and pelvis with contrast [...] signed by: Dina Britton MD Joaquín FONTENOT IM CT PROCEDURES Final Result * eGFR (10/02/2025 9:54 AM STOCK FITTER) eGFR 75 >=60 mL/min/1. 73 m2 Comment: [...] last reviewed 2021. Blood 10/02/2025 9:54 AM STOCK FITTER 10/02/2025 9:56 AM STOCK FITTER us Sam Salas MD LAB BLOOD ORDERABLES Final Resul t [facility] [address] [place] [address] * (ABNORMAL) Differential, auto (10/02/2025 9:54 AM STOCK FITTER) Neutrophil abs 6.06 1.50 - 6.50 K/cumm Imm gran abs 0.03 0.00 - 0.10 K/cumm [facility] Lymphocyte abs 1.89 0.80 - 3.30 K/cumm [facility] Monocyte abs 0.78 0.20 - 0.80 K/cumm [facility] Eosinophil abs 0.52(H) 0.00 - 0.50 K/cumm [facility] Basophil abs 0.03 0.00 - 0.10 K/cumm [facility] Neutrophil pct 65.1 % [facility] Comment: Interpretive Data Percent cell count reference ranges are not reported, since discordance with absolute values may lead to misinterpretation of CBC data. Current Interpretive Data was last revised on 2018. Imm gran pct 0.3 % [facility] Comment: Interpretive Data Percent cell count reference ranges are not reported, since discordance with absolute values may lead to misinterpretation of CBC data. Current Interpretive Data was last revised on 2018. Lymphocyte pct 20.3 % [facility] Comment: Interpretive Data Percent cell count reference ranges are not reported, since discordance with absolute values may lead to misinterpretation of CBC data. Current Interpretive Data was last revised on 2018. Monocyte pct 8.4 % [facility] Comment: Interpretive Data Percent cell count reference ranges are not reported, since discordance with absolute values may lead to misinterpretation of CBC data. Current Interpretive Data was last revised on 2018. Eosinophil pct 5.6 % [facility] Comment: Interpretive Data Percent cell count reference ranges are not reported, since discordance with absolute values may lead to misinterpretation of CBC data. Current Interpretive Data was last revised on 2018. Basophil pct 0.3 % [facility] Comment: Interpretive Data Percent cell count reference ranges are not reported, since discordance with absolute values may lead to misinterpretation of CBC data. Current Interpretive Data was last revised on 2018. Blood 10/02/2025 9:54 AM STOCK FITTER 10/02/2025 9:56 AM STOCK FITTER us Sam Salas MD LAB BLOOD ORDERABLES Final Resul t [facility] [address] [facility] Department [place] [address] * (ABNORMAL) CBC with auto differential (10/02/2025 9:54 AM STOCK FITTER) WBC 9.31 3.80 - 9.90 K/cumm Hgb 11.4(L) 11.9 - 15.5 g/dL [facility] Hct 34.5(L) 35.6 - 45.5 % [facility] Plt 350 150 - 400 K/cumm [facility] MPV 9.3 9.1 - 12.3 fL [facility] RBC 4.48 3.90 - 5.20 M/cumm [facility] MCV 77.0(L) 81.3 - 96.4 fL [facility] MCH 25.4(L) 27.1 - 33.3 pg [facility] MCHC 33.0 32.3 - 35.7 g/dL [facility] RDW CV 14.6 11.1 - 14.9 % [facility] RDW SD 40.4 35.7 - 48.1 fL [facility] Blood Venous blood specimen / Unknown 10/02/2025 9:54 AM STOCK FITTER 10/02/2025 9:56 AM STOCK FITTER us Sam Salas MD LAB BLOOD ORDERABLES Final Resul t Performing Organization Address City/[facility]/ZIP Co de Phone Number [address] Department [place] [address] * (ABNORMAL) Lipase (10/02/2025 9:54 AM STOCK FITTER) Pathologist [facility] Lipase 200(H) 10 - 99 Units/L Blood Venous blood specimen / Unknown 10/02/2025 9:54 AM STOCK FITTER 10/02/2025 9:56 AM STOCK FITTER us Sam Salas MD LAB BLOOD ORDERABLES Final Resul t Performing Organization Address [facility] de Phone Number [facility] [address] [facility] [place] [address] * Comprehensive metabolic panel (10/02/2025 9:54 AM STOCK FITTER) [facility] Sodium 136 135 - 145 mmol/L Potassium, pl 3.4 3.3 - 4.9 mmol/L [facility] Comment:Slightly hemolyzed, potassium value may be falsely elevated. Suggest redraw and reanalysis. Chloride 102 97 - 110 mmol/L [facility] CO2 23 22 - 32 mmol/L [facility] Anion gap 11 2 - 15 mmol/L [facility] BUN 6 6 - 25 mg/dL [facility] Creatinine 0.99 0.60 - 1.10 mg/dL [facility] Glucose 109 70 - 199 mg/dL [facility] Comment: Interpretive Data Fasting glucose >/= [...] classification and Diagnosis of Diabetes Diabetes Care 2021; 46: S19-S40. Calcium 9.3 8.5 - 10.3 mg/dL [facility] Bilirubin, total 0.6 0.1 - 1.2 mg/dL [facility] Protein, pl 7.4 6.5 - 8.5 g/dL [facility] Albumin 3.5 3.5 - 5.0 g/dL [facility] Alk phos 82 40 - 130 Units/L [facility] ALT 25 7 - 45 Units/L [facility] AST 23 10 - 45 Units/L [facility] Blood 10/02/2025 9:54 AM STOCK FITTER 10/02/2025 9:56 AM STOCK FITTER us Sam Salas MD LAB BLOOD ORDERABLES Final Resul t Performing Organization Address City/[facility]/ZIP Co de Phone Number [facility] [address] [facility] Department [place] [address] * Hemoglobin A1c (05/03/2025 8:11 AM CDT) [facility] Hgb A1C 4.8 4.8 - 5.6 % [facility] - Comment: Prediabetes: 5.7 - 6.4 Diabetes: >6.4 Glycemic control for adults with diabetes: <7.0 Blood 05/03/2025 8:11 AM CDT 05/03/2025 Narrative [facility] - 05/04/2025 6:36 AM CDT Performed at: [address] [id number] Slasher Machine Operator: Bradley Mcgill PhD, Phone: [phone] us Jocelyn Mcclellan NP LAB BLOOD ORDERABLES Final Resu lt [facility] - 01 * Lipid panel (05/03/2025 8:11 AM CDT) Pathologist [facility] Cholesterol 134 100 - 199 mg/dL [facility] - 01 Triglycerides 68 0 - 149 mg/dL [facility] - 01 HDL Cholesterol 53 >39 mg/dL [facility] - 01 VLDL 14 5 - 40 mg/dL [facility] - 01 LDL, calculated 67 0 - 99 mg/dL [facility] - 01 Blood 05/03/2025 8:11 AM CDT 05/03/2025 Narrative [facility] - 05/04/2025 6:36 AM CDT Performed at: [address] [id number] Slasher Machine Operator: Bradley Mcgill PhD, Phone: [phone] us Jocelyn Mcclellan DIRECTOR BUSINESS DEVELOPMENT LAB BLOOD ORDERABLES Final Resu lt Performing Organization Address [facility] Co de Phone Number [facility] * Hepatitis C antibody Blood (04/01/2025 8:15 AM CDT) [facility] Hep C Ab Non Reactive Non Reactive [facility] - 01 Comment: HCV antibody alone does not differentiate between previously resolved infection and active infection. Equivocal and Reactive HCV antibody results should be followed up with an HCV RNA test to support the diagnosis of active HCV infection. Blood 04/01/2025 8:15 AM CDT 04/01/2025 Narrative [facility] - 04/02/2025 5:08 AM CDT Performed at: [address] [id number] Slasher Machine Operator: Bradley Mcgill PhD, Phone: [phone] us Demetria Alaniz MD LAB MICROBIOLOGY - GENERAL ORDERABLES Final Result Performing Organization Address City/[facility]/ZIP Co de Phone Number [facility] - * Albumin Creatinine Ratio, Urine (04/01/2025 8:15 AM CDT) [facility] Creatinine ur 138.2 Not Estab. mg/dL [facility] - 01 Microalbumin, ur 18.1 Not Estab. ug/mL [facility] - 01 Microalbumin/cre at ratio 13 0 - 29 mg/g creat [facility] - 01 Comment: Normal: 0 - 29 Moderately increased: 30 - 300 Severely increased: >300 Urine 04/01/2025 8:15 AM CDT 04/01/2025 Narrative [facility] - 04/02/2025 4:07 AM CDT Performed at: 01 - [facility] [id number] Slasher Machine Operator: Bradley Mcgill PhD, Phone: [phone] us Demetria Alaniz MD LAB URINE ORDERABLES Final Result [facility] - 01 from Last 3 Months or Most Recently Relevant to Health Maintenance Insurance [facility] CHOICE PLUS [facility] CHO[facility] PLUS Member Subscriber Plan / Payer (Ef fective 2018-Present) Name:Hector Borrero Relation to Subscriber:Self Name:Hector Borrero Payer ID:[id number] (NAIC) Type:[facility] HMO/PPO Address: [address] [phone] [facility] CHOICE PLUS Advance Directives For more information, please contact: [phone] * Full Code (Latest Code Status on File) Date Activated Date Inactivated Comments 12/27/2021 6:36 AM 12/27/2021 1:25 PM * Full Code Date Activated Date Inactivated Comments 09/14/2021 9:09 PM 09/15/2021 7:00 PM Care Teams Cook Jelly Relationship Specialty Start Date End Date Judd Davila MD [address] [facility] [address] [place] [address] PCP - General Family Medicine 05/31/25 Kaylee Pham MD Consulting Physician General Surgery 10/30/21 Brandon Diehl NP Nurse Practitioner General Surgery 10/30/21 Ruiz Castro MD Zhane VAZQUE[facility] [phone] [place] [address] Surgeon Colon and Rectal Surgery 11/22/21 Nina Alexander, CANDELARIO [address] [place] [address] Optometry 05/31/25
--- OUTSIDE RECORDS SUMMARY | 2025-10-03 13:08 | XMS_ITS | Encounter Summary ---
Author Organization [facility] Address [address] [place] [address] Care Team Providers Care Assistant Professor Of Communication Name Role Phone Sylvia Perez MD Primary Care Provider Josh Cervantes MD Unavailable Sylvia Perez MD Unavailable [phone] Bib Daniels MD Unavailable Stephanie Chavira MD Unavailable [phone] Kaylee Pham MD Unavailable Sylvia Perez MD Unavailable [phone] Sylvia Perez MD Unavailable [phone] Demetria Alaniz MD Primary Care Provider [phone] Encounter Details Date Type Department Care Team (Late st Contact Info) Description 10/12/2020 Lab Requisition [facility] [address] [facility] [place] [id number] Thomas Rios Jr., MD [address] [place] [address] Social History Tobacco Use Types Packs/Day Years Used Date Smoking Tobacco: Never Smokeless Tobacco: Never Alcohol Use Standard Drinks/Week Comments Yes 0 (1 standard drink = 0.6 oz pur e alcohol) occasionally Comments No Sex and Gender Information Value Date Recorded Sex Assigned at Female 10/27/2021 12:53 PM WELT MAKER Legal Sex Female 6:28 AM WELT MAKER Gender Identity Female 10/27/2021 12:53 PM WELT MAKER Sexual Orientation Not on file Occupation Industry [...] Comments DERMATOPATHOLOGY Routine 10/11/2020 12:0 0 AM WELT MAKER documented in this encounter Results * DERMATOPATHOLOGY (10/11/2020 12:00 AM WELT MAKER) Case Report Dermatopathology Report Case: [id number] Authorizing Provider: Thomas Rios Jr., MD Collected: 10/11/2020 12:00 AM Ordering Location: [facility] Lab Received: 10/12/2020 12:58 PM Pathologist: Ary Matias MD Specimens: A) - Skin, right ulnar dorsal hand, lesional B) - Skin, right ulnar dorsal hand, non-lesional 0 2:40 PM WELT MAKER DERMATOPATHOLOGY LABORATORY Final Diagnosis Specimen A. SKIN, right ulnar dorsal hand, lesional: DECREASE OF EPIDERMAL MELANOCYTES (L80) (see microscopic description and comment) Specimen B. SKIN, right ulnar dorsal hand, non-lesional: POST-INFLAMMATORY PIGMENT ALTERATION (L81.9) (see microscopic description and comment) 0 2:40 PM WELT MAKER DERMATOPATHOLOGY LABORATORY at [address] WELT MAKER Clinical History A-B: Rash, non-specific vs vitiligo vs post inflammatory hypopigmentation vs resolving eczema. . 0 2:40 PM [facility] DERMATOPATHOLOGY LABORATORY Gross Description Specimen A: Received is one formalin filled container labeled with the patient's name and designated right ulnar dorsal hand, lesional. The specimen consists of a punch biopsy measuring [id number], bisected. Jar 0. Specimen B: Received is one formalin filled container labeled with the patient's name and designated right ulnar dorsal hand, non-lesional. The specimen consists of a punch biopsy measuring [id number]., bisected. Jar 0. 0 2:40 PM [facility] DERMATOPATHOLOGY LABORATORY Microscopic Description Specimen A. SKIN, [...] are highlighted with immunohistochemical staining for MART-1/Melan-A. Ingomar-Damon stain highlights melanin pigment in the papillary dermis. Grocott's methenamine silver (GMS) stain fails to highlight fungal elements in the available sections. COMMENT Specimen A&B: Specimen A reveals a markedly decreased number of epidermal melanocytes relative to Specimen B. These histologic findings may be consistent with early vitiligo in the correct clinical setting. 0 2:40 PM [facility] DERMATOPATHOLOGY LABORATORY Disclaimer An external and internal positive and negative controls are appropriate for the histochemical, immunohistochemical and immunofluorescence stain(s) in this case (if any), except where stated explicitly. The performance characteristics of the stain(s) cited in this report were developed and its performance characteristic determined by the Dermatopathology Laboratory at [facility], directed by Dr. Jake Matias. These tests need not be, and therefore are not, approved by the [place] Food and Drug Administration. The tests are used for clinical purposes. Billing Codes Specimen Charges Stain Charges 47339 19846 1 1 54375 92603 52339 52580 58842 81589 1 1 1 1 1 1 0 2:40 PM WELT MAKER DERMATOPATHOLOGY LABORATORY Embedded Images 0 2:40 PM WELT MAKER DERMATOPATHOLOGY LABORATORY Pathology/Cytology TISSUE SPECIMEN FROM SKIN / Unknown 10/11/2020 10/12/2020 12:58 PM WELT MAKER Miscellaneous samples (specimen) TISSUE SPECIMEN FROM SKIN / Unknown 10/11/2020 10/12/2020 12:58 PM WELT MAKER Thomas Rios Jr., MD LAB - PATHOLOGY/CYTOLOG Y ORDERABLES Final Result DERMATOPATHOLOGY LABORATORY [facility] - Department of Dermatology [facility] Medicine [address] [place] [address], [address] [phone] documented in this encounter Visit Diagnoses Not on filedocumented in this encounter Additional Health Concerns Infection Onset Date Last Indicated Resolved Time MRSA 03/08/2010 03/08/2010 06/24/2022 8:09 AM CDT COVID-19 Under Investigation 05/10/2021 05/10/2021 05/10/2021 3:50 PM CDT MRSA Hx 06/24/2022 06/24/2022 documented as of this encounter Care Teams Assistant Professor Of Communication Relationship Specialty Start Date End Date Sylvia Perez MD PCP - General 03/06/10 05/08/23 [place] [address] [address] PCP - Attributed-[facility] Commercial 03/31/19 05/29/21 [place] [address] [place] [address] PCP - Attributed-[facility] Commercial 08/31/21 10/18/22 [place] [address] [place] [address] PCP - Attributed-[facility] Commercial 10/31/22 06/17/23 Demetria Alaniz MD [address] [facility] [address] [place] [address] PCP - General Family Medicine 05/09/23 Josh Cervantes MD [address] [facility] [address] [address] [place], [place] [id number] Obstetrics and Gynecology 10/25/14 Bib Daniels MD [address] [facility] [address] [place] [address] Neurologist Neurological Surgery 07/14/20 Stephanie Chavira MD [address] [facility] [address] [place], [place] [id number] Internal Medicine 02/06/21 Kaylee Pham MD [address] [place] [address] Surgery 02/06/21 documented as of this encounter
--- OUTSIDE RECORDS SUMMARY | 2025-10-03 13:08 | XMS_ITS ---
Author Organization [facility] Address [address] [facility] [place] [address] Care Team Providers Care Hookman Name Role Phone Josh Cervantes MD Unavailable [phone] Bib Daniels MD Unavailable Stephanie Chavira MD Unavailable [phone] Kaylee Pham MD Unavailable [phone] Demetria Alaniz MD Primary Care Provider [phone] Active Problems Problem Noted Date Diagnosed Date Rectal bleeding 11/22/2021 Gastroesophageal reflux disease 07/03/2021 Overview (12/03/2021): Added automatically from request for surgery [id number] History of diabetes mellitus 12/24/2020 Overview (02/06/2021): [...]
--- OUTSIDE RECORDS SUMMARY | 2025-10-03 13:08 | XMS_ITS ---
Author Organization [facility] Address [address] [place] [address] Care Team Providers Care Supervisor Contact Lens Name Role Phone Kaylee Pham MD Unavailable [phone] Brandon Diehl NP Unavailable [phone] Ruiz Castro MD Unavailable [phone] Judd Davila MD Primary Care Provid er [place] Pickering OD Unavailable [phone] Active Problems Problem Noted Date Diagnosed Date [...] 01/28/2025 Assessment & Plan (01/28/2025 2:39 PM EXPORT MANAGER): Recent onset of cough, chest discomfort, nasal congestion, and sore throat. Home COVID and flu tests negative. Redness in throat and ears noted on exam. Wheezing noted on right side. -Continue symptomatic treatment with [id number] medications. -Repeat home COVID test in a [...] 11/12/2023 Assessment & Plan (11/13/2023 7:34 AM EXPORT MANAGER): - Start hydroxyzine Type 2 diabetes mellitus with chronic kidney dis ease 03/31/2023 Assessment & Plan (05/31/2025 1:39 PM CDT): Stable, continue prescribed Mounjaro 12.5 mg subQ weekly Assessment & Plan (01/28/2025 2:42 PM EXPORT MANAGER): - Continue to optimize blood sugar - repeat labs today Assessment & Plan (08/31/2024 1:41 PM CDT): - Continue to optimize blood sugar - GFR decrease with last labs with weight management, plan to repeat labs - Include urine microalbumin at repeat Assessment & Plan (11/13/2023 7:33 AM EXPORT MANAGER): - Continue to optimize blood sugar JERMAN (generalized anxiety disorder) 03/31/2023 Assessment & Plan (01/28/2025 2:40 PM EXPORT MANAGER): - Chronic, stable - Continue Lexapro, wellbutrin, hydroxyzine - Will follow up with therapist Assessment & Plan (08/31/2024 2:56 PM CDT): - Chronic, stable - Continue Lexapro and hydroxyzine - Will follow up with therapist Assessment & Plan (11/13/2023 7:34 AM EXPORT MANAGER): - Chronic, not well controlled - [...] (07/03/2021): Added automatically from request for surgery [id number] Assessment & Plan (01/28/2025 1:59 PM EXPORT MANAGER): Chronic, stable Continue current medication Postsurgical malabsorption 12/24/2020 Assessment & Plan (12/24/2020 9:57 PM EXPORT MANAGER): Labs. Iron deficiency 12/24/2020 Bariatric surgery status 12/24/2020 Assessment & Plan (03/03/2023 8:19 AM CDT): Bariatric surgery labs ordered for possible vitamin deficiencies in setting of intestinal malabsorption. Assessment & Plan (12/24/2020 9:56 PM EXPORT MANAGER): Routine labs to evaluate for vitamin [...] Asked to try to track consistently with [employer] daniel for at least 1 week to help identify calorie/carb/protein intake. Assessment & Plan (01/13/2022 12:52 PM EXPORT MANAGER): Reviewed calorie restriction based on BMR [...] phone. Assessment & Plan (01/19/2021 2:01 PM EXPORT MANAGER): Reviewed calorie restriction based on BMR as previously detailed. Reviewed recommendation/goal of >/= 150 minutes/week moderate-intensity aerobic exercise. Assessment & Plan (12/24/2020 9:52 PM EXPORT MANAGER): Discussed that significant health benefits/risk reduction [...] frequently. Assessment & Plan (12/24/2020 9:59 PM EXPORT MANAGER): Discussed comorbidities associated with sleep apnea, [...] Chavira Assessment & Plan (11/13/2023 7:32 AM EXPORT MANAGER): - Chronic, improving, not at goal [...] month. Assessment & Plan (01/13/2022 12:58 PM EXPORT MANAGER): Obesity is improving with treatment. Diet [...] topiramate. Assessment & Plan (01/19/2021 2:01 PM EXPORT MANAGER): Obesity is unchanged. Diet interventions: as noted. Regular aerobic exercise program discussed. Pharmacotherapy as ordered. Will try increasing PM topiramate to help with night eating. Discussed risks, benefits, alternatives, potential side effects. Assessment & Plan (12/24/2020 9:58 PM EXPORT MANAGER): Obesity is worsening. General weight loss/lifestyle modification strategies discussed (elicit support from others; identify saboteurs; non-food rewards, etc). Diet interventions: as noted. Informal exercise measures discussed, e.g. taking stairs instead of elevator. Regular aerobic exercise program discussed. More detailed recommendations pending review of labs, food record. Migraine headache 01/22/2014 Assessment & Plan (01/28/2025 2:40 PM EXPORT MANAGER): - Chronic, stable - Followed by Neurology Chronic migraines improved since removal of IUD. Currently taking Nurtec and Topiramate. -Continue current treatment. -Notify neurologist of self-initiated decrease in Topiramate dose. Assessment & Plan (11/13/2023 7:32 AM EXPORT MANAGER): - Chronic, stable - Followed by Neurology - Continue current management Assessment & Plan (03/31/2023 12:20 PM CDT): - continue management per Neurology Allergic rhinitis 04/07/2013 Overview (07/18/2021): 04/06/13: SPT positive to T/G/RW/M/D/C/HDM/CR Asthma 04/07/2013 Assessment & Plan (01/28/2025 2:39 PM EXPORT MANAGER): Chronic, stable Continue albuterol prn Anemia 03/16/2013 Type 2 diabetes mellitus wit hout complication, without long-term current use of insulin 03/16/2013 Overview (05/08/2021): In remission since bariatric surgery. Didn't tolerate metformin. Assessment & Plan (01/28/2025 2:43 PM EXPORT MANAGER): Chronic, well controlled - Continue Mounjaro Discussed importance of routine screening including foot exam and eye exam as indicated Assessment & Plan (08/31/2024 1:39 PM CDT): Chronic, well controlled - Continue Mounjaro Assessment & Plan (11/13/2023 7:32 AM EXPORT MANAGER): - Chronic, stable - Tolerating current [...] RA. Assessment & Plan (01/13/2022 12:58 PM EXPORT MANAGER): Reviewed interim labs. Continue low-carb (<150 [...] ordered. Assessment & Plan (11/13/2023 7:33 AM EXPORT MANAGER): - Chronic, stable - continue current [...] 5.6. Assessment & Plan (01/19/2021 2:01 PM EXPORT MANAGER): Reviewed labs with her. Continue low-carb (<150 g/day), low-glycemic diet. Consider GLP-1 RA Assessment & Plan (12/24/2020 9:52 PM EXPORT MANAGER): Labs. Discussed insulin resistance including effect on weight and risk for progression to diabetes. Recommended low-carb, low-glycemic diet; choose whole grains and avoid more highly processed carbohydrates. Discussed potential benefits of this w/r/t gut microbiome. Referred to ADA and [employer] websites for additional information on topics including [...]
--- OUTSIDE RECORDS SUMMARY | 2025-10-03 13:08 | XMS_ITS | Encounter Summary ---
Author Organization [facility] Address [address] [place] [address] Phone Care Team Providers Care Industrial Truck Mechanic Name Role Phone Kaylee Pham MD Unavailable [phone] Brandon Diehl NP Unavailable [phone] Ruiz Castro MD Unavailable Demetria Alaniz MD Primary Care Provider [phone] No, Physician Primary Care Provider Jackie Ralph DO Primary Care Provid er Judd Davila MD Primary Care Provid er Nina Alexander OD Unavailable [phone] Encounter Details Date Type Department Care Team (Late st Contact Info) Description 09/16/2021 Documentation [facility] ([facility]) - [facility] Medicine Minimally Invasive Surgery [facility] Advanced Medicine 12th Floor, [place] [address] Jonatan Darden Social History Tobacco [...] on file Legal Sex Female 8:37 PM ROLLER OPERATOR Gender Identity Female 08/07/2021 9:39 AM CDT Sexual Orientation Straight 08/07/2021 9: 39 AM CDT documented as of this encounter Plan of Treatment Not on file documented as of this encounter Visit Diagnoses Not on filedocumented in this encounter Care Teams Industrial Truck Mechanic Relationship Specialty Start Date End Date Demetria Alaniz MD [facility] [facility] [address] [place] [address] PCP - General Family Medicine 03/26/23 01/27/25 No, Physician PCP - General 01/28/25 05/01/25 Jackie Ralph DO [address] [facility] [address] [place] [address] PCP - General Family Medicine 05/02/25 05/30/25 Judd Davila MD [address] [facility] [address] [place] [address] PCP - General Family Medicine 05/31/25 Kaylee Pham MD Consulting Physician General Surgery 10/30/21 Brandon Diehl, JAS Nurse Practitioner General Surgery 10/30/21 Ruiz Castro MD [address] [facility] [phone] [place] [address] Surgeon Colon and Rectal Surgery 11/22/21 Nina Alexander, CANDELARIO [address] [place] [address] Optometry 05/31/25 documented as of this encounter
[2025-10-03 13:29] LABS: Hematocrit 32.5 % (37.0-47.0); Hemoglobin 10.4 g/dL (12.0-15.0); Immature Granulocyte Percent A 0.6 % (0-0.5); Lymphocytes Absolute Auto 2.36 K/mm3 (0.9-3.2); Mean Corpuscular HGB Conc 32.0 g/dl (32-36); Mean Corpuscular Hemoglobin 25.2 pg (26-34); Mean Corpuscular Volume 78.9 fl (80-100); Nucleated Red Blood Cells Absolute Auto 0.000 K/mm3 (0.0-0.012); Nucleated Red Blood Cells Perc 0.0 % (0.0-0.2); Platelet Count Result 408 k/mm3 (150-375); Red Blood Count 4.12 M/mm3 (4.2-5.4); White Blood Count 9.6 K/mm3 (4.5-10.0)
[2025-10-03 13:42] LABS: Alanine Aminotransferase 26 U/L (6-35); Albumin Level 3.8 g/dL (3.5-5.1); Alkaline Phosphatase 78 U/L (38-126); Anion Gap 10 mmol/L (4-12); Aspartate Amino Transferase 29 U/L (14-36); Bilirubin,Total 0.6 mg/dL (0.2-1.3); Blood Urea Nitrogen 7 mg/dL (7-17); Calcium 9.1 mg/dL (8.4-10.2); Carbon Dioxide 24 mmol/L (22-30); Chloride 104 mmol/L (98-107); Estimated CRCL calculation 62 ml/min; Estimated Glomerular Filt Rate 56; Glucose 98 mg/dL (65-110); Lipase 999 U/L (23-300); Potassium 3.4 mmol/L (3.4-5.0); Sodium 138 mmol/L (137-145); Total Protein 7.7 g/dL (6.3-8.2)
--- OUTSIDE RECORDS SUMMARY | 2025-10-03 14:09 | XMS_ITS | Clinical Summary ---
Author Organization [facility] Address [address] [place] [address] Care Team Providers Care Solar Sales Estimator Name Role Phone Kaylee Pham MD Unavailable [phone] Brandon Diehl NP Unavailable [phone] Ruiz Castro MD Unavailable [phone] Judd Davila MD Primary Care Provid er Nina Alexander OD Unavailable [phone] Allergies Active Allergy Reactions Criticality Noted Date [...] 01/28/2025 Assessment & Plan (01/28/2025 2:39 PM DISPLAY TRIMMER): Recent onset of cough, chest discomfort, nasal congestion, and sore throat. Home COVID and flu tests negative. Redness in throat and ears noted on exam. Wheezing noted on right side. -Continue symptomatic treatment with arok-fem-yufoure medications. -Repeat home COVID test in a [...] 11/12/2023 Assessment & Plan (11/13/2023 7:34 AM DISPLAY TRIMMER): - Start hydroxyzine Type 2 diabetes mellitus with chronic kidney dis ease 03/31/2023 Assessment & Plan (05/31/2025 1:39 PM CDT): Stable, continue prescribed Mounjaro 12.5 mg subQ weekly Assessment & Plan (01/28/2025 2:42 PM DISPLAY TRIMMER): - Continue to optimize blood sugar - repeat labs today Assessment & Plan (08/31/2024 1:41 PM CDT): - Continue to optimize blood sugar - GFR decrease with last labs with weight management, plan to repeat labs - Include urine microalbumin at repeat Assessment & Plan (11/13/2023 7:33 AM DISPLAY TRIMMER): - Continue to optimize blood sugar JERMAN (generalized anxiety disorder) 03/31/2023 Assessment & Plan (01/28/2025 2:40 PM DISPLAY TRIMMER): - Chronic, stable - Continue Lexapro, wellbutrin, hydroxyzine - Will follow up with therapist Assessment & Plan (08/31/2024 2:56 PM CDT): - Chronic, stable - Continue Lexapro and hydroxyzine - Will follow up with therapist Assessment & Plan (11/13/2023 7:34 AM DISPLAY TRIMMER): - Chronic, not well controlled - Sleep [...] (07/03/2021): Added automatically from request for surgery [id number] Assessment & Plan (01/28/2025 1:59 PM DISPLAY TRIMMER): Chronic, stable Continue current medication Postsurgical malabsorption 12/24/2020 Assessment & Plan (12/24/2020 9:57 PM DISPLAY TRIMMER): Labs. Iron deficiency 12/24/2020 Bariatric surgery status 12/24/2020 Assessment & Plan (03/03/2023 8:19 AM CDT): Bariatric surgery labs ordered for possible vitamin deficiencies in setting of intestinal malabsorption. Assessment & Plan (12/24/2020 9:56 PM DISPLAY TRIMMER): Routine labs to evaluate for vitamin deficiencies [...] Asked to try to track consistently with [employer] daniel for at least 1 week to help identify calorie/carb/protein intake. Assessment & Plan (01/13/2022 12:52 PM DISPLAY TRIMMER): Reviewed calorie restriction based on BMR as [...] phone. Assessment & Plan (01/19/2021 2:01 PM DISPLAY TRIMMER): Reviewed calorie restriction based on BMR as previously detailed. Reviewed recommendation/goal of >/= 150 minutes/week moderate-intensity aerobic exercise. Assessment & Plan (12/24/2020 9:52 PM DISPLAY TRIMMER): Discussed that significant health benefits/risk reduction may [...] frequently. Assessment & Plan (12/24/2020 9:59 PM DISPLAY TRIMMER): Discussed comorbidities associated with sleep apnea, including [...] Chavira Assessment & Plan (11/13/2023 7:32 AM DISPLAY TRIMMER): - Chronic, improving, not at goal - [...] month. Assessment & Plan (01/13/2022 12:58 PM DISPLAY TRIMMER): Obesity is improving with treatment. Diet interventions: [...] topiramate. Assessment & Plan (01/19/2021 2:01 PM DISPLAY TRIMMER): Obesity is unchanged. Diet interventions: as noted. Regular aerobic exercise program discussed. Pharmacotherapy as ordered. Will try increasing PM topiramate to help with night eating. Discussed risks, benefits, alternatives, potential side effects. Assessment & Plan (12/24/2020 9:58 PM DISPLAY TRIMMER): Obesity is worsening. General weight loss/lifestyle modification strategies discussed (elicit support from others; identify saboteurs; non-food rewards, etc). Diet interventions: as noted. Informal exercise measures discussed, e.g. taking stairs instead of elevator. Regular aerobic exercise program discussed. More detailed recommendations pending review of labs, food record. Migraine headache 01/22/2014 Assessment & Plan (01/28/2025 2:40 PM DISPLAY TRIMMER): - Chronic, stable - Followed by Neurology Chronic migraines improved since removal of IUD. Currently taking Nurtec and Topiramate. -Continue current treatment. -Notify neurologist of self-initiated decrease in Topiramate dose. Assessment & Plan (11/13/2023 7:32 AM DISPLAY TRIMMER): - Chronic, stable - Followed by Neurology - Continue current management Assessment & Plan (03/31/2023 12:20 PM CDT): - continue management per Neurology Allergic rhinitis 04/07/2013 Overview (07/18/2021): 04/06/13: SPT positive to T/G/RW/M/D/C/HDM/CR Asthma 04/07/2013 Assessment & Plan (01/28/2025 2:39 PM DISPLAY TRIMMER): Chronic, stable Continue albuterol prn Anemia 03/16/2013 Type 2 diabetes mellitus wit hout complication, without long-term current use of insulin 03/16/2013 Overview (05/08/2021): In remission since bariatric surgery. Didn't tolerate metformin. Assessment & Plan (01/28/2025 2:43 PM DISPLAY TRIMMER): Chronic, well controlled - Continue Mounjaro Discussed importance of routine screening including foot exam and eye exam as indicated Assessment & Plan (08/31/2024 1:39 PM CDT): Chronic, well controlled - Continue Mounjaro Assessment & Plan (11/13/2023 7:32 AM DISPLAY TRIMMER): - Chronic, stable - Tolerating current dose [...] RA. Assessment & Plan (01/13/2022 12:58 PM DISPLAY TRIMMER): Reviewed interim labs. Continue low-carb (<150 g/day), [...] ordered. Assessment & Plan (11/13/2023 7:33 AM DISPLAY TRIMMER): - Chronic, stable - continue current regimen [...] 5.6. Assessment & Plan (01/19/2021 2:01 PM DISPLAY TRIMMER): Reviewed labs with her. Continue low-carb (<150 g/day), low-glycemic diet. Consider GLP-1 RA Assessment & Plan (12/24/2020 9:52 PM DISPLAY TRIMMER): Labs. Discussed insulin resistance including effect on weight and risk for progression to diabetes. Recommended low-carb, low-glycemic diet; choose whole grains and avoid more highly processed carbohydrates. Discussed potential benefits of this w/r/t gut microbiome. Referred to ADA and [employer] websites for additional information on topics including [...] Department Care Team Description 10/02/2025 9:45 AM DISPLAY TRIMMER - 10/02/2025 3:03 PM DISPLAY TRIMMER Emergency [facility] Emergency Department [address] [place] [id number] Generalized abdominal pain (Primary Dx); Drug-induced constipation Discharge Disposition: Left Against Medical Advice 08/12/2025 3:30 PM CDT Telemedicine [facility] Medicine Metabolic Weight Management [address] [place] [address] [address] [place] [address] Jocelyn Mcclellan NP Weight loss counseling, encounter for (Primary Dx); Type 2 diabetes mellitus with stage 3a chronic kidney disease, without long-term current use of insulin (HCC); History of gastric bypass; Class 3 severe obesity with serious comorbidity in adult, unspecified BMI, unspecified obesity type 07/24/2025 6:26 AM CDT - 07/24/2025 9:19 AM CDT Emergency [facility] Emergency Department [address] [place] [id number] Calderon Freeman MD Other migraine without status [...] Influenza, Unspecified 05/31/2025(Deferr ed: Not available from desulphuring operator) Pfizer SARS-CoV-2 Monovalent Vaccination (12+ Yrs) PURPLE [...] Anemia Mother Liliam Adair Arthritis Mother Liliam [place] Hypertension Mother Liliam Adair Heart attack Paternal Grandfather Anish Adair Cancer Paternal Grandmother Julissa Berriosdridge Colon cancer Paternal Grandmother Jluissa Echevarriaidge Armida gnant Neoplasm, Colon - (Added [...] on file Legal Sex Female 8:37 PM DISPLAY TRIMMER Gender Identity Female 08/07/2021 9:39 AM CDT Sexual Orientation Straight 08/07/2021 9: 39 AM CDT Last Filed Vital Signs Vital Sign Reading Time Taken Comments Blood Pressure 108/72 10/02/2025 3:01 PM DISPLAY TRIMMER Pulse 82 10/02/2025 3:01 PM DISPLAY TRIMMER Temperature 36.9 C (98.5 F) 10/02/2025 9:41 AM DISPLAY TRIMMER Respiratory Rate 16 10/02/2025 3:01 PM DISPLAY TRIMMER Oxygen Saturation 99% 10/02/2025 3:01 PM DISPLAY TRIMMER Inhaled Oxygen Concentration - - Weight 79.4 kg (175 lb) 10/02/2025 9:41 AM DISPLAY TRIMMER Height 172.7 cm (5' 8) 10/02/2025 9:41 AM DISPLAY TRIMMER Body Mass Index 26.61 10/02/2025 9:41 AM DISPLAY TRIMMER Plan of Treatment Health Maintenance Due Date [...] MICROSCOPIC AND CULTURE STAT 10/02/2025 11:[address] ABDOMEN PELVIS W CONTRAST ED 10/02/2025 11:23 AM DISPLAY TRIMMER EGFR STAT 10/02/2025 9:54 AM DISPLAY TRIMMER DIFFERENTIAL AUTO STAT 10/02/2025 9:5 4 AM DISPLAY TRIMMER LIPASE STAT 10/02/2025 9:54 AM DISPLAY TRIMMER COMPREHENSIVE METABOLIC PANEL STAT 10/02/2025 9:54 AM DISPLAY TRIMMER CBC WITH AUTO DIFFERENTIAL STAT 10/02/2025 9:54 AM DISPLAY TRIMMER HEMOGLOBIN A1C Routine 05/03/2025 8:11 AM CDT [...] microscopic and culture Urine (10/02/2025 11:59 AM DISPLAY TRIMMER) Color, ur Yellow Yellow Clarity, ur Clear Clear [facility] Specific gravity, ur >1.030(H) 1.003 - 1.030 [facility] pH, urine 6.5 [facility] Comment: Interpretive Data U rine pH is affected by diet, medications, systemic acid-base disturbances, and renal tubular function. pH may affect urinary stone formation. For example, urine pH below 6.0 may help reduce the tendency for calcium phosphate stones and pH greater than 6.0 may reduce the tendency for uric acid stone formation. Source: [facility] [employer] Current Interpretive Data was last revised on 2017 Protein, ur ql Trace Negative [facility] Glucose, ur ql Negative Negative [facility] Ketones, ur Negative Negative [facility] Bilirubin, ur Negative Negative [facility] Blood, ur Negative Negative [facility] Urobilinogen, ur 2.0(A) <2.0 mg/dL [facility] Nitrite, ur Negative Negative [facility] Leukocyte esterase, ur Negative Negative [facility] UA reflex comment Reflex conditions for microscopic UA and culture not met. [facility] Urine 10/02/2025 11:5 9 AM DISPLAY TRIMMER 10/02/2025 12:01 PM DISPLAY TRIMMER us Sam Salas MD LAB MICROBIOLOGY - GENERAL ORDER [place] Final Result [facility] [address] [place] [address] * CT Abdomen Pelvis W Contrast (10/02/2025 11:23 AM DISPLAY TRIMMER) Anatomical Region Laterality Modality Body N/A Computed Tomogra phy 10/02/2025 11:3 2 AM DISPLAY TRIMMER Impressions 10/02/2025 11:32 AM DISPLAY TRIMMER 1. Small volume of pneumoperitoneum, presumably postoperative. 2. 6.7 cm fluid collection in the posterior midline pelvis, concerning for infection. 3. Other findings are unchanged/nonurgent. Electronically signed by: Dina Britton MD Narrative 10/02/2025 11:32 AM DISPLAY TRIMMER EXAMINATION: CT abdomen and pelvis with contrast [...] Final Result * eGFR (10/02/2025 9:54 AM DISPLAY TRIMMER) eGFR 75 >=60 mL/min/1. 73 m2 Comment: [...] last reviewed 2021. Blood 10/02/2025 9:54 AM DISPLAY TRIMMER 10/02/2025 9:56 AM DISPLAY TRIMMER us Sam Salas MD LAB BLOOD ORDERABLES Final Resul t [facility] [address] [place] [address] * (ABNORMAL) Differential, auto (10/02/2025 9:54 AM DISPLAY TRIMMER) Neutrophil abs 6.06 1.50 - 6.50 K/cumm Imm gran abs 0.03 0.00 - 0.10 K/cumm [facility] Lymphocyte abs 1.89 0.80 - 3.30 K/cumm [facility] Monocyte abs 0.78 0.20 - 0.80 K/cumm [facility] Eosinophil abs 0.52(H) 0.00 - 0.50 K/cumm [facility] Basophil abs 0.03 0.00 - 0.10 K/cumm [facility] Neutrophil pct 65.1 % [facility] Comment: Interpretive Data Percent cell count reference ranges are not reported, since discordance with absolute values may lead to misinterpretation of CBC data. Current Interpretive Data was last revised on 2018. Imm gran pct 0.3 % [facility] Comment: Interpretive Data Percent cell count reference ranges are not reported, since discordance with absolute values may lead to misinterpretation of CBC data. Current Interpretive Data was last revised on 2018. Lymphocyte pct 20.3 % [facility] Comment: Interpretive Data Percent cell count reference ranges are not reported, since discordance with absolute values may lead to misinterpretation of CBC data. Current Interpretive Data was last revised on 2018. Monocyte pct 8.4 % [facility] Comment: Interpretive Data Percent cell [...] revised on 2018. Basophil pct 0.3 % [facility] Comment: Interpretive Data Percent cell count reference ranges are not reported, since discordance with absolute values may lead to misinterpretation of CBC data. Current Interpretive Data was last revised on 2018. Blood 10/02/2025 9:54 AM DISPLAY TRIMMER 10/02/2025 9:56 AM DISPLAY TRIMMER us Sam Salas MD LAB BLOOD ORDERABLES Final Resul t [facility] [address] [facility] [place] [address] * (ABNORMAL) CBC with auto differential (10/02/2025 9:54 AM DISPLAY TRIMMER) WBC 9.31 3.80 - 9.90 K/cumm Hgb 11.4(L) 11.9 - 15.5 g/dL [facility] Hct 34.5(L) 35.6 - 45.5 % [facility] Plt 350 150 - 400 K/cumm [facility] MPV 9.3 9.1 - 12.3 fL [facility] RBC 4.48 3.90 - 5.20 M/cumm [facility] MCV 77.0(L) 81.3 - 96.4 fL [facility] MCH 25.4(L) 27.1 - 33.3 pg [facility] MCHC 33.0 32.3 - 35.7 g/dL [facility] RDW CV 14.6 11.1 - 14.9 % [facility] RDW SD 40.4 35.7 - 48.1 fL [facility] Blood Venous blood specimen / Unknown 10/02/2025 9:54 AM DISPLAY TRIMMER 10/02/2025 9:56 AM DISPLAY TRIMMER us Sam Salas MD LAB BLOOD ORDERABLES Final Resul t Performing Organization Address City/[facility]/ZIP Co de Phone Number [address] [place] [address] * (ABNORMAL) Lipase (10/02/2025 9:54 AM DISPLAY TRIMMER) Pathologist [facility] Lipase 200(H) 10 - 99 Units/L Blood Venous blood specimen / Unknown 10/02/2025 9:54 AM DISPLAY TRIMMER 10/02/2025 9:56 AM DISPLAY TRIMMER us Sam Salas MD LAB BLOOD ORDERABLES Final Resul t Performing Organization Address [facility] de Phone Number [facility] [address] [facility] [place] [address] * Comprehensive metabolic panel (10/02/2025 9:54 AM DISPLAY TRIMMER) [facility] Sodium 136 135 - 145 mmol/L Potassium, pl 3.4 3.3 - 4.9 mmol/L [facility] Comment:Slightly hemolyzed, potassium value may be falsely elevated. Suggest redraw and reanalysis. Chloride 102 97 - 110 mmol/L [facility] CO2 23 22 - 32 mmol/L [facility] Anion gap 11 2 - 15 mmol/L [facility] BUN 6 6 - 25 mg/dL [facility] Creatinine 0.99 0.60 - 1.10 mg/dL [facility] Glucose 109 70 - 199 mg/dL [facility] Comment: Interpretive Data Fasting glucose [...] Units/L [facility] Blood 10/02/2025 9:54 AM DISPLAY TRIMMER 10/02/2025 9:56 AM DISPLAY TRIMMER us Sam Salas MD LAB BLOOD ORDERABLES Final Resul t Performing Organization Address City/[facility]/ZIP Co de Phone Number [facility] [address] [facility] [place] [address] * Hemoglobin A1c (05/03/2025 8:11 AM CDT) [facility] Hgb A1C 4.8 4.8 - 5.6 % [facility] - Comment: Prediabetes: 5.7 - 6.4 Diabetes: >6.4 Glycemic control for adults with diabetes: <7.0 Blood 05/03/2025 8:11 AM CDT 05/03/2025 Narrative [facility] - 05/04/2025 6:36 AM CDT Performed at: [address] [id number] Sewing Demonstrator: Bradley Mcgill PhD, Phone: [phone] us Jocelyn Mcclellan NP LAB BLOOD ORDERABLES [facility] - 01 * Lipid panel (05/03/2025 8:11 AM CDT) Pathologist [facility] Cholesterol 134 100 - 199 mg/dL [facility] - 01 Triglycerides 68 0 - 149 mg/dL [facility] - 01 HDL Cholesterol 53 >39 mg/dL [facility] - 01 VLDL 14 5 - 40 mg/dL [facility] - 01 LDL, calculated 67 0 - 99 mg/dL [facility] - 01 Blood 05/03/2025 8:11 AM CDT 05/03/2025 Narrative [facility] - 05/04/2025 6:36 AM CDT Performed at: [address] [id number] Sewing Demonstrator: Bradley Mcgill PhD, Phone: [phone] us Jocelyn Mcclellan CAR PAINTER LAB BLOOD ORDERABLES Final Resu lt Performing Organization Address [facility] Co de Phone Number [facility] * Hepatitis C antibody Blood (04/01/2025 8:15 AM CDT) [facility] Hep C Ab Non Reactive Non Reactive [facility] - 01 Comment: HCV antibody alone does not differentiate between previously resolved infection and active infection. Equivocal and Reactive HCV antibody results should be followed up with an HCV RNA test to support the diagnosis of active HCV infection. Blood 04/01/2025 8:15 AM CDT 04/01/2025 Narrative [facility] - 04/02/2025 5:08 AM CDT Performed at: [address] [id number] Sewing Demonstrator: Bradley Mcgill PhD, Phone: [phone] us Demetria Alaniz MD LAB MICROBIOLOGY - GENERAL ORDERABLES Final Result Performing Organization Address City/[facility]/ZIP Co de Phone Number [facility] - * Albumin Creatinine Ratio, Urine (04/01/2025 8:15 AM CDT) [facility] Creatinine ur 138.2 Not Estab. mg/dL [facility] - 01 Microalbumin, ur 18.1 Not Estab. ug/mL [facility] - 01 Microalbumin/cre at ratio 13 0 - 29 mg/g creat [facility] - 01 Comment: Normal: 0 - 29 Moderately increased: 30 - 300 Severely increased: >300 Urine 04/01/2025 8:15 AM CDT 04/01/2025 Narrative [facility] - 04/02/2025 4:07 AM CDT Performed at: 01 - [facility] [id number] Sewing Demonstrator: Bradley Mcgill PhD, Phone: [phone] us Demetria Alaniz MD LAB URINE ORDERABLES Final Result [facility] - 01 from Last 3 Months or Most Recently Relevant to Health Maintenance Insurance [facility] [address] [facility]O Address: [address] [id number] [facility] [employer] H[facility]/PPO Address: [place] [address] Advance Directives For more information, please contact: [phone] * Full Code (Latest Code Status on File) Date Activated Date Inactivated Comments 12/27/2021 6:36 AM 12/27/2021 1:25 PM * Full Code Date Activated Date Inactivated Comments 09/14/2021 9:09 PM 09/15/2021 7:00 PM Care Teams Solar Sales Estimator Relationship Specialty Start Date End Date Judd Davila MD [address] [facility] [address] [place] [address] PCP - General Family Medicine 05/31/25 Kaylee Pham MD Consulting Physician General Surgery 10/30/21 Brandon Diehl NP Nurse Practitioner General Surgery 10/30/21 Ruiz Castro MD Zhane [facility] [phone] [place] [address] Surgeon Colon and Rectal Surgery 11/22/21 Nina Alexander, CANDELARIO [address] [place] [address] Optometry 05/31/25
--- OUTSIDE RECORDS SUMMARY | 2025-10-03 14:09 | XMS_ITS | Encounter Summary ---
Author Organization [facility] Address [address] [facility] [place] [address] Care Team Providers Care Computer Information Systems Professor Name Role Phone Sylvia Perez MD Primary Care Provider Josh Cervantes MD Unavailable Sylvia Perez MD Unavailable [phone] Bib Daniels MD Unavailable [phone] Stephanie Chavira MD Unavailable Kaylee Pham MD Unavailable Sylvia Perez MD Unavailable [phone] Sylvia Perez MD Unavailable [phone] Demetria Alaniz MD Primary Care Provider [phone] Encounter Details Date Type Department Care Team (Late st Contact Info) Description 10/12/2020 Lab Requisition [facility] [address] [facility], [place] [address] Thomas Rios Jr., MD [address] [facility] [address] [place] [address] Social History Tobacco Use Types Packs/Day Years Used Date Smoking Tobacco: Never Smokeless Tobacco: Never Alcohol Use Standard Drinks/Week Comments Yes 0 (1 standard drink = 0.6 oz pur e alcohol) occasionally Comments No Sex and Gender Information Value Date Recorded Sex Assigned at Female 10/27/2021 12:53 PM CATERING CHEF Legal Sex Female 6:28 AM CATERING CHEF Gender Identity Female 10/27/2021 12:53 PM CATERING CHEF Sexual Orientation Not on file Occupation Industry [...] Comments DERMATOPATHOLOGY Routine 10/11/2020 12:0 0 AM CATERING CHEF documented in this encounter Results * DERMATOPATHOLOGY (10/11/2020 12:00 AM CATERING CHEF) Case Report Dermatopathology Report Case: [id number] Authorizing Provider: Thomas Rios Jr., MD Collected: 10/11/2020 12:00 AM Ordering Location: [facility] Received: 10/12/2020 12:58 PM Pathologist: Ary Matias MD Specimens: A) - Skin, right ulnar dorsal hand, lesional B) - Skin, right ulnar dorsal hand, non-lesional 0 2:40 PM CATERING CHEF DERMATOPATHOLOGY LABORATORY Final Diagnosis Specimen A. SKIN, right ulnar dorsal hand, lesional: DECREASE OF EPIDERMAL MELANOCYTES (L80) (see microscopic description and comment) Specimen B. SKIN, right ulnar dorsal hand, non-lesional: POST-INFLAMMATORY PIGMENT ALTERATION (L81.9) (see microscopic description and comment) 0 2:40 PM CATERING CHEF DERMATOPATHOLOGY LABORATORY at 1440 CATERING CHEF Clinical History A-B: Rash, non-specific vs vitiligo vs post inflammatory hypopigmentation vs resolving eczema. . 0 2:40 PM [facility] DERMATOPATHOLOGY LABORATORY Gross Description Specimen A: Received is one formalin filled container labeled with the patient's name and designated right ulnar dorsal hand, lesional. The specimen consists of a punch biopsy measuring [id number], bisected. Jar 0. Specimen B: Received is one formalin filled container labeled with the patient's name and designated right ulnar dorsal hand, non-lesional. The specimen consists of a punch biopsy measuring [id number]., bisected. Jar 0. 0 2:40 PM [facility] DERMATOPATHOLOGY LABORATORY Microscopic Description Specimen A. SKIN, [...] are highlighted with immunohistochemical staining for MART-1/Melan-A. Harvard-Damon stain highlights melanin pigment in the papillary dermis. Grocott's methenamine silver (GMS) stain fails to highlight fungal elements in the available sections. COMMENT Specimen A&B: Specimen A reveals a markedly decreased number of epidermal melanocytes relative to Specimen B. These histologic findings may be consistent with early vitiligo in the correct clinical setting. 0 2:40 PM [facility] DERMATOPATHOLOGY LABORATORY Disclaimer An external and internal positive and negative controls are appropriate for the histochemical, immunohistochemical and immunofluorescence stain(s) in this case (if any), except where stated explicitly. The performance characteristics of the stain(s) cited in this report were developed and its performance characteristic determined by the Dermatopathology Laboratory at [facility], directed by Dr. Jake Matias. These tests need not be, and therefore are not, approved by the [place] Food and Drug Administration. The tests are used for clinical purposes. Billing Codes Specimen Charges Stain Charges 06241 65823 1 1 60958 42846 78507 77994 52265 47010 1 1 1 1 1 1 0 2:40 PM CATERING CHEF DERMATOPATHOLOGY LABORATORY Embedded Images 0 2:40 PM CATERING CHEF DERMATOPATHOLOGY LABORATORY Pathology/Cytology TISSUE SPECIMEN FROM SKIN / Unknown 10/11/2020 10/12/2020 12:58 PM CATERING CHEF Miscellaneous samples (specimen) TISSUE SPECIMEN FROM SKIN / Unknown 10/11/2020 10/12/2020 12:58 PM CATERING CHEF Thomas Rios Jr., MD LAB - PATHOLOGY/CYTOLOG Y ORDERABLES Final Result DERMATOPATHOLOGY LABORATORY [facility] - Department of Dermatology [facility] Medicine [address] [place] [address], [address]rd Floor [address] [phone] documented in this encounter Visit Diagnoses Not on filedocumented in this encounter Additional Health Concerns Infection Onset Date Last Indicated Resolved Time MRSA 03/08/2010 03/08/2010 06/24/2022 8:09 AM CDT COVID-19 Under Investigation 05/10/2021 05/10/2021 05/10/2021 3:50 PM CDT MRSA Hx 06/24/2022 06/24/2022 documented as of this encounter Care Teams Computer Information Systems Professor Relationship Specialty Start Date End Date Sylvia Perez MD PCP - General 03/06/10 05/08/23 [place] [address] [address] PCP - Attributed-[facility] Commercial 03/31/19 05/29/21 [place] [address] [place] [address] PCP - Attributed-[facility] Commercial 08/31/21 10/18/22 [place] [address] [place] [address] PCP - Attributed-[facility] Commercial 10/31/22 06/17/23 Demetria Alaniz MD [address] [facility] [address] [place] [address] PCP - General Family Medicine 05/09/23 Josh Cervantes MD [address] [facility] [address] [place], [place] [id number] Obstetrics and Gynecology 10/25/14 Bib Daniels MD [address] [facility] [address] [place] [address] Neurologist Neurological Surgery 07/14/20 Stephanie Chavira MD [address] [facility] [address] [place], [place] [id number] Internal Medicine 02/06/21 Kaylee Pham MD [address] [place] [address] Surgery 02/06/21 documented as of this encounter
--- OUTSIDE RECORDS SUMMARY | 2025-10-03 14:09 | XMS_ITS | Encounter Summary ---
Author Organization [facility] Address [address] [place] [address] Phone Care Team Providers Care Crown Perforator Operator Name Role Phone Kaylee Pham MD Unavailable [phone] Brandon Diehl NP Unavailable [phone] Ruiz Castro MD Unavailable Demetria Alaniz MD Primary Care Provider [phone] No, Physician Primary Care Provider [phone] Jackie Ralph DO Primary Care Provid er Judd Davila MD Primary Care Provid er Nina Alexander OD Unavailable [phone] Encounter Details Date Type Department Care Team (Late st Contact Info) Description 09/16/2021 Documentation [facility] ([facility] - [facility] Medicine Minimally Invasive Surgery [facility] Advanced Medicine 12th Floor, [place] [address] Jonatan Darden Social History Tobacco [...] on file Legal Sex Female 8:37 PM RESTORER LACE AND TEXTILES Gender Identity Female 08/07/2021 9:39 AM CDT Sexual Orientation Straight 08/07/2021 9: 39 AM CDT documented as of this encounter Plan of Treatment Not on file documented as of this encounter Visit Diagnoses Not on filedocumented in this encounter Care Teams Crown Perforator Operator Relationship Specialty Start Date End Date Demetria Alaniz MD [facility] [address] [place] [address] PCP - General Family Medicine 03/26/23 01/27/25 No, Physician PCP - General 01/28/25 05/01/25 Jackie Ralph DO [address] [facility] [address] [place] [address] PCP - General Family Medicine 05/02/25 05/30/25 Judd Davila MD [address] [facility] [address] [place] [address] PCP - General Family Medicine 05/31/25 Kaylee Pham MD Consulting Physician General Surgery 10/30/21 Brandon Diehl, JAS Nurse Practitioner General Surgery 10/30/21 Ruiz Castro MD Zhane [facility] [id number] [place] [address] Surgeon Colon and Rectal Surgery 11/22/21 Nina Alexander, CANDELARIO [address] [place] [address] Optometry 05/31/25 documented as of this encounter
--- OUTSIDE RECORDS SUMMARY | 2025-10-03 14:09 | XMS_ITS ---
Author Organization [facility] Address [address] [facility] [place] [address] Care Team Providers Care Bellstand Attendant Name Role Phone Josh Cervantes MD Unavailable [phone] Bib Daniels MD Unavailable [phone] Stephanie Chavira MD Unavailable [phone] Kaylee Pham MD Unavailable [phone] Demetria Alaniz MD Primary Care Provider [phone] Active Problems Problem Noted Date Diagnosed Date Rectal bleeding 11/22/2021 Gastroesophageal reflux disease 07/03/2021 Overview (12/03/2021): Added automatically from request for surgery [id number] History of diabetes mellitus 12/24/2020 Overview (02/06/2021): [...]
--- OUTSIDE RECORDS SUMMARY | 2025-10-03 14:09 | XMS_ITS ---
Author Organization [facility] Address [address] [place] [address] Care Team Providers Care Shot Bagger Name Role Phone Kaylee Pham MD Unavailable [phone] Brandon Diehl NP Unavailable [phone] Ruiz Castro MD Unavailable [phone] Judd Davila MD Primary Care Provid er CorsonNina Pickering OD Unavailable [phone] Active Problems Problem Noted Date Diagnosed Date [...] 01/28/2025 Assessment & Plan (01/28/2025 2:39 PM PLEATING MACHINE OPERATOR): Recent onset of cough, chest discomfort, nasal congestion, and sore throat. Home COVID and flu tests negative. Redness in throat and ears noted on exam. Wheezing noted on right side. -Continue symptomatic treatment with [id number] medications. -Repeat home COVID test in a [...] 11/12/2023 Assessment & Plan (11/13/2023 7:34 AM PLEATING MACHINE OPERATOR): - Start hydroxyzine Type 2 diabetes mellitus with chronic kidney dis ease 03/31/2023 Assessment & Plan (05/31/2025 1:39 PM CDT): Stable, continue prescribed Mounjaro 12.5 mg subQ weekly Assessment & Plan (01/28/2025 2:42 PM PLEATING MACHINE OPERATOR): - Continue to optimize blood sugar - repeat labs today Assessment & Plan (08/31/2024 1:41 PM CDT): - Continue to optimize blood sugar - GFR decrease with last labs with weight management, plan to repeat labs - Include urine microalbumin at repeat Assessment & Plan (11/13/2023 7:33 AM PLEATING MACHINE OPERATOR): - Continue to optimize blood sugar JERMAN (generalized anxiety disorder) 03/31/2023 Assessment & Plan (01/28/2025 2:40 PM PLEATING MACHINE OPERATOR): - Chronic, stable - Continue Lexapro, wellbutrin, hydroxyzine - Will follow up with therapist Assessment & Plan (08/31/2024 2:56 PM CDT): - Chronic, stable - Continue Lexapro and hydroxyzine - Will follow up with therapist Assessment & Plan (11/13/2023 7:34 AM PLEATING MACHINE OPERATOR): - Chronic, not well controlled [...] (07/03/2021): Added automatically from request for surgery [id number] Assessment & Plan (01/28/2025 1:59 PM PLEATING MACHINE OPERATOR): Chronic, stable Continue current medication Postsurgical malabsorption 12/24/2020 Assessment & Plan (12/24/2020 9:57 PM PLEATING MACHINE OPERATOR): Labs. Iron deficiency 12/24/2020 Bariatric surgery status 12/24/2020 Assessment & Plan (03/03/2023 8:19 AM CDT): Bariatric surgery labs ordered for possible vitamin deficiencies in setting of intestinal malabsorption. Assessment & Plan (12/24/2020 9:56 PM PLEATING MACHINE OPERATOR): Routine labs to evaluate for [...] Asked to try to track consistently with Alexandre de [place] It daniel for at least 1 week to help identify calorie/carb/protein intake. Assessment & Plan (01/13/2022 12:52 PM PLEATING MACHINE OPERATOR): Reviewed calorie restriction based on [...] phone. Assessment & Plan (01/19/2021 2:01 PM PLEATING MACHINE OPERATOR): Reviewed calorie restriction based on BMR as previously detailed. Reviewed recommendation/goal of >/= 150 minutes/week moderate-intensity aerobic exercise. Assessment & Plan (12/24/2020 9:52 PM PLEATING MACHINE OPERATOR): Discussed that significant health benefits/risk [...] frequently. Assessment & Plan (12/24/2020 9:59 PM PLEATING MACHINE OPERATOR): Discussed comorbidities associated with sleep [...] Chavira Assessment & Plan (11/13/2023 7:32 AM PLEATING MACHINE OPERATOR): - Chronic, improving, not at [...] month. Assessment & Plan (01/13/2022 12:58 PM PLEATING MACHINE OPERATOR): Obesity is improving with treatment. [...] topiramate. Assessment & Plan (01/19/2021 2:01 PM PLEATING MACHINE OPERATOR): Obesity is unchanged. Diet interventions: as noted. Regular aerobic exercise program discussed. Pharmacotherapy as ordered. Will try increasing PM topiramate to help with night eating. Discussed risks, benefits, alternatives, potential side effects. Assessment & Plan (12/24/2020 9:58 PM PLEATING MACHINE OPERATOR): Obesity is worsening. General weight loss/lifestyle modification strategies discussed (elicit support from others; identify saboteurs; non-food rewards, etc). Diet interventions: as noted. Informal exercise measures discussed, e.g. taking stairs instead of elevator. Regular aerobic exercise program discussed. More detailed recommendations pending review of labs, food record. Migraine headache 01/22/2014 Assessment & Plan (01/28/2025 2:40 PM PLEATING MACHINE OPERATOR): - Chronic, stable - Followed by Neurology Chronic migraines improved since removal of IUD. Currently taking Nurtec and Topiramate. -Continue current treatment. -Notify neurologist of self-initiated decrease in Topiramate dose. Assessment & Plan (11/13/2023 7:32 AM PLEATING MACHINE OPERATOR): - Chronic, stable - Followed by Neurology - Continue current management Assessment & Plan (03/31/2023 12:20 PM CDT): - continue management per Neurology Allergic rhinitis 04/07/2013 Overview (07/18/2021): 04/06/13: SPT positive to T/G/RW/M/D/C/HDM/CR Asthma 04/07/2013 Assessment & Plan (01/28/2025 2:39 PM PLEATING MACHINE OPERATOR): Chronic, stable Continue albuterol prn Anemia 03/16/2013 Type 2 diabetes mellitus wit hout complication, without long-term current use of insulin 03/16/2013 Overview (05/08/2021): In remission since bariatric surgery. Didn't tolerate metformin. Assessment & Plan (01/28/2025 2:43 PM PLEATING MACHINE OPERATOR): Chronic, well controlled - Continue Mounjaro Discussed importance of routine screening including foot exam and eye exam as indicated Assessment & Plan (08/31/2024 1:39 PM CDT): Chronic, well controlled - Continue Mounjaro Assessment & Plan (11/13/2023 7:32 AM PLEATING MACHINE OPERATOR): - Chronic, stable - Tolerating [...] RA. Assessment & Plan (01/13/2022 12:58 PM PLEATING MACHINE OPERATOR): Reviewed interim labs. Continue low-carb [...] ordered. Assessment & Plan (11/13/2023 7:33 AM PLEATING MACHINE OPERATOR): - Chronic, stable - continue [...] 5.6. Assessment & Plan (01/19/2021 2:01 PM PLEATING MACHINE OPERATOR): Reviewed labs with her. Continue low-carb (<150 g/day), low-glycemic diet. Consider GLP-1 RA Assessment & Plan (12/24/2020 9:52 PM PLEATING MACHINE OPERATOR): Labs. Discussed insulin resistance including effect on weight and risk for progression to diabetes. Recommended low-carb, low-glycemic diet; choose whole grains and avoid more highly processed carbohydrates. Discussed potential benefits of this w/r/t gut microbiome. Referred to ADA and Automatic Agency websites for additional information on topics including [...]
--- OUTSIDE RECORDS SUMMARY | 2025-10-03 14:09 | XMS_ITS | Clinical Summary ---
Author Organization [employer] [address] [place] [address] Phone Care Team Providers Care Fruit Or Nut Farmer Name Role Phone Sylvia Perez MD Primary Care Provider [phone] Allergies Active Allergy Reactions Criticality Noted Date [...] breakfast. 2 Active mometasone (NASONEX) 50 mcg/actuation [place], Non-Aerosol Administer 2 Sprays in each nostril. [...] Office Visit [facility] [address] [address] [facility] Carlo Briceno PA-C Streptococcal pharyngitis [...] STREP A ANTIGEN (09/03/2025 11:39 AM CDT) [facility] RAPID STREP POC Positive( A) Negative, Indeterminate [facility] INTERNAL KIT QC POC Pass Pass [facility] KIT LOT NUMBER POC [id number] [facility] KIT EXP DATE POC 6 [facility] READ METHOD POC Visual [facility] Upper Respiratory SPECIMEN FROM THROAT / Unknown 09/03/2025 11:39 AM CDT Carlo Briceno PA-C POINT OF CARE TESTING Final Re sult [facility] CLIA# [id number] [place] [address] * HEMOGLOBIN A1C (04/23/2016 4:42 PM CDT) HEMOGLOBIN A1C 4.8 4.0 - 6.0 % 04/23/2016 9:40 PM CDT [facility] [employer] [facility] Comment:Note: Effective as o f 12/22/2014 a new methodology, Turbidimetric inhibition immunoassay (TINIA),has been implemented. EST. AVG GLUCOSE, A1C 91 mg/dL 04/23/2016 9:40 PM CDT [facility] [employer] [facility] Blood Venipuncture - L ab Collect / Unknown 04/23/2016 4:42 PM CDT 04/23/2016 4:42 PM CDT Hussein Baires MD CHEMISTRY ORDERABLES Final Res ult [facility] [employer] [facility] CLIA# [id number] [address] [place] [address] from Last 3 Months or Most Recently Relevant to Health [place] [address] [facility] OPTIONS PPO [address] [place] [phone] Advance Directives For more information, please contact: [phone] * Full Code (Latest Code Status on File) Date Activated Date Inactivated Comments 05/17/2016 12:10 PM 05/17/2016 4:09 PM * Full Code Date Activated Date Inactivated Comments 04/03/2016 2:52 PM 04/03/2016 7:06 PM Care Teams Fruit Or Nut Farmer Relationship Specialty Start Date End Date Sylvia Perez MD PCP - General Internal Medicine 03/01/16
--- OUTSIDE RECORDS SUMMARY | 2025-10-03 14:09 | XMS_ITS | Clinical Summary ---
Author Organization [facility] Address [address] [facility] [place] [address] Care Team Providers Care Solar Installer Technician Name Role Phone Josh Cervantes MD Unavailable Bib Daniels MD Unavailable [phone] Stephanie Chavira MD Unavailable [phone] Kaylee Pham MD Unavailable [phone] Demetria Alaniz MD Primary Care Provider [phone] Source Comments [facility],non-owned Affiliates and Associated Physician Practices is amultiple site organization consisting of ambulatory clinics and hospital sitesin [place], [place], [place] and [place]. This disclosure is being madepursuant to the Care Everywhere program and may not contain all information available regarding this patient. Last updated 18.[facility] Allergies Active Allergy Reactions Criticality Noted Date [...] breakfast 07/19/20 22 Active Cholecalciferol 1.25 MG (72295 UT) TAKE 1 CAPSULE BY MOUTH ONE [...] needed for Constipation 10/25/20 Active HYDROcodone-antwan taminophen ([place]) 5-325 MG tabletIndicatio ns:Status post surgery Take [...] (12/03/2021): Added automatically from request for surgery [id number] History of diabetes mellitus 12/24/2020 Overview (02/06/2021): [...] Sex Assigned at Female 10/27/2021 12:53 PM RACE RELATIONS ADVISER Legal Sex Female 6:28 AM RACE RELATIONS ADVISER Gender Identity Female 10/27/2021 12:53 PM RACE RELATIONS ADVISER Sexual Orientation Not on file Occupation Industry Job Start Date Job End Date student Not on file Not on file Not on file Last Filed Vital Signs Vital Sign Reading Time Taken Comments Blood Pressure 126/101 2025 2:53 PM RACE RELATIONS ADVISER Pulse 75 2025 2:53 PM RACE RELATIONS ADVISER Temperature 36.3 C (97.4 F) 2025 2:53 PM RACE RELATIONS ADVISER Respiratory Rate 18 2025 2:53 PM RACE RELATIONS ADVISER Oxygen Saturation 100% 2025 2:53 PM RACE RELATIONS ADVISER Inhaled Oxygen Concentration - - Weight 92.1 kg (203 lb) 12/14/2024 11:02 AM RACE RELATIONS ADVISER Height 172.7 cm (5' 8) 12/14/2024 11:02 AM RACE RELATIONS ADVISER Body Mass Index 30.87 12/14/2024 11:02 AM RACE RELATIONS ADVISER Plan of Treatment Health Maintenance Due Date [...] OF CARE (AMB) Routine 01/29/2022 1:56 PM RACE RELATIONS ADVISER Screening for diabetes mellitus from Last 3 [...] of this report has been sent to [phone] Resulting Agency Comment Lab Testing performed at: [facility] [address] [facility] [id number] us Rosalinda Magaña MD LAB - CHEMISTRY ORDERAB LES Final Result [facility] INSURANCE BILL [address] [place] [address] * HEMOGLOBIN A1C - POINT OF CARE (AMB) (01/29/2022 1:56 PM RACE RELATIONS ADVISER) Hemoglobin A1c POCT 4.7 % [facility] Expiration Date 10/02/2023 [facility] Lot # [id number] [facility] QC Verified Yes Yes [facility] Blood BLOOD SPECIMEN / Unknown 01/29/2022 1:56 PM RACE RELATIONS ADVISER Aparna Briceno TEMPERATURE INSPECTOR-MEDIATION COMMISSIONER LAB - POINT OF CARE OR DERABLES Final Result [facility] [address] [place] [address], [facility] [phone] from Last 3 Months or Most Recently Relevant to Health Maintenance Additional Health Concerns Infection Onset Date Last 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 06/24/2022 Insurance [facility] SELF PAY NO INSURANCE Member Subscriber Plan / Payer (Ef fective for All Dates) Name:Shaquille Huggins Member ID:Not on file Relation to Subscriber:Not on file Name:SHAQUILLE HUGGINS Subscriber ID:Not on file (Home) Address: [place] [address] Payer ID:Not on file Group ID:Not on file Type:Self Pay Address: [place], [place] [facility] Care Teams Solar Installer Technician Relationship Specialty Start Date End Date Demetria Alaniz MD [facility] [address] [place] [address] PCP - General Family Medicine 05/09/23 Josh Cervantes MD [address] [facility] [address] [place], [place] [id number] Obstetrics and Gynecology 10/25/14 Bib Daniels MD [address] [facility] [address] [place] [address] Neurologist Neurological Surgery 07/14/20 Stephanie Chavira MD [address] [place] [address] [address] [place] [address] Internal Medicine 02/06/21 Kaylee Pham MD [address] [place] [address] Surgery 02/06/21
--- OUTSIDE RECORDS SUMMARY | 2025-10-03 14:09 | XMS_ITS | Encounter Summary ---
Author Organization [facility] Health Address [address] [place] [address] Care Team Providers Care Cheese Production Supervisor Name Role Phone Sylvia Perez MD Primary Care Provider Josh Cervantes MD Unavailable Sylvia Perez MD Unavailable [phone] Bib Daniels MD Unavailable Stephanie Chavira MD Unavailable Kaylee Pham MD Unavailable Sylvia Perez MD Unavailable [phone] Sylvia Perez MD Unavailable [phone] Demetria Alaniz MD Primary Care Provider [phone] Encounter Details Date Type Department Care Team (Late st Contact Info) Description 10/08/2019 [facility] Outpatient Visit [facility] [address] [place] [address] Mikel Jeff MD [address] [address] Social History Tobacco Use Types Packs/Day Years Used Date Smoking Tobacco: Never Smokeless Tobacco: Never Alcohol Use Standard Drinks/Week Comments Yes 0 (1 standard drink = 0.6 oz pur e alcohol) occasionally Comments No Sex and Gender Information Value Date Recorded Sex Assigned at Female 10/27/2021 12:53 PM HIDE SPLITTER Legal Sex Female 6:28 AM HIDE SPLITTER Gender Identity Female 10/27/2021 12:53 PM HIDE SPLITTER Sexual Orientation Not on file Occupation Industry [...] documented as of this encounter Care Teams Cheese Production Supervisor Relationship Specialty Start Date End Date Sylvia Perez MD PCP - General 03/06/10 05/08/23 [place] [address] [address] [place] [address] [id number] PCP - Attributed-[facility] Commercial 03/31/19 05/29/21 [place] [address] [address] [place] [id number] PCP - Attributed-[facility] Commercial 08/31/21 10/18/22 [place] [address] [address] [place] [id number] PCP - Attributed-[facility] Commercial 10/31/22 06/17/23 Demetria Alaniz MD [facility] [address] [place] [address] PCP - General Family Medicine 05/09/23 Josh Cervantes MD [address] [facility] [address] [place] [address] Obstetrics and Gynecology 10/25/14 Bib Daniels MD [address] [facility] [address] [place] [address] Neurologist Neurological Surgery 07/14/20 Stephanie Chavira MD [address] [place] [address] [address] [place], [place] [id number] Internal Medicine 02/06/21 Kaylee Pham MD [address] [place] [id number] Surgery 02/06/21 documented as of this encounter
[2025-10-03] MEDS: PIPERACILLIN/TAZOBACTAM SOD 3.375 GM in SODIUM CHLORIDE 0.9% IV 50 ML 100 ML IVPB ×2 (14:20→20:34)
[2025-10-03 14:22] LABS: INR 1.1; Partial Thromboplastin Time 27.3 Seconds (22.3-36.8); Prothrombin Time 14.1 Seconds (11.1-14.7)
[2025-10-03 14:24] VITALS: BP 107/77; PULSE 72; RESP 18; O2SAT 96
[2025-10-03 16:13] VITALS: BMI 27.3
--- NOTE | 2025-10-03 16:14 | ADMGEN ---
This patient, Gabriela Borrero, was admitted to Medical Room 252-01. Patient/family oriented to hospital policies and general routines including ID bracelet, bed and alarms, visiting hours, pain management, procedures, bathroom and other care routines, personal items, smoking policy, room service/diet, and visiting hours. Information on how to activate the Rapid Response Team has been discussed. Patient/Family are encouraged to report perceived risks to care and to ask questions if they do not understand what they are told or what they should do.
--- NOTE | 2025-10-03 16:30 | PM.IMHP ---
H&P: HPI History of Present Illness Date/Time: 10/03/25 16:30 Chief Complaint: abdominal pain/pressure Narrative: Gabriela is a 40yo P1011 who presented for post-op visit outpatient. She is s/p RA-TLH/LS + TOT/cysto on 09/26/25. She reports not doing great since surgery. She reports a fever on POD#2 and went to [facility] ER; CT scan was done and normal (showed some mild fluid/gas, nothing concerning though); WBC was 16 but she had no fever, UA was concerning for UTI so she was given dose of zosyn in the ER and sent home on bactrim (still taking it). Urine culture did confirm e.coli UTI. She went to a different ER 10/02/[address] scan showing a 6.7cm fluid collection. WBC was down to 9. She feels bloated, short of breath, fast heart rate; very uncomfortable. She reports her pain is not fully controlled; taking Tylenol/ibuprofen only because the oxy were making her more constipated. She finally had a BM last night; taking colace and miralax-- it was loose. She is tolerating regular diet. She denies any further fever/chills. No abnormal bleeding and no vaginal discharge. No issues with her incision. CTA of chest ruled out PE. CT A/P confirmed large pelvic collection. Review of Systems Constitutional: Constitutional: Denies chills, Denies fever(s) and Denies headache(s) Eyes: Eyes: Denies change in vision ENT: Denies dizziness and Denies headache(s) Cardiovascular: Cardiovascular: Denies chest pain, Reports palpitations and Reports dyspnea Respiratory: Respiratory: Denies cough and Denies dyspnea Gastrointestinal: Gastrointestinal: Reports abdominal pain, Reports change in bowel habits, Reports constipation, Denies nausea and Denies vomiting Genitourinary: Genitourinary: Denies abnormal vaginal bleeding, Reports pelvic pain (appropriate), Denies urinary incontinence, Denies vaginal discharge, Denies vaginal odor and Denies vaginal pruritus Neurologic: Denies dizziness and Denies headache(s) Endocrine: Endocrine: Denies palpitations PMFSH Past Medical History Medical History Chlamydia Intervertebral disc degeneration Diabetes Vaginal delivery Depression Surgical History Surgical History History of bladder surgery bladder sling H/O: hysterectomy History of endometrial ablation History of carpal tunnel surgery of right wrist History of carpal tunnel surgery of left wrist History of cholecystectomy S/P bilateral breast reduction History of gastric surgery And revision in 2020 Family History Family History Mother Hypertension Grandparent Hypertension Carcinoma of colon Diabetes mellitus Social History Social History Smoking status: Never smoker Second hand tobacco smoke exposure: No Alcohol intake: current Drinks per week: 2 Alcohol use details: socially Substance use: never Substance use type: does not use Lack of Transportation: No Lack of Food: Never True Current Housing: I Have Housing Concerned About Future Housing: No Difficulty Paying Gas/Electric Bills: No Difficulty Paying for Meds: No Currently Unemployed: No Education: Bachelor's Degree Difficulty w/ Childcare or Family Care: No Living arrangements: with family Additional living arrangements comments: fiance Occupation/Education: occupation Gender identity (if verbalized by the patient): Female Sexual Orientation (if Verbalized by the Patient): Straight or Heterosexual Spiritual care concerns: No Meds Home Medications and Allergies Home Medications ?Medication ?Instructions ?Recorded ?Confirmed ?Type multivitamin (Daily Multi-Vitamin 1 tablet PO DAILY 03/09/20 10/03/25 History tablet) tirzepatide 5 mg/0.5 mL 10 mg subcut WEEKLY 05/13/23 09/15/25 History subcutaneous pen injector (Carlounroney) rimegepant 75 mg disintegrating 75 mg PO ONCE PRN Migraine Headache 07/08/24 10/03/25 History tablet (Nurtec ODT) topiramate 100 mg tablet 50 mg PO DAILY 07/20/24 09/15/25 History cyclobenzaprine 10 mg tablet 10 mg PO TID PRN muscle spasm pain 08/15/25 10/03/25 Rx #20 tabs valacyclovir 500 mg tablet 500 mg PO DAILY #90 tabs 08/16/25 09/15/25 Rx (Valtrex) albuterol sulfate 90 mcg/actuation 1 puff inhalation PRN PRN 09/14/25 10/03/25 History aerosol inhaler shortness of breath or wheezing cyanocobalamin (vitamin B-12) 100 50 mcg PO DAILY 09/14/25 10/03/25 History mcg tablet (Vitamin B-12) magnesium 250 mg tablet 250 mg PO BID 09/14/25 10/03/25 History psyllium husk 0.52 gram capsule 0.52 g PO DAILY 09/14/25 10/03/25 History (Daily Fiber) acetaminophen 500 mg tablet 1,000 mg (2 x 500 mg) PO Q6H #80 09/26/25 10/03/25 Rx tabs docusate sodium 100 mg capsule 100 mg PO BID #90 caps 09/26/25 10/03/25 Rx (Colace) ibuprofen 800 mg tablet 800 mg PO TID #30 tabs 09/26/25 10/03/25 Rx simethicone 80 mg chewable tablet 80 mg PO TIDWM #30 tabs 09/27/25 10/03/25 Rx ondansetron 4 mg disintegrating 4 mg PO Q8H PRN nausea and 09/28/25 10/03/25 Rx tablet vomiting #14 tabs sulfamethoxazole 800 1 tablet PO Q12H 7 days #14 tabs 09/28/25 Rx mg-trimethoprim 160 mg tablet (Bactrim DS) Allergies Allergy/AdvReac Type Severity Reaction Status Date / Time APPLES Allergy Intermediate ITCHING,SWELLING Uncoded 10/03/25 10:32 OF TONGUE Vital Signs Vital Signs - 24 hr 10/03/25 11:56 10/03/25 14:24 Temperature 97.9 F Pulse Rate 91 72 Respiratory Rate 18 18 Blood Pressure 118/75 107/77 Pulse Oximetry 99 96 Exam Const: General: cooperative, no acute distress, uncomfortable and overweight Nutritional Appearance: overweight Orientation/consciousness: oriented to person, oriented to place and oriented to time Resp: Effort & Inspection: normal respiratory effort Auscultation: clear to auscultation bilaterally Cardio: Rate: regular rate GI: Inspection: incision (healing w/o signs of infection) GI Palp: Yes Soft to palpation and Yes Tenderness to palpation present (GI) (appropriately) Auscultation: normal bowel sounds Other: mildly distended Skin: General skin exam: normal color Neuro: General: oriented to person, oriented to place and oriented to time Extrem: General: normal to inspection Psych: Appearance: grossly normal H&P: Results Labs Labs: Short CBC 10/03/25 Range/Units 13:22 WBC 9.6 (4.5-10.0) K/mm3 Hgb 10.4 L (12.0-15.0) g/dL Hct 32.5 L (37.0-47.0) % Plt Count 408 H D (150-375) k/mm3 BMP 10/03/25 13:22 Sodium 138 Potassium 3.4 Chloride 104 Carbon Dioxide 24 BUN 7 D Creatinine 1.10 H Glucose 98 Calcium 9.1 Liver Function 10/03/25 Range/Units 13:22 Total Bilirubin 0.6 (0.2-1.3) mg/dL AST 29 (14-36) U/L ALT 26 (6-35) U/L Alkaline Phosphatase 78 (38-126) U/L Albumin 3.8 (3.5-5.1) g/dL Assessment and Plan Assessment and plan (1) S/P laparoscopic hysterectomy: Code(s): Z90.710 - Acquired absence of both cervix and uterus Status: Acute (2) Intra-abdominal abscess: Code(s): K65.1 - Peritoneal abscess Status: Acute Plan - Admit for pelvic abscess; large collection noted - Zosyn 3.375mg IV q6h - Regular diet today; NPO at midnight for percutaneous drain placement in AM (will send cultures) - Labs: CBC, CMP, coags in AM - Pain meds PRN - Bowel regimen - SCD's, will plan for lovenox tomorrow after drain procedure - Plan for 48-72 hours of IV antibiotics
--- OUTSIDE RECORDS SUMMARY | 2025-10-03 16:40 | XMS_ITS | Encounter Summary ---
Author Organization [facility] Health Address [address] [place] [address] Care Team Providers Care Correctional Facility Nurse Name Role Phone Sylvia Perez MD Primary Care Provider Josh Cervantes MD Unavailable Sylvia ePrez MD Unavailable [phone] Bib Daniels MD Unavailable [phone] Stephanie Chavira MD Unavailable [phone] Kaylee Pham MD Unavailable Sylvia Perez MD Unavailable [phone] Sylvia Perez MD Unavailable [phone] Demetria Alaniz MD Primary Care Provider [phone] Encounter Details Date Type Department Care Team (Late st Contact Info) Description 10/08/[address] [facility] Outpatient Visit [facility] [address] [place] [address] Mikel Jeff MD [address] [place] [address] Social History Tobacco Use Types Packs/Day Years Used Date Smoking Tobacco: Never Smokeless Tobacco: Never Alcohol Use Standard Drinks/Week Comments Yes 0 (1 standard drink = 0.6 oz pur e alcohol) occasionally Comments No Sex and Gender Information Value Date Recorded Sex Assigned at Female 10/27/2021 12:53 PM DIRECTOR OF USER EXPERIENCE Legal Sex Female 6:28 AM DIRECTOR OF USER EXPERIENCE Gender Identity Female 10/27/2021 12:53 PM DIRECTOR OF USER EXPERIENCE Sexual Orientation Not on file Occupation Industry [...] documented as of this encounter Care Teams Correctional Facility Nurse Relationship Specialty Start Date End Date Syliva Perez MD PCP - General 03/06/10 05/08/23 [place] [address] [address] [place] [address] [id number] PCP - Attributed-[facility] Commercial 03/31/19 05/29/21 [place] [address] [address] [place] [id number] PCP - Attributed-[facility] Commercial 08/31/21 10/18/22 [place] [address] [address] [place] [id number] PCP - Attributed-[facility] Commercial 10/31/22 06/17/23 Demetria Alaniz MD [facility] [address] [place] [address] PCP - General Family Medicine 05/09/23 Josh Cervantes MD [address] [facility] [address] [facility] [address] [place] [address] Obstetrics and Gynecology 10/25/14 Bib Daniels MD [address] [facility] [address] [place] [address] Neurologist Neurological Surgery 07/14/20 Stephanie Chavira MD [address] [place] [address] [address] [place], [place] [id number] Internal Medicine 02/06/21 Kaylee Pham MD [address] [place] [address] Surgery 02/06/21 documented as of this encounter
--- OUTSIDE RECORDS SUMMARY | 2025-10-03 16:41 | XMS_ITS | Clinical Summary ---
Author Organization [facility] Address [address] [facility] [place] [address] Care Team Providers Care Film Reader Name Role Phone Josh Cervantes MD Unavailable [phone] Bib Daniels MD Unavailable [phone] Stephanie Chavira MD Unavailable [phone] Kaylee Pham MD Unavailable [phone] Demetria Alaniz MD Primary Care Provider [phone] Source Comments [facility],non-owned Affiliates and Associated Physician Practices is amultiple site organization consisting of ambulatory clinics and hospital sitesin [place], [place], [place] and [place]. This disclosure is being madepursuant to the Care Everywhere program and may not contain all information available regarding this patient. Last updated 18.[facility] Allergies Active Allergy Reactions Criticality Noted [...] breakfast 07/19/20 22 Active Cholecalciferol 1.25 MG (86834 UT) TAKE 1 CAPSULE BY MOUTH ONE [...] needed for Constipation 10/25/20 Active HYDROcodone-antwan taminophen ([place]) 5-325 MG tabletIndicatio ns:Status post surgery Take [...] (12/03/2021): Added automatically from request for surgery [id number] History of diabetes mellitus 12/24/2020 Overview (02/06/2021): [...] Sex Assigned at Female 10/27/2021 12:53 PM FURNITURE AND BEDDING INSPECTOR Legal Sex Female 6:28 AM FURNITURE AND BEDDING INSPECTOR Gender Identity Female 10/27/2021 12:53 PM FURNITURE AND BEDDING INSPECTOR Sexual Orientation Not on file Occupation Industry Job Start Date Job End Date student Not on file Not on file Not on file Last Filed Vital Signs Vital Sign Reading Time Taken Comments Blood Pressure 126/101 2025 2:53 PM FURNITURE AND BEDDING INSPECTOR Pulse 75 2025 2:53 PM FURNITURE AND BEDDING INSPECTOR Temperature 36.3 C (97.4 F) 2025 2:53 PM FURNITURE AND BEDDING INSPECTOR Respiratory Rate 18 2025 2:53 PM FURNITURE AND BEDDING INSPECTOR Oxygen Saturation 100% 2025 2:53 PM FURNITURE AND BEDDING INSPECTOR Inhaled Oxygen Concentration - - Weight 92.1 kg (203 lb) 12/14/2024 11:02 AM FURNITURE AND BEDDING INSPECTOR Height 172.7 cm (5' 8) 12/14/2024 11:02 AM FURNITURE AND BEDDING INSPECTOR Body Mass Index 30.87 12/14/2024 11:02 AM FURNITURE AND BEDDING INSPECTOR Plan of Treatment Health Maintenance Due Date [...] OF CARE (AMB) Routine 01/29/2022 1:56 PM FURNITURE AND BEDDING INSPECTOR Screening for diabetes mellitus from Last 3 [...] of this report has been sent to [phone] Resulting Agency Comment Lab Testing performed at: [facility] [address] [facility] [id number] us Rosalinad Magaña MD LAB - CHEMISTRY ORDERAB LES Final Result [facility] INSURANCE BILL [address] [place] [address] * HEMOGLOBIN A1C - POINT OF CARE (AMB) (01/29/2022 1:56 PM FURNITURE AND BEDDING INSPECTOR) Hemoglobin A1c POCT 4.7 % [facility] Expiration Date 10/02/2023 [facility] Lot # [id number] [facility] [place] QC Verified Yes Yes [facility] Blood BLOOD SPECIMEN / Unknown 01/29/2022 1:56 PM FURNITURE AND BEDDING INSPECTOR Aparna Briceno PICKING MACHINE OPERATOR HELPER-BINDERY MANAGER LAB - POINT OF CARE OR DERABLES Final Result [facility] [address] [place] [address], [facility] [phone] from Last 3 Months or Most Recently Relevant to Health Maintenance Additional Health Concerns Infection Onset Date Last 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 06/24/2022 Insurance [facility] SELF PAY NO INSURANCE Member Subscriber Plan / Payer (Ef fective for All Dates) Name:Shaquille Huggins Member ID:Not on file Relation to Subscriber:Not on file Name:SHAQUILLE HUGGINS Subscriber ID:Not on file (Home) Address: [address] [address] Payer ID:Not on file Group ID:Not on file Type:Self Pay Address: [place], [place] [facility] Care Teams Film Reader Relationship Specialty Start Date End Date Demetria Alaniz MD [facility] [address] [place] [address] PCP - General Family Medicine 05/09/23 Josh Cervantes MD [address] [facility] [address] [place], [place] [phone] Obstetrics and Gynecology 10/25/14 Bib Daniels MD [address] [facility] [address] [place] [address] Neurologist Neurological Surgery 07/14/20 Stephanie Chavira MD [address] [place] [address] [address] [place] [address] Internal Medicine 02/06/21 Kaylee Pham MD [address] [place] [phone] Surgery 02/06/21
--- OUTSIDE RECORDS SUMMARY | 2025-10-03 16:41 | XMS_ITS | Clinical Summary ---
Author Organization [facility] [address] Address [address] [place] [address] Phone Care Team Providers Care Nutritional Services Host Name Role Phone Sylvia Perez MD Primary Care Provider [phone] Allergies Active Allergy Reactions Criticality Noted Date [...] breakfast. 2 Active mometasone (NASONEX) 50 mcg/actuation [place], Non-Aerosol Administer 2 Sprays in each nostril. [...] Abstract 09/03/2025 11:15 AM CDT Office Visit [facility] [address] [address] [facility] Carlo Briceno PA-C Streptococcal pharyngitis (Primary Dx); [...] STREP A ANTIGEN (09/03/2025 11:39 AM CDT) [facility] RAPID STREP POC Positive( A) Negative, Indeterminate [facility] INTERNAL KIT QC POC Pass Pass [facility] KIT LOT NUMBER POC [id number] [facility] KIT EXP DATE POC [address] [facility] READ METHOD POC Visual [facility] Upper Respiratory SPECIMEN FROM THROAT / Unknown 09/03/2025 11:39 AM CDT Carlo Briceno PA-C POINT OF CARE TESTING Final Re sult [facility] CLIA# [id number] [place] [address] * HEMOGLOBIN A1C (04/23/2016 4:42 PM CDT) HEMOGLOBIN A1C 4.8 4.0 - 6.0 % 04/23/2016 9:40 PM CDT [facility] redealize [facility] Comment:Note: Effective as o f 12/22/2014 a new methodology, Turbidimetric inhibition immunoassay (TINIA),has been implemented. EST. AVG GLUCOSE, A1C 91 mg/dL 04/23/2016 9:40 PM CDT [facility] redealize [facility] Blood Venipuncture - L ab Collect / Unknown 04/23/2016 4:42 PM CDT 04/23/2016 4:42 PM CDT Hussein Baires MD CHEMISTRY ORDERABLES Final Res ult [facility] redealize [facility] CLIA# [id number] [address] [place] [address] from Last 3 Months or Most Recently Relevant to Health [place] [address] [facility] [employer] PPO [id number] [place] [id number] Advance Directives For more information, please contact: [phone] * Full Code (Latest Code Status on File) Date Activated Date Inactivated Comments 05/17/2016 12:10 PM 05/17/2016 4:09 PM * Full Code Date Activated Date Inactivated Comments 04/03/2016 2:52 PM 04/03/2016 7:06 PM Care Teams Nutritional Services Host Relationship Specialty Start Date End Date Sylvia Perez MD PCP - General Internal Medicine 03/01/16
--- OUTSIDE RECORDS SUMMARY | 2025-10-03 16:41 | XMS_ITS | Clinical Summary ---
Author Organization [facility] Address [address] [place] [address] Care Team Providers Care Rn Chemical Dependency Name Role Phone Kaylee Pham MD Unavailable [phone] Brandon Diehl NP Unavailable [phone] Ruiz Castro MD Unavailable [phone] Judd Davila MD Primary Care Provid er Nina Alexander OD Unavailable [phone] Allergies Active Allergy Reactions Criticality Noted Date [...] 01/28/2025 Assessment & Plan (01/28/2025 2:39 PM INSURANCE BILLER): Recent onset of cough, chest discomfort, nasal congestion, and sore throat. Home COVID and flu tests negative. Redness in throat and ears noted on exam. Wheezing noted on right side. -Continue symptomatic treatment with [id number] medications. -Repeat home COVID test in a [...] 11/12/2023 Assessment & Plan (11/13/2023 7:34 AM INSURANCE BILLER): - Start hydroxyzine Type 2 diabetes mellitus with chronic kidney dis ease 03/31/2023 Assessment & Plan (05/31/2025 1:39 PM CDT): Stable, continue prescribed Mounjaro 12.5 mg subQ weekly Assessment & Plan (01/28/2025 2:42 PM INSURANCE BILLER): - Continue to optimize blood sugar - repeat labs today Assessment & Plan (08/31/2024 1:41 PM CDT): - Continue to optimize blood sugar - GFR decrease with last labs with weight management, plan to repeat labs - Include urine microalbumin at repeat Assessment & Plan (11/13/2023 7:33 AM INSURANCE BILLER): - Continue to optimize blood sugar JERMAN (generalized anxiety disorder) 03/31/2023 Assessment & Plan (01/28/2025 2:40 PM INSURANCE BILLER): - Chronic, stable - Continue Lexapro, wellbutrin, hydroxyzine - Will follow up with therapist Assessment & Plan (08/31/2024 2:56 PM CDT): - Chronic, stable - Continue Lexapro and hydroxyzine - Will follow up with therapist Assessment & Plan (11/13/2023 7:34 AM INSURANCE BILLER): - Chronic, not well controlled - Sleep [...] (07/03/2021): Added automatically from request for surgery [id number] Assessment & Plan (01/28/2025 1:59 PM INSURANCE BILLER): Chronic, stable Continue current medication Postsurgical malabsorption 12/24/2020 Assessment & Plan (12/24/2020 9:57 PM INSURANCE BILLER): Labs. Iron deficiency 12/24/2020 Bariatric surgery status 12/24/2020 Assessment & Plan (03/03/2023 8:19 AM CDT): Bariatric surgery labs ordered for possible vitamin deficiencies in setting of intestinal malabsorption. Assessment & Plan (12/24/2020 9:56 PM INSURANCE BILLER): Routine labs to evaluate for vitamin deficiencies [...] Asked to try to track consistently with [employer] daniel for at least 1 week to help identify calorie/carb/protein intake. Assessment & Plan (01/13/2022 12:52 PM INSURANCE BILLER): Reviewed calorie restriction based on BMR as [...] phone. Assessment & Plan (01/19/2021 2:01 PM INSURANCE BILLER): Reviewed calorie restriction based on BMR as previously detailed. Reviewed recommendation/goal of >/= 150 minutes/week moderate-intensity aerobic exercise. Assessment & Plan (12/24/2020 9:52 PM INSURANCE BILLER): Discussed that significant health benefits/risk reduction may [...] frequently. Assessment & Plan (12/24/2020 9:59 PM INSURANCE BILLER): Discussed comorbidities associated with sleep apnea, including [...] Chavira Assessment & Plan (11/13/2023 7:32 AM INSURANCE BILLER): - Chronic, improving, not at goal - [...] month. Assessment & Plan (01/13/2022 12:58 PM INSURANCE BILLER): Obesity is improving with treatment. Diet interventions: [...] topiramate. Assessment & Plan (01/19/2021 2:01 PM INSURANCE BILLER): Obesity is unchanged. Diet interventions: as noted. Regular aerobic exercise program discussed. Pharmacotherapy as ordered. Will try increasing PM topiramate to help with night eating. Discussed risks, benefits, alternatives, potential side effects. Assessment & Plan (12/24/2020 9:58 PM INSURANCE BILLER): Obesity is worsening. General weight loss/lifestyle modification strategies discussed (elicit support from others; identify saboteurs; non-food rewards, etc). Diet interventions: as noted. Informal exercise measures discussed, e.g. taking stairs instead of elevator. Regular aerobic exercise program discussed. More detailed recommendations pending review of labs, food record. Migraine headache 01/22/2014 Assessment & Plan (01/28/2025 2:40 PM INSURANCE BILLER): - Chronic, stable - Followed by Neurology Chronic migraines improved since removal of IUD. Currently taking Nurtec and Topiramate. -Continue current treatment. -Notify neurologist of self-initiated decrease in Topiramate dose. Assessment & Plan (11/13/2023 7:32 AM INSURANCE BILLER): - Chronic, stable - Followed by Neurology - Continue current management Assessment & Plan (03/31/2023 12:20 PM CDT): - continue management per Neurology Allergic rhinitis 04/07/2013 Overview (07/18/2021): 04/06/13: SPT positive to T/G/RW/M/D/C/HDM/CR Asthma 04/07/2013 Assessment & Plan (01/28/2025 2:39 PM INSURANCE BILLER): Chronic, stable Continue albuterol prn Anemia 03/16/2013 Type 2 diabetes mellitus wit hout complication, without long-term current use of insulin 03/16/2013 Overview (05/08/2021): In remission since bariatric surgery. Didn't tolerate metformin. Assessment & Plan (01/28/2025 2:43 PM INSURANCE BILLER): Chronic, well controlled - Continue Mounjaro Discussed importance of routine screening including foot exam and eye exam as indicated Assessment & Plan (08/31/2024 1:39 PM CDT): Chronic, well controlled - Continue Mounjaro Assessment & Plan (11/13/2023 7:32 AM INSURANCE BILLER): - Chronic, stable - Tolerating current dose [...] RA. Assessment & Plan (01/13/2022 12:58 PM INSURANCE BILLER): Reviewed interim labs. Continue low-carb (<150 g/day), [...] ordered. Assessment & Plan (11/13/2023 7:33 AM INSURANCE BILLER): - Chronic, stable - continue current regimen [...] 5.6. Assessment & Plan (01/19/2021 2:01 PM INSURANCE BILLER): Reviewed labs with her. Continue low-carb (<150 g/day), low-glycemic diet. Consider GLP-1 RA Assessment & Plan (12/24/2020 9:52 PM INSURANCE BILLER): Labs. Discussed insulin resistance including effect on weight and risk for progression to diabetes. Recommended low-carb, low-glycemic diet; choose whole grains and avoid more highly processed carbohydrates. Discussed potential benefits of this w/r/t gut microbiome. Referred to ADA and [employer] websites for additional information on topics including [...] Department Care Team Description 10/02/2025 9:45 AM INSURANCE BILLER - 10/02/2025 3:03 PM INSURANCE BILLER Emergency [facility] Emergency Department [address] [place] [id number] Generalized abdominal pain (Primary Dx); Drug-induced constipation Discharge Disposition: Left Against Medical Advice 08/12/2025 3:[address] [facility] Medicine Metabolic Weight Management [address] [place] [address] Medical Office [address], [address] [place] [address] Jocelyn Mcclellan NP Weight loss counseling, encounter for (Primary Dx); Type 2 diabetes mellitus with stage 3a chronic kidney disease, without long-term current use of insulin (HCC); History of gastric bypass; Class 3 severe obesity with serious comorbidity in adult, unspecified BMI, unspecified obesity type 07/24/2025 6:26 AM CDT - 07/24/2025 9:19 AM CDT Emergency [facility] Emergency Department [address] [place] [id number] Calderon Freeman MD Other migraine without status [...] Influenza, Unspecified 05/31/2025(Deferr ed: Not available from cashier ticket selling) Pfizer SARS-CoV-2 Monovalent Vaccination (12+ Yrs) PURPLE [...] Anemia Mother Liliam Adair Arthritis Mother Liliam [place] Hypertension Mother Liliam [place] Heart attack Paternal [...] on file Legal Sex Female 8:37 PM INSURANCE BILLER Gender Identity Female 08/07/2021 9:39 AM CDT Sexual Orientation Straight 08/07/2021 9: 39 AM CDT Last Filed Vital Signs Vital Sign Reading Time Taken Comments Blood Pressure 108/72 10/02/2025 3:01 PM INSURANCE BILLER Pulse 82 10/02/2025 3:01 PM INSURANCE BILLER Temperature 36.9 C (98.5 F) 10/02/2025 9:41 AM INSURANCE BILLER Respiratory Rate 16 10/02/2025 3:01 PM INSURANCE BILLER Oxygen Saturation 99% 10/02/2025 3:01 PM INSURANCE BILLER Inhaled Oxygen Concentration - - Weight 79.4 kg (175 lb) 10/02/2025 9:41 AM INSURANCE BILLER Height 172.7 cm (5' 8) 10/02/2025 9:41 AM INSURANCE BILLER Body Mass Index 26.61 10/02/2025 9:41 AM INSURANCE BILLER Plan of Treatment Health Maintenance Due Date [...] MICROSCOPIC AND CULTURE STAT 10/02/2025 11:[address] ABDOMEN PELVIS W CONTRAST ED 10/02/2025 11:23 AM INSURANCE BILLER EGFR STAT 10/02/2025 9:54 AM INSURANCE BILLER DIFFERENTIAL AUTO STAT 10/02/2025 9:5 4 AM INSURANCE BILLER LIPASE STAT 10/02/2025 9:54 AM INSURANCE BILLER COMPREHENSIVE METABOLIC PANEL STAT 10/02/2025 9:54 AM INSURANCE BILLER CBC WITH AUTO DIFFERENTIAL STAT 10/02/2025 9:54 AM INSURANCE BILLER HEMOGLOBIN A1C Routine 05/03/2025 8:11 AM CDT [...] microscopic and culture Urine (10/02/2025 11:59 AM INSURANCE BILLER) Color, ur Yellow Yellow Clarity, ur Clear Clear [facility] Specific gravity, ur >1.030(H) 1.003 - 1.030 [facility] pH, urine 6.5 [facility] Comment: Interpretive Data U rine pH is affected by diet, medications, systemic acid-base disturbances, and renal tubular function. pH may affect urinary stone formation. For example, urine pH below 6.0 may help reduce the tendency for calcium phosphate stones and pH greater than 6.0 may reduce the tendency for uric acid stone formation. Source: [facility] Current Interpretive Data was last revised on 2017 Protein, ur ql Trace Negative [facility] Glucose, ur ql Negative Negative [facility] Ketones, ur Negative Negative [facility] Bilirubin, ur Negative Negative [facility] Blood, ur Negative Negative [facility] Urobilinogen, ur 2.0(A) <2.0 mg/dL [facility] Nitrite, ur Negative Negative [facility] Leukocyte esterase, ur Negative Negative [facility] UA reflex comment Reflex conditions for microscopic UA and culture not met. [facility] Urine 10/02/2025 11:5 9 AM INSURANCE BILLER 10/02/2025 12:01 PM INSURANCE BILLER us Sam Salas MD LAB MICROBIOLOGY - GENERAL ORDER OH Final Result [facility] [address] Department [place] [address] * CT Abdomen Pelvis W Contrast (10/02/2025 11:23 AM INSURANCE BILLER) Anatomical Region Laterality Modality Body N/A Computed Tomogra phy 10/02/2025 11:3 2 AM INSURANCE BILLER Impressions 10/02/2025 11:32 AM INSURANCE BILLER 1. Small volume of pneumoperitoneum, presumably postoperative. 2. 6.7 cm fluid collection in the posterior midline pelvis, concerning for infection. 3. Other findings are unchanged/nonurgent. Electronically signed by: Dina Britton MD Narrative 10/02/2025 11:32 AM INSURANCE BILLER EXAMINATION: CT abdomen and pelvis with contrast [...] Final Result * eGFR (10/02/2025 9:54 AM INSURANCE BILLER) eGFR 75 >=60 mL/min/1. 73 m2 Comment: [...] last reviewed 2021. Blood 10/02/2025 9:54 AM INSURANCE BILLER 10/02/2025 9:56 AM INSURANCE BILLER us Sam Salas MD LAB BLOOD ORDERABLES Final Resul t [facility] [address] Department [place] [address] * (ABNORMAL) Differential, auto (10/02/2025 9:54 AM INSURANCE BILLER) Neutrophil abs 6.06 1.50 - 6.50 K/cumm Imm gran abs 0.03 0.00 - 0.10 K/cumm [facility] Lymphocyte abs 1.89 0.80 - 3.30 K/cumm [facility] Monocyte abs 0.78 0.20 - 0.80 K/cumm [facility] Eosinophil abs 0.52(H) 0.00 - 0.50 K/cumm [facility] Basophil abs 0.03 0.00 - 0.10 K/cumm [facility] Neutrophil pct 65.1 % [facility] Comment: Interpretive Data Percent cell count reference ranges are not reported, since discordance with absolute values may lead to misinterpretation of CBC data. Current Interpretive Data was last revised on 2018. Imm gran pct 0.3 % [facility] Comment: Interpretive Data Percent cell count reference ranges are not reported, since discordance with absolute values may lead to misinterpretation of CBC data. Current Interpretive Data was last revised on 2018. Lymphocyte pct 20.3 % [facility] Comment: Interpretive Data Percent cell count reference ranges are not reported, since discordance with absolute values may lead to misinterpretation of CBC data. Current Interpretive Data was last revised on 2018. Monocyte pct 8.4 % [facility] Comment: Interpretive Data Percent cell count [...] revised on 2018. Basophil pct 0.3 % [facility] Comment: Interpretive Data Percent cell count reference ranges are not reported, since discordance with absolute values may lead to misinterpretation of CBC data. Current Interpretive Data was last revised on 2018. Blood 10/02/2025 9:54 AM INSURANCE BILLER 10/02/2025 9:56 AM INSURANCE BILLER us Sam Salas MD LAB BLOOD ORDERABLES Final Resul t [facility] [address] [facility] Department [place] [address] * (ABNORMAL) CBC with auto differential (10/02/2025 9:54 AM INSURANCE BILLER) WBC 9.31 3.80 - 9.90 K/cumm Hgb 11.4(L) 11.9 - 15.5 g/dL [facility] Hct 34.5(L) 35.6 - 45.5 % [facility] Plt 350 150 - 400 K/cumm [facility] MPV 9.3 9.1 - 12.3 fL [facility] RBC 4.48 3.90 - 5.20 M/cumm [facility] MCV 77.0(L) 81.3 - 96.4 fL [facility] MCH 25.4(L) 27.1 - 33.3 pg [facility] MCHC 33.0 32.3 - 35.7 g/dL [facility] RDW CV 14.6 11.1 - 14.9 % [facility] RDW SD 40.4 35.7 - 48.1 fL [facility] Blood Venous blood specimen / Unknown 10/02/2025 9:54 AM INSURANCE BILLER 10/02/2025 9:56 AM INSURANCE BILLER us Sam Salas MD LAB BLOOD ORDERABLES Final Resul t Performing Organization Address City/[facility]/ZIP Co de Phone Number [address] Department [place] [address] * (ABNORMAL) Lipase (10/02/2025 9:54 AM INSURANCE BILLER) Pathologist [facility] Lipase 200(H) 10 - 99 Units/L Blood Venous blood specimen / Unknown 10/02/2025 9:54 AM INSURANCE BILLER 10/02/2025 9:56 AM INSURANCE BILLER us Sam Salas MD LAB BLOOD ORDERABLES Final Resul t Performing Organization Address [facility] de Phone Number [facility] [address] [facility] [place] [address] * Comprehensive metabolic panel (10/02/2025 9:54 AM INSURANCE BILLER) [facility] Sodium 136 135 - 145 mmol/L Potassium, pl 3.4 3.3 - 4.9 mmol/L [facility] Comment:Slightly hemolyzed, potassium value may be falsely elevated. Suggest redraw and reanalysis. Chloride 102 97 - 110 mmol/L [facility] CO2 23 22 - 32 mmol/L [facility] Anion gap 11 2 - 15 mmol/L [facility] BUN 6 6 - 25 mg/dL [facility] Creatinine 0.99 0.60 - 1.10 mg/dL [facility] Glucose 109 70 - 199 mg/dL [facility] Comment: Interpretive Data Fasting glucose >/= 126 [...] Units/L [facility] Blood 10/02/2025 9:54 AM INSURANCE BILLER 10/02/2025 9:56 AM INSURANCE BILLER us Sam Salas MD LAB BLOOD ORDERABLES Final Resul t Performing Organization Address City/[facility]/ZIP Co de Phone Number [facility] [address] [facility] Department [place] [address] * Hemoglobin A1c (05/03/2025 8:11 AM CDT) [facility] Hgb A1C 4.8 4.8 - 5.6 % [facility] - Comment: Prediabetes: 5.7 - 6.4 Diabetes: >6.4 Glycemic control for adults with diabetes: <7.0 Blood 05/03/2025 8:11 AM CDT 05/03/2025 Narrative [facility] - 05/04/2025 6:36 AM CDT Performed at: [address] [id number] Rehabilitation Worker: Bradley Mcgill PhD, Phone: [phone] us Jocelyn Mcclellan NP LAB BLOOD ORDERABLES Final [facility]u lt [facility] - 01 * Lipid panel (05/03/2025 8:11 AM CDT) Pathologist [facility] Cholesterol 134 100 - 199 mg/dL [facility] - 01 Triglycerides 68 0 - 149 mg/dL [facility] - 01 HDL Cholesterol 53 >39 mg/dL [facility] - 01 VLDL 14 5 - 40 mg/dL [facility] - 01 LDL, calculated 67 0 - 99 mg/dL [facility] - 01 Blood 05/03/2025 8:11 AM CDT 05/03/2025 Narrative [facility] - 05/04/2025 6:36 AM CDT Performed at: [address] [id number] Rehabilitation Worker: Bradley Mcgill PhD, Phone: [phone] us Jocelyn Mcclellan MANNEQUIN MOUNTER LAB BLOOD ORDERABLES Final Resu lt Performing Organization Address [facility] Co de Phone Number [facility] * Hepatitis C antibody Blood (04/01/2025 8:15 AM CDT) [facility] Hep C Ab Non Reactive Non Reactive [facility] - 01 Comment: HCV antibody alone does not differentiate between previously resolved infection and active infection. Equivocal and Reactive HCV antibody results should be followed up with an HCV RNA test to support the diagnosis of active HCV infection. Blood 04/01/2025 8:15 AM CDT 04/01/2025 Narrative [facility] - 04/02/2025 5:08 AM CDT Performed at: [address] [id number] Rehabilitation Worker: Bradley Mcgill PhD, Phone: [phone] us Demetria Alaniz MD LAB MICROBIOLOGY - GENERAL ORDERABLES Final Result Performing Organization Address City/[facility]/ZIP Co de Phone Number [facility] - * Albumin Creatinine Ratio, Urine (04/01/2025 8:15 AM CDT) [facility] Creatinine ur 138.2 Not Estab. mg/dL [facility] - 01 Microalbumin, ur 18.1 Not Estab. ug/mL [facility] - 01 Microalbumin/cre at ratio 13 0 - 29 mg/g creat [facility] - 01 Comment: Normal: 0 - 29 Moderately increased: 30 - 300 Severely increased: >300 Urine 04/01/2025 8:15 AM CDT 04/01/2025 Narrative [facility] - 04/02/2025 4:07 AM CDT Performed at: 01 - [facility] [id number] Rehabilitation Worker: Bradley Mcgill PhD, Phone: [phone] us Demetria Alaniz MD LAB URINE ORDERABLES Final Result [facility] - 01 from Last 3 Months or Most Recently Relevant to Health Maintenance Insurance [facility] CHOICE PLUS [facility] CHOICE PLUS Member Subscriber Plan / Payer (Ef fective 2018-Present) Name:Hector Borrero Relation to Subscriber:Self Name:Hector Borrero Payer ID:[id number] (NAIC) Type:[facility] HMO/PPO Address: [address] [phone] [facility] CHOICE PLUS Advance Directives For more information, please contact: [phone] * Full Code (Latest Code Status on File) Date Activated Date Inactivated Comments 12/27/2021 6:36 AM 12/27/2021 1:25 PM * Full Code Date Activated Date Inactivated Comments 09/14/2021 9:09 PM 09/15/2021 7:00 PM Care Teams Rn Chemical Dependency Relationship Specialty Start Date End Date Judd Davila MD [address] [facility] [address] [place] [address] PCP - General Family Medicine 05/31/25 Kaylee Pham MD Consulting Physician General Surgery 10/30/21 Brandon Diehl NP Nurse Practitioner General Surgery 10/30/21 Ruiz Castro MD Zhane [address] [facility] [phone] [place] [address] Surgeon Colon and Rectal Surgery 11/22/21 Nina Alexander, CANDELARIO [address] [facility] [place] [address] Optometry 05/31/25
--- OUTSIDE RECORDS SUMMARY | 2025-10-03 16:41 | XMS_ITS ---
Author Organization [facility] Health Address [address] [facility] [place] [address] Care Team Providers Care Negative Restorer Name Role Phone Josh Cervantes MD Unavailable Bib Daniels MD Unavailable [phone] Stephanie Chavira MD Unavailable [phone] Kaylee Pham MD Unavailable [phone] Demetria Alaniz MD Primary Care Provider [phone] Active Problems Problem Noted Date Diagnosed Date Rectal bleeding 11/22/2021 Gastroesophageal reflux disease 07/03/2021 Overview (12/03/2021): Added automatically from request for surgery [id number] History of diabetes mellitus 12/24/2020 Overview (02/06/2021): [...]
--- OUTSIDE RECORDS SUMMARY | 2025-10-03 16:41 | XMS_ITS | Encounter Summary ---
Author Organization [facility] Address [address] [place] [address] Phone Care Team Providers Care Lacrosse Coach Name Role Phone Kaylee Pham MD Unavailable [phone] Brandon Diehl NP Unavailable [phone] Ruiz Castro MD Unavailable Demetria Alaniz MD Primary Care Provider [phone] No, Physician Primary Care Provider [phone] Jackie Ralph DO Primary Care Provid er Judd Davila MD Primary Care Provid er Nina Alexander OD Unavailable [phone] Encounter Details Date Type Department Care Team (Late st Contact Info) Description 09/16/2021 Documentation [facility] ([facility]) - [facility] Medicine Minimally Invasive Surgery [facility] Advanced Medicine [address]th Floor, [place] [address] Jonatan Darden Social History Tobacco [...] on file Legal Sex Female 8:37 PM ELEVATOR [employer] Gender Identity Female 08/07/2021 9:39 AM CDT Sexual Orientation Straight 08/07/2021 9: 39 AM CDT documented as of this encounter Plan of Treatment Not on file documented as of this encounter Visit Diagnoses Not on filedocumented in this encounter Care Teams Lacrosse Coach Relationship Specialty Start Date End Date Demetria Alaniz MD [employer] [facility] [address] [place] [address] PCP - General Family Medicine 03/26/23 01/27/25 No, Physician PCP - General 01/28/25 05/01/25 Jackie Ralph DO [address] [facility] [address] [place] [address] PCP - General Family Medicine 05/02/25 05/30/25 Judd Davila MD [address] [facility] [address] [place] [address] PCP - General Family Medicine 05/31/25 Kaylee Pham MD Consulting Physician General Surgery 10/30/21 Brandon Diehl, JAS Nurse Practitioner General Surgery 10/30/21 Ruiz Castro MD [address] [facility] [phone] [place] [address] Surgeon Colon and Rectal Surgery 11/22/21 Nina Alexander, CANDELARIO [address] [facility] [place] [address] Optometry 05/31/25 documented as of this encounter
--- OUTSIDE RECORDS SUMMARY | 2025-10-03 16:41 | XMS_ITS ---
Author Organization [facility] Address [address] [place] [address] Care Team Providers Care Zanjero Name Role Phone Kaylee Pham MD Unavailable [phone] Brandon Diehl NP Unavailable [phone] Ruiz Castro MD Unavailable [phone] Judd Davila MD Primary Care Provid er HettingerNina Pickering OD Unavailable [phone] Active Problems Problem Noted Date Diagnosed Date [...] 01/28/2025 Assessment & Plan (01/28/2025 2:39 PM LEATHER POLISHER): Recent onset of cough, chest discomfort, nasal congestion, and sore throat. Home COVID and flu tests negative. Redness in throat and ears noted on exam. Wheezing noted on right side. -Continue symptomatic treatment with [id number]-[id number] medications. -Repeat home COVID test in a [...] 11/12/2023 Assessment & Plan (11/13/2023 7:34 AM LEATHER POLISHER): - Start hydroxyzine Type 2 diabetes mellitus with chronic kidney dis ease 03/31/2023 Assessment & Plan (05/31/2025 1:39 PM CDT): Stable, continue prescribed Mounjaro 12.5 mg subQ weekly Assessment & Plan (01/28/2025 2:42 PM LEATHER POLISHER): - Continue to optimize blood sugar - repeat labs today Assessment & Plan (08/31/2024 1:41 PM CDT): - Continue to optimize blood sugar - GFR decrease with last labs with weight management, plan to repeat labs - Include urine microalbumin at repeat Assessment & Plan (11/13/2023 7:33 AM LEATHER POLISHER): - Continue to optimize blood sugar JERMAN (generalized anxiety disorder) 03/31/2023 Assessment & Plan (01/28/2025 2:40 PM LEATHER POLISHER): - Chronic, stable - Continue Lexapro, wellbutrin, hydroxyzine - Will follow up with therapist Assessment & Plan (08/31/2024 2:56 PM CDT): - Chronic, stable - Continue Lexapro and hydroxyzine - Will follow up with therapist Assessment & Plan (11/13/2023 7:34 AM LEATHER POLISHER): - Chronic, not well controlled - Sleep [...] (07/03/2021): Added automatically from request for surgery [id number] Assessment & Plan (01/28/2025 1:59 PM LEATHER POLISHER): Chronic, stable Continue current medication Postsurgical malabsorption 12/24/2020 Assessment & Plan (12/24/2020 9:57 PM LEATHER POLISHER): Labs. Iron deficiency 12/24/2020 Bariatric surgery status 12/24/2020 Assessment & Plan (03/03/2023 8:19 AM CDT): Bariatric surgery labs ordered for possible vitamin deficiencies in setting of intestinal malabsorption. Assessment & Plan (12/24/2020 9:56 PM LEATHER POLISHER): Routine labs to evaluate for vitamin deficiencies [...] Asked to try to track consistently with [employer] daniel for at least 1 week to help identify calorie/carb/protein intake. Assessment & Plan (01/13/2022 12:52 PM LEATHER POLISHER): Reviewed calorie restriction based on BMR as [...] phone. Assessment & Plan (01/19/2021 2:01 PM LEATHER POLISHER): Reviewed calorie restriction based on BMR as previously detailed. Reviewed recommendation/goal of >/= 150 minutes/week moderate-intensity aerobic exercise. Assessment & Plan (12/24/2020 9:52 PM LEATHER POLISHER): Discussed that significant health benefits/risk reduction may [...] frequently. Assessment & Plan (12/24/2020 9:59 PM LEATHER POLISHER): Discussed comorbidities associated with sleep apnea, including [...] Chavira Assessment & Plan (11/13/2023 7:32 AM LEATHER POLISHER): - Chronic, improving, not at goal - [...] month. Assessment & Plan (01/13/2022 12:58 PM LEATHER POLISHER): Obesity is improving with treatment. Diet interventions: [...] topiramate. Assessment & Plan (01/19/2021 2:01 PM LEATHER POLISHER): Obesity is unchanged. Diet interventions: as noted. Regular aerobic exercise program discussed. Pharmacotherapy as ordered. Will try increasing PM topiramate to help with night eating. Discussed risks, benefits, alternatives, potential side effects. Assessment & Plan (12/24/2020 9:58 PM LEATHER POLISHER): Obesity is worsening. General weight loss/lifestyle modification strategies discussed (elicit support from others; identify saboteurs; non-food rewards, etc). Diet interventions: as noted. Informal exercise measures discussed, e.g. taking stairs instead of elevator. Regular aerobic exercise program discussed. More detailed recommendations pending review of labs, food record. Migraine headache 01/22/2014 Assessment & Plan (01/28/2025 2:40 PM LEATHER POLISHER): - Chronic, stable - Followed by Neurology Chronic migraines improved since removal of IUD. Currently taking Nurtec and Topiramate. -Continue current treatment. -Notify neurologist of self-initiated decrease in Topiramate dose. Assessment & Plan (11/13/2023 7:32 AM LEATHER POLISHER): - Chronic, stable - Followed by Neurology - Continue current management Assessment & Plan (03/31/2023 12:20 PM CDT): - continue management per Neurology Allergic rhinitis 04/07/2013 Overview (07/18/2021): 04/06/13: SPT positive to T/G/RW/M/D/C/HDM/CR Asthma 04/07/2013 Assessment & Plan (01/28/2025 2:39 PM LEATHER POLISHER): Chronic, stable Continue albuterol prn Anemia 03/16/2013 Type 2 diabetes mellitus wit hout complication, without long-term current use of insulin 03/16/2013 Overview (05/08/2021): In remission since bariatric surgery. Didn't tolerate metformin. Assessment & Plan (01/28/2025 2:43 PM LEATHER POLISHER): Chronic, well controlled - Continue Mounjaro Discussed importance of routine screening including foot exam and eye exam as indicated Assessment & Plan (08/31/2024 1:39 PM CDT): Chronic, well controlled - Continue Mounjaro Assessment & Plan (11/13/2023 7:32 AM LEATHER POLISHER): - Chronic, stable - Tolerating current dose [...] RA. Assessment & Plan (01/13/2022 12:58 PM LEATHER POLISHER): Reviewed interim labs. Continue low-carb (<150 g/day), [...] ordered. Assessment & Plan (11/13/2023 7:33 AM LEATHER POLISHER): - Chronic, stable - continue current regimen [...] 5.6. Assessment & Plan (01/19/2021 2:01 PM LEATHER POLISHER): Reviewed labs with her. Continue low-carb (<150 g/day), low-glycemic diet. Consider GLP-1 RA Assessment & Plan (12/24/2020 9:52 PM LEATHER POLISHER): Labs. Discussed insulin resistance including effect on weight and risk for progression to diabetes. Recommended low-carb, low-glycemic diet; choose whole grains and avoid more highly processed carbohydrates. Discussed potential benefits of this w/r/t gut microbiome. Referred to ADA and [employer] websites for additional information on topics including [...]
--- OUTSIDE RECORDS SUMMARY | 2025-10-03 16:41 | XMS_ITS | Encounter Summary ---
Author Organization [facility] Address [address] [place] [address] Care Team Providers Care Service Attendant Cafeteria Name Role Phone Sylvia Perez MD Primary Care Provider Josh Cervantes MD Unavailable Sylvia Perez MD Unavailable [phone] Bib Daniels MD Unavailable Stephanie Chavira MD Unavailable Kaylee Pham MD Unavailable Sylvia Perez MD Unavailable [phone] Sylvia Perez MD Unavailable [phone] Demetria Alaniz MD Primary Care Provider [phone] Encounter Details Date Type Department Care Team (Late st Contact Info) Description 10/12/2020 Lab Requisition [facility] [address] [facility] [place] [id number] Thomas Rios Jr., MD [address] [place] [address] Social History Tobacco Use Types Packs/Day Years Used Date Smoking Tobacco: Never Smokeless Tobacco: Never Alcohol Use Standard Drinks/Week Comments Yes 0 (1 standard drink = 0.6 oz pur e alcohol) occasionally Comments No Sex and Gender Information Value Date Recorded Sex Assigned at Female 10/27/2021 12:53 PM AMUSEMENT RIDE INSPECTOR Legal Sex Female 6:28 AM AMUSEMENT RIDE INSPECTOR Gender Identity Female 10/27/2021 12:53 PM AMUSEMENT RIDE INSPECTOR Sexual Orientation Not on file Occupation [...] Comments DERMATOPATHOLOGY Routine 10/11/2020 12:0 0 AM AMUSEMENT RIDE INSPECTOR documented in this encounter Results * DERMATOPATHOLOGY (10/11/2020 12:00 AM AMUSEMENT RIDE INSPECTOR) Case Report Dermatopathology Report Case: [id number] Authorizing Provider: Thomas Rios Jr., MD Collected: 10/11/2020 12:00 AM Ordering Location: [facility] Received: 10/12/2020 12:58 PM Pathologist: Ary Matias MD Specimens: A) - Skin, right ulnar dorsal hand, lesional B) - Skin, right ulnar dorsal hand, non-lesional 0 2:40 PM AMUSEMENT RIDE INSPECTOR DERMATOPATHOLOGY LABORATORY Final Diagnosis Specimen A. SKIN, right ulnar dorsal hand, lesional: DECREASE OF EPIDERMAL MELANOCYTES (L80) (see microscopic description and comment) Specimen B. SKIN, right ulnar dorsal hand, non-lesional: POST-INFLAMMATORY PIGMENT ALTERATION (L81.9) (see microscopic description and comment) 0 2:40 PM AMUSEMENT RIDE INSPECTOR DERMATOPATHOLOGY LABORATORY at 1440 AMUSEMENT RIDE INSPECTOR Clinical History A-B: Rash, non-specific vs vitiligo vs post inflammatory hypopigmentation vs resolving eczema. . 0 2:40 PM [facility] DERMATOPATHOLOGY LABORATORY Gross Description Specimen A: Received is one formalin filled container labeled with the patient's name and designated right ulnar dorsal hand, lesional. The specimen consists of a punch biopsy measuring [id number], bisected. Jar 0. Specimen B: Received is one formalin filled container labeled with the patient's name and designated right ulnar dorsal hand, non-lesional. The specimen consists of a punch biopsy measuring [id number]., bisected. Jar 0. 0 2:40 PM [facility] DERMATOPATHOLOGY LABORATORY Microscopic Description Specimen A. [...] are highlighted with immunohistochemical staining for MART-1/Melan-A. Cammal-Damon stain highlights melanin pigment in the papillary dermis. Grocott's methenamine silver (GMS) stain fails to highlight fungal elements in the available sections. COMMENT Specimen A&B: Specimen A reveals a markedly decreased number of epidermal melanocytes relative to Specimen B. These histologic findings may be consistent with early vitiligo in the correct clinical setting. 0 2:40 PM [facility] DERMATOPATHOLOGY LABORATORY Disclaimer An external and internal positive and negative controls are appropriate for the histochemical, immunohistochemical and immunofluorescence stain(s) in this case (if any), except where stated explicitly. The performance characteristics of the stain(s) cited in this report were developed and its performance characteristic determined by the Dermatopathology Laboratory at [facility], directed by Dr. Jake Matias. These tests need not be, and therefore are not, approved by the [place] Food and Drug Administration. The tests are used for clinical purposes. Billing Codes Specimen Charges Stain Charges 11525 62053 1 1 33190 84336 26949 85918 87727 99390 1 1 1 1 1 1 0 2:40 PM AMUSEMENT RIDE INSPECTOR DERMATOPATHOLOGY LABORATORY Embedded Images 0 2:40 PM AMUSEMENT RIDE INSPECTOR DERMATOPATHOLOGY LABORATORY Pathology/Cytology TISSUE SPECIMEN FROM SKIN / Unknown 10/11/2020 10/12/2020 12:58 PM AMUSEMENT RIDE INSPECTOR Miscellaneous samples (specimen) TISSUE SPECIMEN FROM SKIN / Unknown 10/11/2020 10/12/2020 12:58 PM AMUSEMENT RIDE INSPECTOR Thomas Rios Jr., MD LAB - PATHOLOGY/CYTOLOG Y ORDERABLES Final Result DERMATOPATHOLOGY LABORATORY [facility] - Department of Dermatology [facility] [address] [place] [address], [address] [phone] documented in this encounter Visit Diagnoses Not on filedocumented in this encounter Additional Health Concerns Infection Onset Date Last Indicated Resolved Time MRSA 03/08/2010 03/08/2010 06/24/2022 8:09 AM CDT COVID-19 Under Investigation 05/10/2021 05/10/2021 05/10/2021 3:50 PM CDT MRSA Hx 06/24/2022 06/24/2022 documented as of this encounter Care Teams Service Attendant Cafeteria Relationship Specialty Start Date End Date Sylvia Perez MD PCP - General 03/06/10 05/08/23 [place] [address] [address] PCP - Attributed-[facility] Commercial 03/31/19 05/29/21 [place] [address] [place] [address] PCP - Attributed-[facility] Commercial 08/31/21 10/18/22 [place] [address] [place] [address] PCP - Attributed-[facility] Commercial 10/31/22 06/17/23 Demetria Alaniz MD [address] [place] [address] PCP - General Family Medicine 05/09/23 Josh Cervantse MD [address] [facility] [address] [place], [place] [id number] Obstetrics and Gynecology 10/25/14 Bib Daniels MD [address] [facility] [address] [place] [address] Neurologist Neurological Surgery 07/14/20 Stephanie Chavira MD [address] [facility] [address] [place], [place] [id number] Internal Medicine 02/06/21 Kaylee Pham MD [address] [place] [address] Surgery 02/06/21 documented as of this encounter
--- NOTE | 2025-10-03 16:46 | P.PNOB_ITS ---
GRAIN SACKER - A/P Assessment and plan (1) S/P laparoscopic hysterectomy: Code(s): Z90.710 - Acquired absence of both cervix and uterus Status: Acute (2) Intra-abdominal abscess: Code(s): K65.1 - Peritoneal abscess Status: Acute Plan - Admitted for pelvic abscess; large collection noted, suspecting hematoma as H/H dropped slightly - Continue Zosyn 3.375mg IV q6h - NPO since midnight for percutaneous drain placement (will send cultures) - Labs: CBC, CMP, coags in AM, stable - Pain meds PRN - Bowel regimen - SCD's, ambulatio encouraged - will plan for venofer in AM after procedure - Plan for 48-72 hours of IV antibiotics Postoperative Procedures: Procedures Operation Date: 10/04/25 11:30 <No data on this case meets the specified criteria> Time Spent With Patient Time: Total time spent is greater than 50% in coordination of care (as documented) at patient's floor/unit and/or counseling patient: Time with patient: less than 15 minutes GRAIN SACKER- PN:Subj Post-Op Subjective Date/time seen: 10/04/25 07:16 Interval history: HD#2 Gabriela reports no issues overnight, pain did get a little worse and got a dose of dilaudid. NPO for drain placement later today. She feels more bloated/pressure. She denies any vaginal bleeding or abnormal vaginal discharge. She is voiding normally. She has passed flatus, last BM 10/02/25. She is ambulating and denies any symptoms of anemia. Review of Systems 2 Review of Systems: All systems reviewed & are unremarkable except as noted in HPI and below (HPI) Constitutional: Constitutional: Denies chills, Denies fever(s) and Denies headache(s) Eyes: Eyes: Denies change in vision ENT: Denies dizziness and Denies headache(s) Cardiovascular: Cardiovascular: Denies chest pain and Denies rapid heart rate Respiratory: Respiratory: Denies cough Gastrointestinal: Gastrointestinal: Reports abdominal pain and Reports bloating Genitourinary: Genitourinary: Denies abnormal vaginal bleeding, Reports pelvic pain, Denies vaginal discharge and Denies vaginal odor Neurologic: Denies dizziness and Denies headache(s) Exam 2 Const: General: cooperative, healthy appearing, comfortable and no acute distress Orientation/consciousness: patient oriented x3 Resp: Effort & Inspection: normal respiratory effort Auscultation: clear to auscultation bilaterally Cardio: Rate: regular rate GI: Inspection: normal to inspection and incision ( LSC incisions c/d/i) GI Palp: Yes abdominal tenderness (appropriate) and Yes Soft to palpation A uscultation: normal bowel sounds Other: distended Skin: General skin exam: normal color Neuro: General: patient oriented x3 Psych: Appearance: grossly normal Affect: normal affect Attitude: c ooperative GRAIN SACKER - PN: Obj Data Vital Signs Vital Signs: Vital Signs - 24 hr 10/03/25 11:56 10/03/25 14:24 Temperature 97.9 F Pulse Rate 91 72 Respiratory Rate 18 18 Blood Pressure 118/75 107/77 Pulse Oximetry 99 96 Intake/Output Intake/Output: Intake & Output 09/30/25 10/01/25 10/02/25 10/03/25 23:59 23:59 22:59 23:59 Intake Total 50 Balance 50 Meds/Results Medications: Active Medications Generic Name Dose Route Start Last Admin Trade Name Freq PRN Reason Stop Dose Admin Acetaminophen 1,000 mg 10/03/25 16:26 Acetaminophen 500 Mg Tablet PO Q6H PRN Mild Pain (1-3) or Fever Hydromorphone HCl 0.5 mg 10/03/25 16:26 Hydromorphone Hcl Inj (*Crx) 1 Mg/Ml Syr IV PUSH Q2H PRN Breakthrough Pain or NPO Piperacillin Sod/Tazobactam 50 mls @ 100 mls/hr 10/03/25 20:00 Sod 3.375 gm/ Sodium Chloride IVPB Q6H [facility] Lactated Ringer's 500 mls @ 100 mls/hr 10/04/25 00:00 Lactated Ringers IV CONT .Q5H LUTHER Ibuprofen 600 mg 10/03/25 16:26 Ibuprofen 600 Mg Tablet PO Q6H PRN Pain Rated 4-6 Ondansetron HCl 4 mg 10/03/25 16:26 Ondansetron Inj 4 Mg/2 Ml Vial IV PUSH Q4H PRN Nausea And Vomiting Oxycodone HCl 5 mg 10/03/25 16:26 Oxycodone Hcl (*Crx) 5 Mg Tab Ir PO Q4H PRN Pain Rated 7-10 Polyethylene Glycol 17 gm 10/04/25 09:00 Polyethylene Glycol 3350 17 Gm Powd.Pack [facility] [place] [facility] Results: ITS Impressions Chest/Abdomen/Pelvis CTA 10/03/25 14:26 IMPRESSION: CHEST- 1. No PE. 2. Trace pleural effusions and minimal interstitial pulmonary edema. ABDOMEN/PELVIS- 1. Large organized fluid collection within pelvis. Superinfection cannot be excluded. 2. Mild scattered peritonitis not excluded. 3. Extensive free air decrease in volume but persists. Probably merely postoperative. Labs 10/04/25 04:47 10/04/25 04:47 Labs: Laboratory Results - last 24 hr 10/03/25 10/03/25 13:22 13:46 WBC 9.6 RBC 4.12 L Hgb 10.4 L Hct 32.5 L MCV 78.9 L MCH 25.2 L MCHC 32.0 RDW 14.8 H Plt Count 408 H D MPV 8.7 Immature Gran % (Auto) 0.6 H Neut % (Auto) 60.6 Lymph % (Auto) 24.5 Dickens % (Auto) 6.9 Eos % (Auto) 7.1 H Baso % (Auto) 0.3 Lymph # (Auto) 2.36 Dickens # (Auto) 0.7 H Eos # (Auto) 0.7 H Baso # (Auto) 0.0 Abs Immat Gran (auto) 0.06 H Absolute Neuts (auto) 5.8 Absolute Nucleated RBC 0.000 Nucleated RBC % 0.0 PT 14.1 INR 1.1 APTT 27.3 Sodium 138 Potassium 3.4 Chloride 104 Carbon Dioxide 24 Anion Gap 10 BUN 7 D Creatinine 1.10 H Estim Creat Clear Calc 62 Estimated GFR 56 L Glucose 98 Lactic Acid 0.9 Calcium 9.1 Total Bilirubin 0.6 AST 29 ALT 26 Alkaline Phosphatase 78 Total Protein 7.7 Albumin 3.8 Lipase 999 H
[2025-10-03] MEDS: IBUPROFEN 600 MG TABLET PO (17:13)
[2025-10-03 19:46] VITALS: BP 97/57; PULSE 74; RESP 20; TEMP 36.5; O2SAT 98
[2025-10-03 23:28] VITALS: BP 99/66; PULSE 69; RESP 20; TEMP 36.4; O2SAT 100
[2025-10-04] VITALS (15 sets, daily range): BP systolic 94–138; BP diastolic 58–78; PULSE 63–84; RESP 14–20; TEMP 36.4–36.9; O2SAT 98–100
[2025-10-04] MEDS: LACTATED RINGERS 500 ML 100 ML IV CONT ×3 (00:44→16:29)
[2025-10-04] MEDS: PIPERACILLIN/TAZOBACTAM SOD 3.375 GM in SODIUM CHLORIDE 0.9% IV 50 ML 100 ML IVPB ×4 (02:16→20:01)
[2025-10-04] MEDS: HYDROmorphone HCL INJ (*CRX) 1 MG/ML SYR 0.5 MG IV PUSH (04:05)
[2025-10-04 04:54] LABS: Hematocrit 30.2 % (37.0-47.0); Hemoglobin 9.7 g/dL (12.0-15.0); Immature Granulocyte Percent A 0.6 % (0-0.5); Lymphocytes Absolute Auto 2.29 K/mm3 (0.9-3.2); Mean Corpuscular HGB Conc 32.1 g/dl (32-36); Mean Corpuscular Hemoglobin 25.4 pg (26-34); Mean Corpuscular Volume 79.1 fl (80-100); Nucleated Red Blood Cells Absolute Auto 0.000 K/mm3 (0.0-0.012); Nucleated Red Blood Cells Perc 0.0 % (0.0-0.2); Platelet Count Result 368 k/mm3 (150-375); Red Blood Count 3.82 M/mm3 (4.2-5.4); White Blood Count 8.7 K/mm3 (4.5-10.0)
[2025-10-04 05:07] LABS: INR 1.1; Prothrombin Time 14.0 Seconds (11.1-14.7)
[2025-10-04 05:08] LABS: Partial Thromboplastin Time 27.3 Seconds (22.3-36.8)
[2025-10-04 05:09] LABS: Alanine Aminotransferase 19 U/L (6-35); Albumin Level 3.2 g/dL (3.5-5.1); Alkaline Phosphatase 69 U/L (38-126); Anion Gap 5 mmol/L (4-12); Aspartate Amino Transferase 22 U/L (14-36); Bilirubin,Total 0.6 mg/dL (0.2-1.3); Blood Urea Nitrogen 6 mg/dL (7-17); Calcium 8.4 mg/dL (8.4-10.2); Carbon Dioxide 23 mmol/L (22-30); Chloride 107 mmol/L (98-107); Estimated CRCL calculation 71 ml/min; Estimated Glomerular Filt Rate > 60; Glucose 99 mg/dL (65-110); Potassium 3.6 mmol/L (3.4-5.0); Sodium 135 mmol/L (137-145); Total Protein 6.7 g/dL (6.3-8.2)
[2025-10-04] MEDS: ACETAMINOPHEN 500 MG TABLET 1000 MG PO (05:21)
[2025-10-04] MEDS: IBUPROFEN 600 MG TABLET PO (08:43)
--- NOTE | 2025-10-04 11:13 | WPDMODSED ---
Moderate Sedation Note-Pt Data Patient Data Diagnosis: pelvic abscess Present Complaint: pelvic abscess Procedure to be performed/Plan: transgluteal abscess drain placement Allergies Allergy/AdvReac Type Severity Reaction Status Date / Time APPLES Allergy Intermediate ITCHING,SWELLING Uncoded 10/03/25 10:32 OF TONGUE Home Medications ?Medication ?Instructions ?Recorded ?Confirmed ?Type multivitamin (Daily Multi-Vitamin 1 tablet PO DAILY 03/09/20 10/03/25 History tablet) tirzepatide 5 mg/0.5 mL 10 mg subcut WEEKLY 05/13/23 10/03/25 History subcutaneous pen injector (Mounjaro) Held on 10/03/25. Instructions: surgery rimegepant 75 mg disintegrating 75 mg PO ONCE PRN Migraine Headache 07/08/24 10/03/25 History tablet (Nurtec ODT) topiramate 100 mg tablet 50 mg PO DAILY 07/20/24 10/03/25 History valacyclovir 500 mg tablet 500 mg PO DAILY #90 tabs 08/16/25 10/03/25 Rx (Valtrex) cyanocobalamin (vitamin B-12) 100 50 mcg PO DAILY 09/14/25 10/03/25 History mcg tablet (Vitamin B-12) magnesium 250 mg tablet 250 mg PO BID 09/14/25 10/03/25 History psyllium husk 0.52 gram capsule 0.52 g PO DAILY 09/14/25 10/03/25 History (Daily Fiber) acetaminophen 500 mg tablet 1,000 mg (2 x 500 mg) PO Q6H #80 09/26/25 10/03/25 Rx tabs docusate sodium 100 mg capsule 100 mg PO BID #90 caps 09/26/25 10/03/25 Rx (Colace) ibuprofen 800 mg tablet 800 mg PO TID #30 tabs 09/26/25 10/03/25 Rx simethicone 80 mg chewable tablet 80 mg PO TIDWM #30 tabs 09/27/25 10/03/25 Rx ondansetron 4 mg disintegrating 4 mg PO Q8H PRN nausea and 09/28/25 10/03/25 Rx tablet vomiting #14 tabs sulfamethoxazole 800 1 tablet PO Q12H 7 days #14 tabs 09/28/25 10/03/25 Rx mg-trimethoprim 160 mg tablet (Bactrim DS) Current Medications: Active Medications Acetaminophen (Acetaminophen 500 Mg Tablet) 1,000 mg PO Q6H PRN PRN Reason: Mild Pain (1-3) or Fever Last Admin: 10/04/25 05:21 Dose: 1,000 mg Hydromorphone HCl (Hydromorphone Hcl Inj (*Crx) 1 Mg/Ml Syr) 0.5 mg IV PUSH Q2H PRN PRN Reason: Breakthrough Pain or NPO Last Admin: 10/04/25 04:05 Dose: 0.5 mg Piperacillin Sod/Tazobactam (Sod 3.375 gm/ Sodium Chloride) 50 mls @ 100 mls/hr IVPB Q6H [facility] Last Admin: 10/04/25 08:33 Dose: 100 mls/hr Lactated Ringer's (Lactated Ringers) 500 mls @ 100 mls/hr IV CONT .Q5H [facility] Last Admin: 10/04/25 07:00 Dose: 100 mls/hr Ibuprofen (Ibuprofen 600 Mg Tablet) 600 mg PO Q6H PRN PRN Reason: Pain Rated 4-6 Last Admin: 10/04/25 08:43 Dose: 600 mg Ondansetron HCl (Ondansetron Inj 4 Mg/2 Ml Vial) 4 mg IV PUSH Q4H PRN PRN Reason: Nausea And Vomiting Oxycodone HCl (Oxycodone Hcl (*Crx) 5 Mg Tab Ir) 5 mg PO Q4H PRN PRN Reason: Pain Rated 7-10 Polyethylene Glycol (Polyethylene Glycol 3350 17 Gm Powd.Pack) 17 gm PO QAM [facility] Last Admin: 10/04/25 08:34 Dose: Not Given Sedation/Anesthesia: No previous sedation/anesthesia problems (including family history). [facility] Past Medical History Medical History Chlamydia Intervertebral disc degeneration Diabetes Vaginal delivery Depression Surgical History Surgical History History of bladder surgery bladder sling H/O: hysterectomy History of endometrial ablation History of carpal tunnel surgery of right wrist History of carpal tunnel surgery of left wrist History of cholecystectomy S/P bilateral breast reduction History of gastric surgery And revision in 2020 Family History Family History Mother Hypertension Grandparent Hypertension Carcinoma of colon Diabetes mellitus Social History Social History Smoking status: Never smoker Second hand tobacco smoke exposure: No Alcohol intake: current Drinks per week: 2 Alcohol use details: socially Substance use: never Substance use type: does not use Lack of Transportation: No Lack of Food: Never True Current Housing: I Have Housing Concerned About Future Housing: No Difficulty Paying Gas/Electric Bills: No Difficulty Paying for Meds: No Currently Unemployed: No Education: Bachelor's Degree Difficulty w/ Childcare or Family Care: No Living arrangements: with family Additional living arrangements comments: fiance Occupation/Education: occupation Gender identity (if verbalized by the patient): Female Sexual Orientation (if Verbalized by the Patient): Straight or Heterosexual Spiritual care concerns: No Mod Sed Physical Exam Physical Exam Pre Procedural Exam: Normal: Appearance, Lungs, Heart Rate and Heart Rhythm Hours since solid foods: 12 Hours since liquid intake: 12 Mallampati Classification: class II Internal Medicine - PN: Obj Da Vital Signs Vital Signs: Vital Signs - 24 hr 10/03/25 11:56 10/03/25 14:24 10/03/25 19:46 Temperature 97.9 F 97.7 F Pulse Rate 91 72 74 Respiratory Rate 18 18 20 Blood Pressure 118/75 107/77 97/57 L Pulse Oximetry 99 96 98 Oxygen Delivery 10/03/25 20:00 10/03/25 23:28 10/04/25 03:31 Temperature 97.6 F 97.6 F Pulse Rate 69 65 Respiratory Rate 20 18 Blood Pressure 99/66 L 97/59 L Pulse Oximetry 100 100 Oxygen Delivery Room Air 10/04/25 08:00 10/04/25 08:00 Temperature 98.4 F Pulse Rate 64 Respiratory Rate 18 Blood Pressure 138/66 Pulse Oximetry 99 Oxygen Delivery Room Air Intake/Output Intake/Output: Intake & Output 10/01/25 10/02/25 10/03/25 10/04/25 23:59 22:59 23:59 23:59 Intake Total 340 740 Output Total 0 Balance 340 740 Meds/Results Medications: Active Medications Generic Name Dose Route Start Last Admin Trade Name Freq PRN Reason Stop Dose Admin Acetaminophen 1,000 mg 10/03/25 16:26 10/04/25 05:21 Acetaminophen 500 Mg Tablet PO 1,000 mg Q6H PRN Administration Mild Pain (1-3) or Fever Hydromorphone HCl 0.5 mg 10/03/25 16:26 10/04/25 04:05 Hydromorphone Hcl Inj (*Crx) 1 Mg/Ml Syr IV PUSH 0.5 mg Q2H PRN Administration Breakthrough Pain or NPO Piperacillin Sod/Tazobactam 50 mls @ 100 mls/hr 10/03/25 20:00 10/04/25 08:33 Sod 3.375 gm/ Sodium Chloride IVPB 100 mls/hr Q6H [facility] Administration Lactated Ringer's 500 mls @ 100 mls/hr 10/04/25 00:00 10/04/25 07:00 Lactated Ringers IV CONT 100 mls/hr .Q5H [facility] Administration Ibuprofen 600 mg 10/03/25 16:26 10/04/25 08:43 Ibuprofen 600 Mg Tablet PO 600 mg Q6H PRN Administration Pain Rated 4-6 Ondansetron HCl 4 mg 10/03/25 16:26 Ondansetron Inj 4 Mg/2 Ml Vial IV PUSH Q4H PRN Nausea And Vomiting Oxycodone HCl 5 mg 10/03/25 16:26 Oxycodone Hcl (*Crx) 5 Mg Tab Ir PO Q4H PRN Pain Rated 7-10 Polyethylene Glycol 17 gm 10/04/25 09:00 10/04/25 08:34 Polyethylene Glycol 3350 17 Gm Powd.Pack PO Not Given [facility] Radiology Results: ITS Impressions Chest/Abdomen/Pelvis CTA 10/03/25 14:26 IMPRESSION: CHEST- 1. No PE. 2. Trace pleural effusions and minimal interstitial pulmonary edema. ABDOMEN/PELVIS- 1. Large organized fluid collection within pelvis. Superinfection cannot be excluded. 2. Mild scattered peritonitis not excluded. 3. Extensive free air decrease in volume but persists. Probably merely postoperative. Labs 10/04/25 04:47 10/04/25 04:47 Labs: Laboratory Results - last 24 hr 10/03/25 10/03/25 10/04/25 13:22 13:46 04:47 WBC 9.6 8.7 RBC 4.12 L 3.82 L Hgb 10.4 L 9.7 L Hct 32.5 L 30.2 L MCV 78.9 L 79.1 L MCH 25.2 L 25.4 L MCHC 32.0 32.1 RDW 14.8 H 14.7 H Plt Count 408 H D 368 MPV 8.7 8.5 Immature Gran % (Auto) 0.6 H 0.6 H Neut % (Auto) 60.6 57.9 Lymph % (Auto) 24.5 26.3 [place] % (Auto) 6.9 6.4 Eos % (Auto) 7.1 H 8.6 H Baso % (Auto) 0.3 0.2 Lymph # (Auto) 2.36 2.29 [place] # (Auto) 0.7 H 0.6 Eos # (Auto) 0.7 H 0.8 H Baso # (Auto) 0.0 0.0 Abs Immat Gran (auto) 0.06 H 0.05 H Absolute Neuts (auto) 5.8 5.1 Absolute Nucleated RBC 0.000 0.000 Nucleated RBC % 0.0 0.0 PT 14.1 14.0 INR 1.1 1.1 APTT 27.3 27.3 Sodium 138 135 L Potassium 3.4 3.6 Chloride 104 107 Carbon Dioxide 24 23 Anion Gap 10 5 BUN 7 D 6 L Creatinine 1.10 H 0.95 Estim Creat Clear Calc 62 71 Estimated GFR 56 L > 60 Glucose 98 99 Lactic Acid 0.9 Calcium 9.1 8.4 Total Bilirubin 0.6 0.6 AST 29 22 ALT 26 19 Alkaline Phosphatase 78 69 Total Protein 7.7 6.7 Albumin 3.8 3.2 L Lipase 999 H ASA Classification/Sedation ASA Classification/Sedation ASA Class: II Emergent: No Risks: Risks, benefits and alternatives explained and patient/family accepted plan for sedation. Patient re-evaluated immediately prior to sedation.
[2025-10-04] MEDS: fentaNYL CITRATE INJ (*CRX) 100 MCG/2 ML VIAL 25 MCG IV PUSH (11:51)
[2025-10-04] MEDS: MELATONIN 3 MG TABLET PO (21:28)
[2025-10-05] VITALS: BP 108/71; PULSE 73; RESP 18; TEMP 36.2; O2SAT 100
[2025-10-05] MEDS: PIPERACILLIN/TAZOBACTAM SOD 3.375 GM in SODIUM CHLORIDE 0.9% IV 50 ML 100 ML IVPB ×4 (02:00→20:24)
[2025-10-05 04:00] VITALS: BP 101/61; PULSE 70; RESP 14; TEMP 36.4; O2SAT 100
[2025-10-05 05:22] LABS: Hematocrit 30.9 % (37.0-47.0); Hemoglobin 9.8 g/dL (12.0-15.0); Immature Granulocyte Percent A 0.5 % (0-0.5); Lymphocytes Absolute Auto 2.18 K/mm3 (0.9-3.2); Mean Corpuscular HGB Conc 31.7 g/dl (32-36); Mean Corpuscular Hemoglobin 25.2 pg (26-34); Mean Corpuscular Volume 79.4 fl (80-100); Nucleated Red Blood Cells Absolute Auto 0.000 K/mm3 (0.0-0.012); Nucleated Red Blood Cells Perc 0.0 % (0.0-0.2); Platelet Count Result 407 k/mm3 (150-375); Red Blood Count 3.89 M/mm3 (4.2-5.4); White Blood Count 7.6 K/mm3 (4.5-10.0)
[2025-10-05 05:33] LABS: Alanine Aminotransferase 20 U/L (6-35); Albumin Level 3.3 g/dL (3.5-5.1); Alkaline Phosphatase 67 U/L (38-126); Anion Gap 7 mmol/L (4-12); Aspartate Amino Transferase 27 U/L (14-36); Bilirubin,Total 0.6 mg/dL (0.2-1.3); Blood Urea Nitrogen 6 mg/dL (7-17); Calcium 8.3 mg/dL (8.4-10.2); Carbon Dioxide 24 mmol/L (22-30); Chloride 105 mmol/L (98-107); Estimated CRCL calculation 71 ml/min; Estimated Glomerular Filt Rate > 60; Glucose 99 mg/dL (65-110); Lipase 1339 U/L (23-300); Potassium 3.7 mmol/L (3.4-5.0); Sodium 136 mmol/L (137-145); Total Protein 6.7 g/dL (6.3-8.2)
[2025-10-05 08:00] VITALS: BP 104/72; PULSE 78; RESP 16; TEMP 35.8; O2SAT 91
--- NOTE | 2025-10-05 08:02 | P.PNOB_ITS ---
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 and plan (1) S/P laparoscopic hysterectomy: Code(s): Z90.710 - Acquired absence of both cervix and uterus Status: Acute (2) Intra-abdominal abscess: Code(s): K65.1 - Peritoneal abscess Status: Acute Plan - Admitted for pelvic abscess; large collection noted, suspecting hematoma as H/H dropped slightly - Continue Zosyn 3.375mg IV q6h - S/p drain placement on 10/04/25, ~150cc output since placement - Labs: CBC, CMP daily; normal/downtrending - Cultures: blood, abscess: pending - Pain meds PRN - Bowel regimen - SCD's, ambulation encouraged - Venofer ordered - Plan for 48-72 hours of IV antibiotics (awaiting cultures for sensitivities) Postoperative Procedures: Procedures Operation Date: 10/04/25 11:30 Actual Procedure Side Surgeon p Computed Tomography Guided Abscess Catheter Placement Ilir Bajwa MD Time Spent With Patient Time: Total time spent is greater than 50% in coordination of care (as documented) at patient's floor/unit and/or counseling patient: Time with patient: less than 15 minutes TROUBLE SHOOTING MECHANIC- PN:Subj Post-Op Subjective Date/time seen: 10/05/25 08:02 Interval history: HD#3 Gabriela reports no issues overnight. Had the drain placed yesterday; instantly felt better-- thinks about 150cc output (it leaked quite a bit on the floor). She feels much less bloated/pressure. She denies any vaginal bleeding or abnormal vaginal discharge. She is voiding normally. She has had 3 BMs since yesterday, normal. She has tolerated regular diet w/o issue. She is ambulating and denies any symptoms of anemia. Review of Systems 2 Review of Systems: All systems reviewed & are unremarkable except as noted in HPI and below (HPI) Constitutional: Constitutional: Denies chills, Denies fever(s) and Denies headache(s) Eyes: Eyes: Denies change in vision ENT: Denies dizziness and Denies headache(s) Cardiovascular: Cardiovascular: Denies chest pain and Denies rapid heart rate Respiratory: Respiratory: Denies cough Gastrointestinal: Gastrointestinal: Denies abdominal pain and Denies bloating Genitourinary: Genitourinary: Denies abnormal vaginal bleeding, Denies pelvic pain, Denies vaginal discharge and Denies vaginal odor Neurologic: Denies dizziness and Denies headache(s) Exam 2 Const: General: cooperative, healthy appearing, comfortable and no acute distress Orientation/consciousness: patient oriented x3 Resp: Effort & Inspection: normal respiratory effort Auscultation: clear to auscultation bilaterally Cardio: Rate: regular rate GI: Inspection: normal to inspection and incision ( LSC incisions c/d/i) GI Palp: Yes abdominal tenderness (appropriate) and Yes Soft to palpation A uscultation: normal bowel sounds Other: drain in place w/ purulent, slightly bloody discharge Skin: General skin exam: normal color Neuro: General: patient oriented x3 Psych: Appearance: grossly normal Affect: normal affect Attitude: c ooperative TROUBLE SHOOTING MECHANIC - PN: Obj Data Vital Signs Vital Signs: Vital Signs - 24 hr 10/04/25 11:41 10/04/25 11:45 10/04/25 11:50 Temperature Pulse Rate 70 80 70 Respiratory Rate 19 14 20 Blood Pressure 99/67 L 100/64 98/62 L Pulse Oximetry 100 100 100 Oxygen Delivery Oxygen Flow Rate 2 2 2 10/04/25 11:55 10/04/25 12:00 10/04/25 12:05 Temperature Pulse Rate 73 72 70 Respiratory Rate 18 17 18 Blood Pressure 94/61 L 94/61 L 95/61 L Pulse Oximetry 100 100 100 Oxygen Delivery Oxygen Flow Rate 2 2 2 10/04/25 12:10 10/04/25 12:15 10/04/25 12:20 Temperature Pulse Rate 75 70 63 Respiratory Rate 14 16 18 Blood Pressure 98/68 L 98/58 L 98/68 L Pulse Oximetry 100 100 100 Oxygen Delivery Oxygen Flow Rate 2 2 2 10/04/25 12:30 10/04/25 16:00 10/04/25 19:41 Temperature 98.4 F 97.6 F Pulse Rate 75 84 74 Respiratory Rate 18 18 18 Blood Pressure 106/58 L 120/78 101/60 Pulse Oximetry 100 98 100 Oxygen Delivery Room Air Oxygen Flow Rate 10/04/25 20:52 10/05/25 00:00 10/05/25 04:00 Temperature 97.2 F L 97.5 F L Pulse Rate 73 70 Respiratory Rate 18 14 Blood Pressure 108/71 101/61 Pulse Oximetry 99 100 100 Oxygen Delivery Room Air Oxygen Flow Rate Intake/Output Intake/Output: Intake & Output 10/02/25 10/03/25 10/04/25 10/05/25 22:59 23:59 23:59 23:59 Intake Total 340 1630 50 Output Total 0 70 Balance 340 1560 50 Meds/Results Medications: Active Medications Generic Name Dose Route Start Last Admin Trade Name Freq PRN Reason Stop Dose Admin Acetaminophen 1,000 mg 10/03/25 16:26 10/04/25 05:21 Acetaminophen 500 Mg Tablet PO 1,000 mg Q6H PRN Administration Mild Pain (1-3) or Fever Hydromorphone HCl 0.5 mg 10/03/25 16:26 10/04/25 04:05 Hydromorphone Hcl Inj (*Crx) 1 Mg/Ml Syr IV PUSH 0.5 mg Q2H PRN Administration Breakthrough Pain or NPO Piperacillin Sod/Tazobactam 50 mls @ 100 mls/hr 10/03/25 20:00 10/05/25 02:30 Sod 3.375 gm/ Sodium Chloride IVPB Infused Q6H [facility] Infusion Ibuprofen 600 mg 10/03/25 16:26 10/04/25 08:43 Ibuprofen 600 Mg Tablet PO 600 mg Q6H PRN Administration Pain Rated 4-6 Melatonin 3 mg 10/04/25 21:13 10/04/25 21:28 Melatonin 3 Mg Tablet PO 3 mg HS PRN Administration Sleep Ondansetron HCl 4 mg 10/03/25 16:26 Ondansetron Inj 4 Mg/2 Ml Vial IV PUSH Q4H PRN Nausea And Vomiting Oxycodone HCl 5 mg 10/03/25 16:26 Oxycodone Hcl (*Crx) 5 Mg Tab Ir PO Q4H PRN Pain Rated 7-10 Polyethylene Glycol 17 gm 10/04/25 09:00 10/04/25 15:29 Polyethylene Glycol 3350 17 Gm Powd.Pack PO 17 gm QAM [facility] Administration Radiology Results: ITS Impressions Chest/Abdomen/Pelvis CTA 10/03/25 14:26 IMPRESSION: CHEST- 1. No PE. 2. Trace pleural effusions and minimal interstitial pulmonary edema. ABDOMEN/PELVIS- 1. Large organized fluid collection within pelvis. Superinfection cannot be excluded. 2. Mild scattered peritonitis not excluded. 3. Extensive free air decrease in volume but persists. Probably merely postoperative. Catheter Placement CT 10/04/25 13:26 IMPRESSION: 1. Successful CT-guided pelvic abscess drainage catheter placement. 2. 60 mL fluid was sent for aerobic and anaerobic cultures. 3. The catheter will be managed by Dr. Leija. Labs 10/05/25 05:05 10/05/25 05:05 Labs: Laboratory Results - last 24 hr 10/05/25 05:05 WBC 7.6 RBC 3.89 L Hgb 9.8 L Hct 30.9 L MCV 79.4 L MCH 25.2 L MCHC 31.7 L RDW 14.7 H Plt Count 407 H MPV 8.5 Immature Gran % (Auto) 0.5 Neut % (Auto) 59.2 Lymph % (Auto) 28.7 [place] % (Auto) 5.5 Eos % (Auto) 5.8 H Baso % (Auto) 0.3 Lymph # (Auto) 2.18 [place] # (Auto) 0.4 Eos # (Auto) 0.4 H Baso # (Auto) 0.0 Abs Immat Gran (auto) 0.04 H Absolute Neuts (auto) 4.5 Absolute Nucleated RBC 0.000 Nucleated RBC % 0.0 Sodium 136 L Potassium 3.7 Chloride 105 Carbon Dioxide 24 Anion Gap 7 BUN 6 L Creatinine 0.96 Estim Creat Clear Calc 71 Estimated GFR > 60 Glucose 99 Calcium 8.3 L Total Bilirubin 0.6 AST 27 ALT 20 Alkaline Phosphatase 67 Total Protein 6.7 Albumin 3.3 L Lipase 1339 H
[2025-10-05] MEDS: IRON SUCROSE COMPLEX 400 MG, IRON SUCROSE COMPLEX 100 MG in SODIUM CHLORIDE 0.9% IV 250 ML 78.57 MG IVPB (09:27)
[2025-10-05 12:00] VITALS: BP 110/80; PULSE 86; RESP 16; TEMP 36.6; O2SAT 99
[2025-10-05 16:00] VITALS: BP 117/72; PULSE 89; RESP 18; TEMP 36.6; O2SAT 100
[2025-10-05 19:49] VITALS: BP 109/67; PULSE 74; RESP 16; TEMP 36.8; O2SAT 100
[2025-10-05] MEDS: MELATONIN 3 MG TABLET PO (20:25)
[2025-10-06] VITALS: BP 105/65; PULSE 64; RESP 14; TEMP 36.6; O2SAT 100
[2025-10-06] MEDS: PIPERACILLIN/TAZOBACTAM SOD 3.375 GM in SODIUM CHLORIDE 0.9% IV 50 ML 100 ML IVPB ×4 (01:36→20:19)
[2025-10-06 04:19] VITALS: BP 105/58; PULSE 68; RESP 16; TEMP 36.4; O2SAT 97
[2025-10-06 05:28] LABS: Hematocrit 29.4 % (37.0-47.0); Hemoglobin 9.2 g/dL (12.0-15.0); Immature Granulocyte Percent A 0.5 % (0-0.5); Lymphocytes Absolute Auto 2.31 K/mm3 (0.9-3.2); Mean Corpuscular HGB Conc 31.3 g/dl (32-36); Mean Corpuscular Hemoglobin 25.0 pg (26-34); Mean Corpuscular Volume 79.9 fl (80-100); Nucleated Red Blood Cells Absolute Auto 0.000 K/mm3 (0.0-0.012); Nucleated Red Blood Cells Perc 0.0 % (0.0-0.2); Platelet Count Result 428 k/mm3 (150-375); Red Blood Count 3.68 M/mm3 (4.2-5.4); White Blood Count 8.0 K/mm3 (4.5-10.0)
[2025-10-06 06:04] LABS: Alanine Aminotransferase 24 U/L (6-35); Albumin Level 3.1 g/dL (3.5-5.1); Alkaline Phosphatase 62 U/L (38-126); Anion Gap 6 mmol/L (4-12); Aspartate Amino Transferase 26 U/L (14-36); Bilirubin,Total 0.4 mg/dL (0.2-1.3); Blood Urea Nitrogen 4 mg/dL (7-17); Calcium 8.5 mg/dL (8.4-10.2); Carbon Dioxide 25 mmol/L (22-30); Chloride 106 mmol/L (98-107); Estimated CRCL calculation 71 ml/min; Estimated Glomerular Filt Rate > 60; Glucose 115 mg/dL (65-110); Lipase 1564 U/L (23-300); Potassium 3.4 mmol/L (3.4-5.0); Sodium 137 mmol/L (137-145); Total Protein 6.6 g/dL (6.3-8.2)
--- NOTE | 2025-10-06 06:58 | P.PNOB_ITS ---
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 Assessment and plan (1) S/P laparoscopic hysterectomy: Code(s): Z90.710 - Acquired absence of both cervix and uterus Status: Acute (2) Intra-abdominal abscess: Code(s): K65.1 - Peritoneal abscess Status: Acute Plan - Admitted for pelvic abscess; large collection noted - Continue Zosyn 3.375mg IV q6h; plan for transition to PO abx likely tomorrow (bactrim + flagyl and will continue those x 14 days) - S/p drain placement on 10/04/25, ~30-40cc output in last 24 hours; plan for likely removal of drain 10/07 w/ lido+fentanyl - Labs: CBC, CMP daily; normal/downtrending - Cultures: blood, abscess: no growth to date (still pending) - Pain meds PRN - Bowel regimen - SCD's, ambulation encouraged - S/p Venofer - Plan for 48-72 hours of IV antibiotics (awaiting cultures for sensitivities) Postoperative Procedures: Procedures Operation Date: 10/04/25 11:30 Actual Procedure Side Surgeon p Computed Tomography Guided Abscess Catheter Placement Ilir Bajwa MD Time Spent With Patient Time: Total time spent is greater than 50% in coordination of care (as documented) at patient's floor/unit and/or counseling patient: Time with patient: less than 15 minutes SUPERVISOR LEAD REFINERY- PN:Subj Post-Op Subjective Date/time seen: 10/06/25 06:58 Interval history: HD#4 Gabriela reports no issues overnight. No issues with the drain-- 30-40cc output (last 24hrs). Pain is controlled. She denies any vaginal bleeding or abnormal vaginal discharge. She is voiding normally. She has had 3 BMs since yesterday, normal. She has tolerated regular diet w/o issue. She is ambulating and denies any symptoms of anemia. Review of Systems 2 Review of Systems: All systems reviewed & are unremarkable except as noted in HPI and below (HPI) Constitutional: Constitutional: Denies chills, Denies fever(s) and Denies headache(s) Eyes: Eyes: Denies change in vision ENT: Denies dizziness and Denies headache(s) Cardiovascular: Cardiovascular: Denies chest pain and Denies rapid heart rate Respiratory: Respiratory: Denies cough Gastrointestinal: Gastrointestinal: Denies abdominal pain and Denies bloating Genitourinary: Genitourinary: Denies abnormal vaginal bleeding, Denies pelvic pain, Denies vaginal discharge and Denies vaginal odor Neurologic: Denies dizziness and Denies headache(s) Exam 2 Const: General: cooperative, healthy appearing, comfortable and no acute distress Orientation/consciousness: patient oriented x3 Resp: Effort & Inspection: normal respiratory effort Auscultation: clear to auscultation bilaterally Cardio: Rate: regular rate GI: Inspection: normal to inspection and incision ( LSC incisions c/d/i) GI Palp: Yes abdominal tenderness (appropriate) and Yes Soft to palpation A uscultation: normal bowel sounds Other: drain in place w/ purulent, slightly bloody discharge Skin: General skin exam: normal color Neuro: General: patient oriented x3 Psych: Appearance: grossly normal Affect: normal affect Attitude: c ooperative [employer]PER[employer]OR LE[employer] REFINERY - PN: Obj Data Vital Signs Vital Signs: Vital Signs - 24 hr 10/05/25 08:00 10/05/25 08:30 10/05/25 12:00 Temperature 96.5 F L 97.8 F Pulse Rate 78 86 Respiratory Rate 16 16 Blood Pressure 104/72 110/80 Pulse Oximetry 91 99 Oxygen Delivery Room Air 10/05/25 16:00 10/05/25 19:49 10/06/25 00:00 Temperature 97.9 F 98.2 F 98 F Pulse Rate 89 74 64 Respiratory Rate 18 16 14 Blood Pressure 117/72 109/67 105/65 Pulse Oximetry 100 100 100 Oxygen Delivery 10/06/25 04:19 Temperature 97.6 F Pulse Rate 68 Respiratory Rate 16 Blood Pressure 105/58 L Pulse Oximetry 97 Oxygen Delivery Intake/Output Intake/Output: Intake & Output 10/03/25 10/04/25 10/05/25 10/06/25 23:59 23:59 23:59 23:59 Intake Total 340 1630 1402 300 Output Total 0 70 30 10 Balance 340 1560 1372 290 Meds/Results Medications: Active Medications Generic Name Dose Route Start Last Admin Trade Name Freq PRN Reason Stop Dose Admin Acetaminophen 1,000 mg 10/03/25 16:26 10/04/25 05:21 Acetaminophen 500 Mg Tablet PO 1,000 mg Q6H PRN Administration Mild Pain (1-3) or Fever Hydromorphone HCl 0.5 mg 10/03/25 16:26 10/04/25 04:05 Hydromorphone Hcl Inj (*Crx) 1 Mg/Ml Syr IV PUSH 0.5 mg Q2H PRN Administration Breakthrough Pain or NPO Piperacillin Sod/Tazobactam 50 mls @ 100 mls/hr 10/03/25 20:00 10/06/25 02:05 Sod 3.375 gm/ Sodium Chloride IVPB Infused Q6H [facility] Infusion Ibuprofen 600 mg 10/03/25 16:26 10/04/25 08:43 Ibuprofen 600 Mg Tablet PO 600 mg Q6H PRN Administration Pain Rated 4-6 Melatonin 3 mg 10/04/25 21:13 10/05/25 20:25 Melatonin 3 Mg Tablet PO 3 mg HS PRN Administration Sleep Ondansetron HCl 4 mg 10/03/25 16:26 Ondansetron Inj 4 Mg/2 Ml Vial IV PUSH Q4H PRN Nausea And Vomiting Oxycodone HCl 5 mg 10/03/25 16:26 Oxycodone Hcl (*Crx) 5 Mg Tab Ir PO Q4H PRN Pain Rated 7-10 Polyethylene Glycol 17 gm 10/04/25 09:00 10/05/25 08:27 Polyethylene Glycol 3350 17 Gm Powd.Pack PO Not Given [facility] Radiology Results: ITS Impressions Chest/Abdomen/Pelvis CTA 10/03/25 14:26 IMPRESSION: CHEST- 1. No PE. 2. Trace pleural effusions and minimal interstitial pulmonary edema. ABDOMEN/PELVIS- 1. Large organized fluid collection within pelvis. Superinfection cannot be excluded. 2. Mild scattered peritonitis not excluded. 3. Extensive free air decrease in volume but persists. Probably merely postoperative. Catheter Placement CT 10/04/25 13:26 IMPRESSION: 1. Successful CT-guided pelvic abscess drainage catheter placement. 2. 60 mL fluid was sent for aerobic and anaerobic cultures. 3. The catheter will be managed by Dr. Leija. Labs 10/06/25 04:58 10/06/25 04:58 Labs: Laboratory Results - last 24 hr 10/06/25 04:58 WBC 8.0 RBC 3.68 L Hgb 9.2 L Hct 29.4 L MCV 79.9 L MCH 25.0 L MCHC 31.3 L RDW 14.5 Plt Count 428 H MPV 8.9 Immature Gran % (Auto) 0.5 Neut % (Auto) 61.2 Lymph % (Auto) 29.0 [place] % (Auto) 5.6 Eos % (Auto) 3.4 Baso % (Auto) 0.3 Lymph # (Auto) 2.31 [place] # (Auto) 0.5 Eos # (Auto) 0.3 Baso # (Auto) 0.0 Abs Immat Gran (auto) 0.04 H Absolute Neuts (auto) 4.9 Absolute Nucleated RBC 0.000 Nucleated RBC % 0.0 Sodium 137 Potassium 3.4 Chloride 106 Carbon Dioxide 25 Anion Gap 6 BUN 4 L Creatinine 0.96 Estim Creat Clear Calc 71 Estimated GFR > 60 Glucose 115 H Calcium 8.5 Total Bilirubin 0.4 AST 26 ALT 24 Alkaline Phosphatase 62 Total Protein 6.6 Albumin 3.1 L Lipase 1564 H
[2025-10-06 11:25] VITALS: BP 107/73; PULSE 71; RESP 16; TEMP 36.1; O2SAT 100
[2025-10-06 17:33] VITALS: BP 117/81; PULSE 68; RESP 16; TEMP 36.1; O2SAT 100
[2025-10-06 20:00] VITALS: BP 99/60; PULSE 74; RESP 18; TEMP 36.4; O2SAT 100
[2025-10-06] MEDS: MELATONIN 3 MG TABLET PO (20:20)
[2025-10-06 21:53] VITALS: O2SAT 100
[2025-10-07] VITALS: BP 98/54; PULSE 59; RESP 16; TEMP 36.4; O2SAT 100
[2025-10-07] MEDS: PIPERACILLIN/TAZOBACTAM SOD 3.375 GM in SODIUM CHLORIDE 0.9% IV 50 ML 100 ML IVPB (01:58)
[2025-10-07 04:00] VITALS: BP 98/62; PULSE 64; RESP 20; TEMP 36.1; O2SAT 99
--- NOTE | 2025-10-07 07:55 | P.PNOB_ITS ---
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 plan (1) S/P laparoscopic hysterectomy: Code(s): Z90.710 - Acquired absence of both cervix and uterus Status: Acute (2) Intra-abdominal abscess: Code(s): K65.1 - Peritoneal abscess Status: Acute Plan - Admitted for pelvic abscess; large collection noted - D/C Zosyn 3.375mg IV q6h; bactrim DS + flagyl 500mg q12h PO and will continue those x 14 days - S/p drain placement on 10/04/25, ~2cc output in last 24 hours; - plan for removal of drain 10/07/25 at noon w/ lidocaine locally + fentanyl 50mcg IV once for pain control - Cultures: blood, abscess: no growth to date (still pending) - D/C home today after drain removal Postoperative Procedures: Procedures Operation Date: 10/04/25 11:30 Actual Procedure Side Surgeon p Computed Tomography Guided Abscess Catheter Placement Ilir Bajwa MD Time Spent With Patient Time: Total time spent is greater than 50% in coordination of care (as documented) at patient's floor/unit and/or counseling patient: Time with patient: less than 15 minutes SENIOR PROPERTY ACCOUNTANT- PN:Subj Post-Op Subjective Date/time seen: 10/07/25 07:55 Interval history: HD#5 Gabriela reports no issues overnight. No issues with the drain-- 2cc output (last 24hrs). Pain is controlled. She denies any vaginal bleeding or abnormal vaginal discharge. She is voiding normally. She has been having flatus. She has tolerated regular diet w/o issue. She is ambulating and denies any symptoms of anemia. She is ready to go home. Review of Systems 2 Review of Systems: All systems reviewed & are unremarkable except as noted in HPI and below (HPI) Constitutional: Constitutional: Denies chills, Denies fever(s) and Denies headache(s) Eyes: Eyes: Denies change in vision ENT: Denies dizziness and Denies headache(s) Cardiovascular: Cardiovascular: Denies chest pain and Denies rapid heart rate Respiratory: Respiratory: Denies cough Gastrointestinal: Gastrointestinal: Denies abdominal pain and Denies bloating Genitourinary: Genitourinary: Denies abnormal vaginal bleeding, Denies pelvic pain, Denies vaginal discharge and Denies vaginal odor Neurologic: Denies dizziness and Denies headache(s) Exam 2 Const: General: cooperative, healthy appearing, comfortable and no acute distress Orientation/consciousness: patient oriented x3 Resp: Effort & Inspection: normal respiratory effort Auscultation: clear to auscultation bilaterally Cardio: Rate: regular rate GI: Inspection: normal to inspection and incision ( [facility] incisions c/d/i) GI Palp: Yes abdominal tenderness (appropriate) and Yes Soft to palpation A uscultation: normal bowel sounds Other: drain in place w/ purulent, slightly bloody discharge Skin: General skin exam: normal color Neuro: General: patient oriented x3 Psych: Appearance: grossly normal Affect: normal affect Attitude: c ooperative SENIOR PROPERTY ACCOUNTANT - PN: Obj Data Vital Signs Vital Signs: Vital Signs - 24 hr 10/06/25 08:07 10/06/25 11:25 10/06/25 17:33 Temperature 97.0 F L 97.0 F L Pulse Rate 71 68 Respiratory Rate 16 16 Blood Pressure 107/73 117/81 Pulse Oximetry 100 100 Oxygen Delivery Room Air 10/06/25 20:00 10/06/25 21:53 10/07/25 00:00 Temperature 97.6 F 97.6 F Pulse Rate 74 59 L Respiratory Rate 18 16 Blood Pressure 99/60 L 98/54 L Pulse Oximetry 100 100 100 Oxygen Delivery Room Air 10/07/25 04:00 Temperature 96.9 F L Pulse Rate 64 Respiratory Rate 20 Blood Pressure 98/62 L Pulse Oximetry 99 Oxygen Delivery Intake/Output Intake/Output: Intake & Output 10/04/25 10/05/25 10/06/25 10/07/25 23:59 23:59 23:59 23:59 Intake Total 1630 1402 1370 440 Output Total 70 30 17 2 Balance 1560 1372 1353 438 Meds/Results Medications: Active Medications Generic Name Dose Route Start Last Admin Trade Name Freq PRN Reason Stop Dose Admin Acetaminophen 1,000 mg 10/03/25 16:26 10/04/25 05:21 Acetaminophen 500 Mg Tablet PO 1,000 mg Q6H PRN Administration Mild Pain (1-3) or Fever Hydromorphone HCl 0.5 mg 10/03/25 16:26 10/04/25 04:05 Hydromorphone Hcl Inj (*Crx) 1 Mg/Ml Syr IV PUSH 0.5 mg Q2H PRN Administration Breakthrough Pain or NPO Ibuprofen 600 mg 10/03/25 16:26 10/04/25 08:43 Ibuprofen 600 Mg Tablet PO 600 mg Q6H PRN Administration Pain Rated 4-6 Lidocaine HCl 10 ml 10/07/25 11:00 Lidocaine 1% Local Inj 10 Ml Vial INFILTRATE 10/07/25 11:01 ONCE ONE Melatonin 3 mg 10/04/25 21:13 10/06/25 20:20 Melatonin 3 Mg Tablet PO 3 mg HS PRN Administration Sleep Metronidazole 500 mg 10/07/25 09:00 Metronidazole 500 Mg Tablet PO Q12H [facility] Ondansetron HCl 4 mg 10/03/25 16:26 Ondansetron Inj 4 Mg/2 Ml Vial IV PUSH Q4H PRN Nausea And Vomiting Oxycodone HCl 5 mg 10/03/25 16:26 Oxycodone Hcl (*Crx) 5 Mg Tab Ir PO Q4H PRN Pain Rated 7-10 Polyethylene Glycol 17 gm 10/04/25 09:00 10/05/25 08:27 Polyethylene Glycol 3350 17 Gm Powd.Pack PO Not Given QAM [facility] Trimethoprim/Sulfamethoxazole 1 tab 10/07/25 09:00 Sulfamethoxazole/Trimethoprim 800/160 Mg Ds Tablet PO Q12HR [facility] Radiology Results: ITS Impressions Chest/Abdomen/Pelvis CTA 10/03/25 14:26 IMPRESSION: CHEST- 1. No PE. 2. Trace pleural effusions and minimal interstitial pulmonary edema. ABDOMEN/PELVIS- 1. Large organized fluid collection within pelvis. Superinfection cannot be excluded. 2. Mild scattered peritonitis not excluded. 3. Extensive free air decrease in volume but persists. Probably merely postoperative. Catheter Placement CT 10/04/25 13:26 IMPRESSION: 1. Successful CT-guided pelvic abscess drainage catheter placement. 2. 60 mL fluid was sent for aerobic and anaerobic cultures. 3. The catheter will be managed by Dr. Leija. Labs 10/06/25 04:58 10/06/25 04:58
[2025-10-07 08:00] VITALS: BP 117/70; PULSE 80; RESP 14; TEMP 36.4; O2SAT 100
[2025-10-07] MEDS: SULFAMETHOXAZOLE/TRIMETHOPRIM 800/160 MG DS TABLET 1 TAB PO (08:26)
[2025-10-07] MEDS: fentaNYL CITRATE INJ (*CRX) 100 MCG/2 ML VIAL 50 MCG IV PUSH (12:23)
[2025-10-07] MEDS: LIDOCAINE 1% LOCAL INJ 10 ML VIAL INFILTRATE (12:23)
--- NOTE | 2025-10-11 07:48 | PM.DS ---
DS: Admitting Diagnosis Discharge Date 10/07/25 Admitting Diagnosis pelvic collection s/p laparoscopic hysterectomy DS: Discharge Diagnosis Discharge Diagnosis (1) Intra-abdominal abscess: Code(s): K65.1 - Peritoneal abscess Status: Acute (2) S/P laparoscopic hysterectomy: Code(s): Z90.710 - Acquired absence of both cervix and uterus Status: Acute DS: Summary Hospital Course Hospital Course: Gabriela is a 40yo P1011 who presented for post-op visit outpatient. She is s/p RA-TLH/LS + TOT/cysto on 09/26/25. She reports not doing great since surgery. She reports a fever on POD#2 and went to [facility] ER; CT scan was done and normal (showed some mild fluid/gas, nothing concerning though); WBC was 16 but she had no fever, UA was concerning for UTI so she was given dose of zosyn in the ER and sent home on bactrim (still taking it). Urine culture did confirm e.coli UTI. She went to a different ER 10/02/[address] scan showing a 6.7cm fluid collection. WBC was down to 9. She feels bloated, short of breath, fast heart rate; very uncomfortable. She reports her pain is not fully controlled; taking Tylenol/ibuprofen only because the oxy were making her more constipated. She finally had a BM last night; taking colace and miralax-- it was loose. She is tolerating regular diet. She denies any further fever/chills. No abnormal bleeding and no vaginal discharge. No issues with her incision. On admission, CTA of chest ruled out PE. CT A/P confirmed large pelvic collection and she was admitted for IV antibiotics and IR percutaneous drain placement. She was started on Zosyn and remained on that most of her stay. She had a percutaneous drain placed on HD#2 bu radiology and most of the output was on that day. She remained stable with downtrending labs, normal vitals. She was ambulating, tolerating regular diet, voiding, and having BM w/o issue. She did not have any vaginal discharge or bleeding. On HD#5, she was transition to PO meds (bactrim and flagyl). The drain output the prior 24 hours was <2ml and the drain was removed prior to discharge home. She was discharged home to complete 14 days of oral antibiotics. She will follow up in clinic on 10/19/25. The blood and wound cultures did not grow anything. Status at Discharge Functional status at discharge: independent ambulation Overall status at discharge: patient is back to baseline Time Spent with Patient Time attestation: Total time spent providing and/or coordinating discharge services: Time spent: Less than 30 minutes Exam Const: General: cooperative, healthy appearing, comfortable and no acute distress Orientation/consciousness: patient oriented x3 Resp: Effort & Inspection: normal respiratory effort Auscultation: clear to auscultation bilaterally Cardio: Rate: regular rate GI: Inspection: normal to inspection and incision ( [facility] incisions c/d/i) GI Palp: Yes abdominal tenderness (appropriate) and Yes Soft to palpation Auscultation: normal bowel sounds Other: drain removed prior to discharge home; surrounding skin clean/no erythema, 1cc of blood from site Skin: General skin exam: normal color Neuro: General: patient oriented x3 Psych: Appearance: grossly normal Affect: normal affect Attitude: cooperative Discharge Plan Discharge Attending physician on discharge: Judy Leija Consulting providers: Frantz Romero; Bryan Astorga; Ilir Bajwa; Robert Kearney Discharging Clinician: Judy Leija Anticipated Discharge Date/Time: 10/07/25 13:00 Patient Disposition: Home Activity: may shower and pelvic rest Diet: regular Patient Instructions: Antibiotic Form Patient Language: Croatian Stand Alone Forms: General Discharge Information Follow-up/Referrals: Judy Leija MD [Primary Care Provider, [employer]CH[employer]ICIAN] - 4 Weeks Discharge Medications: New metronidazole 500 mg Tablet 500 mg PO Q12H Qty: 27 0RF sulfamethoxazole-trimethoprim 800-160 mg Tablet 1 tab PO Q12HR Qty: 27 0RF fluconazole 150 mg tablet 150 mg PO Q72H Qty: 3 1RF Continued multivitamin [Daily Multi-Vitamin] Tablet 1 tablet PO DAILY Mounjaro 5 mg/0.5 mL pen injector 10 mg subcut WEEKLY Rx Instructions: FRIDAY Nurtec ODT 75 mg tablet,disintegrating 75 mg PO ONCE PRN (Reason: Migraine Headache) Rx Instructions: as a single dose psyllium husk [Daily Fiber] 0.52 gram capsule 0.52 g PO DAILY magnesium 250 mg tablet 250 mg PO BID cyanocobalamin (vitamin B-12) [Vitamin B-12] 100 mcg tablet 50 mcg PO DAILY acetaminophen 500 mg tablet 1,000 mg PO Q6H Qty: 80 0RF docusate sodium [Colace] 100 mg capsule 100 mg PO BID Qty: 90 0RF ibuprofen 800 mg tablet 800 mg PO TID Qty: 30 0RF simethicone 80 mg Tablet,Chewable 80 mg PO TIDWM Qty: 30 0RF sulfamethoxazole-trimethoprim [Bactrim DS] 800-160 mg tablet 1 tablet PO Q12H 7 Days Qty: 14 0RF ondansetron 4 mg tablet,disintegrating 4 mg PO Q8H PRN (Reason: nausea and vomiting) Qty: 14 0RF topiramate 100 mg tablet 50 mg PO DAILY valacyclovir [Valtrex] 500 mg tablet 500 mg PO DAILY Qty: 90 3RF Date of admission: 10/04/25 10:28 Primary Care Provider: Judy Leija Admitting Provider: Judy Leija Attending physician on admission: Judy Leija Condition: Stable
== END 2025-10-07 13:19 | disposition home or self-care (01) | DRG 856 ==
LOC: ANHED 14:58 → ANH3MEDSUR 15:07 → ANH2MED 16:38
PROVIDERS: Radiology Diagnostic Radiology; Admitting Provider Obstetrics & Gynecology; Emergency Provider Emergency Medicine; PCP Obstetrics & Gynecology; Visit Provider Obstetrics & Gynecology
PROC: 0W9G40Z Drainage of Peritoneal Cavity with Drainage Device, Percutaneous Endoscopic Approach (ICD-10-PCS; CPT 75989; principal; 2025-10-04 11:30)
DX: T81.43XA Infection following a procedure, organ and space surgical site, initial encounter (principal); K65.1 Peritoneal abscess; N39.0 Urinary tract infection, site not specified; E11.9 Type 2 diabetes mellitus without complications; K59.00 Constipation, unspecified; F10.90 Alcohol use, unspecified, uncomplicated; Z79.85 Long-term (current) use of injectable non-insulin antidiabetic drugs; Z79.2 Long term (current) use of antibiotics; Z98.84 Bariatric surgery status; Z90.49 Acquired absence of other specified parts of digestive tract
CPT/HCPCS: 36415; 49406; 71275; 74177; 80053; 83605; 83690; 85025; 85610; 85730; 87040; 87070; 87075; 87205; 93005; 96365; 99285; A9270; C1729; G0378; J1171; J1756; J2003; J2250; J2543; J3010; J7040; J7050; J7120; Q9967